=== PATIENT | male | born 1950 ===

== ENCOUNTER 2017-01-08 14:19 | Observation (INO) | payer MEDICARE, OTHER ==
[2017-01-08 14:19] VITALS: BMI 29.5
--- NOTE | 2017-01-08 16:54 | C.PDOC ---
History Of Present Illness 66 year old male with PMH DM, HTN, alcohol abuse presents to the ED with complaints of swelling to his legs and face for the past 3 days. Patient states he occasionally feels dizzy, headache and a bit nauseous. According to daughter , he had kidney problems many years ago but it has since self-resolved. His blood sugar is at baseline at 180. Denies vomiting, chest pain, SOB, rash, itching, throat swelling, lip or tongue swelling, or any other complaints at this time. NO known allergens, new medication or food. (-) change in vision (-) photophobia Time Seen by Provider: 01/08/17 16:28 Chief Complaint (Nursing): Lower Extremity Problem/Injury History Per: Patient, Family (Daughter acting as nursing care attendant) History/Exam Limitations: language barrier Onset/Duration Of Symptoms: Days Current Symptoms Are (Timing): Still Present Severity: Mild Past Medical History Reviewed: Historical Data, Nursing Documentation, Vital Signs Vital Signs: Last Vital Signs Temp 98.4 F 01/09/17 17:36 Pulse 70 01/09/17 17:36 Resp 20 01/09/17 17:36 BP 155/88 H 01/09/17 17:36 Pulse Ox 97 01/11/17 13:43 - Medical History PMH: Anemia, Diabetes, HTN, Pancreatitis Surgical History: Appendectomy Family History: States: Unknown Family Hx - Social History Hx Tobacco Use: No Hx Alcohol Use: Yes Hx Substance Use: No - Immunization History Hx Tetanus Toxoid Vaccination: No Hx Influenza Vaccination: No Hx Pneumococcal Vaccination: No Review Of Systems Except As Marked, All Systems Reviewed And Found Negative. Constitutional: Positive for: Other (+Swelling to hands and face). Negative for : Fever, Chills Cardiovascular: Negative for: Chest Pain, Palpitations Respiratory: Negative for: Shortness of Breath Gastrointestinal: Positive for: Nausea. Negative for: Vomiting, Abdominal Pain Skin: Negative for: Rash Neurological: Positive for: Dizziness. Negative for: Weakness, Numbness Physical Exam - Physical Exam Appears: Non-toxic, No Acute Distress Skin: Normal Color, Warm, Dry, No Rash Head: Atraumatic, Normacephalic, Other (No extensive facial swelling noted) Eye(s): bilateral: Normal Inspection, EOMI Nose: Normal Oral Mucosa: Moist Neck: Supple Chest: Symmetrical, No Deformity Cardiovascular: Rhythm Regular Respiratory: Normal Breath Sounds, No Accessory Muscle Use, No Rales, No Rhonchi , No Wheezing Gastrointestinal/Abdominal: Soft Extremity: Normal ROM, Pedal Edema (+Pitting pedal edema), No Deformity Pulses: Left Radial: Normal, Right Radial: Normal Neurological/Psych: Oriented x3, Normal Speech, Normal Cognition, Normal Motor, Normal Sensation ED Course And Treatment - Laboratory Results Result Diagrams: 01/09/17 08:18 01/09/17 08:18 ECG: Interpreted By Me, Viewed By Me ECG Rhythm: Sinus Rhythm, Nonspecific Changes Rate From EC O2 Sat by Pulse Oximetry: 97 (Room air) Pulse Ox Interpretation: Normal Progress Note: CXR, EKG, Blood work, and Urinalysis ordered and reviewed. Case discussed with Dr. Jung who agreed with plan and admission. Disposition - Disposition Disposition: HOSPITALIZED Disposition Time: 17:00 Condition: STABLE - Clinical Impression Clinical Impression: ETOH abuse, Thrombocytopenia, Leg edema, Diabetes, Dizziness - PA / DELIMER / Resident Statement MD/DO has reviewed & agrees with the documentation as recorded. - Scribe Statement The provider has reviewed the documentation as recorded by the Scribe Alon Mcginnis. All medical record entries made by the Scribe were at my direction and personally dictated by me. I have reviewed the chart and agree that the record accurately reflects my personal performance of the history, physical exam, medical decision making, and the department course for this patient. I have also personally directed, reviewed, and agree with the discharge instructions and disposition.
[2017-01-08 18:11] LABS: BASO # 0.1 K/uL (0.0-0.2); BASO % 1.5 % (0.0-2.0); EOS # 0.1 K/uL (0.0-0.7); EOS % 1.5 % (0.0-4.0); HEMATOCRIT 37.3 % (35.0-51.0); LYMPH % 29.1 % (20.0-40.0); MEAN CELL VOLUME 90.5 fL (80.0-94.0); MEAN CORPUSCULAR HEMOGLOBIN 29.7 pg (27.0-31.0); MEAN CORPUSCULAR HGB CONC 32.9 g/dL (33.0-37.0); MONO # 0.4 K/uL (0.0-0.8); MONO % 10.5 % (0.0-10.0); NRBC % 0.1 % (0.0-2.0); RED CELL DISTRIBUTION WIDTH 15.9 % (11.5-14.5); WHITE BLOOD COUNT 3.5 K/uL (4.8-10.8)
[2017-01-08 18:14] LABS: POTASSIUM 4.6 mmol/L (3.6-5.2)
[2017-01-08 18:16] LABS: BILIRUBIN,TOTAL 2.1 mg/dL (0.2-1.3); RBC URINE 7 /hpf (0-3); URINE BILIRUBIN NEGATIVE (NEGATIVE); URINE BLOOD 1+ (NEGATIVE); URINE COLOR Straw (YELLOW); URINE GLUCOSE (UA) NORMAL (Normal); URINE KETONE TRACE mg/dL (NEGATIVE); URINE LEUKOCYTE ESTERASE NEG Leu/uL (Negative); URINE PROTEIN NEGATIVE (NEGATIVE)
[2017-01-08 18:17] LABS: ALB/GLOB RATIO 1.2 (1.0-2.1); CALCIUM 8.5 mg/dl (8.6-10.4); TOTAL PROTEIN 6.9 g/dL (6.3-8.3)
[2017-01-08 18:28] LABS: TROPONIN I 0.02 ng/mL (0.00-0.120)
--- NOTE | 2017-01-08 20:29 | CP.PCM.HP ---
History of Present Illness - History of Present Illness History of Present Illness: CC: "leg swelling" 66 year old male with PMHx of DM, HTN, alcohol abuse, presents to the ED with complaints of facial and LE swelling. Swelling began 3-4 days ago and has progressively become worse. He states this happened once 6 months ago and went to see his PMD, Dr. Jung. He does not report any new medications or new foods. He denies chest pain, SOB, cough or palpitations. He denies pruritus, sore throat or throat swelling. Admits to occasional PAULSON and can only climb half way up a flight of stairs before having to stop to catch his breath. He sleeps with 1-2 pillows a night, but reports he is able to lay flat. He denies waking up in the middle of the night gasping for air. Denies abdominal pain, nausea, vomiting , diarrhea, and is sometimes constipated. He also reports he has been experiencing headaches for the past month. Headaches wake him from sleep at around 3 am and last 3-4 hours. They have been occurring for 3-4 times a week and are relieved with Motrin. He denies photophobia, history of migraines, lacrimation, neck pain, blurry vision. PMHx: ETOH abuse, ETOH Pancreatitis, DM, HTN Medications: Glimiperide 4 mg PO BID, Lisinopril 20 mg PO daily, Lasix 40 mg PO daily, Propranalol 20 mg PO TID, KCl 20 mg PO BID, Humulin N sliding scale. PSHx: appendectomy Family hx: Both parents , father with DM. Social hx: Drinks about 6-9 shots of vodka daily. Last drink was last night at 10 pm. Former smoker, quit 20 yrs ago, denies drug use. Lives with family, retired. Allergies: NKDA. PMD: Dr. Jung Present on Admission - Present on Admission Any Indicators Present on Admission: No Review of Systems - Constitutional Constitutional: absent: Chills, Fatigue, Fever - EENT Eyes: absent: Blurred Vision, Change in Vision, Irritation, Photophobia Ears: Dizziness Nose/Mouth/Throat: absent: Sore Throat, Neck Pain - Cardiovascular Cardiovascular: Dyspnea on Exertion, Leg Edema, Pedal Edema. absent: Chest Pain , Chest Pain at Rest, Dyspnea - Respiratory Respiratory: Dyspnea on Exertion. absent: Cough, Dyspnea - Gastrointestinal Gastrointestinal: Constipation. absent: Abdominal Pain, Diarrhea, Nausea, Vomiting - Genitourinary Genitourinary: absent: Difficulty Urinating, Dysuria, Urinary Frequency, Urinary Urgency - Musculoskeletal Musculoskeletal: absent: Atrophy, Back Pain, Numbness, Tingling - Integumentary Integumentary: absent: Bleeding Lesions, Skin Pain, Wounds - Neurological Neurological: Dizziness, Headaches. absent: Numbness, Paresthesias, Syncope, Tingling - Psychiatric Psychiatric: absent: Confusion, Depression - Endocrine Endocrine: absent: Fatigue, Palpitations, Polydipsia, Polyphagia, Polyuria Past Patient History - Infectious Disease Hx of Infectious Diseases: None - Past Medical History & Family History Past Medical History?: Yes - Past Social History Smoking Status: Never Smoked - CARDIAC Hx Hypertension: Yes - PULMONARY Hx Respiratory Disorders: No - NEUROLOGICAL Hx Neurological Disorder: No - HEENT Hx HEENT Problems: No - RENAL Hx Chronic Kidney Disease: No - ENDOCRINE/METABOLIC Hx Endocrine Disorders: Yes Hx Diabetes Mellitus Type 1: Yes Hx Diabetes Mellitus Type 2: Yes - HEMATOLOGICAL/ONCOLOGICAL Hx Anemia: Yes - INTEGUMENTARY Hx Dermatological Problems: No - MUSCULOSKELETAL/RHEUMATOLOGICAL Hx Musculoskeletal Disorders: No - GASTROINTESTINAL Hx Pancreatitis: Yes - GENITOURINARY/GYNECOLOGICAL Hx Genitourinary Disorders: No - PSYCHIATRIC Hx Substance Use: No - SURGICAL HISTORY Hx Appendectomy: Yes - ANESTHESIA Hx Anesthesia: Yes Hx Anesthesia Reactions: No Meds Allergies/Adverse Reactions: Allergies Allergy/AdvReac Type Severity Reaction Status Date / Time No Known Allergies Allergy Verified 01/08/17 15:40 Physical Exam - Constitutional Appears: No Acute Distress - Head Exam Head Exam: NORMAL INSPECTION, NORMOCEPHALIC - Eye Exam Eye Exam: EOMI, Scleral icterus Pupil Exam: PERRL Additional comments: periorbital erythema - ENT Exam ENT Exam: Mucous Membranes Moist, Normal Oropharynx - Neck Exam Neck exam: Positive for: Full Rom, Normal Inspection - Respiratory Exam Respiratory Exam: Clear to Auscultation Bilateral. absent: Rales, Rhonchi, Wheezes - Cardiovascular Exam Cardiovascular Exam: REGULAR RHYTHM, +S1, +S2 - GI/Abdominal Exam GI & Abdominal Exam: Normal Bowel Sounds, Soft. absent: Distended, Tenderness - Extremities Exam Extremities exam: Positive for: pedal edema, tenderness (righ le), pedal pulses present - Back Exam Back exam: NORMAL INSPECTION - Neurological Exam Neurological exam: Alert, CN II-XII Intact, Oriented x3 - Psychiatric Exam Psychiatric exam: Normal Affect, Normal Mood - Skin Skin Exam: Dry, Normal Color, Warm Results - Vital Signs Recent Vital Signs: Last Vital Signs Temp 98.3 F 01/08/17 15:45 Pulse 78 01/08/17 15:45 Resp 20 01/08/17 15:45 BP 178/97 H 01/08/17 15:45 Pulse Ox 97 01/08/17 18:46 - Labs Result Diagrams: 01/08/17 18:05 01/08/17 18:05 Assessment & Plan (1) Leg edema Assessment and Plan: Patient denies history of heart failure. Patient given Lasix 40 in the ED. EKG on admission shows [id number] bpm. BNP 604 (152 in 2013) Albumin 3.8 (normal) f/u ECHO, none on file. Start the following medications: Lasix 40 mg IVP BID Propranolol 20 mg PO TID Hold ACEi for JANENE I/O's Daily weights Low Sodium Diet Status: Acute (2) Headache Assessment and Plan: f/u head CT control BP Status: Acute (3) ETOH abuse Assessment and Plan: Librium taper Librium 25 mg IVP PRN Q4H Ativan Thiamine PO daily MV PO daily Folic Acid PO daily Monitor for withdrawal. Last drink 10 pm on 01/07/17. Aspiration precautions Seizure precautions Status: Chronic (4) Thrombocytopenia Assessment and Plan: Likely secondary to BM suppression due to alcohol abuse. Status: Acute (5) Bilirubinemia Assessment and Plan: Clary Garzon: 2.1 Patient with history of 2 pancreatic masses as seen on MRCP 2015 with need for 3 month follow up. f/u direct and total bili f/u abd US Status: Acute (6) Neutropenia Assessment and Plan: Likely secondary to BM suppression due to alcohol abuse. Status: Acute (7) Elevated LFTs Status: Acute (8) Creatinine elevation Assessment and Plan: NS at 100 cc/hr f/u CMP in the AM Status: Acute (9) Diabetes Assessment and Plan: Amyril 4 mg PO BID ISS ACCUCHECKS f/u Hgb A1C Status: Chronic (10) HTN (hypertension) Assessment and Plan: Propranolol 20 mg PO TID Hold ACEi for JANENE Continue Lasix Status: Chronic (11) Prophylactic measure Assessment and Plan: SCDs contraindicated Protonix 40 mg PO daily May start chemical AC once head CT shows no IC bleed. All orders as per Dr. Jung Status: Acute
[2017-01-08 22:22] VITALS: O2SAT 97
[2017-01-08] MEDS: (Novolin R) Insulin Human Regular 100 units/ml vial SC SCH (22:31)
[2017-01-09 00:41] VITALS: RESP 20
[2017-01-09 08:27] LABS: BASO % 1.3 % (0.0-2.0); EOS % 1.2 % (0.0-4.0); HEMATOCRIT 34.5 % (35.0-51.0); LYMPH # 0.8 K/uL (1.0-4.3); LYMPH % 28.3 % (20.0-40.0); MEAN CELL VOLUME 92.2 fL (80.0-94.0); MEAN CORPUSCULAR HEMOGLOBIN 29.7 pg (27.0-31.0); MEAN CORPUSCULAR HGB CONC 32.2 g/dL (33.0-37.0); MEAN PLATELET VOLUME 8.3 fL (7.2-11.7); MONO # 0.3 K/uL (0.0-0.8); MONO % 11.4 % (0.0-10.0); NRBC % 0.2 % (0.0-2.0); RED CELL DISTRIBUTION WIDTH 16.1 % (11.5-14.5); WHITE BLOOD COUNT 2.8 K/uL (4.8-10.8)
[2017-01-09 08:39] LABS: POTASSIUM 3.9 mmol/L (3.6-5.2)
[2017-01-09 08:41] LABS: ALB/GLOB RATIO 1.2 (1.0-2.1); BILIRUBIN,DIRECT 0.8 mg/dL (0.0-0.4); BILIRUBIN,TOTAL 2.1 mg/dL (0.2-1.3); TOTAL PROTEIN 6.1 g/dL (6.3-8.3)
[2017-01-09 08:42] LABS: CALCIUM 8.5 mg/dl (8.6-10.4)
[2017-01-09] MEDS: (Novolin R) Insulin Human Regular 100 units/ml vial SC SCH ×3 (08:44→17:09)
[2017-01-09 09:11] LABS: THYROID STIMULATING HORMONE 3.48 mIU/L (0.46-4.68)
--- NOTE | 2017-01-09 09:21 | CT ---
PROCEDURE: CT HEAD WITHOUT CONTRAST. HISTORY: headache, dizziness COMPARISON: Comparison is made to the previous study dated 04/22/2014 TECHNIQUE: Axial computed tomography images were obtained through the head/brain without intravenous contrast. Radiation dose: Total exam DLP = 737.04 mGy-cm. This CT exam was performed using one or more of the following dose reduction techniques: Automated exposure control, adjustment of the mA and/or kV according to patient size, and/or use of iterative reconstruction technique. FINDINGS: HEMORRHAGE: No intracranial hemorrhage. BRAIN: No mass effect or edema. Moderate atrophy and mild chronic microvascular white matter ischemic disease are again noted. VENTRICLES: Unremarkable. No hydrocephalus. CALVARIUM: Unremarkable. PARANASAL SINUSES: Re- demonstration of small mucosal retention cyst at the right renal sinus. MASTOID AIR CELLS: Unremarkable as visualized. No inflammatory changes. OTHER FINDINGS: None. IMPRESSION: No evidence of acute intracranial hemorrhage intracranial collection mass effect or midline shift. No significant interval change compared to the previous exam. Preliminary report was submitted by virtual Radiology.
--- NOTE | 2017-01-09 09:26 | RAD ---
PROCEDURE: CHEST RADIOGRAPH, 1 VIEW HISTORY: SOB COMPARISON: Comparison is made to the previous study dated 05/15/2015 FINDINGS: LUNGS: No evidence of new infiltrate or consolidation in the lungs PLEURA: No pneumothorax or pleural fluid seen. CARDIOVASCULAR: Normal. OSSEOUS STRUCTURES: No significant abnormalities. VISUALIZED UPPER ABDOMEN: Normal. OTHER FINDINGS: None. IMPRESSION: No active disease.
[2017-01-09] MEDS ORDERED: Pantoprazole 40 mg EC Tab PO SCH (10:00)
[2017-01-09] MEDS ORDERED: Multiple Vitamins Tab PO SCH (10:00)
--- NOTE | 2017-01-09 15:17 | CP.PCM.DIS ---
Provider - Provider Date of Admission: 01/08/17 18:40 Attending physician: Justin Jung Jr, MD Primary care physician: Fabiana Time Spent in preparation of Discharge (in minutes): 29 Hospital Course - Lab Results Lab Results: Micro Results 01/08/17 Unknown Urine Urine Culture - Preliminary No growth. Most Recent Lab Values WBC 2.8 K/uL (4.8-10.8) L 01/09/17 08:18 RBC 3.75 Mil/uL (4.40-5.90) L 01/09/17 08:18 Hgb 11.1 g/dL (12.0-18.0) L 01/09/17 08:18 Hct 34.5 % (35.0-51.0) L 01/09/17 08:18 MCV 92.2 fL (80.0-94.0) 01/09/17 08:18 MCH 29.7 pg (27.0-31.0) 01/09/17 08:18 MCHC 32.2 g/dL (33.0-37.0) L 01/09/17 08:18 RDW 16.1 % (11.5-14.5) H 01/09/17 08:18 Plt Count 82 K/uL (130-400) L 01/09/17 08:18 MPV 8.3 fL (7.2-11.7) 01/09/17 08:18 Neut % (Auto) 57.8 % (50.0-75.0) 01/09/17 08:18 Lymph % (Auto) 28.3 % (20.0-40.0) 01/09/17 08:18 Preble % (Auto) 11.4 % (0.0-10.0) H 01/09/17 08:18 Eos % (Auto) 1.2 % (0.0-4.0) 01/09/17 08:18 Baso % (Auto) 1.3 % (0.0-2.0) 01/09/17 08:18 Neut # 1.6 K/uL (1.8-7.0) L 01/09/17 08:18 Lymph # 0.8 K/uL (1.0-4.3) L 01/09/17 08:18 Preble # 0.3 K/uL (0.0-0.8) 01/09/17 08:18 Eos # 0.0 K/uL (0.0-0.7) 01/09/17 08:18 Baso # 0.0 K/uL (0.0-0.2) 01/09/17 08:18 Differential Comment 01/08/17 18:05 Sodium 130 mmol/L (132-148) L 01/09/17 08:18 Potassium 3.9 mmol/L (3.6-5.2) 01/09/17 08:18 Chloride 85 mmol/L (98-107) L 01/09/17 08:18 Carbon Dioxide 30 mmol/L (22-30) 01/09/17 08:18 Anion Gap 18 (10-20) 01/09/17 08:18 BUN 16 mg/dL (9-20) 01/09/17 08:18 Creatinine 1.7 MG/DL (0.8-1.5) H 01/09/17 08:18 Est GFR ( Amer) 49 01/09/17 08:18 Est GFR (Non-Af Amer) 40 01/09/17 08:18 POC Glucose (mg/dL) 304 mg/dL (65-110) H 01/09/17 11:31 Random Glucose 169 mg/dL (75-110) H 01/09/17 08:18 Hemoglobin A1c 8.0 % (4.2-6.5) H 01/09/17 08:18 Calcium 8.5 mg/dl (8.6-10.4) L 01/09/17 08:18 Total Bilirubin 2.1 mg/dL (0.2-1.3) H 01/09/17 08:18 Direct Bilirubin 0.8 mg/dL (0.0-0.4) H 01/09/17 08:18 AST 113 U/L (17-59) H D 01/09/17 08:18 ALT 69 U/L (21-72) 01/09/17 08:18 Alkaline Phosphatase 70 U/L (38-126) 01/09/17 08:18 Total Creatine Kinase 91 U/L (55-170) 01/08/17 18:05 CK-MB (Mass) 1.65 ng/mL (0.0-3.38) 01/08/17 18:05 Troponin I 0.0200 ng/mL (0.00-0.120) 01/08/17 18:05 NT-Pro-B Natriuret Pep 604 pg/mL (0-900) 01/08/17 18:05 Total Protein 6.1 g/dL (6.3-8.3) L 01/09/17 08:18 Albumin 3.3 g/dL (3.5-5.0) L 01/09/17 08:18 Globulin 2.8 gm/dL (2.2-3.9) 01/09/17 08:18 Albumin/Globulin Ratio 1.2 (1.0-2.1) 01/09/17 08:18 Triglycerides 93 mg/dL (0-149) 01/09/17 08:18 Cholesterol 152 mg/dL (0-199) 01/09/17 08:18 LDL Cholesterol Direct 47 mg/dL (0-129) 01/09/17 08:18 HDL Cholesterol 87 mg/dL (30-70) H 01/09/17 08:18 TSH 3rd Generation 3.48 mIU/L (0.46-4.68) 01/09/17 08:18 Urine Color Straw (YELLOW) 01/08/17 18:05 Urine Clarity Clear (Clear) 01/08/17 18:05 Urine pH 9.0 (5.0-8.0) 01/08/17 18:05 Ur Specific Douglass 1.004 (1.003-1.030) 01/08/17 18:05 Urine Protein Negative mg/dL (NEGATIVE) 01/08/17 18:05 Urine Glucose (UA) Normal mg/dL (Normal) 01/08/17 18:05 Urine Ketones Trace mg/dL (NEGATIVE) 01/08/17 18:05 Urine Blood 1+ (NEGATIVE) H 01/08/17 18:05 Urine Nitrate Negative (NEGATIVE) 01/08/17 18:05 Urine Bilirubin Negative (NEGATIVE) 01/08/17 18:05 Urine Urobilinogen 2.0 mg/dL (0.2-1.0) 01/08/17 18:05 Ur Leukocyte Esterase Neg D[place]/uL (Negative) 01/08/17 18:05 Urine RBC (Auto) 7 /hpf (0-3) H 01/08/17 18:05 - Hospital Course Hospital Course: On hospital admission 66 year old male with PMHx of DM, HTN, alcohol abuse, presents to the ED with complaints of facial and LE swelling. Swelling began 3-4 days ago and has progressively become worse. He states this happened once 6 months ago and went to see his PMD, Dr. Jung. He does not report any new medications or new foods. He denies chest pain, SOB, cough or palpitations. He denies pruritus, sore throat or throat swelling. Admits to occasional PAULSON and can only climb half way up a flight of stairs before having to stop to catch his breath. He sleeps with 1-2 pillows a night, but reports he is able to lay flat. He denies waking up in the middle of the night gasping for air. Denies abdominal pain, nausea, vomiting , diarrhea, and is sometimes constipated. He also reports he has been experiencing headaches for the past month. Headaches wake him from sleep at around 3 am and last 3-4 hours. They have been occurring for 3-4 times a week and are relieved with Motrin. He denies photophobia, history of migraines, lacrimation, neck pain, blurry vision. On hospital course Pt admitted with lower extremity edema and headache, complicated by hx of alcohol abuse. Pt denied and hx of CHF but work up was started with ordering an echo and reviewing labs. He was diuresed and started on propranolol. Lower extremity doplers were also ordered to r/o any DVT. A head CT was ordered to r/ o any organic causes of his headache but was normal. The following day the pt reported that his headache had resolved and he had no more complaints. Pt was discharged in stable condition with instructions to follow up with Dr Jung in his office where all results that were still pending could be reviewed. Diagnoses Headache Lower extremity edema Etoh abuse Thrombocytopenia Neutropenia Bilirubinemia Diabetes HTN - Date & Time of H&P Date of H&P: 01/08/17 Time of H&P: 20:17 Discharge Exam - Head Exam Head Exam: NORMAL INSPECTION, NORMOCEPHALIC - Eye Exam Eye Exam: Normal appearance Pupil Exam: PERRL - ENT Exam ENT Exam: Mucous Membranes Moist - Respiratory Exam Respiratory Exam: Clear to PA & Lateral, UNREMARKABLE - Cardiovascular Exam Cardiovascular Exam: +S1, +S2 - GI/Abdominal Exam GI & Abdominal Exam: Distended, Normal Bowel Sounds, Unremarkable. absent: Tenderness - Extremities Exam Extremities exam: pedal edema (1+) - Neurological Exam Neurological exam: Alert, Oriented x3 - Skin Skin Exam: Dry, Warm Discharge Plan - Follow Up Plan Condition: GOOD Disposition: HOME/ ROUTINE Instructions: Vertigo (DC), Dizziness (GEN), Edema (DC) Additional Instructions: Follow up with Dr Jung in his office within the next couple of weeks and resume your home medications. Referrals: Justin Jung Jr., MD [Medical Doctor] -
--- NOTE | 2017-01-09 16:01 | VASCLAB ---
PROCEDURE: Lower Extremity Venous Duplex Exam. HISTORY: le edema PRIORS: None. TECHNIQUE: Bilateral common femoral, femoral, popliteal and posterior tibial, peroneal and great saphenous veins were evaluated. Flow was assessed with color Doppler, compressibility, assessment of phasic flow and augmentation response. Report prepared by LISA Pereira, RVT FINDINGS: RIGHT: 1. Common Femoral Vein: 1.1. Compressibility - Fully compressible: Thrombus - None : Flow - Phasic: Augmentation -Normal: Reflux - None. 2. Femoral Vein: 2.1. Compressibility - Fully compressible: Thrombus - None : Flow - Phasic: Augmentation -Normal: Reflux - None. 3. Popliteal Vein: 3.1. Compressibility - Fully compressible: Thrombus - None : Flow - Phasic: Augmentation -Normal: Reflux - None. 4. Posterior Tibial Vein: 4.1. Compressibility - Fully compressible: Thrombus - None: Flow - Phasic: Augmentation -Normal: Reflux - None. 5. Peroneal Vein: 5.1. Compressibility - Fully compressible: Thrombus - None: Flow - Phasic: Augmentation -Normal: Reflux - None. 6. Great Saphenous Vein: 6.1. Compressibility - Fully compressible: Thrombus - None: Flow - Phasic: Augmentation - Normal: Reflux - None. LEFT: 1. Common Femoral Vein: 1.1. Compressibility - Fully compressible: Thrombus - None: Flow - Phasic: Augmentation -Normal: Reflux - None. 2. Femoral Vein: 2.1. Compressibility - Fully compressible: Thrombus - None: Flow - Phasic: Augmentation -Normal: Reflux - None. 3. Popliteal Vein: 3.1. Compressibility - Fully compressible: Thrombus - None : Flow - Phasic: Augmentation -Normal: Reflux - None. 4. Posterior Tibial Vein: 4.1. Compressibility - Fully compressible: Thrombus - None: Flow - Phasic: Augmentation -Normal: Reflux - None. 5. Peroneal Vein: 5.1. Compressibility - Fully compressible: Thrombus - None: Flow - Phasic: Augmentation -Normal: Reflux - None. 6. Great Saphenous Vein: 6.1. Compressibility - Fully compressible: Thrombus - None: Flow - Phasic: Augmentation - Normal: Reflux - None. OTHER FINDINGS: Right: None significant. Left: None significant. IMPRESSION: Right: No evidence of deep or superficial vein thrombosis of the right lower extremity. Normal valve function noted of the right side. Left: No evidence of deep or superficial vein thrombosis of the left lower extremity. Normal valve function noted of the left side.
[2017-01-09 17:37] VITALS: BP 155/88; PULSE 70; TEMP 98.4
--- NOTE | 2017-01-09 18:13 | US ---
HISTORY: elevated tbilli, alcoholic COMPARISON: October 10, 2015. TECHNIQUE: Sonographic evaluation of the abdomen. FINDINGS: LIVER: Measures 17.7 cm. Hepatopedal blood flow. Fatty infiltration manifest ultrasonographically as increased echogenicity of the liver parenchyma. No mass. No intrahepatic bile duct dilatation. GALLBLADDER: Unremarkable. No gallstones. COMMON BILE DUCT: Measures 4.7 mm. No stones. No dilatation. PANCREAS: Obscured by overlying bowel gas. Non diagnostic assessment of the pancreas RIGHT KIDNEY: Measures 11.8 x 5.4cm. Normal echogenicity. No calculus, mass, or hydronephrosis. LEFT KIDNEY: Measures 11.7 x 5.8cm. Normal echogenicity. No calculus, mass, or hydronephrosis. SPLEEN: Normal in size and contour. No mass. AORTA: No aneurysmal dilatation. IVC: Unremarkable. OTHER FINDINGS: None. IMPRESSION: No acute findings related to/accounting for the clinical presentation. No significant interval change compared to the prior examination(s). Additional benign and/or incidental findings described above.
--- NOTE | 2017-01-10 19:05 | CARD ---
APPROVED REPORT EKG Measurement Heart [id number] <Conclusion> Normal sinus rhythm Left axis deviation Nonspecific ST and T wave abnormality Abnormal ECG
--- NOTE | 2017-01-10 19:27 | CARD ---
APPROVED REPORT EXAM: Two-dimensional and M-mode echocardiogram with Doppler and color Doppler. Other Information Quality : AverageRhythm : NSR INDICATION Dizziness and Vertigo RISK FACTORS Hypertension Hyperlipidemia Diabetes M-Mode DIMENSIONS Left Atrium (MM)3.54 (2.5-4.0cm)IVSd1.11 (0.7-1.1cm) Aortic Root3.58 (2.2-3.7cm)LVDd4.77 (4.0-5.6cm) Aortic Cusp Exc.1.55 (1.5-2.0cm)PWd1.18 (0.7-1.1cm) FS (%) 39 %LVDs2.92 (2.0-3.8cm) LVEF (%)69 (>50%) Mitral Valve MV E Ojuzrjdv05.7cm/sMV A Flwgjtja05.7cm/sE/A ratio1.0 TDI E/Lateral E'0.0E/Medial E'0.0 Tricuspid Valve TR Peak [id number]/sTR Peak Gr.[id number] LEFT VENTRICLE The left ventricle is normal size. There is borderline concentric left ventricular hypertrophy. Left ventricle systolic function is normal. The Ejection Fraction is 65-70%. There is normal LV segmental wall motion. The left ventricular diastolic function is normal. RIGHT VENTRICLE The right ventricle is normal size. There is normal right ventricular wall thickness. The right ventricular systolic function is normal. ATRIA The left atrium size is normal. The right atrium size is normal. The interatrial septum is intact with no evidence for an atrial septal defect. AORTIC VALVE The aortic valve is normal in structure. No aortic regurgitation is present. There is no aortic valvular stenosis. There is no aortic valvular vegetation. MITRAL VALVE The mitral valve is normal in structure. There is no evidence of mitral valve prolapse. There is no mitral valve stenosis. Mitral regurgitation is trace. TRICUSPID VALVE The tricuspid valve is normal in structure. There is trace tricuspid regurgitation. Right ventricular systolic pressure is estimated at less than 30 mmHg. There is no pulmonary hypertension. PULMONIC VALVE The pulmonic valve is not well visualized. There is no pulmonic valvular regurgitation. GREAT VESSELS The aortic root is normal in size. PERICARDIAL EFFUSION There is no significant pericardial effusion. <Conclusion> Left ventricle systolic function is normal. The Ejection Fraction is 65-70%. There is borderline concentric left ventricular hypertrophy. No aortic regurgitation is present. Mitral regurgitation is trace. There is trace tricuspid regurgitation. There is no pulmonary hypertension. There is no pulmonic valvular regurgitation.
== END 2017-01-09 17:45 | disposition home or self-care (01) ==
LOC: C.ER 14:19 → C.9E 18:40 → C.3T 20:51
PROVIDERS: ADMIT Internal Medicine; ATTEND Internal Medicine
DX: R60.0 Localized edema (principal); R51 Headache; F10.10 Alcohol abuse, uncomplicated; D69.6 Thrombocytopenia, unspecified; R17 Unspecified jaundice; D70.9 Neutropenia, unspecified; R79.89 Other specified abnormal findings of blood chemistry; E11.9 Type 2 diabetes mellitus without complications; I10 Essential (primary) hypertension
CPT/HCPCS: 36415; 70450; 71010; 76700; 80053; 80061; 81001; 82248; 82550; 82553; 82948; 83036; 83880; 84443; 84484; 85025; 87086; 93306; 93970; 96374; 97116; 97162; 99285; G0378; G8978; G8979; J1940

== ENCOUNTER 2017-10-28 14:11 | Inpatient (IN) | payer MEDICARE, OTHER ==
[2017-10-28 14:12] VITALS: BMI 29.5
--- NOTE | 2017-10-28 14:52 | C.PDOC ---
History Of Present Illness 66-year-old male, presents to the emergency department with complaints of recur abd pain since yest. SIM TO PRIOR. +NV. DENIES GI BLEED. LAST DRINK YEST. PMHx of DM, HTN, alcohol abuse EXAM NONTOXIC HEENT +ICTERIC CLEAR; ABD SOFT NT ND ND NO R/G NEURO INTACT NO TREMOR PSYCH CALM COOPERATIVE NO INTOX REMAINDER NEG Time Seen by Provider: 10/28/17 14:15 History Per: Patient History/Exam Limitations: no limitations Onset/Duration Of Symptoms: Days Current Symptoms Are (Timing): Still Present Severity: Moderate Past Medical History Reviewed: Historical Data, Nursing Documentation, Vital Signs Vital Signs: Last Vital Signs Temp 97.9 F 10/28/17 17:43 Pulse 100 H 10/28/17 17:43 Resp 20 10/28/17 17:43 BP 199/107 H 10/28/17 17:43 Pulse Ox 100 10/28/17 17:43 - Medical History PMH: Anemia, Diabetes, HTN, Pancreatitis Denies: Chronic Kidney Disease Surgical History: Appendectomy Family History: States: No Known Family Hx - Social History Hx Tobacco Use: No Hx Alcohol Use: Yes Hx Substance Use: No - Immunization History Hx Tetanus Toxoid Vaccination: No Hx Influenza Vaccination: No Hx Pneumococcal Vaccination: No Review Of Systems Except As Marked, All Systems Reviewed And Found Negative. Constitutional: Negative for: Fever, Chills Cardiovascular: Negative for: Chest Pain, Palpitations Respiratory: Negative for: Shortness of Breath Gastrointestinal: Positive for: Nausea, Vomiting, Abdominal Pain. Negative for : Diarrhea Musculoskeletal: Negative for: Back Pain Neurological: Negative for: Weakness, Numbness, Headache, Dizziness Physical Exam - Physical Exam Appears: Non-toxic, No Acute Distress, Other (CALM COOPERATIVE NO INTOX) Skin: Warm, Dry, No Rash Head: Atraumatic, Normacephalic Eye(s): bilateral: PERRL, Other (+ICTERIC CLEAR) Nose: Normal Oral Mucosa: Moist Lips: Normal Appearing Neck: Normal ROM Chest: Symmetrical Cardiovascular: Rhythm Regular, No Murmur Respiratory: Normal Breath Sounds, No Accessory Muscle Use Gastrointestinal/Abdominal: Soft, No Tenderness, No Guarding, No Rebound Extremity: Normal ROM Neurological/Psych: Oriented x3, Normal Speech, Other (on RA) ED Course And Treatment - Laboratory Results Result Diagrams: 10/28/17 15:28 10/28/17 15:28 O2 Sat by Pulse Oximetry: 99 Progress - Re-Evaluation Re-evaluation Note: 10/28/17 17:15 D/W DR JUNG AWARE OF ER FINDINGS WILL ADMIT. CT PENDING - Data Reviewed Data Reviewed: Lab, Diagnostic imaging, EKG, Old records Disposition Counseled Patient/Family Regarding: Studies Performed, Diagnosis - Disposition Disposition: HOSPITALIZED Disposition Time: 17:15 Condition: STABLE - POA Present On Arrival: None - Clinical Impression Clinical Impression: Pancreatitis, alcoholic, acute - Scribe Statement The provider has reviewed the documentation as recorded by the Scribe (Janna Merida) All medical record entries made by the Scribe were at my direction and personally dictated by me. I have reviewed the chart and agree that the record accurately reflects my personal performance of the history, physical exam, medical decision making, and the department course for this patient. I have also personally directed, reviewed, and agree with the discharge instructions and disposition. Decision To Admit - Pt Status Changed To: Hospital Disposition Of: Inpatient - Admit Certification Admit to Inpatient:: After my assessment, the patient will require hospitalization for at least two midnights. This is because of the severity of symptoms shown, intensity of services needed, and/or the medical risk in this patient being treated as an outpatient. - InPatient: Physician Admission Certification:: SEE NOTE - . Bed Request Type: Regular Admitting Physician: Justin Jung Jr. Patient Diagnosis: Pancreatitis, alcoholic, acute
[2017-10-28] MEDS ORDERED: Sodium Chloride 0.9% 1,000 ML IV ONE (14:59)
[2017-10-28] MEDS ORDERED: Sodium Chloride 0.9% 1,000 ML ONE (15:09)
[2017-10-28 15:31] LABS: BASO # 0.1 K/uL (0.0-0.2); BASO % 1.2 % (0.0-2.0); HEMOGLOBIN 9.9 g/dL (12.0-18.0); LYMPH # 0.9 K/uL (1.0-4.3); LYMPH % 14.3 % (20.0-40.0); MEAN CELL VOLUME 87.6 fL (80.0-94.0); MEAN CORPUSCULAR HEMOGLOBIN 28.1 pg (27.0-31.0); MEAN CORPUSCULAR HGB CONC 32.1 g/dL (33.0-37.0); MEAN PLATELET VOLUME 7.6 fL (7.2-11.7); MONO # 0.3 K/uL (0.0-0.8); MONO % 4.3 % (0.0-10.0); NEUT # 5.1 K/uL (1.8-7.0); NEUT % 80.2 % (50.0-75.0); NRBC % 0.1 % (0.0-2.0); RBC 3.54 Mil/uL (4.40-5.90); WHITE BLOOD COUNT 6.4 K/uL (4.8-10.8)
[2017-10-28 15:48] LABS: ALB/GLOB RATIO 1.1 (1.0-2.1); ALBUMIN 4.2 g/dL (3.5-5.0); ALT/SGPT 37 U/L (21-72); AST/SGOT 102 U/L (17-59); BLOOD UREA NITROGEN 13 mg/dL (9-20); CALCIUM 11.9 mg/dl (8.6-10.4); GFR AFRICAN-AMERICAN > 60; GFR NON-AFRICAN AMERICAN 55
[2017-10-28 16:03] LABS: LIPASE 2310 U/L (23-300)
[2017-10-28] MEDS ORDERED: Iodixanol 320 mg/ml 150 ml Bottle IV ONE (16:10)
[2017-10-28 16:46] LABS: URINE BACTERIA RARE (<OCC); URINE BILIRUBIN NEGATIVE (NEGATIVE); URINE BLOOD 1+ (NEGATIVE); URINE CLARITY Clear (Clear); URINE COLOR Yellow (YELLOW); URINE GLUCOSE (UA) 1+ mg/dL (Normal); URINE LEUKOCYTE ESTERASE NEG Leu/uL (Negative); URINE NITRATE NEGATIVE (NEGATIVE); URINE PROTEIN 1+ mg/dL (NEGATIVE); URINE UROBILINOGEN NORMAL mg/dL (0.2-1.0)
--- NOTE | 2017-10-28 17:19 | CT ---
PROCEDURE: CT Abdomen and Pelvis with contrast HISTORY: abd pain COMPARISON: 10/09/2015 TECHNIQUE: Contrast dose: 100 mL Visipaque 320 Radiation dose: Total exam DLP = 881.70 mGy-cm. This CT exam was performed using one or more of the following dose reduction techniques: Automated exposure control, adjustment of the mA and/or kV according to patient size, and/or use of iterative reconstruction technique. FINDINGS: LOWER THORAX: Ill-defined opacity right lower lobe, possible pneumonia. Trace right pleural effusion. Circumferential mural thickening of the distal esophagus, nonspecific. Consider endoscopy to rule out neoplasm. No hiatal hernia. LIVER: Normal size. Mild atrophy of left lobe. Extensive fatty infiltration of the right lobe of liver, sparing the left lobe. Smooth contour. No mass. No biliary dilatation. GALLBLADDER AND BILE DUCTS: Unremarkable. PANCREAS: Moderate pancreatic atrophy. Hazy peripancreatic density consistent with acute pancreatitis. No fluid collection. There is a low-density/cystic pancreatic mass measuring approximately 1.3 cm in greatest dimension, not evident on prior examination. There is a nodular pancreatic calcification in the body of the pancreas unchanged from prior examination. This is seen immediately adjacent to this cystic mass. No pancreatic ductal dilatation. SPLEEN: Unremarkable. ADRENALS: Unremarkable. No mass. KIDNEYS AND URETERS: Nonobstructing 2 mm calculus lower pole right kidney. Unchanged. No renal mass or hydronephrosis. VASCULATURE: Unremarkable. No aortic aneurysm. BOWEL: Unremarkable. No obstruction. No gross mural thickening. APPENDIX: Not identified. No secondary findings to suggest acute appendicitis. PERITONEUM: Unremarkable. No free fluid. No free air. LYMPH NODES: Unremarkable. No enlarged lymph nodes. BLADDER: Poorly distended. Diffuse bladder wall thickening may be due to inadequate distention. Rule out cystitis. REPRODUCTIVE: Mild prostate enlargement. BONES: No acute fracture. OTHER FINDINGS: None. IMPRESSION: Findings consistent with mild or early acute pancreatitis. New low-density/cystic 1.3 cm mass in body of pancreas. Nonspecific. Possible intrapancreatic pseudocyst from prior pancreatitis. Possible IPMN. Follow-up advised. Fatty infiltration of the liver with sparing of the left lobe and mild atrophy of the left lobe. Mildly thickened bladder wall but there is poor distension of the urinary bladder. Rule out cystitis. Nonobstructing tiny right renal calculus. Ill-defined opacity in right lower lobe. Rule out pneumonia. Circumferential mural thickening of distal esophagus. Rule out neoplasm. Consider evaluation with endoscopy when clinically feasible.
[2017-10-28] MEDS: Sodium Chloride 0.9% 1,000 ML IV SCH (17:58)
--- NOTE | 2017-10-28 18:12 | CP.PCM.HP ---
History of Present Illness - History of Present Illness History of Present Illness: CC: "Vomiting" HPI: 66 year old male with past medical history of alcohol abuse, pancreatitis, DM and HTN presents to the ED for vomiting. He states he has been vomiting for the past 2 days. He has vomited about 5-6x per day. He states he tried Tums which helped at first but it stopped helping. Patient states he has pain in his stomach that is burning and constant. The pain is currently a 1/10. Patient states his last meal was at 1pm yesterday. He also states his last drink was yesterday. He denies withdrawal symptoms due to drinking. Patient denies fever , diarrhea, constipation, chest pain, difficulty breathing, or dysuria. PMD: Dr. Jung PMHx: ETOH abuse, ETOH Pancreatitis, DM, HTN Medications: Glimiperide 4 mg PO BID, Lisinopril 20 mg PO daily, Lasix 40 mg PO daily, Propranalol 20 mg PO TID, KCl 20 mg PO BID, Humulin N sliding scale. PSHx: appendectomy Family hx: Both parents , father with DM. Social hx: Drinks about 6-9 shots of vodka daily. Last drink was yesterday. Former smoker, quit 20 yrs ago, denies drug use. Lives with family, retired. Allergies: NKDA. Present on Admission - Present on Admission Any Indicators Present on Admission: No Review of Systems - Constitutional Constitutional: absent: Chills, Fever - Cardiovascular Cardiovascular: absent: Chest Pain, Dyspnea - Respiratory Respiratory: absent: Dyspnea - Gastrointestinal Gastrointestinal: Abdominal Pain, Nausea, Vomiting. absent: Constipation, Diarrhea, Hematemesis - Genitourinary Genitourinary: absent: Dysuria Past Patient History - Infectious Disease Hx of Infectious Diseases: None - Past Medical History & Family History Past Medical History?: Yes - Past Social History Smoking Status: Former Smoker - CARDIAC Hx Hypertension: Yes - PULMONARY Hx Respiratory Disorders: No - NEUROLOGICAL Hx Neurological Disorder: No - HEENT Hx HEENT Problems: No - RENAL Hx Chronic Kidney Disease: No - ENDOCRINE/METABOLIC Hx Diabetes Mellitus Type 1: Yes Hx Diabetes Mellitus Type 2: Yes - HEMATOLOGICAL/ONCOLOGICAL Hx Anemia: Yes - INTEGUMENTARY Hx Dermatological Problems: No - MUSCULOSKELETAL/RHEUMATOLOGICAL Hx Musculoskeletal Disorders: No Hx Falls: No - GASTROINTESTINAL Hx Pancreatitis: Yes - GENITOURINARY/GYNECOLOGICAL Hx Genitourinary Disorders: No - PSYCHIATRIC Hx Substance Use: No - SURGICAL HISTORY Hx Appendectomy: Yes - ANESTHESIA Hx Anesthesia: Yes Hx Anesthesia Reactions: No Meds Allergies/Adverse Reactions: Allergies Allergy/AdvReac Type Severity Reaction Status Date / Time No Known Allergies Allergy Verified 10/28/17 14:12 Physical Exam - Constitutional Appears: In Acute Distress (patient vomited x2 at bedside during exam ) - Head Exam Head Exam: ATRAUMATIC, NORMAL INSPECTION - Eye Exam Eye Exam: Scleral icterus - ENT Exam ENT Exam: Mucous Membranes Dry - Respiratory Exam Respiratory Exam: Clear to Auscultation Bilateral, NORMAL BREATHING PATTERN - Cardiovascular Exam Cardiovascular Exam: Tachycardia, +S1, +S2 - GI/Abdominal Exam GI & Abdominal Exam: Normal Bowel Sounds, Soft. absent: Distended, Firm, Guarding, Tenderness - Extremities Exam Extremities exam: Positive for: normal inspection - Neurological Exam Neurological exam: Alert, Oriented x3 - Psychiatric Exam Psychiatric exam: Normal Affect, Normal Mood - Skin Skin Exam: Normal Color, Warm Results - Vital Signs Recent Vital Signs: Last Vital Signs Temp 97.9 F 10/28/17 17:43 Pulse 100 H 10/28/17 17:43 Resp 20 10/28/17 17:43 BP 199/107 H 10/28/17 17:43 Pulse Ox 99 10/28/17 17:54 - Labs Result Diagrams: 10/28/17 15:28 10/28/17 15:28 Labs: Laboratory Results - last 24 hr 10/28/17 10/28/17 10/28/17 15:28 15:28 16:30 WBC 6.4 RBC 3.54 L Hgb 9.9 L Hct 31.0 L MCV 87.6 D MCH 28.1 MCHC 32.1 L RDW 25.0 H Plt Count 136 D MPV 7.6 Neut % (Auto) 80.2 H Lymph % (Auto) 14.3 L [place] % (Auto) 4.3 Eos % (Auto) 0.0 Baso % (Auto) 1.2 Neut # 5.1 Lymph # 0.9 L [place] # 0.3 Eos # 0.0 Baso # 0.1 Sodium 131 L Potassium 4.2 Chloride 88 L Carbon Dioxide 27 Anion Gap 20 BUN 13 Creatinine 1.3 Est GFR ( Amer) > 60 Est GFR (Non-Af Amer) 55 Random Glucose 180 H Calcium 11.9 H Total Bilirubin 3.0 H AST 102 H ALT 37 Alkaline Phosphatase 121 Total Protein 7.8 Albumin 4.2 Globulin 3.7 Albumin/Globulin Ratio 1.1 Lipase 2310 H Urine Color Yellow Urine Clarity Clear Urine pH 7.0 Ur Specific [place] 1.009 Urine Protein 1+ H Urine Glucose (UA) 1+ H Urine Ketones Trace Urine Blood 1+ H Urine Nitrate Negative Urine Bilirubin Negative Urine Urobilinogen Normal Ur Leukocyte Esterase Neg Urine WBC (Auto) < 1 Urine RBC (Auto) 4 H Urine Bacteria Rare Hyaline Casts 3-5 H Assessment & Plan - Assessment and Plan (Free Text) Assessment: (1) Acute pancreatitis Likely secondary to alcohol NPO diet - Imaging: CT of Abdomen/Pelvis: Findings consistent with mild or early acute pancreatitis. New low-density/cystic 1.3 cm mass in body of pancreas. Nonspecific. Possible intrapancreatic pseudocyst from prior pancreatitis. Possible IPMN. Follow-up advised. Fatty infiltration of the liver with sparing of the left lobe and mild atrophy of the left lobe. Mildly thickened bladder wall but there is poor distension of the urinary bladder. Rule out cystitis. Nonobstructing tiny right renal calculus. Ill-defined opacity in right lower lobe. Rule out pneumonia. Circumferential mural thickening of distal esophagus. Rule out neoplasm. Consider evaluation with endoscopy when clinically feasible. Lipase 2310 - Medications * Start Morphine 1mg IV Q4H prn pain * Start Zofran 4mg IVP Q8H prn N/V * half NS IV fluids f/u AM Lipase, amylase, lipid profile (2) Hyponatremia Hydration with half NS as above f/u CMP (3) Bilirubinemia T. Duran: 3.0 f/u direct and total bili (4) Elevated LFTs Likely secondary to alcohol (5) HTN (hypertension) Pt did not take medications today Propranolol 20mg po TID Lisinopril 20mg daily Monitor BP (6) Diabetes Hold home medication of Glimepiride Start ISS with Accuchecks Q6H Monitor (7) ETOH abuse Ativan Thiamine PO daily MV PO daily Folic Acid PO daily Monitor for withdrawal. Last drink yesterday 10/27/17 Aspiration precautions Seizure precautions (9) Prophylactic measure Protonix 40mg IV daily Heparin SC SCDs Case discussed with Dr. Fabiana Cason PGY-1
[2017-10-28] MEDS ORDERED: Morphine 4 MG/ML VIAL IV PRN (18:14)
[2017-10-28] MEDS: Sodium Chloride 0.45% 1,000 ML IV SCH (18:33)
[2017-10-28] MEDS: (Novolin R) Insulin Human Regular 100 units/ml vial SC SCH (21:42)
[2017-10-29] MEDS: Sodium Chloride 0.9% 1,000 ML IV SCH ×2 (01:30→08:18)
[2017-10-29 07:38] LABS: HEMOGLOBIN 8.2 g/dL (12.0-18.0); MONO # 0.2 K/uL (0.0-0.8); RBC 2.92 Mil/uL (4.40-5.90)
[2017-10-29 07:55] LABS: BASO % 0.6 % (0.0-2.0); EOS % 0.4 % (0.0-4.0); LYMPH # 0.6 K/uL (1.0-4.3); LYMPH % 11.5 % (20.0-40.0); MEAN CELL VOLUME 88.3 fL (80.0-94.0); MEAN CORPUSCULAR HEMOGLOBIN 28.2 pg (27.0-31.0); MEAN PLATELET VOLUME 7.7 fL (7.2-11.7); MONO % 4.2 % (0.0-10.0); NEUT # 4.5 K/uL (1.8-7.0); NEUT % 83.3 % (50.0-75.0); NRBC % 0.2 % (0.0-2.0); RED CELL DISTRIBUTION WIDTH 25.7 % (11.5-14.5); WHITE BLOOD COUNT 5.4 K/uL (4.8-10.8)
[2017-10-29] MEDS: (Novolin R) Insulin Human Regular 100 units/ml vial SC SCH ×4 (08:14→22:35)
[2017-10-29 08:32] LABS: ALBUMIN 3.3 g/dL (3.5-5.0); MAGNESIUM 1.3 mg/dL (1.6-2.3)
[2017-10-29] MEDS: Potassium Chloride 20 mEq ER Tab PO SCH (10:18)
[2017-10-29] MEDS: Multiple Vitamins Oral Solution PO SCH (10:18)
[2017-10-29] MEDS: Sodium Chloride 0.45% 1,000 ML IV SCH ×2 (11:00→21:00)
--- NOTE | 2017-10-29 13:43 | CP.PCM.PN ---
<Dlai Doe - Last Filed: 10/29/17 14:01> Subjective - Date & Time of Evaluation Date of Evaluation: 10/29/17 Time of Evaluation: 13:41 - Subjective Subjective: Medicine progress note for Dr. Jung's service Patient was seen and examined at bedside in no acute distress. Patient complains of epigastric and parasternal pain with hiccups, as well as constipation. He states he had a bowel movement this morning, but the stool was hard. Patient otherwise denies remaining review of systems. Objective - Vital Signs/Intake and Output Vital Signs (last 24 hours): Temp Pulse Resp BP Pulse Ox 98.0 F 73 20 157/95 H 97 10/29/17 09:03 10/29/17 10:18 10/29/17 09:03 10/29/17 10:20 10/29/17 09:03 Intake and Output: 10/29/17 10/29/17 06:59 18:59 Intake Total 1550 Balance 1550 - Medications Medications: Current Medications Folic Acid (Folic Acid) 1 mg PO DAILY [facility] Last Admin: 10/29/17 10:18 Dose: 1 mg Furosemide (Lasix) 40 mg PO DAILY [facility] Last Admin: 10/29/17 10:20 Dose: 40 mg Heparin Sodium (Porcine) (Heparin) 5,000 units SC Q8 [facility] Last Admin: 10/29/17 05:42 Dose: 5,000 units Sodium Chloride (Sodium Chloride 0.45%) 1,000 mls @ 75 mls/hr IV .[id number] [facility] Last Admin: 10/28/17 18:33 Dose: 75 mls/hr Insulin Human Regular (Novolin R) 0 unit SC ACHS [facility] PRN Reason: Protocol Last Admin: 10/29/17 12:27 Dose: 2 unit Lisinopril (Zestril) 20 mg PO DAILY [facility] Last Admin: 10/29/17 09:00 Dose: Not Given Lorazepam (Ativan) 2 mg IVP Q8H PRN; Taper PRN Reason: Anxiety Stop: 11/02/17 18:13 Morphine Sulfate (Morphine) 1 mg IV Q4 PRN PRN Reason: Pain, moderate (4-7) Multivitamins/Vitamin C (Multi-Delyn Liquid) 5 ml PO DAILY [facility] Last Admin: 10/29/17 10:18 Dose: 5 ml Pantoprazole Sodium (Protonix Inj) 40 mg IVP Q12H [facility] Last Admin: 10/29/17 05:42 Dose: 40 mg Potassium Chloride (K-Dur 20 Meq Er Tab) 20 meq PO DAILY [facility] Last Admin: 10/29/17 10:18 Dose: 20 meq Propranolol HCl (Inderal) 20 mg PO TID [facility] Last Admin: 10/29/17 10:18 Dose: 20 mg Thiamine HCl (Vitamin B1 Tab) 100 mg PO DAILY [facility] Last Admin: 10/29/17 10:18 Dose: 100 mg - Labs Labs: 10/29/17 07:23 10/29/17 07:23 - Constitutional Appears: No Acute Distress - Head Exam Head Exam: ATRAUMATIC, NORMOCEPHALIC - Eye Exam Eye Exam: EOMI - ENT Exam ENT Exam: Mucous Membranes Moist - Respiratory Exam Respiratory Exam: NORMAL BREATHING PATTERN. absent: Rales, Rhonchi, Wheezes, Respiratory Distress - Cardiovascular Exam Cardiovascular Exam: REGULAR RHYTHM, +S1, +S2 - GI/Abdominal Exam GI & Abdominal Exam: Soft, Normal Bowel Sounds. absent: Distended, Firm, Tenderness - Neurological Exam Neurological Exam: Alert, Awake - Psychiatric Exam Psychiatric exam: Normal Affect, Normal Mood - Skin Skin Exam: Dry, Intact, Normal Color, Warm Assessment and Plan - Assessment and Plan (Free Text) Plan: (1) Acute pancreatitis * Likely secondary to alcohol * NPO diet * Imaging: * CT of Abdomen/Pelvis: Findings consistent with mild or early acute pancreatitis. New low-density/cystic 1.3 cm mass in body of pancreas. Nonspecific. Possible intrapancreatic pseudocyst from prior pancreatitis. Possible IPMN. Follow-up advised. Fatty infiltration of the liver with sparing of the left lobe and mild atrophy of the left lobe. Mildly thickened bladder wall but there is poor distension of the urinary bladder. Rule out cystitis. Nonobstructing tiny right renal calculus. Ill-defined opacity in right lower lobe. Rule out pneumonia. Circumferential mural thickening of distal esophagus. Rule out neoplasm. Consider evaluation with endoscopy when clinically feasible. * Lipase 2310 --> 2761 * Amylase: 200 * Lipid panel: TG 147, Cholesterol 137, LDL 42, HDL 67 * Medications * Continue Morphine 1mg IV Q4H prn pain * Continue Zofran 4mg IVP Q8H prn N/V * 0.45%NS IV fluids (2) Hyponatremia * Hydration with half NS as above * Continue to monitor labs (3) Bilirubinemia * T. Duran: 3.0 * Direct:1.0 (4) Elevated LFTs * Likely secondary to alcohol (5) HTN (hypertension) * Pt did not take medications on day of admission * Propranolol 20mg po TID * Lisinopril 20mg daily * Monitor BP (6) Diabetes * Hold home medication of Glimepiride * Start ISS with Accuchecks Q6H * Monitor (7) ETOH abuse * Ativan 1mg IV Q6h [facility] and PRN for alcohol withdrawal * Thiamine PO daily * MV PO daily * Folic Acid PO daily * Monitor for withdrawal. Last drink yesterday 10/27/17 * Aspiration precautions * Seizure precautions (9) Constipation: * Colace 100mg PO daily (10) Prophylactic measure * Protonix 40mg IV daily * Heparin SC * SCDs Case discussed with Dr. Jung <Justin Jung Jr. - Last Filed: 11/01/17 19:22> Objective - Vital Signs/Intake and Output Vital Signs (last 24 hours): Temp Pulse Resp BP Pulse Ox 98.8 F 66 20 149/79 99 11/01/17 15:23 11/01/17 15:23 11/01/17 15:23 11/01/17 15:23 11/01/17 15:23 - Medications Medications: Current Medications Chlordiazepoxide (Librium) 50 mg PO Q8 [facility] Last Admin: 11/01/17 14:16 Dose: 50 mg Docusate Sodium (Colace) 100 mg PO DAILY [facility] Last Admin: 11/01/17 09:26 Dose: 100 mg Folic Acid (Folic Acid) 1 mg PO DAILY [facility] Last Admin: 11/01/17 09:26 Dose: 1 mg Furosemide (Lasix) 40 mg PO DAILY [facility] Last Admin: 11/01/17 09:26 Dose: 40 mg Heparin Sodium (Porcine) (Heparin) 5,000 units SC Q8 [facility] Last Admin: 11/01/17 06:18 Dose: 5,000 units Sodium Chloride (Sodium Chloride 0.45%) 1,000 mls @ 75 mls/hr IV .[id number] [facility] Last Admin: 11/01/17 06:29 Dose: 75 mls/hr Insulin Human Regular (Novolin R) 0 unit SC ACHS [facility] PRN Reason: Protocol Last Admin: 11/01/17 17:40 Dose: 3 unit Lisinopril (Zestril) 20 mg PO DAILY [facility] Last Admin: 11/01/17 09:26 Dose: 20 mg Morphine Sulfate (Morphine) 1 mg IV Q4 PRN PRN Reason: Pain, moderate (4-7) Multivitamins/Vitamin C (Multi-Delyn Liquid) 5 ml PO DAILY [facility] Last Admin: 11/01/17 09:26 Dose: 5 ml Pantoprazole Sodium (Protonix Inj) 40 mg IVP Q12H [facility] Last Admin: 11/01/17 17:38 Dose: 40 mg Potassium Chloride (K-Dur 20 Meq Er Tab) 20 meq PO DAILY [facility] Last Admin: 11/01/17 09:26 Dose: 20 meq Propranolol HCl (Inderal) 20 mg PO TID [facility] Last Admin: 11/01/17 17:38 Dose: 20 mg Thiamine HCl (Vitamin B1 Tab) 100 mg PO DAILY [facility] Last Admin: 11/01/17 09:26 Dose: 100 mg - Labs Labs: 11/01/17 06:30 11/01/17 06:30 APTT 30 SECONDS (21-34) 11/01/17 11:43 Attending/Attestation - Attestation I have personally seen and examined this patient.: Yes I have fully participated in the care of the patient.: Yes I have reviewed all pertinent clinical information, including history, physical exam and plan: Yes Notes (Text): 11/01/17 19:22 Agree with resident note and plan of care
--- NOTE | 2017-10-29 15:52 | PCM.FALL ---
Post Fall Progress Note - Post Fall Fall Date: 10/29/17 Fall Time: 15:36 Description of Fall: Mechanical Fall - Post Fall Exam Vital Sign: Temp Pulse Resp BP Pulse Ox 98.0 F 73 20 190/96 H 97 10/29/17 09:03 10/29/17 10:18 10/29/17 09:03 10/29/17 14:00 10/29/17 09:03 Skull Exam: Negative for: Scalp wound, Scalp hematoma Eye Exam: Positive for: Pupils equal, Pupils reactive Ear Exam: Negative for: Discharge, Bleeding Nose Exam: Negative for: Discharge, Bleeding Skin Exam: Positive for: Grazes (rt wrist (watch cuffs during fall)) Mouth Exam: Negative for: Tongue bitten, Teeth dislodge Neck Exam: Negative for: Tenderness Spinal Exam: Negative for: Tenderness Chest Exam: Negative for: Difficulty breathing, Tenderness in collar bones, Tenderness in ribs Abdomen Exam: Negative for: Tenderness Pelvic Exam: Negative for: Tenderness Arm Exam: Negative for: Deformity, Alteration in range of movement Leg Exam: Negative for: Deformity, Alteration in range of movement Impression/Plan: Witnessed mechanical fall by nursing. Patient told to get back in bed by nursing , on his way back to bed, he landed on left side on bag of clothes. He did not hit his head/neck. Patient with history of alcohol abuse, and was recently started on Ativan. He denied pain anywhere on his body after the fall, and is oriented x 3. Exam: HEENT: scleral icterus Extremities: Full ROM, no evidence of bruising on any extremity save one 1.5cm laceration on right wrist CV: S1, S2, regular rate Lungs: CTA b/l B Plan No imaging studies warranted Spoke with resident caring for patient, Dr. Mena, and will change ativan schedule to 2mg Q4H, and give 2mg STAT dose Will place pt on Avasys, fall precaution, and make attending, Dr. Jung aware f/u Ammonia level
[2017-10-29] MEDS ORDERED: Magnesium Sulfate 1 gm in D5W 1 GM/100 ML BAG IVPB ONE (22:01)
[2017-10-30 07:13] LABS: BASO % 0.9 % (0.0-2.0); EOS # 0.1 K/uL (0.0-0.7); EOS % 1.7 % (0.0-4.0); HEMOGLOBIN 7.1 g/dL (12.0-18.0); LYMPH # 0.6 K/uL (1.0-4.3); LYMPH % 14.8 % (20.0-40.0); MEAN CELL VOLUME 88.5 fL (80.0-94.0); MEAN CORPUSCULAR HEMOGLOBIN 27.8 pg (27.0-31.0); MEAN CORPUSCULAR HGB CONC 31.5 g/dL (33.0-37.0); MEAN PLATELET VOLUME 7.7 fL (7.2-11.7); MONO # 0.2 K/uL (0.0-0.8); MONO % 4.9 % (0.0-10.0); NEUT # 3.3 K/uL (1.8-7.0); NEUT % 77.7 % (50.0-75.0); NRBC % 0.1 % (0.0-2.0); RBC 2.55 Mil/uL (4.40-5.90); RED CELL DISTRIBUTION WIDTH 26.2 % (11.5-14.5); WHITE BLOOD COUNT 4.3 K/uL (4.8-10.8)
[2017-10-30 07:19] LABS: ALB/GLOB RATIO 1.1 (1.0-2.1); ALBUMIN 2.9 g/dL (3.5-5.0); CALCIUM 9.7 mg/dl (8.6-10.4); MAGNESIUM 1.6 mg/dL (1.6-2.3)
[2017-10-30] MEDS: Sodium Chloride 0.45% 1,000 ML IV SCH ×2 (07:37→10:35)
--- NOTE | 2017-10-30 07:54 | CP.PCM.PN ---
<Dali Doe - Last Filed: 10/30/17 14:15> Subjective - Date & Time of Evaluation Date of Evaluation: 10/30/17 Time of Evaluation: 07:46 - Subjective Subjective: Medicine progress note for Dr. Jung's service Patient was seen and examined at bedside in the morning. Patient was lethargic and sleeping. Patient was revisited shortly after and was alert and awake. Patient is not oriented. Patient states he is a hungry. Review of systems was not obtained due to patient's condition. Objective - Vital Signs/Intake and Output Vital Signs (last 24 hours): Temp Pulse Resp BP Pulse Ox 98.7 F 76 20 173/89 H 94 L 10/30/17 00:27 10/30/17 00:27 10/30/17 00:27 10/30/17 00:27 10/30/17 00:27 Intake and Output: 10/30/17 10/30/17 06:59 18:59 Intake Total 450 Balance 450 - Medications Medications: Current Medications Docusate Sodium (Colace) 100 mg PO DAILY [facility] Folic Acid (Folic Acid) 1 mg PO DAILY [facility] Last Admin: 10/29/17 10:18 Dose: 1 mg Furosemide (Lasix) 40 mg PO DAILY [facility] Last Admin: 10/29/17 10:20 Dose: 40 mg Heparin Sodium (Porcine) (Heparin) 5,000 units SC Q8 [facility] Last Admin: 10/29/17 22:39 Dose: 5,000 units Sodium Chloride (Sodium Chloride 0.45%) 1,000 mls @ 75 mls/hr IV .[id number] [facility] Last Admin: 10/30/17 07:37 Dose: 75 mls/hr Insulin Human Regular (Novolin R) 0 unit SC ACHS [facility] PRN Reason: Protocol Last Admin: 10/29/17 22:35 Dose: Not Given Lisinopril (Zestril) 20 mg PO DAILY [facility] Last Admin: 10/29/17 09:00 Dose: Not Given Lorazepam (Ativan) 1 mg IVP Q6H PRN PRN Reason: Symptoms of alcohol withdrawl Last Admin: 10/29/17 15:46 Dose: 1 mg Lorazepam (Ativan) 2 mg IVP Q6 [facility] Last Admin: 10/30/17 05:44 Dose: 2 mg Morphine Sulfate (Morphine) 1 mg IV Q4 PRN PRN Reason: Pain, moderate (4-7) Multivitamins/Vitamin C (Multi-Delyn Liquid) 5 ml PO DAILY [facility] Last Admin: 10/29/17 10:18 Dose: 5 ml Pantoprazole Sodium (Protonix Inj) 40 mg IVP Q12H [facility] Last Admin: 10/29/17 18:30 Dose: 40 mg Potassium Chloride (K-Dur 20 Meq Er Tab) 20 meq PO DAILY [facility] Last Admin: 10/29/17 10:18 Dose: 20 meq Propranolol HCl (Inderal) 20 mg PO TID [facility] Last Admin: 10/29/17 18:05 Dose: 20 mg Thiamine HCl (Vitamin B1 Tab) 100 mg PO DAILY [facility] Last Admin: 10/29/17 10:18 Dose: 100 mg - Labs Labs: 10/30/17 06:36 10/30/17 06:36 - Additional Findings Additional findings: - Constitutional Appears: No Acute Distress - Head Exam Head Exam: ATRAUMATIC, NORMOCEPHALIC - Eye Exam Eye Exam: EOMI - ENT Exam ENT Exam: Mucous Membranes Moist - Respiratory Exam Respiratory Exam: NORMAL BREATHING PATTERN. absent: Rales, Rhonchi, Wheezes, Respiratory Distress - Cardiovascular Exam Cardiovascular Exam: REGULAR RHYTHM, +S1, +S2 - GI/Abdominal Exam GI & Abdominal Exam: Soft, Normal Bowel Sounds. absent: Distended, Firm, Tenderness - Neurological Exam Neurological Exam: Alert, Awake - Psychiatric Exam Psychiatric exam: Sedated - Skin Skin Exam: Dry, Intact, Normal Color, Warm Assessment and Plan - Assessment and Plan (Free Text) Plan: (1) Acute pancreatitis * Likely secondary to alcohol * Continue NPO diet * Imaging: * CT of Abdomen/Pelvis: Findings consistent with mild or early acute pancreatitis. New low-density/cystic 1.3 cm mass in body of pancreas. Nonspecific. Possible intrapancreatic pseudocyst from prior pancreatitis. Possible IPMN. Follow-up advised. Fatty infiltration of the liver with sparing of the left lobe and mild atrophy of the left lobe. Mildly thickened bladder wall but there is poor distension of the urinary bladder. Rule out cystitis. Nonobstructing tiny right renal calculus. Ill-defined opacity in right lower lobe. Rule out pneumonia. Circumferential mural thickening of distal esophagus. Rule out neoplasm. Consider evaluation with endoscopy when clinically feasible. * Lipase 2310 --> 2761 * Amylase: 200 * Lipid panel: TG 147, Cholesterol 137, LDL 42, HDL 67 * Medications * Continue Morphine 1mg IV Q4H prn pain * Continue Zofran 4mg IVP Q8H prn N/V * 0.45%NS IV fluids (2) Hyponatremia * Hydration with half NS as above * Continue to monitor labs (3) Bilirubinemia * T. Duran: 3.0 * Direct:1.0 (4) Elevated LFTs * Likely secondary to alcohol * Resolved (5) HTN (hypertension) * Pt did not take medications on day of admission * Propranolol 20mg po TID * Lisinopril 20mg daily * Monitor BP (6) Diabetes * Hold home medication of Glimepiride * Start ISS with Accuchecks Q6H * Monitor (7) ETOH abuse * Ativan 1mg IV Q6h NELSON and PRN for alcohol withdrawal- HOLD if sleeping or sedated. * Thiamine PO daily * MV PO daily * Folic Acid PO daily * Monitor for withdrawal. Last drink yesterday 10/27/17 * Aspiration precautions * Seizure precautions (9) Constipation: * Colace 100mg PO daily (10) Prophylactic measure * Protonix 40mg IV daily * Heparin SC * SCDs <Justin Jung Jr. - Last Filed: 11/01/17 19:26> Objective - Vital Signs/Intake and Output Vital Signs (last 24 hours): Temp Pulse Resp BP Pulse Ox 98.8 F 66 20 149/79 99 11/01/17 15:23 11/01/17 15:23 11/01/17 15:23 11/01/17 15:23 11/01/17 15:23 - Medications Medications: Current Medications Chlordiazepoxide (Librium) 50 mg PO Q8 [facility] Last Admin: 11/01/17 14:16 Dose: 50 mg Docusate Sodium (Colace) 100 mg PO DAILY [facility] Last Admin: 11/01/17 09:26 Dose: 100 mg Folic Acid (Folic Acid) 1 mg PO DAILY [facility] Last Admin: 11/01/17 09:26 Dose: 1 mg Furosemide (Lasix) 40 mg PO DAILY [facility] Last Admin: 11/01/17 09:26 Dose: 40 mg Heparin Sodium (Porcine) (Heparin) 5,000 units SC Q8 [facility] Last Admin: 11/01/17 06:18 Dose: 5,000 units Sodium Chloride (Sodium Chloride 0.45%) 1,000 mls @ 75 mls/hr IV .[id number] [facility] Last Admin: 11/01/17 06:29 Dose: 75 mls/hr Insulin Human Regular (Novolin R) 0 unit SC ACHS [facility] PRN Reason: Protocol Last Admin: 11/01/17 17:40 Dose: 3 unit Lisinopril (Zestril) 20 mg PO DAILY [facility] Last Admin: 11/01/17 09:26 Dose: 20 mg Morphine Sulfate (Morphine) 1 mg IV Q4 PRN PRN Reason: Pain, moderate (4-7) Multivitamins/Vitamin C (Multi-Delyn Liquid) 5 ml PO DAILY [facility] Last Admin: 11/01/17 09:26 Dose: 5 ml Pantoprazole Sodium (Protonix Inj) 40 mg IVP Q12H [facility] Last Admin: 11/01/17 17:38 Dose: 40 mg Potassium Chloride (K-Dur 20 Meq Er Tab) 20 meq PO DAILY [facility] Last Admin: 11/01/17 09:26 Dose: 20 meq Propranolol HCl (Inderal) 20 mg PO TID [facility] Last Admin: 11/01/17 17:38 Dose: 20 mg Thiamine HCl (Vitamin B1 Tab) 100 mg PO DAILY [facility] Last Admin: 11/01/17 09:26 Dose: 100 mg - Labs Labs: 11/01/17 06:30 11/01/17 06:30 APTT 30 SECONDS (21-34) 11/01/17 11:43 Attending/Attestation - Attestation I have personally seen and examined this patient.: Yes I have fully participated in the care of the patient.: Yes I have reviewed all pertinent clinical information, including history, physical exam and plan: Yes Notes (Text): 11/01/17 19:26 Agree with resident note and plan of care
[2017-10-30] MEDS: (Novolin R) Insulin Human Regular 100 units/ml vial SC SCH ×4 (08:00→21:44)
[2017-10-30] MEDS ORDERED: Potassium & Sodium Phosphate PO ONE (09:00)
[2017-10-30] MEDS: Potassium Chloride 20 mEq ER Tab PO SCH (09:36)
[2017-10-30] MEDS: Multiple Vitamins Oral Solution PO SCH (09:37)
[2017-10-31] MEDS: (Novolin R) Insulin Human Regular 100 units/ml vial SC SCH ×3 (06:46→22:47)
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
[2017-10-31] MEDS: Potassium Chloride 20 mEq ER Tab PO SCH (10:45)
[2017-10-31] MEDS: Multiple Vitamins Oral Solution PO SCH (10:46)
[2017-10-31 13:54] LABS: BASO % 0.7 % (0.0-2.0); EOS # 0.1 K/uL (0.0-0.7); EOS % 1.9 % (0.0-4.0); LYMPH # 0.6 K/uL (1.0-4.3); MEAN CELL VOLUME 88.7 fL (80.0-94.0); MEAN CORPUSCULAR HEMOGLOBIN 28.9 pg (27.0-31.0); MEAN CORPUSCULAR HGB CONC 32.6 g/dL (33.0-37.0); MEAN PLATELET VOLUME 8.4 fL (7.2-11.7); MONO # 0.4 K/uL (0.0-0.8); MONO % 8.2 % (0.0-10.0); NEUT # 3.3 K/uL (1.8-7.0); NEUT % 75.2 % (50.0-75.0); NRBC % 0.1 % (0.0-2.0); RBC 3.46 Mil/uL (4.40-5.90); RED CELL DISTRIBUTION WIDTH 22.1 % (11.5-14.5); WHITE BLOOD COUNT 4.4 K/uL (4.8-10.8)
[2017-10-31 14:13] LABS: ALBUMIN 3.3 g/dL (3.5-5.0); CALCIUM 9.8 mg/dl (8.6-10.4); MAGNESIUM 1.4 mg/dL (1.6-2.3)
[2017-11-01] MEDS: Sodium Chloride 0.45% 1,000 ML IV SCH (06:29)
[2017-11-01 06:46] LABS: BASO % 1.1 % (0.0-2.0); EOS # 0.1 K/uL (0.0-0.7); EOS % 3.2 % (0.0-4.0); HEMOGLOBIN 9.6 g/dL (12.0-18.0); LYMPH # 0.7 K/uL (1.0-4.3); LYMPH % 17.2 % (20.0-40.0); MEAN CORPUSCULAR HEMOGLOBIN 29.3 pg (27.0-31.0); MEAN CORPUSCULAR HGB CONC 33.3 g/dL (33.0-37.0); MEAN PLATELET VOLUME 8.4 fL (7.2-11.7); MONO # 0.4 K/uL (0.0-0.8); MONO % 8.8 % (0.0-10.0); NEUT % 69.7 % (50.0-75.0); NRBC % 0.2 % (0.0-2.0); RBC 3.27 Mil/uL (4.40-5.90); RED CELL DISTRIBUTION WIDTH 22.5 % (11.5-14.5); WHITE BLOOD COUNT 4.3 K/uL (4.8-10.8)
--- NOTE | 2017-11-01 06:54 | CP.PCM.PN ---
<Dali Doe - Last Filed: 11/01/17 18:19> Subjective - Date & Time of Evaluation Date of Evaluation: 11/01/17 Time of Evaluation: 06:54 - Subjective Subjective: Medicine progress note for Dr. Jung's service Patient was seen and examined at bedside in the morning. Patient was sleeping comfortably in bed. Patient reports feeling better and tolerating his liquid diet. Review of systems limited due to patient's cooperation. Objective - Vital Signs/Intake and Output Vital Signs (last 24 hours): Temp Pulse Resp BP Pulse Ox 98.3 F 68 20 202/87 H 97 10/31/17 23:31 11/01/17 04:21 10/31/17 23:31 11/01/17 04:00 10/31/17 23:31 Intake and Output: 10/31/17 11/01/17 18:59 06:59 Intake Total 325 Balance 325 - Medications Medications: Current Medications Chlordiazepoxide (Librium) 50 mg PO Q8 [facility] Last Admin: 11/01/17 06:16 Dose: 50 mg Docusate Sodium (Colace) 100 mg PO DAILY [facility] Last Admin: 10/31/17 10:45 Dose: 100 mg Folic Acid (Folic Acid) 1 mg PO DAILY [facility] Last Admin: 10/31/17 10:45 Dose: 1 mg Furosemide (Lasix) 40 mg PO DAILY [facility] Last Admin: 10/31/17 10:45 Dose: 40 mg Heparin Sodium (Porcine) (Heparin) 5,000 units SC Q8 [facility] Last Admin: 11/01/17 06:18 Dose: 5,000 units Sodium Chloride (Sodium Chloride 0.45%) 1,000 mls @ 75 mls/hr IV .[id number] [facility] Last Admin: 11/01/17 06:29 Dose: 75 mls/hr Insulin Human Regular (Novolin R) 0 unit SC ACHS [facility] PRN Reason: Protocol Last Admin: 10/31/17 22:47 Dose: 2 unit Lisinopril (Zestril) 20 mg PO DAILY [facility] Last Admin: 10/31/17 10:45 Dose: 20 mg Morphine Sulfate (Morphine) 1 mg IV Q4 PRN PRN Reason: Pain, moderate (4-7) Multivitamins/Vitamin C (Multi-Delyn Liquid) 5 ml PO DAILY [facility] Last Admin: 10/31/17 10:46 Dose: 5 ml Pantoprazole Sodium (Protonix Inj) 40 mg IVP Q12H [facility] Last Admin: 11/01/17 06:18 Dose: 40 mg Potassium Chloride (K-Dur 20 Meq Er Tab) 20 meq PO DAILY [facility] Last Admin: 10/31/17 10:45 Dose: 20 meq Propranolol HCl (Inderal) 20 mg PO TID [facility] Last Admin: 10/31/17 17:37 Dose: 20 mg Thiamine HCl (Vitamin B1 Tab) 100 mg PO DAILY [facility] Last Admin: 10/31/17 10:45 Dose: 100 mg - Labs Labs: 10/31/17 13:48 10/31/17 13:48 - Additional Findings Additional findings: - Constitutional Appears: No Acute Distress - Head Exam Head Exam: ATRAUMATIC, NORMOCEPHALIC - Eye Exam Eye Exam: EOMI - ENT Exam ENT Exam: Mucous Membranes Moist - Respiratory Exam Respiratory Exam: NORMAL BREATHING PATTERN. absent: Rales, Rhonchi, Wheezes, Respiratory Distress - Cardiovascular Exam Cardiovascular Exam: REGULAR RHYTHM, +S1, +S2 - GI/Abdominal Exam GI & Abdominal Exam: Soft, Normal Bowel Sounds. absent: Distended, Firm, Tenderness - Neurological Exam Neurological Exam: Alert, Awake - Psychiatric Exam Psychiatric exam: Sedated - Skin Skin Exam: Dry, Intact, Normal Color, Warm Assessment and Plan - Assessment and Plan (Free Text) Plan: Plan: (1) Acute pancreatitis * Likely secondary to alcohol * Advancing diet--> CLD diet * Imaging: * CT of Abdomen/Pelvis: Findings consistent with mild or early acute pancreatitis. New low-density/cystic 1.3 cm mass in body of pancreas. Nonspecific. Possible intrapancreatic pseudocyst from prior pancreatitis. Possible IPMN. Follow-up advised. Fatty infiltration of the liver with sparing of the left lobe and mild atrophy of the left lobe. Mildly thickened bladder wall but there is poor distension of the urinary bladder. Rule out cystitis. Nonobstructing tiny right renal calculus. Ill-defined opacity in right lower lobe. Rule out pneumonia. Circumferential mural thickening of distal esophagus. Rule out neoplasm. Consider evaluation with endoscopy when clinically feasible. * Lipase 2310 --> 2761 * Amylase: 200 * Lipid panel: TG 147, Cholesterol 137, LDL 42, HDL 67 * Medications * Continue Morphine 1mg IV Q4H prn pain * Continue Zofran 4mg IVP Q8H prn N/V * 0.45%NS IV fluids (2) Hyponatremia * Hydration with half NS as above * Continue to monitor labs (3) Bilirubinemia * T. Duran: 3.0 * Direct:1.0 (4) Elevated LFTs * Likely secondary to alcohol * Resolved (5) HTN (hypertension) * Pt did not take medications on day of admission * Propranolol 20mg po TID * Lisinopril 20mg daily * Monitor BP (6) Diabetes * Hold home medication of Glimepiride * Start ISS with Accuchecks Q6H * Monitor (7) ETOH abuse * Starting Librium 50mg Q8 jonny- HOLD if sleeping or sedated * Discontinued on 10/31/17 Ativan 1mg IV Q6h JONNY and PRN for alcohol withdrawal - HOLD if sleeping or sedated. * Thiamine PO daily * MV PO daily * Folic Acid PO daily * Monitor for withdrawal. Last drink yesterday 10/27/17 * Aspiration precautions * Seizure precautions (9) Constipation: * Colace 100mg PO daily (10) Anemia * Hgb 7.1 on 10/30 (decreased from 9.9 at admission) * Type and cross * 2 units PRBC given on 10/30--> Hgb improved * Stool occult: f/u results * Iron studies: f/u results * GI consulted, Dr. Katz; recs appreciated * Continue to monitor H/H (11) Prophylactic measure * Protonix 40mg IV daily * Heparin SC - HOLD * SCDs Discussed with Dr. Jung. <Justin Jung Jr. - Last Filed: 11/01/17 19:36> Objective - Vital Signs/Intake and Output Vital Signs (last 24 hours): Temp Pulse Resp BP Pulse Ox 98.8 F 66 20 149/79 99 11/01/17 15:23 11/01/17 15:23 11/01/17 15:23 11/01/17 15:23 11/01/17 15:23 - Medications Medications: Current Medications Chlordiazepoxide (Librium) 50 mg PO Q8 [facility] Last Admin: 11/01/17 14:16 Dose: 50 mg Docusate Sodium (Colace) 100 mg PO DAILY [facility] Last Admin: 11/01/17 09:26 Dose: 100 mg Folic Acid (Folic Acid) 1 mg PO DAILY [facility] Last Admin: 11/01/17 09:26 Dose: 1 mg Furosemide (Lasix) 40 mg PO DAILY [facility] Last Admin: 11/01/17 09:26 Dose: 40 mg Heparin Sodium (Porcine) (Heparin) 5,000 units SC Q8 [facility] Last Admin: 11/01/17 06:18 Dose: 5,000 units Sodium Chloride (Sodium Chloride 0.45%) 1,000 mls @ 75 mls/hr IV .[id number] [facility] Last Admin: 11/01/17 06:29 Dose: 75 mls/hr Insulin Human Regular (Novolin R) 0 unit SC ACHS [facility] PRN Reason: Protocol Last Admin: 11/01/17 17:40 Dose: 3 unit Lisinopril (Zestril) 20 mg PO DAILY [facility] Last Admin: 11/01/17 09:26 Dose: 20 mg Morphine Sulfate (Morphine) 1 mg IV Q4 PRN PRN Reason: Pain, moderate (4-7) Multivitamins/Vitamin C (Multi-Delyn Liquid) 5 ml PO DAILY [facility] Last Admin: 11/01/17 09:26 Dose: 5 ml Pantoprazole Sodium (Protonix Inj) 40 mg IVP Q12H [facility] Last Admin: 11/01/17 17:38 Dose: 40 mg Potassium Chloride (K-Dur 20 Meq Er Tab) 20 meq PO DAILY [facility] Last Admin: 11/01/17 09:26 Dose: 20 meq Propranolol HCl (Inderal) 20 mg PO TID [facility] Last Admin: 11/01/17 17:38 Dose: 20 mg Thiamine HCl (Vitamin B1 Tab) 100 mg PO DAILY [facility] Last Admin: 11/01/17 09:26 Dose: 100 mg - Labs Labs: 11/01/17 06:30 11/01/17 06:30 APTT 30 SECONDS (21-34) 11/01/17 11:43 Attending/Attestation - Attestation I have personally seen and examined this patient.: Yes I have fully participated in the care of the patient.: Yes I have reviewed all pertinent clinical information, including history, physical exam and plan: Yes Notes (Text): 11/01/17 19:36 Agree with resident note and plan of care
[2017-11-01 07:01] LABS: ALB/GLOB RATIO 0.9 (1.0-2.1); CALCIUM 9.2 mg/dl (8.6-10.4); MAGNESIUM 1.4 mg/dL (1.6-2.3)
[2017-11-01] MEDS: (Novolin R) Insulin Human Regular 100 units/ml vial SC SCH ×4 (08:00→22:02)
[2017-11-01] MEDS ORDERED: Potassium Chloride 20 mEq ER Tab PO ONE (09:15)
[2017-11-01] MEDS ORDERED: Potassium & Sodium Phosphate PO ONE (09:16)
[2017-11-01] MEDS: Multiple Vitamins Oral Solution PO SCH (09:26)
[2017-11-01] MEDS: Potassium Chloride 20 mEq ER Tab PO SCH (09:26)
[2017-11-01] MEDS ORDERED: Magnesium Sulfate 1 gm in D5W 1 GM/100 ML BAG IVPB ONE (10:00)
[2017-11-01] MEDS ORDERED: POLYETHYLENE GLYCOL 3350 17 GM/Dose PACKET PO ONE (10:21)
[2017-11-01] MEDS ORDERED: Phytonadione 10 mg/ml Inj (Adult) SC ONE (12:00)
[2017-11-01 14:29] LABS: IRON 38 ug/dL (49-181)
[2017-11-01 14:39] LABS: TOTAL IRON BINDING CAPACITY 197 ug/dL (250-450)
[2017-11-01 14:48] LABS: % IRON SATURATION 20 (20-55)
--- NOTE | 2017-11-02 04:19 | CON ---
DATE: 11/01/[address] Tommie Edmonds to Dr. Justin Jung MD. I was called for GI consultation by the admitting MD as well as the medical staff. The patient is seen and fully examined on 11/01/2017. All the available lab and radiology study results, current and the previous medication list, current and the previous medical events,allergy to medication list as well as all the available current and the previous medical records were reviewed. Case discussed at length with the staff in the floor. HISTORY OF PRESENT ILLNESS: This is a 66-year-old male who was admitted to the hospital through the emergency room with the main complaint of severe crampy abdominal pain, persistent nausea and vomiting, dyspepsia with reported generalized weakness and malaise recently, but no reported actual chest pain, palpitation, shortness of breath, chills or fever initially. No reported active bleeding at the time of the admission. Subsequently, the patient had gradual drop of hemoglobin and hematocrit of unclear etiology. PAST MEDICAL HISTORY: Including but not limited to: 1. Hypertension. 2. Peptic ulcer disease. 3. Diabetes mellitus. 4. Alcohol abuse. 5. Pancreatitis believed to be secondary to alcoholism. 6. Status post appendectomy. FAMILY HISTORY: Unknown. CURRENT MEDICATION: Medication list were reviewed. ALLERGIES TO MEDICATION: UNCLEAR. SOCIAL HISTORY: Positive for excessive alcohol intake but denied recent history of cigarette smoking. LABORATORY DATA: Initial blood workup at the time of the admission showed hemoglobin of 9.9 which subsequently dropped furthermore with hematocrit 30.0 with low sodium 131 and increased blood glucose elevated to 180 which had been elevated since admission. Initial abdominal CAT scan of the abdomen and the pelvis report seen. PHYSICAL EXAMINATION: GENERAL: This 66-year-old male appeared to be somewhat awake, alert and sleepy. VITAL SIGNS: Afebrile with pulse of 94, respiratory rate 20 to 22, blood pressure 172/94. HEENT: Mildly pale dry oral mucoid membrane, slightly icteric sclerae bilaterally. LYMPH NODES: No lymphadenitis or lymphadenopathy. LUNGS: Scattered mild crepitation with decreased air entry at bases. HEART: Positive S1 and S2 with increased rate. ABDOMEN: Soft, bowel sounds are present with mild distention. No appreciated mass or organomegaly. No rebound tenderness or guarding. RECTAL: The patient refused. EXTREMITIES: With mild lower extremity edematous changes. No clubbing or cyanosis. NEUROLOGIC: No reported new neurological deficits, sensory or motor. Peripheral pulses are present bilaterally. IMPRESSION: 1. Alcoholism with alcoholic liver disease. 2. Anemia with subsequent drop of hemoglobin and hematocrit to rule out possible upper gastrointestinal blood loss versus lower gastrointestinal blood loss, to rule out possible esophageal varices. 3. Rule out occult gastrointestinal malignancy, it is not clear if the patient had colonoscopy or not; he did not recall it. 4. Known history of but not limited to hypertension, diabetes mellitus, status post appendectomy, by history. SUGGESTION: 1. Agree with your plan. 2. PT and PTT, correct any underlying electrolyte imbalance. 3. Cancer markers including CEA and alpha-fetoprotein and PSA. 4. Proton pump inhibitors IV. 5. Carafate liquid p.o. 6. Endoscopic evaluation of the GI tract. 7. Further recommendation to follow. Thank you for letting me participate in your patient's case management. Further recommendation to follow. Tommie Edmonds MD
[2017-11-02 06:43] LABS: INR 1.4; PROTHROMBIN TIME 15.3 SECONDS (9.7-12.2)
--- NOTE | 2017-11-02 06:53 | CP.PCM.PN ---
Subjective - Date & Time of Evaluation Date of Evaluation: 11/02/17 Time of Evaluation: 06:53 - Subjective Subjective: Medicine progress note for Dr. Jung's service Patient was seen and examined at bedside in the morning. Patient was sitting up in bed, alert, and awake. Patient reports feeling better, but feels hungry and wants to eat. Patient denies chest pain, shortness of breath, nausea, vomiting, abdominal pain, leg pain. Objective - Vital Signs/Intake and Output Vital Signs (last 24 hours): Temp Pulse Resp BP Pulse Ox 99.1 F 74 20 171/80 H 97 11/02/17 04:16 11/02/17 04:58 11/02/17 04:16 11/02/17 04:16 11/02/17 04:16 - Medications Medications: Current Medications Chlordiazepoxide (Librium) 50 mg PO Q8 COUNTS [facility]CLUDE 234 BEDS AT THE [facility] Last Admin: 11/02/17 06:19 Dose: Not Given Docusate Sodium (Colace) 100 mg PO DAILY COUNTS INCLUDE 234 BEDS AT THE [facility] Last Admin: 11/01/17 09:26 Dose: 100 mg Folic Acid (Folic Acid) 1 mg PO DAILY COUNTS INCLUDE 234 BEDS AT THE [facility] Last Admin: 11/01/17 09:26 Dose: 1 mg Furosemide (Lasix) 40 mg PO DAILY COUNTS INCLUDE 234 BEDS AT THE [facility] Last Admin: 11/01/17 09:26 Dose: 40 mg Heparin Sodium (Porcine) (Heparin) 5,000 units SC Q8 COUNTS INCLUDE 234 BEDS AT THE [facility] Last Admin: 11/01/17 06:18 Dose: 5,000 units Sodium Chloride (Sodium Chloride 0.45%) 1,000 mls @ 75 mls/hr IV .[id number] COUNTS INCLUDE 234 BEDS AT THE [facility] Last Admin: 11/01/17 06:29 Dose: 75 mls/hr Insulin Human Regular (Novolin R) 0 unit SC ACHS COUNTS INCLUDE 234 BEDS AT THE [facility] PRN Reason: Protocol Last Admin: 11/01/17 22:02 Dose: Not Given Lisinopril (Zestril) 20 mg PO DAILY COUNTS INCLUDE 234 BEDS AT THE [facility] Last Admin: 11/01/17 09:26 Dose: 20 mg Morphine Sulfate (Morphine) 1 mg IV Q4 PRN PRN Reason: Pain, moderate (4-7) Multivitamins/Vitamin C (Multi-Delyn Liquid) 5 ml PO DAILY COUNTS INCLUDE 234 BEDS AT THE [facility] Last Admin: 11/01/17 09:26 Dose: 5 ml Pantoprazole Sodium (Protonix Inj) 40 mg IVP Q12H COUNTS INCLUDE 234 BEDS AT THE [facility] Last Admin: 11/02/17 06:01 Dose: 40 mg Potassium Chloride (K-Dur 20 Meq Er Tab) 20 meq PO DAILY COUNTS INCLUDE 234 BEDS AT THE [facility] Last Admin: 11/01/17 09:26 Dose: 20 meq Propranolol HCl (Inderal) 20 mg PO TID COUNTS INCLUDE 234 BEDS AT THE [facility] Last Admin: 11/01/17 17:38 Dose: 20 mg Thiamine HCl (Vitamin B1 Tab) 100 mg PO DAILY COUNTS INCLUDE 234 BEDS AT THE [facility] Last Admin: 11/01/17 09:26 Dose: 100 mg - Labs Labs: 11/01/17 06:30 11/01/17 06:30 APTT 30 SECONDS (21-34) 11/01/17 11:43 - Additional Findings Additional findings: - Constitutional Appears: No Acute Distress - Head Exam Head Exam: ATRAUMATIC, NORMOCEPHALIC - Eye Exam Eye Exam: EOMI - ENT Exam ENT Exam: Mucous Membranes Moist - Respiratory Exam Respiratory Exam: NORMAL BREATHING PATTERN. absent: Rales, Rhonchi, Wheezes, Respiratory Distress - Cardiovascular Exam Cardiovascular Exam: REGULAR RHYTHM, +S1, +S2 - GI/Abdominal Exam GI & Abdominal Exam: Soft, Normal Bowel Sounds. absent: Distended, Firm, Tenderness - Neurological Exam Neurological Exam: Alert, Awake - Psychiatric Exam Psychiatric exam: Alert, Awake - Skin Skin Exam: Dry, Intact, Normal Color, Warm Assessment and Plan - Assessment and Plan (Free Text) Plan: (1) Acute pancreatitis * Likely secondary to alcohol * Advancing diet--> FLD diet * Imaging: * CT of Abdomen/Pelvis: Findings consistent with mild or early acute pancreatitis. New low-density/cystic 1.3 cm mass in body of pancreas. Nonspecific. Possible intrapancreatic pseudocyst from prior pancreatitis. Possible IPMN. Follow-up advised. Fatty infiltration of the liver with sparing of the left lobe and mild atrophy of the left lobe. Mildly thickened bladder wall but there is poor distension of the urinary bladder. Rule out cystitis. Nonobstructing tiny right renal calculus. Ill-defined opacity in right lower lobe. Rule out pneumonia. Circumferential mural thickening of distal esophagus. Rule out neoplasm. Consider evaluation with endoscopy when clinically feasible. * Lipase 2310 --> 2761 * Amylase: 200 * Lipid panel: TG 147, Cholesterol 137, LDL 42, HDL 67 * Medications * Continue Morphine 1mg IV Q4H prn pain * Continue Zofran 4mg IVP Q8H prn N/V * 0.45%NS IV fluids (2) Hyponatremia * Hydration with half NS as above * Continue to monitor labs (3) Bilirubinemia * T. Duran: 3.0 * Direct:1.0 (4) Elevated LFTs * Likely secondary to alcohol * Resolved (5) HTN (hypertension) * Pt did not take medications on day of admission * Propranolol 20mg po TID * Lisinopril 20mg daily * Monitor BP (6) Diabetes * Hold home medication of Glimepiride * Start ISS with Accuchecks Q6H * Monitor (7) ETOH abuse * Starting Librium 50mg Q8 jonny- HOLD if sleeping or sedated * Discontinued on 10/31/17 Ativan 1mg IV Q6h JONNY and PRN for alcohol withdrawal - HOLD if sleeping or sedated. * Thiamine PO daily * MV PO daily * Folic Acid PO daily * Monitor for withdrawal. Last drink yesterday 10/27/17 * Aspiration precautions * Seizure precautions (9) Constipation: * Colace 100mg PO daily (10) Anemia * Hgb 7.1 on 10/30 (decreased from 9.9 at admission) * Type and cross * 2 units PRBC given on 10/30--> Hgb improved * Stool occult: f/u results * Iron studies: iron 47, TIBC 202, %sat 23, Ferritin 561 * GI consulted, Dr. Katz; recs appreciated * Patient went for endoscopy on 11/02/17. Repeat endoscopy in 8 weeks for surveillance based on path results * Patient needs colonoscopy; tentatively scheduled for 11/05/17 * Results: candidiasis esophagitis, gastric ulcer (biopsied); erythematous mucosa in prepyloric region of stomach and erythematous duodenopathy * Outpatient f/u in 5 weeks * Started fluconazole 100mg PO daily for weeks; sucralfate suspension 1gm PO BID for 10 weeks; protonix 40mg PO daily for 10 weeks. * Alpha fetoprotein- f/u results * CA 19-9: f/u results * CEA: 8.7 H * Continue to monitor H/H (11) Prophylactic measure * Protonix 40mg IV daily * Heparin SC - HOLD * SCDs Discussed with Dr. Jung.
[2017-11-02 07:00] LABS: IRON 47 ug/dL (49-181)
[2017-11-02 07:10] LABS: TOTAL IRON BINDING CAPACITY 202 ug/dL (250-450)
[2017-11-02 07:11] LABS: % IRON SATURATION 23 (20-55)
[2017-11-02 07:11] LABS: ALBUMIN 2.9 g/dL (3.5-5.0); ALT/SGPT 35 U/L (21-72); AST/SGOT 70 U/L (17-59); BLOOD UREA NITROGEN 13 mg/dL (9-20); CALCIUM 8.8 mg/dl (8.6-10.4); GFR AFRICAN-AMERICAN > 60; GFR NON-AFRICAN AMERICAN 51
[2017-11-02 07:14] LABS: BASO % 0.9 % (0.0-2.0); EOS # 0.1 K/uL (0.0-0.7); EOS % 3.3 % (0.0-4.0); HEMOGLOBIN 9.3 g/dL (12.0-18.0); LYMPH # 0.6 K/uL (1.0-4.3); LYMPH % 18.3 % (20.0-40.0); MEAN CELL VOLUME 87.5 fL (80.0-94.0); MEAN CORPUSCULAR HEMOGLOBIN 29.5 pg (27.0-31.0); MEAN CORPUSCULAR HGB CONC 33.7 g/dL (33.0-37.0); MEAN PLATELET VOLUME 8.5 fL (7.2-11.7); MONO # 0.4 K/uL (0.0-0.8); MONO % 11.3 % (0.0-10.0); NEUT # 2.3 K/uL (1.8-7.0); NEUT % 66.2 % (50.0-75.0); NRBC % 0.1 % (0.0-2.0); RBC 3.15 Mil/uL (4.40-5.90); RED CELL DISTRIBUTION WIDTH 22.5 % (11.5-14.5); WHITE BLOOD COUNT 3.5 K/uL (4.8-10.8)
--- NOTE | 2017-11-02 07:59 | RAD ---
HISTORY: Preop clearance. COMPARISON: 01/08/2017 FINDINGS: LUNGS: Multifocal infiltrates primarily basilar distribution left greater than right. PLEURA: No significant pleural effusion identified, no pneumothorax apparent. CARDIOVASCULAR: Cardiomegaly. OSSEOUS STRUCTURES: No significant abnormalities. VISUALIZED UPPER ABDOMEN: Normal. OTHER FINDINGS: None. IMPRESSION: Lower lobe infiltrates not seen previously. Cardiomegaly without CHF.
[2017-11-02] MEDS ORDERED: Propofol 10 mg/ml Inj (20 ML) ONE (08:20)
[2017-11-02] MEDS ORDERED: Lidocaine Hydrochloride 5 ML INJ ONE (08:21)
[2017-11-02] MEDS: (Novolin R) Insulin Human Regular 100 units/ml vial SC SCH ×3 (08:47→17:37)
[2017-11-02 08:57] LABS: % IRON SATURATION 23.26 (20-55)
[2017-11-02] MEDS ORDERED: Labetalol 25mg/5ml Syringe ONE (09:05)
[2017-11-02] MEDS: Potassium Chloride 20 mEq ER Tab PO SCH (10:58)
[2017-11-02] MEDS: Multiple Vitamins Oral Solution PO SCH (10:58)
[2017-11-02] MEDS: Sucralfate 1 gm/10 ml Oral Susp UD PO SCH ×3 (11:00→21:44)
[2017-11-02] MEDS: Magnesium Citrate Oral SOL (300 ml) PO SCH ×2 (13:52→17:44)
[2017-11-02 14:08] LABS: ALPHA FETO PROTEIN 2.9 ng/mL (0.0-7.5)
--- NOTE | 2017-11-02 17:57 | US ---
HISTORY: ABNORMAL C.T. SCAN R/O PANC. MASS COMPARISON: CT abdomen and pelvis with IV contrast performed 10/28/27 TECHNIQUE: Sonographic evaluation of the abdomen. FINDINGS: Examination markedly limited by habitus and bowel gas. LIVER: Measures 18.9 cm in sagittal dimension. Echogenic liver may be seen in setting of hepatic parenchymal disease or fatty infiltration. No focal hepatic mass identified. The main portal vein appears patent with normal directional flow. No intrahepatic bile duct dilatation. GALLBLADDER: Partially distended gallbladder. No gallstones. No gallbladder wall thickening. Negative sonographic Faye's sign as assessed by the bagger meat. COMMON BILE DUCT: Measures 7 mm. PANCREAS: Not well visualized. RIGHT KIDNEY: Measures 11.4 x 6.2 x 5.3cm. No obstructing calculus or hydronephrosis identified. LEFT KIDNEY: Measures 0.8 x 5.9 x 5.7cm. No obstructing calculus or hydronephrosis identified. SPLEEN: Measures approximately 12.2 cm. AORTA: Not well seen. IVC: Not well seen. OTHER FINDINGS: Incidental note is made of small right pleural effusion. IMPRESSION: Limited study. Please note that the pancreas cannot be adequately assessed by ultrasound and is not well visualized on this study. If concern for pancreatic mass, recommend dedicated pancreatic protocol CT or MRI abdomen pancreatic protocol/MRCP. Incidental note is made of small right pleural effusion. Partially distended gallbladder. Echogenic liver may be seen in setting of hepatic parenchymal disease or fatty infiltration.
[2017-11-02] MEDS: Sodium Chloride 0.45% 1,000 ML IV SCH (19:44)
--- NOTE | 2017-11-03 00:38 | CARD ---
APPROVED REPORT EKG Measurement Heart [id number] <Conclusion> Sinus tachycardia with premature supraventricular complexes and with occasional premature ventricular complexes Otherwise normal ECG
[2017-11-03] MEDS: Sucralfate 1 gm/10 ml Oral Susp UD PO SCH ×4 (07:01→22:10)
--- NOTE | 2017-11-03 07:31 | CP.PCM.PN ---
Subjective - Date & Time of Evaluation Date of Evaluation: 11/03/17 Time of Evaluation: 07:27 - Subjective Subjective: PGY-[address] Jung's service: Pt seen and examined at bedside. Nursing reports no acute events overnight. Patient found sitting up in bed, alert, and awake; with 1:1 at bedside. CP reports pt trying to get out of bed occasionally. Patient denies any pain, and has been tolerating diet. He is for colonoscopy with Dr. Katz on Sunday. Objective - Vital Signs/Intake and Output Vital Signs (last 24 hours): Temp Pulse Resp BP Pulse Ox 98.3 F 71 20 165/91 H 100 11/03/17 04:18 11/03/17 04:18 11/03/17 04:18 11/03/17 04:18 11/03/17 04:18 Intake and Output: 11/03/17 11/03/17 06:59 18:59 Output Total 1650 Balance -1650 - Medications Medications: Current Medications Chlordiazepoxide (Librium) 50 mg PO Q8 [facility] Last Admin: 11/03/17 06:08 Dose: 50 mg Docusate Sodium (Colace) 100 mg PO DAILY [facility] Last Admin: 11/02/17 10:58 Dose: 100 mg Fluconazole (Diflucan) 100 mg PO DAILY [facility] Last Admin: 11/02/17 11:07 Dose: 100 mg Folic Acid (Folic Acid) 1 mg PO DAILY [facility] Last Admin: 11/02/17 10:58 Dose: 1 mg Furosemide (Lasix) 40 mg PO DAILY [facility] Last Admin: 11/02/17 10:58 Dose: 40 mg Heparin Sodium (Porcine) (Heparin) 5,000 units SC Q8 [facility] Last Admin: 11/01/17 06:18 Dose: 5,000 units Sodium Chloride (Sodium Chloride 0.45%) 1,000 mls @ 75 mls/hr IV .[id number] [facility] Last Admin: 11/02/17 19:44 Dose: 75 mls/hr Insulin Human Regular (Novolin R) 0 unit SC ACHS [facility] PRN Reason: Protocol Last Admin: 11/02/17 17:37 Dose: 5 unit Lisinopril (Zestril) 20 mg PO DAILY [facility] Last Admin: 11/02/17 10:58 Dose: 20 mg Magnesium Citrate (Citrate Of Mag) 60 ml PO TID [facility] Stop: 11/04/17 10:01 Last Admin: 11/02/17 17:44 Dose: 60 ml Morphine Sulfate (Morphine) 1 mg IV Q4 PRN PRN Reason: Pain, moderate (4-7) Multivitamins/Vitamin C (Multi-Delyn Liquid) 5 ml PO DAILY [facility] Last Admin: 11/02/17 10:58 Dose: 5 ml Pantoprazole Sodium (Protonix Inj) 40 mg IVP Q12H [facility] Last Admin: 11/03/17 06:07 Dose: 40 mg Potassium Chloride (K-Dur 20 Meq Er Tab) 20 meq PO DAILY [facility] Last Admin: 11/02/17 10:58 Dose: 20 meq Propranolol HCl (Inderal) 20 mg PO TID [facility] Last Admin: 11/02/17 17:34 Dose: 20 mg Sucralfate (Carafate Oral Susp) 1 gm PO ACHS [facility] Last Admin: 11/03/17 07:01 Dose: 1 gm Thiamine HCl (Vitamin B1 Tab) 100 mg PO DAILY [facility] Last Admin: 11/02/17 10:58 Dose: 100 mg - Labs Labs: 11/02/17 06:25 11/02/17 06:25 PT 15.3 SECONDS (9.7-12.2) H 11/02/17 06:25 INR 1.4 11/02/17 06:25 APTT 28 SECONDS (21-34) 11/02/17 06:25 - Additional Findings Additional findings: - Constitutional Appears: No Acute Distress - Head Exam Head Exam: ATRAUMATIC, NORMOCEPHALIC - Eye Exam Eye Exam: EOMI - ENT Exam ENT Exam: Mucous Membranes Moist - Respiratory Exam Respiratory Exam: NORMAL BREATHING PATTERN. absent: Rales, Rhonchi, Wheezes, Respiratory Distress - Cardiovascular Exam Cardiovascular Exam: REGULAR RHYTHM, +S1, +S2 - GI/Abdominal Exam GI & Abdominal Exam: Soft, Normal Bowel Sounds. absent: Distended, Firm, Tenderness - Neurological Exam Neurological Exam: Alert, Awake - Psychiatric Exam Psychiatric exam: Alert, Awake - Skin Skin Exam: Dry, Intact, Normal Color, Warm Assessment and Plan - Assessment and Plan (Free Text) Plan: 1) Acute pancreatitis * Likely secondary to alcohol * Advancing diet--> FLD diet * Imaging: * CT of Abdomen/Pelvis: Findings consistent with mild or early acute pancreatitis. New low-density/cystic 1.3 cm mass in body of pancreas. Nonspecific. Possible intrapancreatic pseudocyst from prior pancreatitis. Possible IPMN. Follow-up advised. Fatty infiltration of the liver with sparing of the left lobe and mild atrophy of the left lobe. Mildly thickened bladder wall but there is poor distension of the urinary bladder. Rule out cystitis. Nonobstructing tiny right renal calculus. Ill-defined opacity in right lower lobe. Rule out pneumonia. Circumferential mural thickening of distal esophagus. Rule out neoplasm. Consider evaluation with endoscopy when clinically feasible. * Lipase 2310 --> 2761 * Amylase: 200 * Lipid panel: TG 147, Cholesterol 137, LDL 42, HDL 67 * Medications * Continue Morphine 1mg IV Q4H prn pain * Continue Zofran 4mg IVP Q8H prn N/V * 0.45%NS IV fluids (2) Hyponatremia * Na 126 on AM labs - but glucose >300 so corrected Na - 130 * Continue to monitor labs (3) Bilirubinemia * T. Duran: decreased to 1.6 from 3 * Direct:1.0 (4) Elevated LFTs * Likely secondary to alcohol * Resolved (5) HTN (hypertension) * Propranolol 20mg po TID * Lisinopril 20mg daily * Monitor BP * Add hydralazine 10mg IV Q6H PRN for SBP >160 (6) Diabetes * Hold home medication of Glimepiride * Increased sliding scale - MISS with Accuchecks Q6H * Monitor (7) ETOH abuse * Continue Librium 50mg Q8 jonny- HOLD if sleeping or sedated * Discontinued on 10/31/17 Ativan 1mg IV Q6h JONNY and PRN for alcohol withdrawal - HOLD if sleeping or sedated. * Thiamine PO daily * MV PO daily * Folic Acid PO daily * Monitor for withdrawal. Last drink yesterday 10/27/17 * Aspiration precautions * Seizure precautions (9) Constipation: * Colace 100mg PO daily (10) Anemia * HgB holding steady at 9/2 * Hgb 7.1 on 10/30 (decreased from 9.9 at admission) * Type and cross * 2 units PRBC given on 10/30--> Hgb improved * Stool occult: negative x 1, f/u 2 additional occult * Iron studies: iron 47, TIBC 202, %sat 23, Ferritin 561 * GI consulted, Dr. Katz; recs appreciated * Patient went for endoscopy on 11/02/17. Repeat endoscopy in 8 weeks for surveillance based on path results * Patient needs colonoscopy; tentatively scheduled for 11/05/17 * Results: candidiasis esophagitis, gastric ulcer (biopsied); erythematous mucosa in prepyloric region of stomach and erythematous duodenopathy * Outpatient f/u in 5 weeks * Started fluconazole 100mg PO daily for weeks; sucralfate suspension 1gm PO BID for 10 weeks; protonix 40mg PO daily for 10 weeks. * Alpha fetoprotein- f/u results * CA 19-9: elevated * CEA: 8.7 H * Continue to monitor H/H (11) Prophylactic measure * Protonix 40mg IV daily * Heparin SC - HOLD * SCDs Discussed with Dr. Jung.
[2017-11-03 07:37] LABS: EOS # 0.1 K/uL (0.0-0.7); EOS % 2.4 % (0.0-4.0); HEMOGLOBIN 9.2 g/dL (12.0-18.0); LYMPH # 0.6 K/uL (1.0-4.3); LYMPH % 14.5 % (20.0-40.0); MEAN CELL VOLUME 88.1 fL (80.0-94.0); MEAN CORPUSCULAR HEMOGLOBIN 29.8 pg (27.0-31.0); MEAN CORPUSCULAR HGB CONC 33.9 g/dL (33.0-37.0); MEAN PLATELET VOLUME 8.4 fL (7.2-11.7); MONO # 0.5 K/uL (0.0-0.8); NEUT # 2.7 K/uL (1.8-7.0); NEUT % 69.1 % (50.0-75.0); NRBC % 0.1 % (0.0-2.0); RBC 3.07 Mil/uL (4.40-5.90); RED CELL DISTRIBUTION WIDTH 22.7 % (11.5-14.5); WHITE BLOOD COUNT 3.9 K/uL (4.8-10.8)
[2017-11-03 08:04] LABS: ALB/GLOB RATIO 1.1 (1.0-2.1); ALBUMIN 2.8 g/dL (3.5-5.0); ALT/SGPT 29 U/L (21-72); AST/SGOT 45 U/L (17-59); BLOOD UREA NITROGEN 13 mg/dL (9-20); GFR AFRICAN-AMERICAN > 60; GFR NON-AFRICAN AMERICAN 55
[2017-11-03] MEDS: (Novolin R) Insulin Human Regular 100 units/ml vial SC SCH ×4 (08:11→21:22)
--- NOTE | 2017-11-03 08:29 | PN ---
DATE: LOCATION: [facility], bed B. SUBJECTIVE: This is a 66-year-old male seen and examined in rounds early today. Appeared to be somewhat awake, alert with period of mild semi-confusion and slight disorientation on and off. No reported hematemesis, chest pain or palpitation at this point. The entire chart is reviewed including but not limited to the most recent lab and radiology study results, current and the previous medication list, current and the previous medical events. Case discussed at length with the patient as well as his own daughter yesterday by telephone for a period of 30 to 35 minutes to discuss his case. Today's labs showed white blood cells low 3.9 with low hemoglobin 9.2, low hematocrit 27.1 despite blood transfusion with thrombocytopenia of 88 with low sodium 126, blood glucose level 3.3 with low calcium 8.0. Mildly elevated total bilirubin to 1.6 with low albumin 2.8 and low total protein 5.5. The patient has increased CEA level to 8.7 with increased CA19-9 to 149. The patient somewhat tolerated some oral intake, but no reported nausea or vomiting. PHYSICAL EXAMINATION: GENERAL: A 66-year-old male. VITAL SIGNS: Afebrile with pulse of 72, respiratory rate 20 to 22, blood pressure 160/84. HEENT: Showed pale dry oral mucous membrane. Mildly icteric sclerae. LUNGS: Few scattered crepitation. Decreased air entry bilaterally. HEART: Positive S1 and S2. ABDOMEN: Soft. Bowel sounds are present with abdominal distention. No mass or organomegaly. No rebound tenderness or guarding. RECTAL: The patient refused. EXTREMITIES: Without clubbing, cyanosis or edema. NEUROLOGIC: No new reported neurological deficits, sensory or motor. LABORATORY DATA: It has to be mentioned that ultrasound of the abdomen was ordered by myself. Report is seen and CAT scan or MR of the abdomen were suggested. Please see report. IMPRESSION: 1. Anemia with apparent gastrointestinal blood loss with status post upper endoscopy indicative of esophageal candidiasis with hiatus hernia and a small gastric ulcer with gastritis. 2. Increased CEA level and possibility of lower gastrointestinal tract occult malignancy should be ruled in or out, the patient is scheduled for colonoscopy after adequate preparation. 3. Known history of alcoholism with alcoholic liver disease and mild jaundice. 4. Recent history of pancreatitis, alcohol induced. 5. History of status appendectomy, diabetes mellitus and hypertension by history. SUGGESTION: 1. Continue current management. 2. Antireflux measures. 3. Guaiac all the stool daily x3. 4. Repeat serum lipase, amylase level. 5. Again, the patient for colonoscopy after adequate preparation. Then MRI of the abdomen to be scheduled. Further recommendation to follow. This case discussed at length with medical staff. Tommie Edmonds MD
[2017-11-03] MEDS: Potassium Chloride 20 mEq ER Tab PO SCH (10:10)
[2017-11-03] MEDS: Multiple Vitamins Oral Solution PO SCH (10:10)
[2017-11-03] MEDS: Magnesium Citrate Oral SOL (300 ml) PO SCH ×3 (10:11→18:14)
[2017-11-03] MEDS: Sodium Chloride 0.45% 1,000 ML IV SCH (10:28)
[2017-11-03 12:09] LABS: INR 1.3; PROTHROMBIN TIME 14.6 SECONDS (9.7-12.2)
[2017-11-04] MEDS: Sodium Chloride 0.45% 1,000 ML IV SCH (01:50)
[2017-11-04] MEDS: Sucralfate 1 gm/10 ml Oral Susp UD PO SCH ×4 (07:17→22:13)
--- NOTE | 2017-11-04 07:40 | CP.PCM.PN ---
Subjective - Date & Time of Evaluation Date of Evaluation: 11/04/17 Time of Evaluation: 07:38 - Subjective Subjective: PGY-[address] Jung's service: Pt seen and examined at bedside. Nursing reports no acute events overnight. Patient found sitting up in bed, alert, and awake; with 1:1 at bedside. Resident paged for increasing cough, congestion. Ordered STAT Lasix. CXR ordered showing airspace opacity. Pt is NPO at midnight for colonoscopy in AM with Dr. Katz. Objective - Vital Signs/Intake and Output Vital Signs (last 24 hours): Temp Pulse Resp BP Pulse Ox 98.4 F 80 20 122/67 99 11/03/17 23:15 11/04/17 04:31 11/03/17 23:15 11/03/17 23:15 11/03/17 23:15 Intake and Output: 11/04/17 11/04/17 06:59 18:59 Output Total 1200 Balance -1200 - Medications Medications: Current Medications Bisacodyl (Dulcolax) 10 mg PO ONCE ONE Stop: 11/04/17 17:01 Chlordiazepoxide (Librium) 50 mg PO Q8 [facility] Last Admin: 11/04/17 05:44 Dose: 50 mg Docusate Sodium (Colace) 100 mg PO DAILY [facility] Last Admin: 11/03/17 10:10 Dose: 100 mg Fluconazole (Diflucan) 100 mg PO DAILY [facility] Last Admin: 11/03/17 10:22 Dose: 100 mg Folic Acid (Folic Acid) 1 mg PO DAILY [facility] Last Admin: 11/03/17 10:10 Dose: 1 mg Furosemide (Lasix) 40 mg PO DAILY [facility] Last Admin: 11/03/17 10:10 Dose: 40 mg Heparin Sodium (Porcine) (Heparin) 5,000 units SC Q8 [facility] Last Admin: 11/01/17 06:18 Dose: 5,000 units Hydralazine HCl (Apresoline) 10 mg IVP Q6H PRN PRN Reason: Systolic Blood Pressure Last Admin: 11/03/17 22:12 Dose: 10 mg Sodium Chloride (Sodium Chloride 0.45%) 1,000 mls @ 75 mls/hr IV .[id number] [facility] Last Admin: 11/04/17 01:50 Dose: 75 mls/hr Insulin Human Regular (Novolin R) 0 unit SC ACHS JONNY PRN Reason: Protocol Lisinopril (Zestril) 20 mg PO DAILY [facility] Last Admin: 11/03/17 10:10 Dose: 20 mg Magnesium Citrate (Citrate Of Mag) 60 ml PO TID [facility] Stop: 11/04/17 10:01 Last Admin: 11/03/17 18:14 Dose: Not Given Metoclopramide HCl (Reglan) 5 mg IVP Q6 [facility] Stop: 11/06/17 06:01 Last Admin: 11/04/17 06:20 Dose: 5 mg Morphine Sulfate (Morphine) 1 mg IV Q4 PRN PRN Reason: Pain, moderate (4-7) Multivitamins/Vitamin C (Multi-Delyn Liquid) 5 ml PO DAILY [facility] Last Admin: 11/03/17 10:10 Dose: 5 ml Pantoprazole Sodium (Protonix Inj) 40 mg IVP Q12H [facility] Last Admin: 11/04/17 05:45 Dose: 40 mg Polyethylene Glycol/Electrolytes (Golytely) 4,000 ml PO ONCE ONE Stop: 11/04/17 10:01 Potassium Chloride (K-Dur 20 Meq Er Tab) 20 meq PO DAILY [facility] Last Admin: 11/03/17 10:10 Dose: 20 meq Propranolol HCl (Inderal) 20 mg PO TID [facility] Last Admin: 11/03/17 18:14 Dose: 20 mg Sucralfate (Carafate Oral Susp) 1 gm PO ACHS [facility] Last Admin: 11/04/17 07:17 Dose: 1 gm Thiamine HCl (Vitamin B1 Tab) 100 mg PO DAILY [facility] Last Admin: 11/03/17 10:10 Dose: 100 mg - Labs Labs: 11/03/17 07:24 11/03/17 07:24 PT 14.6 SECONDS (9.7-12.2) H 11/03/17 11:40 INR 1.3 11/03/17 11:40 APTT 30 SECONDS (21-34) 11/03/17 11:40 - Additional Findings Additional findings: - Constitutional Appears: No Acute Distress - Head Exam Head Exam: ATRAUMATIC, NORMOCEPHALIC - Eye Exam Eye Exam: EOMI - ENT Exam ENT Exam: Mucous Membranes Moist - Respiratory Exam Respiratory Exam: Wheezing, increased congestion, Rales (lower lung zones). absent: Rhonchi, Wheezes, Respiratory Distress - Cardiovascular Exam Cardiovascular Exam: REGULAR RHYTHM, +S1, +S2 - GI/Abdominal Exam GI & Abdominal Exam: Soft, Normal Bowel Sounds. absent: Distended, Firm, Tenderness - Neurological Exam Neurological Exam: Alert, Awake - Psychiatric Exam Psychiatric exam: Alert, Awake - Skin Skin Exam: Dry, Intact, Normal Color, Warm Assessment and Plan - Assessment and Plan (Free Text) Plan: Acute pancreatitis * Likely secondary to alcohol * Advancing diet--> FLD diet * Imaging: * CT of Abdomen/Pelvis: Findings consistent with mild or early acute pancreatitis. New low-density/cystic 1.3 cm mass in body of pancreas. Nonspecific. Possible intrapancreatic pseudocyst from prior pancreatitis. Possible IPMN. Follow-up advised. Fatty infiltration of the liver with sparing of the left lobe and mild atrophy of the left lobe. Mildly thickened bladder wall but there is poor distension of the urinary bladder. Rule out cystitis. Nonobstructing tiny right renal calculus. Ill-defined opacity in right lower lobe. Rule out pneumonia. Circumferential mural thickening of distal esophagus. Rule out neoplasm. Consider evaluation with endoscopy when clinically feasible. * Lipase 2310 --> 2761 * Amylase: 200 * Lipid panel: TG 147, Cholesterol 137, LDL 42, HDL 67 * Medications * Continue Morphine 1mg IV Q4H prn pain * Continue Zofran 4mg IVP Q8H prn N/V Venous congestion CXR 11/04/17 - moderate venous congestion. Left bibasilar airspace opacity. Small bilateral pleural effusions. Lasix 60mg IV STAT given Most recent ECHO 01/22: LVEF >70% HELD IVF Bilateral airspace opacities Will cover for HAP CXR 11/04/17 - moderate venous congestion. Left bibasilar airspace opacity. Small bilateral pleural effusions. Vanco 500mg IV ONCE Zosyn (renal dose) 2.25 gm IV Q6H Hyponatremia * Na 126 on AM labs - but glucose >300 so corrected Na - 130 * Continue to monitor labs Bilirubinemia * T. Duran: decreased to 1.4 from 3 at admission * Direct:1.0 Elevated LFTs * Likely secondary to alcohol * Resolved HTN (hypertension) * Propranolol 20mg po TID * Lisinopril 20mg daily * Monitor BP * Add hydralazine 10mg IV Q6H PRN for SBP >160 Diabetes * Hold home medication of Glimepiride * Increased sliding scale - MISS with Accuchecks Q6H * Monitor ETOH abuse * Continue Librium 50mg Q8 jonny- HOLD if sleeping or sedated * Discontinued on 10/31/17 Ativan 1mg IV Q6h JONNY and PRN for alcohol withdrawal - HOLD if sleeping or sedated. * Thiamine PO daily * MV PO daily * Folic Acid PO daily * Monitor for withdrawal. Last drink yesterday 10/27/17 * Aspiration precautions * Seizure precautions Constipation: * Colace 100mg PO daily Anemia * HgB decreased to 8.7 * Hgb 7.1 on 10/30 (decreased from 9.9 at admission) * Type and cross * 2 units PRBC given on 10/30--> Hgb improved * Stool occult: negative x 1, f/u 2 additional occult * Iron studies: iron 47, TIBC 202, %sat 23, Ferritin 561 * GI consulted, Dr. Katz; recs appreciated * Patient went for endoscopy on 11/02/17. Repeat endoscopy in 8 weeks for surveillance based on path results * Patient needs colonoscopy; tentatively scheduled for 11/05/17 * Results: candidiasis esophagitis, gastric ulcer (biopsied); erythematous mucosa in prepyloric region of stomach and erythematous duodenopathy * Outpatient f/u in 5 weeks * Started fluconazole 100mg PO daily for weeks; sucralfate suspension 1gm PO BID for 10 weeks; protonix 40mg PO daily for 10 weeks. * Alpha fetoprotein- f/u results * CA 19-9: elevated * CEA: 8.7 H * Continue to monitor H/H Prophylactic measure * Protonix 40mg IV daily * Heparin SC - HOLD * SCDs Discussed with Dr. Jung.
[2017-11-04] MEDS: (Novolin R) Insulin Human Regular 100 units/ml vial SC SCH ×4 (07:47→22:09)
[2017-11-04 07:52] LABS: BASO % 0.9 % (0.0-2.0); EOS # 0.1 K/uL (0.0-0.7); EOS % 2.2 % (0.0-4.0); HEMOGLOBIN 8.7 g/dL (12.0-18.0); LYMPH # 0.8 K/uL (1.0-4.3); LYMPH % 19.2 % (20.0-40.0); MEAN CELL VOLUME 89.2 fL (80.0-94.0); MEAN CORPUSCULAR HEMOGLOBIN 28.6 pg (27.0-31.0); MEAN CORPUSCULAR HGB CONC 32.1 g/dL (33.0-37.0); MEAN PLATELET VOLUME 8.7 fL (7.2-11.7); MONO # 0.5 K/uL (0.0-0.8); MONO % 12.2 % (0.0-10.0); NEUT # 2.8 K/uL (1.8-7.0); NEUT % 65.5 % (50.0-75.0); NRBC % 0.1 % (0.0-2.0); RBC 3.04 Mil/uL (4.40-5.90); RED CELL DISTRIBUTION WIDTH 23.4 % (11.5-14.5); WHITE BLOOD COUNT 4.3 K/uL (4.8-10.8)
[2017-11-04] MEDS ORDERED: Phytonadione 10 mg/ml Inj (Adult) SC STA (08:01)
[2017-11-04 08:15] LABS: ALB/GLOB RATIO 0.9 (1.0-2.1); ALBUMIN 2.7 g/dL (3.5-5.0); ALT/SGPT 26 U/L (21-72); AMYLASE 32 U/L (30-110); AST/SGOT 29 U/L (17-59); BLOOD UREA NITROGEN 10 mg/dL (9-20); CALCIUM 7.9 mg/dl (8.6-10.4); GFR AFRICAN-AMERICAN > 60; GFR NON-AFRICAN AMERICAN 55; LIPASE 249 U/L (23-300)
--- NOTE | 2017-11-04 08:18 | PN ---
DATE: LOCATION: [facility], bed B. SUBJECTIVE: This is a 66-year-old male seen in rounds with the staff in the floor with period of disorientation and confusion, but no reported active bleeding. No reported chest pain or palpitation or reported shortness of breath with continuous bowel movement post citrate of magnesium. The entire chart is reviewed including but not limited to the most recent lab and radiology study results, current and the previous medication list, current and the previous medical events and today's labs still pending. Most recent CBC showed pancytopenia with white blood cells 3.9, hemoglobin dropped to 9.2, hematocrit 27.1 with thrombocytosis of 88 with low sodium and low chloride with PT of 14.6, but with elevated blood glucose level to 310 this morning with mildly elevated total bilirubin, but low albumin and low total protein. PHYSICAL EXAMINATION: GENERAL: A 66-year-old male. The patient appeared to be somewhat disoriented. VITAL SIGNS: With low-grade temperature of 100, pulse of 74, respiratory rate 20 to 22, blood pressure 140/72. HEENT: Showed pale dry oral mucous membrane. Nonicteric sclerae. LUNGS: Few scattered crepitation. Breathing sounds are present bilaterally. HEART: Positive S1 and S2. ABDOMEN: Soft with mild distention with slight generalized tenderness. No mass or organomegaly. No rebound tenderness or guarding. EXTREMITIES: With slight lower extremity edematous changes. No clubbing or cyanosis. RECTAL: Rectal bleeding, the patient refused. NEUROLOGIC: No reported new neurological deficits, sensory or motor. No reported focal deficits recently. VASCULAR: Peripheral pulses positive bilaterally. IMPRESSION: 1. Alcoholism with alcoholic liver disease. 2. Pancytopenia with subsequent drop of hemoglobin and hematocrit, to rule out lower gastrointestinal blood loss. 3. Elevated CEA level, to rule out occult gastrointestinal malignancy. 4. Known history of pancreatitis, alcohol induced. 5. Hypertension, diabetes mellitus with status post appendectomy by history. SUGGESTION: 1. Continue current management. 2. The patient for colonoscopy at a.m. after more adequate preparation. Tommie Edmonds MD
[2017-11-04] MEDS ORDERED: Peg-Electrolyte Oral Soln 4L (Golytely) PO ONE (10:00)
[2017-11-04] MEDS: Magnesium Citrate Oral SOL (300 ml) PO SCH ×3 (11:29→19:31)
[2017-11-04] MEDS: Multiple Vitamins Oral Solution PO SCH (11:30)
[2017-11-04] MEDS: Potassium Chloride 20 mEq ER Tab PO SCH (11:30)
--- NOTE | 2017-11-04 14:20 | RAD ---
Chest x-ray single frontal view History: Wheezing and vomiting. Comparison: 11/02/2017 Findings: Moderate venous congestion. Right hilar prominence. Small bilateral pleural effusions. Left basilar airspace opacity. Tortuous aorta. Cardiomegaly. Impression: Moderate venous congestion. Right hilar prominence. Small bilateral pleural effusions. Left basilar airspace opacity. Tortuous aorta. Cardiomegaly.
[2017-11-04] MEDS ORDERED: Bisacodyl 5mg EC Tab PO ONE (17:00)
[2017-11-04] MEDS ORDERED: Vancomycin 500mg/D5W 100 ml 500 MG/100 ML BAG IVPB ONE (17:22)
[2017-11-04] MEDS: Piperacill/Tazo 2.25gm in Dex 2.25 GM/50 ML BAG IVPB SCH ×2 (18:31→23:47)
[2017-11-05] MEDS: Piperacill/Tazo 2.25gm in Dex 2.25 GM/50 ML BAG IVPB SCH ×4 (05:06→22:51)
[2017-11-05 06:39] LABS: BASO # 0.1 K/uL (0.0-0.2); BASO % 0.8 % (0.0-2.0); EOS # 0.1 K/uL (0.0-0.7); HEMOGLOBIN 9.2 g/dL (12.0-18.0); LYMPH # 1.1 K/uL (1.0-4.3); LYMPH % 15.3 % (20.0-40.0); MEAN CELL VOLUME 88.8 fL (80.0-94.0); MEAN CORPUSCULAR HEMOGLOBIN 29.2 pg (27.0-31.0); MEAN CORPUSCULAR HGB CONC 32.9 g/dL (33.0-37.0); MEAN PLATELET VOLUME 8.3 fL (7.2-11.7); MONO # 0.6 K/uL (0.0-0.8); NEUT # 5.4 K/uL (1.8-7.0); NEUT % 73.9 % (50.0-75.0); RBC 3.15 Mil/uL (4.40-5.90); RED CELL DISTRIBUTION WIDTH 22.7 % (11.5-14.5); WHITE BLOOD COUNT 7.2 K/uL (4.8-10.8)
[2017-11-05] MEDS: Sucralfate 1 gm/10 ml Oral Susp UD PO SCH ×4 (06:41→22:01)
[2017-11-05 07:57] LABS: ALBUMIN 2.8 g/dL (3.5-5.0); CALCIUM 8.1 mg/dl (8.6-10.4)
[2017-11-05] MEDS: (Novolin R) Insulin Human Regular 100 units/ml vial SC SCH ×4 (08:32→22:52)
[2017-11-05] MEDS: Multiple Vitamins Oral Solution PO SCH (09:42)
[2017-11-05] MEDS: Potassium Chloride 20 mEq ER Tab PO SCH (09:43)
[2017-11-05] MEDS ORDERED: Phytonadione 10 mg/ml Inj (Adult) IV ONE (12:15)
--- NOTE | 2017-11-05 12:49 | PN ---
DATE: LOCATION: 3, bed B. SUBJECTIVE: This is a 66-year-old male seen and examined in rounds today with a period of mild semi-confusion, was initially scheduled for colonoscopy today; however, the patient had the episodes of nausea and vomiting, unable to tolerate preparation adequately for which the procedure has to be canceled. I ordered a chest x-ray yesterday which showed evidence of left basilar opacity with evidence of cardiomegaly. No reported chest pain or palpitation but occasional dry cough with no reported active bleeding. The entire chart is reviewed including but not limited to the most recent lab and radiology study results, current and the previous medication list, current and the previous medical events. The patient has no leukocytosis with hemoglobin is still low at 9.2, hematocrit 27.9 with thrombocytopenia of 122 with low sodium 128, mildly elevated creatinine 1.9, glucose 226, low calcium 8.1, elevated total protein 2.1 with albumin low of 2.8. The latest PT is reported to be 14.6 with normal INR and normal PTT. PHYSICAL EXAMINATION: GENERAL: A 66-year-old male. VITAL SIGNS: Afebrile with pulse of 72, respiratory rate of 20 to 22, blood pressure 150/80. HEENT: Showed mildly pale, dry oral mucous membrane. Mildly icteric sclerae. LUNGS: Few scattered crepitation with decreased air entry at bases. HEART: Positive S1 and S2. ABDOMEN: Soft. Bowel sounds are present. No mass or organomegaly. No rebound tenderness or guarding. RECTAL: The patient refused. EXTREMITIES: Without significant clubbing, cyanosis, or edema. NEUROLOGIC: No reported new neurological deficits, sensory or motor. VASCULAR: Peripheral pulses are present bilaterally. IMPRESSION: 1. Alcoholism with alcoholic liver disease with mild jaundice and mildly elevated total bilirubin due to hepatocellular injury. 2. Anemia, to rule out lower gastrointestinal tract occult malignancy, keeping in mind the patient's elevated CEA level, which also could be secondary to end liver cirrhosis. 3. Thrombocytopenia secondary to above. 4. Known history of pancreatitis, alcohol induced. 5. Known history of poorly-controlled diabetes mellitus, hypertension, with status post appendectomy by history. SUGGESTION: 1. Continue current management. 2. Clear liquid diet. 3. The patient for colonoscopy at a.m. when he is more stable. Tommie Edmonds MD [facility] # [id number]
--- NOTE | 2017-11-05 13:07 | CP.PCM.PN ---
Subjective - Date & Time of Evaluation Date of Evaluation: 11/05/17 Time of Evaluation: 07:30 - Subjective Subjective: Medicine progress note for Dr. Jung's service Patient was seen and examined at bedside in the morning. Patient was sitting up in bed, alert, and awake, but not oriented. Patient reports feeling better, but complains of cough. Patient denies chest pain, shortness of breath, nausea, vomiting, abdominal pain, leg pain. Objective - Vital Signs/Intake and Output Vital Signs (last 24 hours): Temp Pulse Resp BP Pulse Ox 98.0 F 70 20 155/88 H 99 11/05/17 08:30 11/05/17 08:30 11/05/17 08:30 11/05/17 09:42 11/05/17 08:30 Intake and Output: 11/05/17 11/05/17 06:59 18:59 Output Total 150 Balance -150 - Medications Medications: Current Medications Chlordiazepoxide (Librium) 50 mg PO Q8 [facility] Last Admin: 11/05/17 07:02 Dose: Not Given Docusate Sodium (Colace) 100 mg PO DAILY [facility] Last Admin: 11/05/17 09:43 Dose: Not Given Fluconazole (Diflucan) 100 mg PO DAILY [facility] Last Admin: 11/05/17 09:43 Dose: 100 mg Folic Acid (Folic Acid) 1 mg PO DAILY [facility] Last Admin: 11/05/17 09:42 Dose: 1 mg Furosemide (Lasix) 40 mg PO DAILY [facility] Last Admin: 11/05/17 09:42 Dose: 40 mg Heparin Sodium (Porcine) (Heparin) 5,000 units SC Q8 [facility] Last Admin: 11/01/17 06:18 Dose: 5,000 units Hydralazine HCl (Apresoline) 10 mg IVP Q6H PRN PRN Reason: Systolic Blood Pressure Last Admin: 11/04/17 19:17 Dose: 10 mg Sodium Chloride (Sodium Chloride 0.45%) 1,000 mls @ 75 mls/hr IV .[id number] [facility] Last Admin: 11/04/17 01:50 Dose: 75 mls/hr Piperacillin Sod/Tazobactam Sod (Zosyn 2.25 Gm Iv Premix) 2.25 gm in 50 mls @ 100 mls/hr IVPB Q6H [facility] Last Admin: 11/05/17 11:23 Dose: 100 mls/hr Insulin Human Regular (Novolin R) 0 unit SC ACHS JONNY PRN Reason: Protocol Last Admin: 11/05/17 12:40 Dose: 8 unit Lisinopril (Zestril) 20 mg PO DAILY [facility] Last Admin: 11/05/17 09:42 Dose: 20 mg Metoclopramide HCl (Reglan) 5 mg IVP Q6 JONNY Stop: 11/06/17 06:01 Last Admin: 11/05/17 11:24 Dose: 5 mg Morphine Sulfate (Morphine) 1 mg IV Q4 PRN PRN Reason: Pain, moderate (4-7) Multivitamins/Vitamin C (Multi-Delyn Liquid) 5 ml PO DAILY [facility] Last Admin: 11/05/17 09:42 Dose: 5 ml Pantoprazole Sodium (Protonix Inj) 40 mg IVP Q12H [facility] Last Admin: 11/05/17 06:49 Dose: 40 mg Potassium Chloride (K-Dur 20 Meq Er Tab) 20 meq PO DAILY [facility] Last Admin: 11/05/17 09:43 Dose: 20 meq Propranolol HCl (Inderal) 20 mg PO TID [facility] Last Admin: 11/05/17 09:43 Dose: 20 mg Sucralfate (Carafate Oral Susp) 1 gm PO ACHS [facility] Last Admin: 11/05/17 11:24 Dose: 1 gm Thiamine HCl (Vitamin B1 Tab) 100 mg PO DAILY [facility] Last Admin: 11/05/17 09:43 Dose: 100 mg - Labs Labs: 11/05/17 06:27 11/05/17 06:27 PT 14.6 SECONDS (9.7-12.2) H 11/03/17 11:40 INR 1.3 11/03/17 11:40 APTT 30 SECONDS (21-34) 11/03/17 11:40 - Additional Findings Additional findings: - Constitutional Appears: No Acute Distress - Head Exam Head Exam: ATRAUMATIC, NORMOCEPHALIC - Eye Exam Eye Exam: EOMI - ENT Exam ENT Exam: Mucous Membranes Moist - Respiratory Exam Respiratory Exam: NORMAL BREATHING PATTERN. absent: Rales, Rhonchi, Wheezes, Respiratory Distress - Cardiovascular Exam Cardiovascular Exam: REGULAR RHYTHM, +S1, +S2 - GI/Abdominal Exam GI & Abdominal Exam: Soft, Normal Bowel Sounds. absent: Distended, Firm, Tenderness - Neurological Exam Neurological Exam: Alert, Awake - Psychiatric Exam Psychiatric exam: Alert, Awake - Skin Skin Exam: Dry, Intact, Normal Color, Warm Assessment and Plan - Assessment and Plan (Free Text) Plan: (1) Acute pancreatitis * Likely secondary to alcohol * Advancing diet--> FLD diet * Imaging: * CT of Abdomen/Pelvis: Findings consistent with mild or early acute pancreatitis. New low-density/cystic 1.3 cm mass in body of pancreas. Nonspecific. Possible intrapancreatic pseudocyst from prior pancreatitis. Possible IPMN. Follow-up advised. Fatty infiltration of the liver with sparing of the left lobe and mild atrophy of the left lobe. Mildly thickened bladder wall but there is poor distension of the urinary bladder. Rule out cystitis. Nonobstructing tiny right renal calculus. Ill-defined opacity in right lower lobe. Rule out pneumonia. Circumferential mural thickening of distal esophagus. Rule out neoplasm. Consider evaluation with endoscopy when clinically feasible. * Lipase 2310 --> 2761 * Amylase: 200 * Lipid panel: TG 147, Cholesterol 137, LDL 42, HDL 67 * Medications * Continue Morphine 1mg IV Q4H prn pain * Continue Zofran 4mg IVP Q8H prn N/V * 0.45%NS IV fluids (2) Venous congestion * CXR 11/04/17 - moderate venous congestion. Left bibasilar airspace opacity. Small bilateral pleural effusions. * Lasix 60mg IV STAT given * Most recent ECHO 01/22: LVEF >70% * HELD IVF (3) Bilateral airspace opacities * Will cover for HAP * CXR 11/04/17 - moderate venous congestion. Left bibasilar airspace opacity. Small bilateral pleural effusions. * Vanco 500mg IV ONCE * Continue Zosyn (renal dose) 2.25 gm IV Q6H (4) Elevated LFTs * Likely secondary to alcohol * Resolved (5) HTN (hypertension) * Pt did not take medications on day of admission * Propranolol 20mg po TID * Lisinopril 20mg daily * Monitor BP (6) Diabetes * Hold home medication of Glimepiride * Start ISS with Accuchecks Q6H * Monitor (7) ETOH abuse * Starting Librium 50mg Q8 jonny- HOLD if sleeping or sedated * Discontinued on 10/31/17 Ativan 1mg IV Q6h JONNY and PRN for alcohol withdrawal - HOLD if sleeping or sedated. * Thiamine PO daily * MV PO daily * Folic Acid PO daily * Monitor for withdrawal. Last drink yesterday 10/27/17 * Aspiration precautions * Seizure precautions (9) Constipation: * Colace 100mg PO daily (10) Anemia * Hgb 7.1 on 10/30 (decreased from 9.9 at admission) * Type and cross * 2 units PRBC given on 10/30--> Hgb improved * Stool occult: negative * Iron studies: iron 47, TIBC 202, %sat 23, Ferritin 561 * GI consulted, Dr. Katz; recs appreciated * Patient went for endoscopy on 11/02/17. Repeat endoscopy in 8 weeks for surveillance based on path results * Patient needs colonoscopy; postponed due to possible pneumonia * Results: candidiasis esophagitis, gastric ulcer (biopsied); erythematous mucosa in prepyloric region of stomach and erythematous duodenopathy * Outpatient f/u in 5 weeks * Started fluconazole 100mg PO daily for weeks; sucralfate suspension 1gm PO BID for 10 weeks; protonix 40mg PO daily for 10 weeks. * Alpha fetoprotein- 2.9, nml * CA 19-9: 149, elevated * CEA: 8.7 H * Continue to monitor H/H (11) Hyponatremia * Hydration with half NS as above * Continue to monitor labs (12) Bilirubinemia * T. Duran: 3.0 * Direct:1.0 (13) Prophylactic measure * Protonix 40mg IV daily * Heparin SC - HOLD * SCDs Discussed with Dr. Jung.
[2017-11-05] MEDS ORDERED: Magnesium Citrate Oral SOL (300 ml) PO STA (17:26)
[2017-11-05] MEDS ORDERED: Bisacodyl 5mg EC Tab PO ONE (18:30)
[2017-11-05] MEDS ORDERED: Magnesium Citrate Oral SOL (300 ml) PO ONE (20:00)
[2017-11-06] MEDS: Piperacill/Tazo 2.25gm in Dex 2.25 GM/50 ML BAG IVPB SCH ×4 (05:05→22:35)
[2017-11-06 07:00] LABS: BASO # 0.1 K/uL (0.0-0.2); BASO % 1.1 % (0.0-2.0); EOS # 0.1 K/uL (0.0-0.7); EOS % 0.9 % (0.0-4.0); HEMOGLOBIN 9.1 g/dL (12.0-18.0); LYMPH # 0.8 K/uL (1.0-4.3); LYMPH % 9.9 % (20.0-40.0); MEAN CELL VOLUME 89.5 fL (80.0-94.0); MEAN CORPUSCULAR HEMOGLOBIN 29.5 pg (27.0-31.0); MEAN PLATELET VOLUME 8.9 fL (7.2-11.7); MONO # 0.6 K/uL (0.0-0.8); MONO % 6.8 % (0.0-10.0); NEUT # 6.6 K/uL (1.8-7.0); NEUT % 81.3 % (50.0-75.0); PLATELET COUNT 138 K/uL (130-400); RBC 3.09 Mil/uL (4.40-5.90); RED CELL DISTRIBUTION WIDTH 22.4 % (11.5-14.5); WHITE BLOOD COUNT 8.2 K/uL (4.8-10.8)
[2017-11-06] MEDS: (Novolin R) Insulin Human Regular 100 units/ml vial SC SCH ×4 (07:25→21:30)
[2017-11-06] MEDS: Sucralfate 1 gm/10 ml Oral Susp UD PO SCH ×5 (08:03→21:30)
[2017-11-06] MEDS ORDERED: Etomidate 20 mg/10ml Inj IV ONE (08:29)
[2017-11-06] MEDS ORDERED: Lactated Ringer's 1,000 ML IV ONE ×2 (08:32)
[2017-11-06 08:54] LABS: ANISOCYTOSIS SLIGHT; EOSINOPHIL 1 % (0-4); LYMPHOCYTE 6 % (20-40); MONOCYTE 4 % (0-10); NEUTROPHIL 89 % (50-75); PLATELET ESTIMATE NORMAL (NORMAL); TOTAL CELLS COUNTED 100
[2017-11-06 08:55] LABS: HYPOCHROMIC SLIGHT; POLYCHROMIC SLIGHT; TARGET CELLS SLIGHT
[2017-11-06] MEDS: Potassium Chloride 20 mEq ER Tab PO SCH (09:50)
[2017-11-06] MEDS: Multiple Vitamins Oral Solution PO SCH (09:51)
--- NOTE | 2017-11-06 15:11 | CP.PCM.PN ---
Subjective - Date & Time of Evaluation Date of Evaluation: 11/06/17 Time of Evaluation: 15:07 - Subjective Subjective: Medicine progress note for Dr. Jung's service Patient was seen and examined at bedside. Patient s/p colonscopy, complaining of vomiting, but denies nausea. As per nursing, patient appears to have difficulty swallowing water, but can tolerate apple sauce. As per nursing, patient is also having loose bowels s/p colonoscopy. Patient appears lethargic, mumbling, and confused. Review of systems limited due to patients condition. Objective - Vital Signs/Intake and Output Vital Signs (last 24 hours): Temp Pulse Resp BP Pulse Ox 97 F L 68 18 118/61 95 11/06/17 08:50 11/06/17 13:48 11/06/17 13:48 11/06/17 13:48 11/06/17 13:48 Intake and Output: 11/06/17 11/06/17 06:59 18:59 Intake Total 900 Output Total 800 600 Balance 100 -600 - Medications Medications: Current Medications Chlordiazepoxide (Librium) 50 mg PO Q8 PRN PRN Reason: Agitation Docusate Sodium (Colace) 100 mg PO DAILY [facility] Last Admin: 11/06/17 09:33 Dose: Not Given Fluconazole (Diflucan) 100 mg PO DAILY [facility] Last Admin: 11/06/17 09:50 Dose: 100 mg Folic Acid (Folic Acid) 1 mg PO DAILY [facility] Last Admin: 11/06/17 09:50 Dose: 1 mg Furosemide (Lasix) 40 mg PO DAILY [facility] Last Admin: 11/06/17 09:50 Dose: 40 mg Heparin Sodium (Porcine) (Heparin) 5,000 units SC Q8 [facility] Last Admin: 11/01/17 06:18 Dose: 5,000 units Hydralazine HCl (Apresoline) 10 mg IVP Q6H PRN PRN Reason: Systolic Blood Pressure Last Admin: 11/06/17 09:49 Dose: 10 mg Sodium Chloride (Sodium Chloride 0.45%) 1,000 mls @ 75 mls/hr IV .[id number] [facility] Last Admin: 11/04/17 01:50 Dose: 75 mls/hr Piperacillin Sod/Tazobactam Sod (Zosyn 2.25 Gm Iv Premix) 2.25 gm in 50 mls @ 100 mls/hr IVPB Q6H [facility] Last Admin: 11/06/17 10:38 Dose: 100 mls/hr Lactated Ringer's (Lactated Ringer's 500ml) 500 mls @ 75 mls/hr IV .Q6H40M [facility] Insulin Human Regular (Novolin R) 0 unit SC ACHS [facility] PRN Reason: Protocol Last Admin: 11/06/17 12:54 Dose: 10 unit Lisinopril (Zestril) 20 mg PO DAILY [facility] Last Admin: 11/06/17 09:50 Dose: 20 mg Multivitamins/Vitamin C (Multi-Delyn Liquid) 5 ml PO DAILY [facility] Last Admin: 11/06/17 09:51 Dose: 5 ml Pantoprazole Sodium (Protonix Inj) 40 mg IVP Q12H [facility] Last Admin: 11/06/17 06:15 Dose: 40 mg Potassium Chloride (K-Dur 20 Meq Er Tab) 20 meq PO DAILY [facility] Last Admin: 11/06/17 09:50 Dose: 20 meq Propranolol HCl (Inderal) 20 mg PO TID [facility] Last Admin: 11/06/17 13:52 Dose: 20 mg Sucralfate (Carafate Oral Susp) 1 gm PO ACHS [facility] Last Admin: 11/06/17 10:38 Dose: 1 gm Thiamine HCl (Vitamin B1 Tab) 100 mg PO DAILY [facility] Last Admin: 11/06/17 09:50 Dose: 100 mg - Labs Labs: 11/06/17 06:40 11/05/17 06:27 PT 14.6 SECONDS (9.7-12.2) H 11/03/17 11:40 INR 1.3 11/03/17 11:40 APTT 30 SECONDS (21-34) 11/03/17 11:40 - Additional Findings Additional findings: - Constitutional Appears: No Acute Distress, confused - Head Exam Head Exam: ATRAUMATIC, NORMOCEPHALIC - Eye Exam Eye Exam: EOMI - ENT Exam ENT Exam: Mucous Membranes Moist - Respiratory Exam Respiratory Exam: NORMAL BREATHING PATTERN, Wheezes. absent: Rales, Rhonchi, Respiratory Distress - Cardiovascular Exam Cardiovascular Exam: REGULAR RHYTHM, +S1, +S2 - GI/Abdominal Exam GI & Abdominal Exam: Soft, Normal Bowel Sounds. absent: Distended, Firm, Tenderness - Neurological Exam Neurological Exam: Alert, Awake - Psychiatric Exam Psychiatric exam: Alert, Awake - Skin Skin Exam: Dry, Intact, Normal Color, Warm Assessment and Plan - Assessment and Plan (Free Text) Plan: Plan: (1) Acute pancreatitis * Likely secondary to alcohol * Advancing diet--> FLD diet * Imaging: * CT of Abdomen/Pelvis: Findings consistent with mild or early acute pancreatitis. New low-density/cystic 1.3 cm mass in body of pancreas. Nonspecific. Possible intrapancreatic pseudocyst from prior pancreatitis. Possible IPMN. Follow-up advised. Fatty infiltration of the liver with sparing of the left lobe and mild atrophy of the left lobe. Mildly thickened bladder wall but there is poor distension of the urinary bladder. Rule out cystitis. Nonobstructing tiny right renal calculus. Ill-defined opacity in right lower lobe. Rule out pneumonia. Circumferential mural thickening of distal esophagus. Rule out neoplasm. Consider evaluation with endoscopy when clinically feasible. * Lipase 2310 --> 2761 * Amylase: 200 * Lipid panel: TG 147, Cholesterol 137, LDL 42, HDL 67 * Medications * Continue Morphine 1mg IV Q4H prn pain * Continue Zofran 4mg IVP Q8H prn N/V * 0.45%NS IV fluids (2) Venous congestion * CXR 11/04/17 - moderate venous congestion. Left bibasilar airspace opacity. Small bilateral pleural effusions. * Lasix 60mg IV STAT given * Most recent ECHO 01/22: LVEF >70% * HELD IVF * Ordered duoneb once on 11/06/17 for wheezing. (3) Bilateral airspace opacities * Will cover for HAP * CXR 11/04/17 - moderate venous congestion. Left bibasilar airspace opacity. Small bilateral pleural effusions. * Vanco 500mg IV ONCE * Continue Zosyn (renal dose) 2.25 gm IV Q6H (4) Elevated LFTs * Likely secondary to alcohol * Resolved (5) HTN (hypertension) * Pt did not take medications on day of admission * Propranolol 20mg po TID * Lisinopril 20mg daily * Monitor BP (6) Diabetes * Hold home medication of Glimepiride * Start ISS with Accuchecks Q6H * Monitor (7) ETOH abuse * Starting Librium 50mg Q8 jonny- HOLD if sleeping or sedated * Discontinued on 10/31/17 Ativan 1mg IV Q6h JONNY and PRN for alcohol withdrawal - HOLD if sleeping or sedated. * Thiamine PO daily * MV PO daily * Folic Acid PO daily * Monitor for withdrawal. Last drink yesterday 10/27/17 * Aspiration precautions * Seizure precautions (9) Constipation: * Resolved * Colace 100mg PO daily (10) Anemia * Hgb 7.1 on 10/30 (decreased from 9.9 at admission) * Type and cross * 2 units PRBC given on 10/30--> Hgb improved * Stool occult: negative * Iron studies: iron 47, TIBC 202, %sat 23, Ferritin 561 * GI consulted, Dr. Katz; recs appreciated * Patient went for endoscopy on 11/02/17. Repeat endoscopy in 8 weeks for surveillance based on path results * Patient needs colonoscopy; postponed due to possible pneumonia * Results: candidiasis esophagitis, gastric ulcer (biopsied); erythematous mucosa in prepyloric region of stomach and erythematous duodenopathy * Outpatient f/u in 5 weeks * Started fluconazole 100mg PO daily for weeks; sucralfate suspension 1gm PO BID for 10 weeks; protonix 40mg PO daily for 10 weeks. * Alpha fetoprotein- 2.9, nml * CA 19-9: 149, elevated * CEA: 8.7 H * Continue to monitor H/H (11) Hyponatremia * Hydration with half NS as above * Continue to monitor labs (12) Bilirubinemia * T. Duran: 3.0 * Direct:1.0 (13) Prophylactic measure * Protonix 40mg IV daily * Heparin SC - HOLD * SCDs * Aspiration precautions * Swallow eval Discussed with Dr. uJng. Disposition: Patient is s/p colonscopy and endoscopy. Patient awaiting authorization from insurance for discharge to [facility].
[2017-11-06] MEDS ORDERED: Albuterol-Ipratrop 3 mg / 0.5 (3 ml) UD INH STA (15:19)
[2017-11-06] MEDS: Lactated Ringer's 500 ML IV SCH (21:31)
--- NOTE | 2017-11-07 00:48 | PCM.RRT ---
[employer] [address] [address] [employer] Nurses Assessment - Situation Date: 11/07/[address] [address] [employer] was called: 00:[address] [employer] Responder Arrival Time:: 00:[address] [employer] Reason for Call: Change in Mental Status (non-responsive) New IV Insertion Tolerance: Good Plan - Assessment of Findings&Treatment Plan [employer] [address] [address] [employer] was called at 12:30am for non-responsiveness. Upon examination patient was initially lethargic and slow to respond, however with tactile stimulation he became more alert, talkative and responsive. Patient is undergoing withdrawal and was most likely sleeping. Nursing staff reported that he had a fever 101.5 currently for which he was to receive tylenol but when the nurse went to give him the medication he wad found nonresponsive. Blood cx x2, CBC, CMP, UA, ammonia level were ordered for stat labs. IV caldolor x 1 dose was initially ordered for antipyretic for coverage. Finger stick was done at bedside and was >200. Vitals were rechecked: T- 98.2 and BP: 117/68. Caldolor was held given the lowered temperature reading. The patient was alert, talkative, afebrile at the end of this encounter. PMD Dr. Jung to be notified.
[2017-11-07 01:33] LABS: BASO # 0.1 K/uL (0.0-0.2); BASO % 0.4 % (0.0-2.0); EOS # 0.1 K/uL (0.0-0.7); EOS % 0.5 % (0.0-4.0); HEMOGLOBIN 8.8 g/dL (12.0-18.0); LYMPH # 0.7 K/uL (1.0-4.3); LYMPH % 5.6 % (20.0-40.0); MEAN CELL VOLUME 88.9 fL (80.0-94.0); MEAN CORPUSCULAR HEMOGLOBIN 28.8 pg (27.0-31.0); MEAN CORPUSCULAR HGB CONC 32.4 g/dL (33.0-37.0); MEAN PLATELET VOLUME 8.7 fL (7.2-11.7); MONO # 0.6 K/uL (0.0-0.8); MONO % 5.1 % (0.0-10.0); NEUT # 11.2 K/uL (1.8-7.0); NEUT % 88.4 % (50.0-75.0); PLATELET COUNT 163 K/uL (130-400); RBC 3.06 Mil/uL (4.40-5.90); RED CELL DISTRIBUTION WIDTH 22.5 % (11.5-14.5); WHITE BLOOD COUNT 12.6 K/uL (4.8-10.8)
[2017-11-07 01:49] LABS: ALB/GLOB RATIO 0.9 (1.0-2.1); ALBUMIN 2.7 g/dL (3.5-5.0); CALCIUM 8.3 mg/dl (8.6-10.4)
[2017-11-07 02:01] LABS: ANISOCYTOSIS MODERATE; LYMPHOCYTE 6 % (20-40); MONOCYTE 6 % (0-10); NEUTROPHIL 88 % (50-75); OVALOCYTES SLIGHT; PLATELET ESTIMATE NORMAL (NORMAL); POLYCHROMIC SLIGHT; TOTAL CELLS COUNTED 100
[2017-11-07 02:11] LABS: URINE BACTERIA RARE (<OCC); URINE BILIRUBIN NEGATIVE (NEGATIVE); URINE BLOOD 3+ (NEGATIVE); URINE COLOR Yellow (YELLOW); URINE GLUCOSE (UA) 3+ mg/dL (Normal); URINE LEUKOCYTE ESTERASE NEG Leu/uL (Negative); URINE NITRATE NEGATIVE (NEGATIVE); URINE PROTEIN 1+ mg/dL (NEGATIVE); URINE UROBILINOGEN NORMAL mg/dL (0.2-1.0)
[2017-11-07 02:27] LABS: URINE CLARITY Hazy (Clear)
[2017-11-07] MEDS: Piperacill/Tazo 2.25gm in Dex 2.25 GM/50 ML BAG IVPB SCH ×4 (05:35→23:03)
[2017-11-07] MEDS: Lactated Ringer's 500 ML IV SCH ×2 (05:39→21:00)
[2017-11-07] MEDS: Sucralfate 1 gm/10 ml Oral Susp UD PO SCH ×4 (06:34→22:58)
[2017-11-07 07:12] LABS: ALB/GLOB RATIO 0.9 (1.0-2.1); ALBUMIN 2.6 g/dL (3.5-5.0)
[2017-11-07 07:34] LABS: BASO # 0.1 K/uL (0.0-0.2); BASO % 0.6 % (0.0-2.0); EOS # 0.1 K/uL (0.0-0.7); EOS % 0.7 % (0.0-4.0); HEMOGLOBIN 8.5 g/dL (12.0-18.0); LYMPH # 0.9 K/uL (1.0-4.3); LYMPH % 9.2 % (20.0-40.0); MEAN CELL VOLUME 89.7 fL (80.0-94.0); MEAN CORPUSCULAR HEMOGLOBIN 29.8 pg (27.0-31.0); MEAN CORPUSCULAR HGB CONC 33.2 g/dL (33.0-37.0); MEAN PLATELET VOLUME 9.2 fL (7.2-11.7); MONO # 0.5 K/uL (0.0-0.8); NEUT # 8.1 K/uL (1.8-7.0); NEUT % 84.5 % (50.0-75.0); PLATELET COUNT 156 K/uL (130-400); RBC 2.85 Mil/uL (4.40-5.90); RED CELL DISTRIBUTION WIDTH 22.2 % (11.5-14.5); WHITE BLOOD COUNT 9.6 K/uL (4.8-10.8)
--- NOTE | 2017-11-07 07:53 | CP.PCM.PN ---
Subjective - Date & Time of Evaluation Date of Evaluation: 11/07/17 Time of Evaluation: 07:53 - Subjective Subjective: Medicine progress note for Dr. Jung's service Patient was seen and examined at bedside. Patient is alert, but disoriented, confused. Patient states he is no longer vomiting, denies nausea, chest pain, fevers, headaches, abdominal pain. Review of systems limited due to patients condition. 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 Objective - Vital Signs/Intake and Output Vital Signs (last 24 hours): Temp Pulse Resp BP Pulse Ox 98.5 F 71 20 91/60 L 97 11/07/17 04:23 11/07/17 04:00 11/06/17 23:00 11/06/17 23:00 11/06/17 23:00 Intake and Output: 11/07/17 11/07/17 06:59 18:59 Intake Total 600 Output Total 700 Balance -100 - Medications Medications: Current Medications Chlordiazepoxide (Librium) 50 mg PO Q8 PRN PRN Reason: Agitation Docusate Sodium (Colace) 100 mg PO DAILY [facility] Last Admin: 11/06/17 09:33 Dose: Not Given Fluconazole (Diflucan) 100 mg PO DAILY [facility] Last Admin: 11/06/17 09:50 Dose: 100 mg Folic Acid (Folic Acid) 1 mg PO DAILY [facility] Last Admin: 11/06/17 09:50 Dose: 1 mg Furosemide (Lasix) 40 mg PO DAILY [facility] Last Admin: 11/06/17 09:50 Dose: 40 mg Heparin Sodium (Porcine) (Heparin) 5,000 units SC Q8 [facility] Last Admin: 11/01/17 06:18 Dose: 5,000 units Hydralazine HCl (Apresoline) 10 mg IVP Q6H PRN PRN Reason: Systolic Blood Pressure Last Admin: 11/06/17 17:23 Dose: 10 mg Sodium Chloride (Sodium Chloride 0.45%) 1,000 mls @ 75 mls/hr IV .[id number] [facility] Last Admin: 11/04/17 01:50 Dose: 75 mls/hr Piperacillin Sod/Tazobactam Sod (Zosyn 2.25 Gm Iv Premix) 2.25 gm in 50 mls @ 100 mls/hr IVPB Q6H [facility] Last Admin: 11/07/17 05:35 Dose: 100 mls/hr Lactated Ringer's (Lactated Ringer's 500ml) 500 mls @ 75 mls/hr IV .Q6H40M [facility] Last Admin: 11/07/17 05:39 Dose: 75 mls/hr Insulin Human Regular (Novolin R) [address] [facility] PRN Reason: Protocol Last Admin: 11/06/17 21:30 Dose: Not Given Lisinopril (Zestril) 20 mg PO DAILY [facility] Last Admin: 11/06/17 09:50 Dose: 20 mg Multivitamins/Vitamin C (Multi-Delyn Liquid) 5 ml PO DAILY [facility] Last Admin: 11/06/17 09:51 Dose: 5 ml Pantoprazole Sodium (Protonix Inj) 40 mg IVP Q12H [facility] Last Admin: 11/07/17 05:35 Dose: 40 mg Potassium Chloride (K-Dur 20 Meq Er Tab) 20 meq PO DAILY [facility] Last Admin: 11/06/17 09:50 Dose: 20 meq Propranolol HCl (Inderal) 20 mg PO TID [facility] Last Admin: 11/06/17 17:29 Dose: Not Given Sucralfate (Carafate Oral Susp) 1 gm PO ACHS [facility] Last Admin: 11/07/17 06:34 Dose: 1 gm Thiamine HCl (Vitamin B1 Tab) 100 mg PO DAILY [facility] Last Admin: 11/06/17 09:50 Dose: 100 mg - Labs Labs: 11/07/17 06:43 11/07/17 06:43 PT 14.6 SECONDS (9.7-12.2) H 11/03/17 11:40 INR 1.3 11/03/17 11:40 APTT 30 SECONDS (21-34) 11/03/17 11:40 - Additional Findings Additional findings: - Constitutional Appears: No Acute Distress, confused - Head Exam Head Exam: ATRAUMATIC, NORMOCEPHALIC - Eye Exam Eye Exam: EOMI - ENT Exam ENT Exam: Mucous Membranes Moist - Respiratory Exam Respiratory Exam: NORMAL BREATHING PATTERN, decreased breath sounds. absent: Rales, Rhonchi, Respiratory Distress - Cardiovascular Exam Cardiovascular Exam: REGULAR RHYTHM, +S1, +S2 - GI/Abdominal Exam GI & Abdominal Exam: Soft, Normal Bowel Sounds. absent: Distended, Firm, Tenderness - Neurological Exam Neurological Exam: Alert, Awake - Psychiatric Exam Psychiatric exam: Alert, Awake - Skin Skin Exam: Dry, Intact, Normal Color, Warm Assessment and Plan - Assessment and Plan (Free Text) Plan: (1) Acute pancreatitis * Likely secondary to alcohol * Advancing diet--> FLD diet * Imaging: * CT of Abdomen/Pelvis: Findings consistent with mild or early acute pancreatitis. New low-density/cystic 1.3 cm mass in body of pancreas. Nonspecific. Possible intrapancreatic pseudocyst from prior pancreatitis. Possible IPMN. Follow-up advised. Fatty infiltration of the liver with sparing of the left lobe and mild atrophy of the left lobe. Mildly thickened bladder wall but there is poor distension of the urinary bladder. Rule out cystitis. Nonobstructing tiny right renal calculus. Ill-defined opacity in right lower lobe. Rule out pneumonia. Circumferential mural thickening of distal esophagus. Rule out neoplasm. Consider evaluation with endoscopy when clinically feasible. * Lipase 2310 --> 2761 * Amylase: 200 * Lipid panel: TG 147, Cholesterol 137, LDL 42, HDL 67 * Medications * Discontinue Morphine 1mg IV Q4H prn pain * Discontinue Zofran 4mg IVP Q8H prn N/V (2) Venous congestion * CXR 11/04/17 - moderate venous congestion. Left bibasilar airspace opacity. Small bilateral pleural effusions. * Lasix 60mg IV STAT given * Most recent ECHO 01/22: LVEF >70% * HELD IVF * Ordered duoneb once on 11/06/17 for wheezing. (3) Bilateral airspace opacities * Will cover for HAP * CXR 11/04/17 - moderate venous congestion. Left bibasilar airspace opacity. Small bilateral pleural effusions. * Vanco 500mg IV ONCE * Continue Zosyn (renal dose) 2.25 gm IV Q6H (4) Elevated LFTs * Likely secondary to alcohol * Resolved (5) HTN (hypertension) * Pt did not take medications on day of admission * Propranolol 20mg po TID * Lisinopril 20mg daily * Monitor BP (6) Diabetes * Hold home medication of Glimepiride * Start ISS with Accuchecks Q6H * Monitor (7) ETOH abuse * Starting Librium 50mg Q8 prn- HOLD if sleeping or sedated * Discontinued on 10/31/17 Ativan 1mg IV Q6h NELSON and PRN for alcohol withdrawal - HOLD if sleeping or sedated. * Thiamine PO daily * MV PO daily * Folic Acid PO daily * Monitor for withdrawal. Last drink yesterday 10/27/17 * Aspiration precautions * Seizure precautions (9) Constipation: * Resolved * Colace 100mg PO daily (10) Anemia * Hgb 7.1 on 10/30 (decreased from 9.9 at admission) * Type and cross * 2 units PRBC given on 10/30--> Hgb improved * Stool occult: negative * Iron studies: iron 47, TIBC 202, %sat 23, Ferritin 561 * GI consulted, Dr. Katz; recs appreciated * Patient went for endoscopy on 11/02/17. Repeat endoscopy in 8 weeks for surveillance based on path results * Patient needs colonoscopy; postponed due to possible pneumonia * Results: candidiasis esophagitis, gastric ulcer (biopsied); erythematous mucosa in prepyloric region of stomach and erythematous duodenopathy * Outpatient f/u in 5 weeks * Started fluconazole 100mg PO daily for weeks; sucralfate suspension 1gm PO BID for 10 weeks; protonix 40mg PO daily for 10 weeks. * Alpha fetoprotein- 2.9, nml * CA 19-9: 149, elevated * CEA: 8.7 H * Continue to monitor H/H (11) Hyponatremia * Resolved * Discontinued Hydration with half NS as above * Continue to monitor labs (12) Bilirubinemia * T. Duran: 3.0 trending down * Direct:1.0 (13) Prophylactic measure * Protonix 40mg IV daily * Heparin SC - HOLD * SCDs * Aspiration precautions * Swallow eval Discussed with Dr. Jung. Disposition: Patient is s/p colonscopy and endoscopy. Patient awaiting authorization from insurance for discharge to [facility]
[2017-11-07] MEDS: (Novolin R) Insulin Human Regular 100 units/ml vial SC SCH ×4 (08:12→23:06)
[2017-11-07 10:32] LABS: ANISOCYTOSIS MODERATE; BANDS 2 % (0-2); EOSINOPHIL 1 % (0-4); LYMPHOCYTE 7 % (20-40); MONOCYTE 3 % (0-10); NEUTROPHIL 87 % (50-75); PLATELET ESTIMATE NORMAL (NORMAL); TOTAL CELLS COUNTED 100
[2017-11-07] MEDS: Multiple Vitamins Oral Solution PO SCH (10:58)
[2017-11-07] MEDS: Potassium Chloride 20 mEq ER Tab PO SCH (11:00)
--- NOTE | 2017-11-07 16:53 | PN ---
DATE: LOCATION: Room 664, bed B. SUBJECTIVE: This is a 66-year-old male seen early in rounds today without significant clinical changes, for which rapid response was apparently called as the patient was unresponsive, appeared to be lethargic, until subsequently became awake after the rapid response effort was performed. It has to be mentioned that the patient still has period of semi-confusion, but no reported nausea or vomiting, no reported chest pain, significant shortness of breath, or palpitation. The entire chart is reviewed including but not limited to the most recent lab and radiology study results, current and the previous medication list, current and the previous medical events. The patient is post upper and lower endoscopy and the case discussed with the staff at length. Today's lab showed hemoglobin dropped to 8.5, hematocrit 25.6, but normal platelet count with low CO2 content of 20, BUN increased to 21, creatinine 2.1, blood glucose level 306, with low calcium 8.1, increased total bilirubin 12.6 with low albumin 2.6, low total protein 5.6. PHYSICAL EXAMINATION: GENERAL: A 66-year-old male, appeared to be somnolent, awake, semi-alert, but with period of confusion and semi-disorientation. VITAL SIGNS: Afebrile with pulse of 66, respiratory rate 20 to 22, blood pressure of 128/76. HEENT: Show mildly pale, dry oral mucous membrane. Nonicteric sclerae. LUNGS: Few scattered crepitation with decreased air entry at bases. HEART: Positive S1 and S2. ABDOMEN: Soft with mild generalized tenderness, mildly distended. No mass or organomegaly. No rebound tenderness or guarding. RECTAL: The patient refused. EXTREMITIES: Without significant clubbing, cyanosis, or edema. NEUROLOGIC: No reported new neurological deficits, sensory or motor. Official pathology report from the colonoscopy is seen, indicative of inflammatory changes and gastric mucosa pathology report was negative for Helicobacter pylori infection. IMPRESSION: 1. Diverticulosis with left-sided colitis. 2. Peptic ulcer disease. 3. Anemia, most likely secondary to above. 4. Alcoholism with alcoholic liver disease with mild jaundice. 5. Thrombocytopenia secondary to above. 6. Known history of alcohol-induced pancreatitis by history. 7. Poorly controlled hypertension, diabetes mellitus, known history of status post appendectomy. SUGGESTIONS: 1. Continue current management. 2. The patient may benefit from Endocrinology consult. Further evaluation and recommendation to follow and follow up colonoscopy after 10 years is advised, otherwise as indicated. Tommie Edmonds MD
[2017-11-08] MEDS: Lactated Ringer's 500 ML IV SCH (01:42)
[2017-11-08] MEDS: Piperacill/Tazo 2.25gm in Dex 2.25 GM/50 ML BAG IVPB SCH ×4 (05:36→23:50)
[2017-11-08 06:15] LABS: BASO # 0.1 K/uL (0.0-0.2); BASO % 0.7 % (0.0-2.0); EOS # 0.2 K/uL (0.0-0.7); EOS % 1.6 % (0.0-4.0); HEMOGLOBIN 9.1 g/dL (12.0-18.0); LYMPH # 0.8 K/uL (1.0-4.3); MEAN CELL VOLUME 89.1 fL (80.0-94.0); MEAN CORPUSCULAR HEMOGLOBIN 29.2 pg (27.0-31.0); MEAN CORPUSCULAR HGB CONC 32.8 g/dL (33.0-37.0); MEAN PLATELET VOLUME 9.1 fL (7.2-11.7); MONO # 0.6 K/uL (0.0-0.8); MONO % 6.1 % (0.0-10.0); NEUT # 8.4 K/uL (1.8-7.0); NEUT % 83.6 % (50.0-75.0); PLATELET COUNT 213 K/uL (130-400); RBC 3.11 Mil/uL (4.40-5.90); RED CELL DISTRIBUTION WIDTH 22.1 % (11.5-14.5)
[2017-11-08 06:31] LABS: ALB/GLOB RATIO 0.9 (1.0-2.1); CALCIUM 8.2 mg/dl (8.6-10.4)
[2017-11-08] MEDS: Sucralfate 1 gm/10 ml Oral Susp UD PO SCH ×4 (08:35→21:44)
[2017-11-08] MEDS: (Novolin R) Insulin Human Regular 100 units/ml vial SC SCH ×4 (08:35→21:46)
[2017-11-08 10:02] LABS: LYMPHOCYTE 9 % (20-40); MONOCYTE 2 % (0-10); NEUTROPHIL 89 % (50-75); TOTAL CELLS COUNTED 100
[2017-11-08 10:03] LABS: ANISOCYTOSIS MODERATE; PLATELET ESTIMATE NORMAL (NORMAL)
[2017-11-08 10:04] LABS: LARGE PLATELETS PRESENT
--- NOTE | 2017-11-08 10:39 | CP.PCM.PN ---
Subjective - Date & Time of Evaluation Date of Evaluation: 11/08/17 Time of Evaluation: 10:38 - Subjective Subjective: Medicine progress note for Dr. Jung's service Patient was seen and examined at bedside. Patient is alert, awake and smiling. Patient reports he has lower abdominal pain, but does not describe the pain. He also complains that he used to be able to walk but feels to weak now. As per nursing, patient has low urine output (50cc overnight), was bladder scanned which was 0cc. Nurse then repositioned real and urine output increased. Patient denies chest pain, shortness of breath, nausea, vomiting, fevers, headaches. Objective - Vital Signs/Intake and Output Vital Signs (last 24 hours): Temp Pulse Resp BP Pulse Ox 97.9 F 67 20 147/85 99 11/08/17 08:00 11/08/17 08:00 11/08/17 08:00 11/08/17 08:00 11/08/17 08:00 Intake and Output: 11/08/17 11/08/17 06:59 18:59 Intake Total 1375 Output Total 150 Balance 1225 - Medications Medications: Current Medications Chlordiazepoxide (Librium) 50 mg PO Q8 PRN PRN Reason: Agitation Docusate Sodium (Colace) 100 mg PO DAILY [facility] Last Admin: 11/07/17 11:00 Dose: Not Given Fluconazole (Diflucan) 100 mg PO DAILY [facility] Last Admin: 11/07/17 10:57 Dose: 100 mg Folic Acid (Folic Acid) 1 mg PO DAILY [facility] Last Admin: 11/06/17 09:50 Dose: 1 mg Furosemide (Lasix) 40 mg PO DAILY [facility] Last Admin: 11/07/17 11:00 Dose: 40 mg Heparin Sodium (Porcine) (Heparin) 5,000 units SC Q8 [facility] Last Admin: 11/01/17 06:18 Dose: 5,000 units Hydralazine HCl (Apresoline) 10 mg IVP Q6H PRN PRN Reason: Systolic Blood Pressure Last Admin: 11/08/17 06:24 Dose: 10 mg Sodium Chloride (Sodium Chloride 0.45%) 1,000 mls @ 75 mls/hr IV .[id number] [facility] Last Admin: 11/04/17 01:50 Dose: 75 mls/hr Piperacillin Sod/Tazobactam Sod (Zosyn 2.25 Gm Iv Premix) 2.25 gm in 50 mls @ 100 mls/hr IVPB Q6H [facility] Last Admin: 11/08/17 05:36 Dose: 100 mls/hr Lactated Ringer's (Lactated Ringer's 500ml) 500 mls @ 125 mls/hr IV .Q4H [facility] Insulin Human Regular (Novolin R) 0 unit SC ACHS [facility] PRN Reason: Protocol Last Admin: 11/08/17 08:35 Dose: 6 unit Lisinopril (Zestril) 20 mg PO DAILY [facility] Last Admin: 11/07/17 10:58 Dose: 20 mg Multivitamins/Vitamin C (Multi-Delyn Liquid) 5 ml PO DAILY [facility] Last Admin: 11/07/17 10:58 Dose: 5 ml Pantoprazole Sodium (Protonix Inj) 40 mg IVP Q12H [facility] Last Admin: 11/08/17 05:36 Dose: 40 mg Potassium Chloride (K-Dur 20 Meq Er Tab) 20 meq PO DAILY [facility] Last Admin: 11/07/17 11:00 Dose: 20 meq Propranolol HCl (Inderal) 20 mg PO TID [facility] Last Admin: 11/07/17 19:00 Dose: 20 mg Sucralfate (Carafate Oral Susp) 1 gm PO ACHS [facility] Last Admin: 11/08/17 08:35 Dose: 1 gm Thiamine HCl (Vitamin B1 Tab) 100 mg PO DAILY [facility] Last Admin: 11/07/17 11:00 Dose: 100 mg - Labs Labs: 11/08/17 06:03 11/08/17 06:03 PT 14.6 SECONDS (9.7-12.2) H 11/03/17 11:40 INR 1.3 11/03/17 11:40 APTT 30 SECONDS (21-34) 11/03/17 11:40 - Additional Findings Additional findings: - Constitutional Appears: No Acute Distress, pleasant - Head Exam Head Exam: ATRAUMATIC, NORMOCEPHALIC - Eye Exam Eye Exam: EOMI - ENT Exam ENT Exam: Mucous Membranes Moist - Respiratory Exam Respiratory Exam: NORMAL BREATHING PATTERN, decreased breath sounds. absent: Rales, Rhonchi, Respiratory Distress - Cardiovascular Exam Cardiovascular Exam: REGULAR RHYTHM, +S1, +S2 - GI/Abdominal Exam GI & Abdominal Exam: Soft, Normal Bowel Sounds, Tenderness (lower, midline). absent: Distended, Firm - Neurological Exam Neurological Exam: Alert, Awake - Psychiatric Exam Psychiatric exam: Alert, Awake - Skin Skin Exam: Dry, Intact, Normal Color, Warm Assessment and Plan - Assessment and Plan (Free Text) Plan: (1) Acute pancreatitis * Likely secondary to alcohol * Advancing diet--> FLD diet * Imaging: * CT of Abdomen/Pelvis: Findings consistent with mild or early acute pancreatitis. New low-density/cystic 1.3 cm mass in body of pancreas. Nonspecific. Possible intrapancreatic pseudocyst from prior pancreatitis. Possible IPMN. Follow-up advised. Fatty infiltration of the liver with sparing of the left lobe and mild atrophy of the left lobe. Mildly thickened bladder wall but there is poor distension of the urinary bladder. Rule out cystitis. Nonobstructing tiny right renal calculus. Ill-defined opacity in right lower lobe. Rule out pneumonia. Circumferential mural thickening of distal esophagus. Rule out neoplasm. Consider evaluation with endoscopy when clinically feasible. * Lipase 2310 --> 2761--> 75 on 11/08 * Amylase: 200 * Lipid panel: TG 147, Cholesterol 137, LDL 42, HDL 67 * Medications * Discontinue Morphine 1mg IV Q4H prn pain * Discontinue Zofran 4mg IVP Q8H prn N/V (2) Venous congestion * CXR 11/04/17 - moderate venous congestion. Left bibasilar airspace opacity. Small bilateral pleural effusions. * Lasix 60mg IV STAT given * Most recent ECHO 01/22: LVEF >70% * HELD IVF * Ordered duoneb once on 11/06/17 for wheezing. (3) Bilateral airspace opacities * Will cover for HAP * CXR 11/04/17 - moderate venous congestion. Left bibasilar airspace opacity. Small bilateral pleural effusions. * Vanco 500mg IV ONCE * Continue Zosyn (renal dose) 2.25 gm IV Q6H (4) Elevated LFTs * Likely secondary to alcohol * Resolved (5) HTN (hypertension) * Pt did not take medications on day of admission * Propranolol 20mg po TID * Lisinopril 20mg daily * Monitor BP (6) Diabetes * Hold home medication of Glimepiride * Start ISS with Accuchecks Q6H * Monitor (7) ETOH abuse * Starting Librium 50mg Q8 prn- HOLD if sleeping or sedated * Discontinued on 10/31/17 Ativan 1mg IV Q6h NELSON and PRN for alcohol withdrawal - HOLD if sleeping or sedated. * Thiamine PO daily * MV PO daily * Folic Acid PO daily * Monitor for withdrawal. Last drink yesterday 10/27/17 * Aspiration precautions * Seizure precautions (9) Constipation: * Resolved * Colace 100mg PO daily (10) Anemia * Hgb 7.1 on 10/30 (decreased from 9.9 at admission) * Type and cross * 2 units PRBC given on 10/30--> Hgb improved * Stool occult: negative * Iron studies: iron 47, TIBC 202, %sat 23, Ferritin 561 * GI consulted, Dr. Katz; recs appreciated * Patient went for endoscopy on 11/02/17. Repeat endoscopy in 8 weeks for surveillance based on path results * Patient needs colonoscopy; postponed due to possible pneumonia * Results: candidiasis esophagitis, gastric ulcer (biopsied); erythematous mucosa in prepyloric region of stomach and erythematous duodenopathy * Outpatient f/u in 5 weeks * Started fluconazole 100mg PO daily for weeks; sucralfate suspension 1gm PO BID for 10 weeks; protonix 40mg PO daily for 10 weeks. * Alpha fetoprotein- 2.9, nml * CA 19-9: 149, elevated * CEA: 8.7 H * Continue to monitor H/H (11) Hyponatremia * Resolved * Discontinued Hydration with half NS as above * Continue to monitor labs (12) Bilirubinemia * Resolved, within normal range * T. Duran: 3.0 trending down * Direct:1.0 (13) Prophylactic measure * Protonix 40mg IV daily * Heparin SC - HOLD * SCDs * Aspiration precautions * Swallow eval-passed Discussed with Dr. Jung. Disposition: Patient awaiting authorization from insurance for discharge to [facility]
[2017-11-08] MEDS: Multiple Vitamins Oral Solution PO SCH (10:52)
[2017-11-08] MEDS: Potassium Chloride 20 mEq ER Tab PO SCH (10:53)
[2017-11-08] MEDS: Lactated Ringer's 1,000 ML IV SCH ×2 (12:24→19:01)
--- NOTE | 2017-11-08 14:54 | PN ---
DATE: LOCATION: [facility], bed A. SUBJECTIVE: This is a 66-year-old male post upper and lower endoscopy, seen and examined in-house without significant clinical changes, but with very mild semi-confusion and disorientation with intermittent period of poorly controlled hypertension. The entire chart is reviewed including, but not limited to the most recent lab and radiology study results, current and the previous medication list, current and the previous medical events as well as the patient's mental status discussed with the staff at length. LABORATORY DATA: Today's lab showed hemoglobin 9.1, hematocrit 27.7, but no evidence of active bleeding with normal platelet count and normal white blood cells with low CO2 content of 20, BUN 22, creatinine 1.9 with blood glucose level 329 with low calcium 8.2. Albumin is still low at 3.0. PHYSICAL EXAMINATION: GENERAL: A 66-year-old male, semi-disoriented. VITAL SIGNS: Afebrile with pulse of 64, respiratory rate 20 to 22, blood pressure at the latest of 144/82. HEENT: Showed mildly pale dry oral mucous membrane, nonicteric sclerae. LUNGS: Few scattered crepitation with decreased air entry at bases. HEART: Positive S1 and S2. ABDOMEN: Soft with slight distention, mild generalized tenderness. No mass or organomegaly. No rebound tenderness. RECTAL: The patient refused. EXTREMITIES: With slight lower extremity with edematous changes. No clubbing or cyanosis. NEUROLOGIC: No reported new neurological deficits, sensory or motor. IMPRESSION: 1. Diverticulosis with left-sided diverticulitis. 2. Peptic ulcer disease. 3. Alcoholic liver disease with liver cirrhosis. 4. Anemia secondary to above. 5. Known history of acute pancreatitis, alcohol-induced by history. 6. Poorly controlled hypertension, diabetes mellitus. 7. Known history of status post appendectomy. 8. Malnutrition with hypoalbuminemia. SUGGESTIONS: 1. Continue current management. 2. Follow up on ammonia level. 3. Further recommendations to follow. Thank you for letting me to participate in your patient's case management. Tommie Edmonds MD
[2017-11-09] MEDS: Lactated Ringer's 1,000 ML IV SCH ×3 (03:00→18:05)
[2017-11-09] MEDS: Piperacill/Tazo 2.25gm in Dex 2.25 GM/50 ML BAG IVPB SCH ×4 (05:30→23:18)
--- NOTE | 2017-11-09 06:59 | CP.PCM.PN ---
Subjective - Date & Time of Evaluation Date of Evaluation: 11/09/17 Time of Evaluation: 06:59 - Subjective Subjective: Medicine progress note for Dr. Jung's service Patient was seen and examined at bedside. Patient is alert, awake and orientedx2 at this time, however, still confused at times. Patient states abdominal pain has resolved and he feels better. He is complaining of "eye problems" however, as per , patient was complaining of eye problems prior to hospitalization and has seen a doctor. Patient denies chest pain, shortness of breath, abdominal pain, nausea, vomiting, fevers, headaches. Objective - Vital Signs/Intake and Output Vital Signs (last 24 hours): Temp Pulse Resp BP Pulse Ox 98.0 F 63 20 118/70 96 11/08/17 23:10 11/08/17 23:10 11/08/17 23:10 11/08/17 23:10 11/08/17 23:10 Intake and Output: 11/08/17 11/09/17 18:59 06:59 Intake Total 1175 975 Output Total 1500 550 Balance -325 425 - Medications Medications: Current Medications Chlordiazepoxide (Librium) 50 mg PO Q8 PRN PRN Reason: Agitation Docusate Sodium (Colace) 100 mg PO DAILY [facility] Last Admin: 11/08/17 10:51 Dose: 100 mg Fluconazole (Diflucan) 100 mg PO DAILY [facility] Last Admin: 11/08/17 10:53 Dose: 100 mg Folic Acid (Folic Acid) 1 mg PO DAILY [facility] Last Admin: 11/08/17 10:54 Dose: 1 mg Furosemide (Lasix) 40 mg PO DAILY [facility] Last Admin: 11/08/17 10:51 Dose: 40 mg Heparin Sodium (Porcine) (Heparin) 5,000 units SC Q8 [facility] Last Admin: 11/01/17 06:18 Dose: 5,000 units Hydralazine HCl (Apresoline) 10 mg IVP Q6H PRN PRN Reason: Systolic Blood Pressure Last Admin: 11/08/17 06:24 Dose: 10 mg Sodium Chloride (Sodium Chloride 0.45%) 1,000 mls @ 75 mls/hr IV .[id number] [facility] Last Admin: 11/04/17 01:50 Dose: 75 mls/hr Piperacillin Sod/Tazobactam Sod (Zosyn 2.25 Gm Iv Premix) 2.25 gm in 50 mls @ 100 mls/hr IVPB Q6H [facility] Last Admin: 11/09/17 05:30 Dose: 100 mls/hr Lactated Ringer's (Lactated Ringer's) 1,000 mls @ 125 mls/hr IV .Q8H [facility] Last Admin: 11/09/17 03:00 Dose: Not Given Insulin Human Regular (Novolin R) 0 unit SC [facility] PRN Reason: Protocol Last Admin: 11/08/17 21:46 Dose: 2 unit Lisinopril (Zestril) 20 mg PO DAILY [facility] Last Admin: 11/08/17 10:51 Dose: 20 mg Multivitamins/Vitamin C (Multi-Delyn Liquid) 5 ml PO DAILY [facility] Last Admin: 11/08/17 10:52 Dose: 5 ml Pantoprazole Sodium (Protonix Inj) 40 mg IVP Q12H [facility] Last Admin: 11/09/17 06:52 Dose: 40 mg Potassium Chloride (K-Dur 20 Meq Er Tab) 20 meq PO DAILY [facility] Last Admin: 11/08/17 10:53 Dose: 20 meq Propranolol HCl (Inderal) 20 mg PO TID [facility] Last Admin: 11/08/17 19:16 Dose: 20 mg Sucralfate (Carafate Oral Susp) 1 gm PO ACHS [facility] Last Admin: 11/08/17 21:44 Dose: 1 gm Thiamine HCl (Vitamin B1 Tab) 100 mg PO DAILY [facility] Last Admin: 11/08/17 10:51 Dose: 100 mg - Labs Labs: 11/08/17 06:03 11/08/17 06:03 PT 14.6 SECONDS (9.7-12.2) H 11/03/17 11:40 INR 1.3 11/03/17 11:40 APTT 30 SECONDS (21-34) 11/03/17 11:40 - Additional Findings Additional findings: - Constitutional Appears: No Acute Distress, pleasant - Head Exam Head Exam: ATRAUMATIC, NORMOCEPHALIC - Eye Exam Eye Exam: EOMI - ENT Exam ENT Exam: Mucous Membranes Moist - Respiratory Exam Respiratory Exam: NORMAL BREATHING PATTERN, decreased breath sounds. absent: Rales, Rhonchi, Respiratory Distress - Cardiovascular Exam Cardiovascular Exam: REGULAR RHYTHM, +S1, +S2 - GI/Abdominal Exam GI & Abdominal Exam: Soft, Normal Bowel Sounds. absent: Distended, Firm, Tenderness - Neurological Exam Neurological Exam: Alert, Awake - Psychiatric Exam Psychiatric exam: Alert, Awake - Skin Skin Exam: Dry, Intact, Normal Color, Warm Assessment and Plan - Assessment and Plan (Free Text) Plan: (1) Acute pancreatitis * Likely secondary to alcohol * Advancing diet--> FLD diet * Imaging: * CT of Abdomen/Pelvis: Findings consistent with mild or early acute pancreatitis. New low-density/cystic 1.3 cm mass in body of pancreas. Nonspecific. Possible intrapancreatic pseudocyst from prior pancreatitis. Possible IPMN. Follow-up advised. Fatty infiltration of the liver with sparing of the left lobe and mild atrophy of the left lobe. Mildly thickened bladder wall but there is poor distension of the urinary bladder. Rule out cystitis. Nonobstructing tiny right renal calculus. Ill-defined opacity in right lower lobe. Rule out pneumonia. Circumferential mural thickening of distal esophagus. Rule out neoplasm. Consider evaluation with endoscopy when clinically feasible. * Lipase 2310 --> 2761--> 75 on 11/08 * Amylase: 200 * Lipid panel: TG 147, Cholesterol 137, LDL 42, HDL 67 * Medications * Discontinue Morphine 1mg IV Q4H prn pain * Discontinue Zofran 4mg IVP Q8H prn N/V (2) Venous congestion * CXR 11/04/17 - moderate venous congestion. Left bibasilar airspace opacity. Small bilateral pleural effusions. * Lasix 60mg IV STAT given * Most recent ECHO 01/22: LVEF >70% * HELD IVF * Ordered duoneb once on 11/06/17 for wheezing. (3) Bilateral airspace opacities * Will cover for HAP * CXR 11/04/17 - moderate venous congestion. Left bibasilar airspace opacity. Small bilateral pleural effusions. * Vanco 500mg IV ONCE * Continue Zosyn (renal dose) 2.25 gm IV Q6H (4) Elevated LFTs * Likely secondary to alcohol * Resolved (5) HTN (hypertension) * Pt did not take medications on day of admission * Propranolol 20mg po TID * Lisinopril 40mg daily (increased from 20mg daily on 11/09/17) * Monitor BP (6) Diabetes * Hold home medication of Glimepiride * Start ISS with Accuchecks Q6H * Monitor (7) ETOH abuse * Starting Librium 50mg Q8 prn- HOLD if sleeping or sedated * Discontinued on 10/31/17 Ativan 1mg IV Q6h NELSON and PRN for alcohol withdrawal - HOLD if sleeping or sedated. * Thiamine PO daily * MV PO daily * Folic Acid PO daily * Monitor for withdrawal. Last drink yesterday 10/27/17 * Aspiration precautions * Seizure precautions (9) Constipation: * Resolved * Colace 100mg PO daily (10) Anemia * Hgb 7.1 on 10/30 (decreased from 9.9 at admission) * Type and cross * 2 units PRBC given on 10/30--> Hgb improved * Stool occult: negative * Iron studies: iron 47, TIBC 202, %sat 23, Ferritin 561 * GI consulted, Dr. Katz; recs appreciated * Patient went for endoscopy on 11/02/17. Repeat endoscopy in 8 weeks for surveillance based on path results * Patient needs colonoscopy; postponed due to possible pneumonia * Results: candidiasis esophagitis, gastric ulcer (biopsied); erythematous mucosa in prepyloric region of stomach and erythematous duodenopathy * Outpatient f/u in 5 weeks * Started fluconazole 100mg PO daily for weeks; sucralfate suspension 1gm PO BID for 10 weeks; protonix 40mg PO daily for 10 weeks. * Alpha fetoprotein- 2.9, nml * CA 19-9: 149, elevated * CEA: 8.7 H * Continue to monitor H/H (11) Hyponatremia * Resolved * Discontinued Hydration with half NS as above * Continue to monitor labs (12) Bilirubinemia * Resolved, within normal range * T. Duran: 3.0 trending down * Direct:1.0 (13) Prophylactic measure * Protonix 40mg IV daily * Heparin SC - HOLD * SCDs * Aspiration precautions * Swallow eval-passed * OOB, PT/OT * Artificial tears Discussed with Dr. Jung. Disposition: Patient awaiting authorization from insurance for discharge to [facility]
[2017-11-09 08:03] LABS: ALB/GLOB RATIO 0.8 (1.0-2.1); ALBUMIN 2.6 g/dL (3.5-5.0); CALCIUM 8.3 mg/dl (8.6-10.4)
[2017-11-09] MEDS: (Novolin R) Insulin Human Regular 100 units/ml vial SC SCH ×4 (08:03→22:04)
[2017-11-09] MEDS: Sucralfate 1 gm/10 ml Oral Susp UD PO SCH ×4 (08:03→21:51)
[2017-11-09 08:12] LABS: BASO # 0.1 K/uL (0.0-0.2); EOS # 0.2 K/uL (0.0-0.7); EOS % 2.8 % (0.0-4.0); HEMOGLOBIN 8.8 g/dL (12.0-18.0); LYMPH # 0.7 K/uL (1.0-4.3); LYMPH % 8.9 % (20.0-40.0); MEAN CELL VOLUME 88.8 fL (80.0-94.0); MEAN CORPUSCULAR HEMOGLOBIN 29.8 pg (27.0-31.0); MEAN CORPUSCULAR HGB CONC 33.5 g/dL (33.0-37.0); MONO # 0.4 K/uL (0.0-0.8); MONO % 5.9 % (0.0-10.0); NEUT % 81.4 % (50.0-75.0); PLATELET COUNT 243 K/uL (130-400); RBC 2.97 Mil/uL (4.40-5.90); RED CELL DISTRIBUTION WIDTH 21.4 % (11.5-14.5); WHITE BLOOD COUNT 7.3 K/uL (4.8-10.8)
[2017-11-09] MEDS: Potassium Chloride 20 mEq ER Tab PO SCH (09:29)
[2017-11-09] MEDS: Multiple Vitamins Oral Solution PO SCH (09:30)
[2017-11-09 10:18] LABS: BANDS 2 % (0-2); EOSINOPHIL 2 % (0-4); LYMPHOCYTE 7 % (20-40); MONOCYTE 3 % (0-10); NEUTROPHIL 86 % (50-75); TOTAL CELLS COUNTED 100
[2017-11-09 10:19] LABS: ANISOCYTOSIS MODERATE; LARGE PLATELETS PRESENT; PLATELET ESTIMATE NORMAL (NORMAL)
--- NOTE | 2017-11-09 13:55 | PN ---
LOCATION: [facility], bed A. SUBJECTIVE: This is a 66-year-old male, seen and examined in rounds again with period of semi-confusion and disorientation with reported urinary retention for which urinary catheter balloon deflated, catheter was inserted. No reported active bleeding but poor oral intake. The entire chart is reviewed including but not limited to the most recent lab and radiology study results, current and the previous medication list, current and the previous medical events. Case was discussed at length with the staff. It has to be mentioned that no reported chest pain, palpitation, active bleeding, or significant shortness of breath. No chills or fever. LABORATORY DATA: Today's lab showed hemoglobin of 8.8 with drop of hematocrit to 26.4 but normal platelet count with low potassium 3.3, BUN 21, creatinine 2.0, blood glucose level is still elevated to 397 with low calcium at 0.3, low albumin 2.6 and low total protein 5.8. PHYSICAL EXAMINATION: GENERAL: A 66-year-old male, semi-confused with period of mild agitation. VITAL SIGNS: Afebrile with pulse of 66, respiratory rate 20 to 22, blood pressure of 170/68. HEENT: Showed pale dry oral mucous membrane, nonicteric sclerae. LUNGS: A few scattered crepitation with decreased air entry at bases. HEART: Positive S1 and S2. ABDOMEN: With mild distention with generalized mild tenderness. No mass or organomegaly. No rebound tenderness or guarding. EXTREMITIES: Lower extremities, mild edematous changes. No clubbing or cyanosis. NEUROLOGIC: No reported new neurological deficits, sensory or motor and no focal deficits. IMPRESSION: 1. Alcoholism with alcoholic liver disease. 2. Alcohol-induced acute pancreatitis. 3. Bilateral pneumonia. 4. Known history of hypertension, poorly controlled diabetes mellitus. 5. Peptic ulcer disease. 6. Anemia secondary to above. 7. Electrolyte imbalance with hyponatremia, hypokalemia. 8. Diverticulosis with left-sided diverticulitis by recent history and colitis. 9. Malnutrition with hypoalbuminemia. SUGGESTIONS: 1. Continue current management. 2. Psychiatric evaluation . 3. Follow up ammonia level. 4. Further recommendation to follow. Tommie Edmonds MD [facility] # [id number]
[2017-11-10] MEDS: Lactated Ringer's 1,000 ML IV SCH ×4 (01:33→18:53)
[2017-11-10] MEDS: Piperacill/Tazo 2.25gm in Dex 2.25 GM/50 ML BAG IVPB SCH ×4 (04:44→22:54)
[2017-11-10] MEDS: Sucralfate 1 gm/10 ml Oral Susp UD PO SCH ×4 (09:12→22:17)
[2017-11-10] MEDS: (Novolin R) Insulin Human Regular 100 units/ml vial SC SCH ×4 (09:14→21:38)
[2017-11-10 09:54] LABS: BASO # 0.1 K/uL (0.0-0.2); BASO % 1.4 % (0.0-2.0); EOS # 0.1 K/uL (0.0-0.7); EOS % 2.1 % (0.0-4.0); LYMPH # 0.8 K/uL (1.0-4.3); LYMPH % 12.2 % (20.0-40.0); MEAN CELL VOLUME 88.9 fL (80.0-94.0); MEAN CORPUSCULAR HEMOGLOBIN 28.9 pg (27.0-31.0); MEAN CORPUSCULAR HGB CONC 32.5 g/dL (33.0-37.0); MEAN PLATELET VOLUME 9.1 fL (7.2-11.7); MONO # 0.4 K/uL (0.0-0.8); MONO % 5.6 % (0.0-10.0); NEUT # 5.2 K/uL (1.8-7.0); NEUT % 78.7 % (50.0-75.0); RBC 3.11 Mil/uL (4.40-5.90); RED CELL DISTRIBUTION WIDTH 21.5 % (11.5-14.5); WHITE BLOOD COUNT 6.6 K/uL (4.8-10.8)
[2017-11-10 10:09] LABS: ALB/GLOB RATIO 0.9 (1.0-2.1); ALBUMIN 2.7 g/dL (3.5-5.0); CALCIUM 8.1 mg/dl (8.6-10.4)
[2017-11-10] MEDS ORDERED: Potassium Chloride 20 mEq ER Tab PO ONE (10:09)
[2017-11-10] MEDS: Aritificial Tears (15ml) OD SCH (11:20)
[2017-11-10] MEDS: Multiple Vitamins Oral Solution PO SCH (11:27)
[2017-11-10] MEDS: Potassium Chloride 20 mEq ER Tab PO SCH (11:30)
--- NOTE | 2017-11-10 15:38 | CP.PCM.PN ---
Subjective - Date & Time of Evaluation Date of Evaluation: 11/10/17 Time of Evaluation: 15:33 - Subjective Subjective: Medicine progress note for Dr. Jung's service Patient was seen and examined at bedside. Patient is alert, awake and confused at this time. Patient states he feels better, however still complaining about his eye sight (patient discusses he made an appointment with his eye doctor). Patient denies chest pain, shortness of breath, abdominal pain, nausea, vomiting , fevers, headaches. Objective - Vital Signs/Intake and Output Vital Signs (last 24 hours): Temp Pulse Resp BP Pulse Ox 97.7 F 68 18 167/89 H 98 11/10/17 08:10 11/10/17 08:10 11/10/17 08:10 11/10/17 11:13 11/10/17 08:10 Intake and Output: 11/10/17 11/10/17 06:59 18:59 Intake Total 2120 Output Total 2000 Balance 120 - Medications Medications: Current Medications Artificial Tears (Artificial Tears) 0 ml OD DAILY [facility] Last Admin: 11/10/17 11:20 Dose: 1 drop Chlordiazepoxide (Librium) 50 mg PO Q8 PRN PRN Reason: Agitation Last Admin: 11/10/17 01:16 Dose: 50 mg Docusate Sodium (Colace) 100 mg PO DAILY [facility] Last Admin: 11/10/17 11:31 Dose: Not Given Fluconazole (Diflucan) 100 mg PO DAILY [facility] Last Admin: 11/10/17 12:25 Dose: 100 mg Folic Acid (Folic Acid) 1 mg PO DAILY [facility] Last Admin: 11/10/17 11:15 Dose: 1 mg Furosemide (Lasix) 40 mg PO DAILY [facility] Last Admin: 11/10/17 11:13 Dose: 40 mg Heparin Sodium (Porcine) (Heparin) 5,000 units SC Q8 [facility] Last Admin: 11/01/17 06:18 Dose: 5,000 units Hydralazine HCl (Apresoline) 10 mg IVP Q6H PRN PRN Reason: Systolic Blood Pressure Last Admin: 11/10/17 04:44 Dose: 10 mg Sodium Chloride (Sodium Chloride 0.45%) 1,000 mls @ 75 mls/hr IV .[id number] [facility] Last Admin: 11/04/17 01:50 Dose: 75 mls/hr Piperacillin Sod/Tazobactam Sod (Zosyn 2.25 Gm Iv Premix) 2.25 gm in 50 mls @ 100 mls/hr IVPB Q6H [facility] Last Admin: 11/10/17 12:29 Dose: 100 mls/hr Lactated Ringer's (Lactated Ringer's) 1,000 mls @ 125 mls/hr IV .Q8H [facility] Last Admin: 11/10/17 10:30 Dose: Not Given Insulin Human Regular (Novolin R) 0 unit SC [facility] PRN Reason: Protocol Last Admin: 11/10/17 13:05 Dose: 10 unit Lisinopril (Zestril) 40 mg PO DAILY [facility] Last Admin: 11/10/17 11:15 Dose: 40 mg Multivitamins/Vitamin C (Multi-Delyn Liquid) 5 ml PO DAILY [facility] Last Admin: 11/10/17 11:27 Dose: 5 ml Pantoprazole Sodium (Protonix Inj) 40 mg IVP Q12H [facility] Last Admin: 11/10/17 06:21 Dose: 40 mg Potassium Chloride (K-Dur 20 Meq Er Tab) 20 meq PO DAILY [facility] Last Admin: 11/10/17 11:30 Dose: 20 meq Propranolol HCl (Inderal) 20 mg PO TID [facility] Last Admin: 11/10/17 14:28 Dose: 20 mg Sucralfate (Carafate Oral Susp) 1 gm PO [facility] Last Admin: 11/10/17 12:39 Dose: 1 gm Thiamine HCl (Vitamin B1 Tab) 100 mg PO DAILY [facility] Last Admin: 11/10/17 11:30 Dose: 100 mg - Labs Labs: 11/10/17 09:20 11/10/17 09:20 PT 14.6 SECONDS (9.7-12.2) H 11/03/17 11:40 INR 1.3 11/03/17 11:40 APTT 30 SECONDS (21-34) 11/03/17 11:40 - Additional Findings Additional findings: - Constitutional Appears: No Acute Distress, pleasant - Head Exam Head Exam: ATRAUMATIC, NORMOCEPHALIC - Eye Exam Eye Exam: EOMI - ENT Exam ENT Exam: Mucous Membranes Moist - Respiratory Exam Respiratory Exam: NORMAL BREATHING PATTERN, decreased breath sounds. absent: Rales, Rhonchi, Respiratory Distress - Cardiovascular Exam Cardiovascular Exam: REGULAR RHYTHM, +S1, +S2 - GI/Abdominal Exam GI & Abdominal Exam: Soft, Normal Bowel Sounds. absent: Distended, Firm, Tenderness - Neurological Exam Neurological Exam: Alert, Awake - Psychiatric Exam Psychiatric exam: Alert, Awake - Skin Skin Exam: Dry, Intact, Normal Color, Warm Assessment and Plan - Assessment and Plan (Free Text) Plan: (1) Acute pancreatitis * Likely secondary to alcohol * Advancing diet--> FLD diet * Imaging: * CT of Abdomen/Pelvis: Findings consistent with mild or early acute pancreatitis. New low-density/cystic 1.3 cm mass in body of pancreas. Nonspecific. Possible intrapancreatic pseudocyst from prior pancreatitis. Possible IPMN. Follow-up advised. Fatty infiltration of the liver with sparing of the left lobe and mild atrophy of the left lobe. Mildly thickened bladder wall but there is poor distension of the urinary bladder. Rule out cystitis. Nonobstructing tiny right renal calculus. Ill-defined opacity in right lower lobe. Rule out pneumonia. Circumferential mural thickening of distal esophagus. Rule out neoplasm. Consider evaluation with endoscopy when clinically feasible. * Lipase 2310 --> 2761--> 75 on 11/08 * Amylase: 200 * Lipid panel: TG 147, Cholesterol 137, LDL 42, HDL 67 * Medications * Discontinue Morphine 1mg IV Q4H prn pain * Discontinue Zofran 4mg IVP Q8H prn N/V (2) Venous congestion * CXR 11/04/17 - moderate venous congestion. Left bibasilar airspace opacity. Small bilateral pleural effusions. * Lasix 60mg IV STAT given * Most recent ECHO 01/22: LVEF >70% * HELD IVF * Ordered duoneb once on 11/06/17 for wheezing. (3) Bilateral airspace opacities * Will cover for HAP * CXR 11/04/17 - moderate venous congestion. Left bibasilar airspace opacity. Small bilateral pleural effusions. * Vanco 500mg IV ONCE * Continue Zosyn (renal dose) 2.25 gm IV Q6H (4) Elevated LFTs * Likely secondary to alcohol * Resolved (5) HTN (hypertension) * Pt did not take medications on day of admission * Propranolol 20mg po TID * Lisinopril 40mg daily (increased from 20mg daily on 11/09/17) * Monitor BP (6) Diabetes * Hold home medication of Glimepiride * Start ISS with Accuchecks Q6H * Monitor (7) ETOH abuse * Starting Librium 50mg Q8 prn- HOLD if sleeping or sedated * Discontinued on 10/31/17 Ativan 1mg IV Q6h NELSON and PRN for alcohol withdrawal - HOLD if sleeping or sedated. * Thiamine PO daily * MV PO daily * Folic Acid PO daily * Monitor for withdrawal. Last drink yesterday 10/27/17 * Aspiration precautions * Seizure precautions (9) Constipation: * Resolved * Colace 100mg PO daily (10) Anemia * Hgb 7.1 on 10/30 (decreased from 9.9 at admission) * Type and cross * 2 units PRBC given on 10/30--> Hgb improved * Stool occult: negative * Iron studies: iron 47, TIBC 202, %sat 23, Ferritin 561 * GI consulted, Dr. Katz; recs appreciated * Patient went for endoscopy on 11/02/17. Repeat endoscopy in 8 weeks for surveillance based on path results * Patient needs colonoscopy; postponed due to possible pneumonia * Results: candidiasis esophagitis, gastric ulcer (biopsied); erythematous mucosa in prepyloric region of stomach and erythematous duodenopathy * Outpatient f/u in 5 weeks * Started fluconazole 100mg PO daily for 10 days (last dose on 11/11/17); sucralfate suspension 1gm PO BID for 10 weeks; protonix 40mg PO daily for 10 weeks. * Alpha fetoprotein- 2.9, nml * CA 19-9: 149, elevated * CEA: 8.7 H * Continue to monitor H/H (11) Hyponatremia * Resolved * Discontinued Hydration with half NS as above * Continue to monitor labs (12) Bilirubinemia * Resolved, within normal range * T. Duran: 3.0 trending down * Direct:1.0 (13) Prophylactic measure * Protonix 40mg IV daily * Heparin SC - HOLD * SCDs * Aspiration precautions * Swallow eval-passed * OOB, PT/OT * Artificial tears Discussed with Dr. Jung. Disposition: Patient awaiting authorization from insurance for discharge to [facility]
[2017-11-10 16:01] VITALS: RESP 20
[2017-11-11] MEDS: Lactated Ringer's 1,000 ML IV SCH (05:20)
[2017-11-11] MEDS: Piperacill/Tazo 2.25gm in Dex 2.25 GM/50 ML BAG IVPB SCH ×4 (05:32→23:02)
[2017-11-11] MEDS: (Novolin R) Insulin Human Regular 100 units/ml vial SC SCH ×4 (08:16→23:00)
[2017-11-11] MEDS: Sucralfate 1 gm/10 ml Oral Susp UD PO SCH ×4 (08:16→21:48)
--- NOTE | 2017-11-11 08:41 | CP.PCM.PN ---
Subjective - Date & Time of Evaluation Date of Evaluation: 11/11/17 Time of Evaluation: 08:40 - Subjective Subjective: Medicine progress note for Dr. Jung's service Patient was seen and examined at bedside. Patient is alert, awake and confused at this time. Patient believes he is home. Patient still complains of his eye and asks for glasses. Patient denies chest pain, shortness of breath, abdominal pain, nausea, vomiting, fevers, headaches. Objective - Vital Signs/Intake and Output Vital Signs (last 24 hours): Temp Pulse Resp BP Pulse Ox 97.8 F 67 20 194/94 H 98 11/11/17 08:37 11/11/17 08:37 11/11/17 08:37 11/11/17 08:37 11/11/17 08:37 Intake and Output: 11/11/17 11/11/17 06:59 18:59 Intake Total 1110 Output Total 1375 Balance -265 - Medications Medications: Current Medications Artificial Tears (Artificial Tears) 0 ml OD DAILY [facility] Last Admin: 11/10/17 11:20 Dose: 1 drop Chlordiazepoxide (Librium) 50 mg PO Q8 PRN PRN Reason: Agitation Last Admin: 11/10/17 01:16 Dose: 50 mg Docusate Sodium (Colace) 100 mg PO DAILY [facility] Last Admin: 11/10/17 11:31 Dose: Not Given Fluconazole (Diflucan) 100 mg PO DAILY [facility] Stop: 11/11/17 11:00 Last Admin: 11/10/17 12:25 Dose: 100 mg Folic Acid (Folic Acid) 1 mg PO DAILY [facility] Last Admin: 11/10/17 11:15 Dose: 1 mg Furosemide (Lasix) 40 mg PO DAILY [facility] Last Admin: 11/10/17 11:13 Dose: 40 mg Heparin Sodium (Porcine) (Heparin) 5,000 units SC Q8 [facility] Last Admin: 11/01/17 06:18 Dose: 5,000 units Hydralazine HCl (Apresoline) 10 mg IVP Q6H PRN PRN Reason: Systolic Blood Pressure Last Admin: 11/10/17 04:44 Dose: 10 mg Sodium Chloride (Sodium Chloride 0.45%) 1,000 mls @ 75 mls/hr IV .[id number] [facility] Last Admin: 11/04/17 01:50 Dose: 75 mls/hr Piperacillin Sod/Tazobactam Sod (Zosyn 2.25 Gm Iv Premix) 2.25 gm in 50 mls @ 100 mls/hr IVPB Q6H [facility] Last Admin: 11/11/17 05:32 Dose: 100 mls/hr Lactated Ringer's (Lactated Ringer's) 1,000 mls @ 125 mls/hr IV .Q8H [facility] Last Admin: 11/11/17 05:20 Dose: 125 mls/hr Insulin Human Regular (Novolin R) 0 unit SC [facility] PRN Reason: Protocol Last Admin: 11/11/17 08:16 Dose: 6 unit Lisinopril (Zestril) 40 mg PO DAILY [facility] Last Admin: 11/11/17 08:35 Dose: 40 mg Multivitamins/Vitamin C (Multi-Delyn Liquid) 5 ml PO DAILY [facility] Last Admin: 11/10/17 11:27 Dose: 5 ml Pantoprazole Sodium (Protonix Inj) 40 mg IVP Q12H [facility] Last Admin: 11/11/17 06:01 Dose: 40 mg Potassium Chloride (K-Dur 20 Meq Er Tab) 20 meq PO DAILY [facility] Last Admin: 11/10/17 11:30 Dose: 20 meq Propranolol HCl (Inderal) 20 mg PO TID [facility] Last Admin: 11/10/17 18:50 Dose: 20 mg Sucralfate (Carafate Oral Susp) 1 gm PO [facility] Last Admin: 11/11/17 08:16 Dose: 1 gm Thiamine HCl (Vitamin B1 Tab) 100 mg PO DAILY [facility] Last Admin: 11/10/17 11:30 Dose: 100 mg - Labs Labs: 11/10/17 09:20 11/10/17 09:20 PT 14.6 SECONDS (9.7-12.2) H 11/03/17 11:40 INR 1.3 11/03/17 11:40 APTT 30 SECONDS (21-34) 11/03/17 11:40 - Additional Findings Additional findings: - Constitutional Appears: No Acute Distress, pleasant - Head Exam Head Exam: ATRAUMATIC, NORMOCEPHALIC - Eye Exam Eye Exam: EOMI - ENT Exam ENT Exam: Mucous Membranes Moist - Respiratory Exam Respiratory Exam: NORMAL BREATHING PATTERN, decreased breath sounds. absent: Rales, Rhonchi, Respiratory Distress - Cardiovascular Exam Cardiovascular Exam: REGULAR RHYTHM, +S1, +S2 - GI/Abdominal Exam GI & Abdominal Exam: Soft, Normal Bowel Sounds. absent: Distended, Firm, Tenderness - Neurological Exam Neurological Exam: Alert, Awake - Psychiatric Exam Psychiatric exam: Alert, Awake - Skin Skin Exam: Dry, Intact, Normal Color, Warm Assessment and Plan - Assessment and Plan (Free Text) Plan: (1) Acute pancreatitis * Likely secondary to alcohol * Resolved * Imaging: * CT of Abdomen/Pelvis: Findings consistent with mild or early acute pancreatitis. New low-density/cystic 1.3 cm mass in body of pancreas. Nonspecific. Possible intrapancreatic pseudocyst from prior pancreatitis. Possible IPMN. Follow-up advised. Fatty infiltration of the liver with sparing of the left lobe and mild atrophy of the left lobe. Mildly thickened bladder wall but there is poor distension of the urinary bladder. Rule out cystitis. Nonobstructing tiny right renal calculus. Ill-defined opacity in right lower lobe. Rule out pneumonia. Circumferential mural thickening of distal esophagus. Rule out neoplasm. Consider evaluation with endoscopy when clinically feasible. * Lipase 2310 --> 2761--> 75 on 11/08 * Amylase: 200 * Lipid panel: TG 147, Cholesterol 137, LDL 42, HDL 67 * Medications * Discontinue Morphine 1mg IV Q4H prn pain * Discontinue Zofran 4mg IVP Q8H prn N/V (2) Venous congestion * CXR 11/04/17 - moderate venous congestion. Left bibasilar airspace opacity. Small bilateral pleural effusions. * Lasix 60mg IV STAT given * Most recent ECHO 01/22: LVEF >70% * HELD IVF * Ordered duoneb once on 11/06/17 for wheezing. (3) Bilateral airspace opacities * Will cover for HAP * CXR 11/04/17 - moderate venous congestion. Left bibasilar airspace opacity. Small bilateral pleural effusions. * Vanco 500mg IV ONCE * Continue Zosyn (renal dose) 2.25 gm IV Q6H (4) Elevated LFTs * Likely secondary to alcohol * Resolved (5) HTN (hypertension) * Pt did not take medications on day of admission * Propranolol 20mg po TID * Lisinopril 40mg daily (increased from 20mg daily on 11/09/17) * Started HCTZ 12.5mg PO daily * Monitor BP (6) Diabetes * Hold home medication of Glimepiride * Start ISS with Accuchecks Q6H * Started Levemir 10u HS * Monitor (7) ETOH abuse * Starting Librium 50mg Q8 prn- HOLD if sleeping or sedated * Discontinued on 10/31/17 Ativan 1mg IV Q6h NELSON and PRN for alcohol withdrawal - HOLD if sleeping or sedated. * Thiamine PO daily * MV PO daily * Folic Acid PO daily * Monitor for withdrawal. Last drink 10/27/17 * Aspiration precautions * Seizure precautions (9) Constipation: * Resolved * Colace 100mg PO daily (10) Anemia * Stable * Hgb 7.1 on 10/30 (decreased from 9.9 at admission) * Type and cross * 2 units PRBC given on 10/30--> Hgb improved * Stool occult: negative * Iron studies: iron 47, TIBC 202, %sat 23, Ferritin 561 * GI consulted, Dr. Katz; recs appreciated * Patient went for endoscopy on 11/02/17. Repeat endoscopy in 8 weeks for surveillance based on path results * Patient needs colonoscopy; postponed due to possible pneumonia * Results: candidiasis esophagitis, gastric ulcer (biopsied); erythematous mucosa in prepyloric region of stomach and erythematous duodenopathy * Outpatient f/u in 5 weeks * Started sucralfate suspension 1gm PO BID for 10 weeks; protonix 40mg PO daily for 10 weeks. * Discontinued fluconazole 100mg PO daily for 10 days (last dose on 11/11/17) * Alpha fetoprotein- 2.9, nml * CA 19-9: 149, elevated * CEA: 8.7 H * Continue to monitor H/H (11) Hyponatremia * Resolved * Continue to monitor labs (12) Bilirubinemia * Resolved, within normal range * T. Duran: 3.0 trending down * Direct:1.0 (13) Prophylactic measure * Protonix 40mg IV daily * Heparin SC - HOLD * SCDs * Aspiration precautions * Swallow eval-passed * OOB, PT/OT * Artificial tears Discussed with Dr. Jung. Disposition: Patient awaiting authorization from insurance for discharge to [facility]
[2017-11-11 09:06] LABS: BASO # 0.1 K/uL (0.0-0.2); BASO % 1.6 % (0.0-2.0); EOS # 0.2 K/uL (0.0-0.7); EOS % 3.6 % (0.0-4.0); HEMOGLOBIN 9.1 g/dL (12.0-18.0); LYMPH # 0.9 K/uL (1.0-4.3); LYMPH % 18.7 % (20.0-40.0); MEAN CELL VOLUME 87.8 fL (80.0-94.0); MEAN CORPUSCULAR HEMOGLOBIN 29.1 pg (27.0-31.0); MEAN CORPUSCULAR HGB CONC 33.1 g/dL (33.0-37.0); MONO # 0.3 K/uL (0.0-0.8); MONO % 6.9 % (0.0-10.0); NEUT # 3.4 K/uL (1.8-7.0); NEUT % 69.2 % (50.0-75.0); NRBC % 0.1 % (0.0-2.0); RBC 3.13 Mil/uL (4.40-5.90); RED CELL DISTRIBUTION WIDTH 21.5 % (11.5-14.5); WHITE BLOOD COUNT 4.9 K/uL (4.8-10.8)
[2017-11-11 09:22] LABS: ALB/GLOB RATIO 0.8 (1.0-2.1); ALBUMIN 2.6 g/dL (3.5-5.0); CALCIUM 8.4 mg/dl (8.6-10.4)
[2017-11-11] MEDS: Potassium Chloride 20 mEq ER Tab PO SCH (09:23)
[2017-11-11] MEDS: Multiple Vitamins Oral Solution PO SCH (09:24)
[2017-11-11] MEDS: Aritificial Tears (15ml) OD SCH (09:24)
[2017-11-11] MEDS ORDERED: Potassium Chloride 20 mEq ER Tab PO ONE (09:54)
--- NOTE | 2017-11-11 13:16 | PN ---
DATE: 11/11/2017 LOCATION: 663, bed A. SUBJECTIVE: This is 66-year-old male, seen early in rounds today without significant clinical changes. Appeared to be somewhat restless, still with Allred catheter in place, but no reported active bleeding, chest pain, palpitation or significantly reported shortness of breath. No chills or fever reported. The entire chart is reviewed including, but not limited to, the most recent lab and radiology study results, current and the previous medication list, current and previous medical events, and today's lab showed blood glucose level of 279. The patient lab results showed still low hemoglobin and hematocrit with low potassium, less CO2 content, and mildly elevated creatinine with low albumin and low total protein. PHYSICAL EXAMINATION: GENERAL: A 66-year-old male appear to be more awake and alert. VITAL SIGNS: Afebrile with pulse of 72, respiratory rate 20 to 22, blood pressure of 186/90. HEENT: Showed pale dry oral mucous membrane, nonicteric sclerae. LUNGS: Few scattered crepitation. Decreased air entry at bases. HEART: Positive S1 and S2. ABDOMEN: Soft with mild distended with slight generalized tenderness. No mass or organomegaly. No rebound tenderness or guarding. EXTREMITIES: Slight lower extremity edematous changes. No clubbing or cyanosis. NEUROLOGICAL: No reported new neurological deficits, sensory or motor. IMPRESSION: 1. Alcoholism with alcoholic liver disease. 2. Bilateral pneumonia. 3. Acute pancreatitis per recent history, alcohol-induced. 4. Peptic ulcer disease. 5. Known history of poorly controlled diabetes mellitus, hypertension by history. 6. Diverticulosis, colitis by recent colonoscopy. 7. Electrolyte imbalance with hypocalcemia and hypokaliemia. 8. Anemia secondary to above. 9. Malnutrition with hypoalbuminemia. SUGGESTIONS: 1. Continue current management 2. The patient may need CAT scan of the head, if his symptoms persist. 3. Guaiac all the stools QED x3. 4. Further evaluation to follow. Tommie Edmonds MD
[2017-11-11] MEDS: Insulin Detemir 100 units/ml Vial (Levemir) SC SCH (21:49)
[2017-11-12] MEDS: Piperacill/Tazo 2.25gm in Dex 2.25 GM/50 ML BAG IVPB SCH ×4 (04:38→22:56)
[2017-11-12 07:26] LABS: BASO # 0.1 K/uL (0.0-0.2); BASO % 1.8 % (0.0-2.0); EOS # 0.2 K/uL (0.0-0.7); EOS % 3.5 % (0.0-4.0); HEMOGLOBIN 8.7 g/dL (12.0-18.0); LYMPH # 1.1 K/uL (1.0-4.3); LYMPH % 23.9 % (20.0-40.0); MEAN CORPUSCULAR HEMOGLOBIN 28.9 pg (27.0-31.0); MEAN CORPUSCULAR HGB CONC 32.9 g/dL (33.0-37.0); MEAN PLATELET VOLUME 8.5 fL (7.2-11.7); MONO # 0.4 K/uL (0.0-0.8); MONO % 7.9 % (0.0-10.0); NEUT # 2.8 K/uL (1.8-7.0); NEUT % 62.9 % (50.0-75.0); RED CELL DISTRIBUTION WIDTH 22.1 % (11.5-14.5); WHITE BLOOD COUNT 4.5 K/uL (4.8-10.8)
--- NOTE | 2017-11-12 07:41 | CP.PCM.PN ---
Subjective - Date & Time of Evaluation Date of Evaluation: 11/12/17 Time of Evaluation: 07:41 - Subjective Subjective: Medicine progress note for Dr. Jung's service Patient was seen and examined at bedside. Patient is alert, awake and eating breakfast. Patient has no complaints today and feels better. Patient denies chest pain, shortness of breath, abdominal pain, nausea, vomiting, fevers, headaches. Objective - Vital Signs/Intake and Output Vital Signs (last 24 hours): Temp Pulse Resp BP Pulse Ox 97.2 F L 64 20 169/82 H 97 11/11/17 23:00 11/12/17 04:00 11/11/17 23:00 11/11/17 23:00 11/11/17 23:00 Intake and Output: 11/12/17 11/12/17 06:59 18:59 Intake Total 750 Output Total 0 Balance -1300 - Medications Medications: Current Medications Artificial Tears (Artificial Tears) 0 ml OD DAILY [facility] Last Admin: 11/11/17 09:24 Dose: 1 drop Chlordiazepoxide (Librium) 50 mg PO Q8 PRN PRN Reason: Agitation Last Admin: 11/10/17 01:16 Dose: 50 mg Docusate Sodium (Colace) 100 mg PO DAILY [facility] Last Admin: 11/11/17 09:23 Dose: 100 mg Folic Acid (Folic Acid) 1 mg PO DAILY [facility] Last Admin: 11/11/17 09:24 Dose: 1 mg Furosemide (Lasix) 40 mg PO DAILY [facility] Last Admin: 11/11/17 09:25 Dose: 40 mg Heparin Sodium (Porcine) (Heparin) 5,000 units SC Q8 [facility] Last Admin: 11/01/17 06:18 Dose: 5,000 units Hydralazine HCl (Apresoline) 10 mg IVP Q6H PRN PRN Reason: Systolic Blood Pressure Last Admin: 11/10/17 04:44 Dose: 10 mg Hydrochlorothiazide (Microzide) 12.5 mg PO DAILY [facility] Last Admin: 11/11/17 13:49 Dose: 12.5 mg Sodium Chloride (Sodium Chloride 0.45%) 1,000 mls @ 75 mls/hr IV .[id number] [facility] Last Admin: 11/04/17 01:50 Dose: 75 mls/hr Piperacillin Sod/Tazobactam Sod (Zosyn 2.25 Gm Iv Premix) 2.25 gm in 50 mls @ 100 mls/hr IVPB Q6H [facility] Last Admin: 11/12/17 04:38 Dose: 100 mls/hr Lactated Ringer's (Lactated Ringer's) 1,000 mls @ 125 mls/hr IV .Q8H [facility] Last Admin: 11/11/17 05:20 Dose: 125 mls/hr Insulin Detemir (Levemir) 10 unit SC [facility] Last Admin: 11/11/17 21:49 Dose: 10 unit Insulin Human Regular (Novolin R) 0 unit SC [facility] PRN Reason: Protocol Last Admin: 11/11/17 23:00 Dose: Not Given Lisinopril (Zestril) 40 mg PO DAILY [facility] Last Admin: 11/11/17 10:43 Dose: Not Given Multivitamins/Vitamin C (Multi-Delyn Liquid) 5 ml PO DAILY [facility] Last Admin: 11/11/17 09:24 Dose: 5 ml Pantoprazole Sodium (Protonix Inj) 40 mg IVP Q12H [facility] Last Admin: 11/12/17 06:13 Dose: 40 mg Potassium Chloride (K-Dur 20 Meq Er Tab) 20 meq PO DAILY [facility] Last Admin: 11/11/17 09:23 Dose: 20 meq Propranolol HCl (Inderal) 20 mg PO TID [facility] Last Admin: 11/11/17 17:14 Dose: 20 mg Sucralfate (Carafate Oral Susp) 1 gm PO [facility] Last Admin: 11/11/17 21:48 Dose: 1 gm Thiamine HCl (Vitamin B1 Tab) 100 mg PO DAILY [facility] Last Admin: 11/11/17 10:42 Dose: Not Given - Labs Labs: 11/12/17 07:07 11/11/17 08:43 PT 14.6 SECONDS (9.7-12.2) H 11/03/17 11:40 INR 1.3 11/03/17 11:40 APTT 30 SECONDS (21-34) 11/03/17 11:40 - Additional Findings Additional findings: - Constitutional Appears: No Acute Distress, pleasant - Head Exam Head Exam: ATRAUMATIC, NORMOCEPHALIC - Eye Exam Eye Exam: EOMI - ENT Exam ENT Exam: Mucous Membranes Moist - Respiratory Exam Respiratory Exam: NORMAL BREATHING PATTERN, decreased breath sounds. absent: Rales, Rhonchi, Respiratory Distress - Cardiovascular Exam Cardiovascular Exam: REGULAR RHYTHM, +S1, +S2 - GI/Abdominal Exam GI & Abdominal Exam: Soft, Normal Bowel Sounds. absent: Distended, Firm, Tenderness - Neurological Exam Neurological Exam: Alert, Awake - Psychiatric Exam Psychiatric exam: Alert, Awake - Skin Skin Exam: Dry, Intact, Normal Color, Warm Assessment and Plan - Assessment and Plan (Free Text) Plan: (1) Acute pancreatitis * Likely secondary to alcohol * Resolved * Imaging: * CT of Abdomen/Pelvis: Findings consistent with mild or early acute pancreatitis. New low-density/cystic 1.3 cm mass in body of pancreas. Nonspecific. Possible intrapancreatic pseudocyst from prior pancreatitis. Possible IPMN. Follow-up advised. Fatty infiltration of the liver with sparing of the left lobe and mild atrophy of the left lobe. Mildly thickened bladder wall but there is poor distension of the urinary bladder. Rule out cystitis. Nonobstructing tiny right renal calculus. Ill-defined opacity in right lower lobe. Rule out pneumonia. Circumferential mural thickening of distal esophagus. Rule out neoplasm. Consider evaluation with endoscopy when clinically feasible. * Lipase 2310 --> 2761--> 75 on 11/08 * Amylase: 200 * Lipid panel: TG 147, Cholesterol 137, LDL 42, HDL 67 * Medications * Discontinue Morphine 1mg IV Q4H prn pain * Discontinue Zofran 4mg IVP Q8H prn N/V (2) Venous congestion * CXR 11/04/17 - moderate venous congestion. Left bibasilar airspace opacity. Small bilateral pleural effusions. * Lasix 60mg IV STAT given * Most recent ECHO 01/22: LVEF >70% * HELD IVF * Ordered duoneb once on 11/06/17 for wheezing. (3) Bilateral airspace opacities * Will cover for HAP * CXR 11/04/17 - moderate venous congestion. Left bibasilar airspace opacity. Small bilateral pleural effusions. * Vanco 500mg IV ONCE * Continue Zosyn (renal dose) 2.25 gm IV Q6H (4) Elevated LFTs * Likely secondary to alcohol * Resolved (5) HTN (hypertension) * Pt did not take medications on day of admission * Propranolol 20mg po TID * Lisinopril 40mg daily (increased from 20mg daily on 11/09/17) * HCTZ 25mg PO daily (increased from 12.5mg) * Monitor BP (6) Diabetes * Hold home medication of Glimepiride * Start ISS with Accuchecks Q6H * Started Levemir 10u HS * Monitor (7) ETOH abuse * Starting Librium 50mg Q8 prn- HOLD if sleeping or sedated * Discontinued on 10/31/17 Ativan 1mg IV Q6h NELSON and PRN for alcohol withdrawal - HOLD if sleeping or sedated. * Thiamine PO daily * MV PO daily * Folic Acid PO daily * Monitor for withdrawal. Last drink 10/27/17 * Aspiration precautions * Seizure precautions (9) Constipation: * Resolved * Colace 100mg PO daily (10) Anemia * Stable * Hgb 7.1 on 10/30 (decreased from 9.9 at admission) * Type and cross * 2 units PRBC given on 10/30--> Hgb improved * Stool occult: negative * Iron studies: iron 47, TIBC 202, %sat 23, Ferritin 561 * GI consulted, Dr. Katz; recs appreciated * Patient went for endoscopy on 11/02/17. Repeat endoscopy in 8 weeks for surveillance based on path results * Patient needs colonoscopy; postponed due to possible pneumonia * Results: candidiasis esophagitis, gastric ulcer (biopsied); erythematous mucosa in prepyloric region of stomach and erythematous duodenopathy * Outpatient f/u in 5 weeks * Started sucralfate suspension 1gm PO BID for 10 weeks; protonix 40mg PO daily for 10 weeks. * Discontinued fluconazole 100mg PO daily for 10 days (last dose on 11/11/17) * Alpha fetoprotein- 2.9, nml * CA 19-9: 149, elevated * CEA: 8.7 H * Continue to monitor H/H (11) Hyponatremia * Resolved * Continue to monitor labs (12) Bilirubinemia * Resolved, within normal range * T. Duran: 3.0 trending down * Direct:1.0 (13) Prophylactic measure * Protonix 40mg IV daily * Heparin SC - HOLD * SCDs * Aspiration precautions * Swallow eval-passed * OOB, PT/OT * Artificial tears Discussed with Dr. Jung. Disposition: Patient awaiting authorization from insurance for discharge to [facility]
[2017-11-12 08:08] LABS: ALB/GLOB RATIO 0.9 (1.0-2.1); ALBUMIN 2.6 g/dL (3.5-5.0); ALT/SGPT 17 U/L (21-72); AST/SGOT 17 U/L (17-59); BLOOD UREA NITROGEN 12 mg/dL (9-20); CALCIUM 8.4 mg/dl (8.6-10.4); GFR AFRICAN-AMERICAN > 60; GFR NON-AFRICAN AMERICAN 51; MAGNESIUM 1.4 mg/dL (1.6-2.3)
[2017-11-12] MEDS: Sucralfate 1 gm/10 ml Oral Susp UD PO SCH ×5 (08:30→21:54)
[2017-11-12] MEDS: Aritificial Tears (15ml) OD SCH (09:19)
[2017-11-12] MEDS: Multiple Vitamins Oral Solution PO SCH (09:19)
[2017-11-12] MEDS: (Novolin R) Insulin Human Regular 100 units/ml vial SC SCH ×4 (09:20→21:54)
[2017-11-12] MEDS: Potassium Chloride 20 mEq ER Tab PO SCH ×4 (09:21→13:47)
[2017-11-12] MEDS: Magnesium Sulfate 1 gm in D5W 1 GM/100 ML BAG IVPB SCH ×2 (09:33→11:47)
--- NOTE | 2017-11-12 10:26 | PN ---
DATE: 11/10/2017 LOCATION: 664, bed A. SUBJECTIVE: This 66-year-old male, seen and examined in rounds with period of semi disorientation and confusion, with restless behavior, seen and examined early in rounds with Allred catheter still in place. No reported chest pain, palpitation, active bleeding or significant shortness of breath, but poor oral intake. The entire chart is reviewed including but not limited to the most recent lab and radiology study results, current and the previous medication list, current and the previous medical events. LABORATORY DATA: Today's lab showed low hemoglobin of 9.0, hematocrit of 27.7 with low potassium 3.3, low CO2 content 20 indicative of metabolic acidosis with creatinine elevated at 1.6. Blood glucose level at 314. Calcium 8.1 with low albumin 2.7 with total protein 5.5. PHYSICAL EXAMINATION: GENERAL: A 66 years male. VITAL SIGNS: Afebrile with pulse of 64, respiratory rate of 20 to 22, and blood pressure 138/76. HEENT: Shows pale dry oral mucous membrane, nonicteric sclerae. LUNGS: Few scattered crepitation, decreased air entry at bases. HEART: Positive S1 and S2,. ABDOMEN: Soft. Bowel sounds are present. Mildly distended. Mildly obese. No mass or organomegaly. RECTAL: The patient refused. EXTREMITIES: Lower extremity with edematous changes. No clubbing or cyanosis. NEUROLOGIC: No reported new neurological deficits, sensory or motor. IMPRESSION: 1. Alcoholism. 2. Alcoholic liver disease. 3. Acute pancreatitis, alcohol-induced. 4. Peptic ulcer disease. 5. Bilateral pneumonia. 6. Known history of poorly controlled diabetes mellitus, hypertension. 7. Diverticulosis with left sided colitis. 8. Hypoalbuminemia with malnutrition. SUGGESTIONS: 1. Continue current management. 2. CAT scan of the head due to the patient's recent confusion. 3. Neurology consultation. 4. . 5. Further recommendation to follow. Tommie Edmonds MD
--- NOTE | 2017-11-12 15:01 | PN ---
DATE: 11/12/2017 LOCATION: 663, bed A. SUBJECTIVE: This is a 66 years old male seen and examined earlier today somewhat tolerating some oral intake without reported active bleeding, appeared to be mildly semi disoriented with period of semi confusion. The entire chart is reviewed including, but not limited to the most recent lab and radiology study results, current and previous medication list, current and previous medical events and today's labs showed drop of hemoglobin to 8.7 with decreased hematocrit of 26.4 with low white blood cells 4.5, abnormal platelet count with potassium still low at 2.9. Blood glucose level 276 with low calcium 8.4, low phosphorus 2.4, low magnesium 1.4 with low albumin 2.6, and low total protein 5.6. PHYSICAL EXAMINATION: GENERAL: A 66 years old male. VITAL SIGNS: Afebrile with pulse of 74, respiratory rate of 20 to 22 with blood pressure elevated to 190/106. HEENT: Showed mildly pale dry oral mucoid membrane. Nonicteric sclerae. LUNGS: Scattered crepitation, decreased air entry at bases. HEART: Positive S1 and S2. ABDOMEN: Soft with slight distention. Mild generalized tenderness. No mass or organomegaly. No rebound tenderness or guarding. RECTAL: The patient refused. EXTREMITIES: Without significant clubbing, cyanosis or edema. IMPRESSION: 1. Alcoholism with alcoholic liver disease. 2. . 3. Bilateral pneumonia. 4. Alcohol induced acute pancreatitis. 5. Peptic ulcer disease by upper endoscopy. 6. Poorly controlled hypertension and poorly controlled diabetes mellitus. 7. Diverticulosis by recent colonoscopy. 8. Anemia secondary to above. 9. Electrolyte imbalance. 10. Malnutrition with hypoalbuminemia slightly improved. SUGGESTION: 1. Agree with your plan. 2. CAT scan of the head should be considered if the patient's change of mental status continued. 3. Repeat ammonia level. 4. Further recommendation to follow. Tommie Edmonds MD
[2017-11-12] MEDS: Insulin Detemir 100 units/ml Vial (Levemir) SC SCH (21:54)
[2017-11-13] MEDS: Piperacill/Tazo 2.25gm in Dex 2.25 GM/50 ML BAG IVPB SCH (05:40)
[2017-11-13 06:30] LABS: BASO # 0.1 K/uL (0.0-0.2); BASO % 1.6 % (0.0-2.0); EOS # 0.2 K/uL (0.0-0.7); EOS % 3.3 % (0.0-4.0); HEMOGLOBIN 9.6 g/dL (12.0-18.0); LYMPH % 18.8 % (20.0-40.0); MEAN CELL VOLUME 87.2 fL (80.0-94.0); MEAN CORPUSCULAR HEMOGLOBIN 28.6 pg (27.0-31.0); MEAN CORPUSCULAR HGB CONC 32.8 g/dL (33.0-37.0); MEAN PLATELET VOLUME 8.4 fL (7.2-11.7); MONO # 0.3 K/uL (0.0-0.8); MONO % 6.7 % (0.0-10.0); NEUT # 3.6 K/uL (1.8-7.0); NEUT % 69.6 % (50.0-75.0); NRBC % 0.1 % (0.0-2.0); RBC 3.36 Mil/uL (4.40-5.90); RED CELL DISTRIBUTION WIDTH 21.8 % (11.5-14.5); WHITE BLOOD COUNT 5.2 K/uL (4.8-10.8)
[2017-11-13 07:47] LABS: ALB/GLOB RATIO 0.8 (1.0-2.1); ALBUMIN 2.8 g/dL (3.5-5.0); ALT/SGPT 20 U/L (21-72); AST/SGOT 21 U/L (17-59); BLOOD UREA NITROGEN 12 mg/dL (9-20); CALCIUM 8.7 mg/dl (8.6-10.4); GFR AFRICAN-AMERICAN > 60; GFR NON-AFRICAN AMERICAN 51; MAGNESIUM 1.6 mg/dL (1.6-2.3)
[2017-11-13] MEDS: (Novolin R) Insulin Human Regular 100 units/ml vial SC SCH (07:53)
[2017-11-13] MEDS: Sucralfate 1 gm/10 ml Oral Susp UD PO SCH ×2 (07:53→11:42)
[2017-11-13] MEDS: Aritificial Tears (15ml) OD SCH (09:14)
[2017-11-13] MEDS: Potassium Chloride 20 mEq ER Tab PO SCH (09:15)
[2017-11-13] MEDS: Multiple Vitamins Oral Solution PO SCH (09:16)
[2017-11-13] MEDS ORDERED: Potassium Chloride 20 mEq ER Tab PO SCH (10:00)
--- NOTE | 2017-11-13 10:02 | CP.PCM.DIS ---
Provider - Provider Date of Admission: 10/28/17 17:17 Attending physician: Justin Jung Jr, MD Primary care physician: Dr. Jung Consults: GI: Dr. Katz Time Spent in preparation of Discharge (in minutes): 45 Hospital Course - Lab Results Lab Results: Micro Results 11/07/17 01:45 Blood Blood Culture - Final NO GROWTH AFTER 5 DAYS 11/07/17 01:45 Blood Gram Stain - Final TEST NOT PERFORMED 11/07/17 01:10 Blood Blood Culture - Final NO GROWTH AFTER 5 DAYS 11/07/17 01:10 Blood Gram Stain - Final TEST NOT PERFORMED Most Recent Lab Values WBC 5.2 K/uL (4.8-10.8) 11/13/17 06:21 RBC 3.36 Mil/uL (4.40-5.90) L 11/13/17 06:21 Hgb 9.6 g/dL (12.0-18.0) L 11/13/17 06:21 Hct 29.3 % (35.0-51.0) L 11/13/17 06:21 MCV 87.2 fL (80.0-94.0) 11/13/17 06:21 MCH 28.6 pg (27.0-31.0) 11/13/17 06:21 MCHC 32.8 g/dL (33.0-37.0) L 11/13/17 06:21 RDW 21.8 % (11.5-14.5) H 11/13/17 06:21 Plt Count 272 K/uL (130-400) 11/13/17 06:21 MPV 8.4 fL (7.2-11.7) 11/13/17 06:21 Neut % (Auto) 69.6 % (50.0-75.0) 11/13/17 06:21 Lymph % (Auto) 18.8 % (20.0-40.0) L 11/13/17 06:21 Morrison % (Auto) 6.7 % (0.0-10.0) 11/13/17 06:21 Eos % (Auto) 3.3 % (0.0-4.0) 11/13/17 06:21 Baso % (Auto) 1.6 % (0.0-2.0) 11/13/17 06:21 Neut # (Auto) 3.6 K/uL (1.8-7.0) 11/13/17 06:21 Lymph # (Auto) 1.0 K/uL (1.0-4.3) 11/13/17 06:21 Morrison # (Auto) 0.3 K/uL (0.0-0.8) 11/13/17 06:21 Eos # (Auto) 0.2 K/uL (0.0-0.7) 11/13/17 06:21 Baso # (Auto) 0.1 K/uL (0.0-0.2) 11/13/17 06:21 Neutrophils % (Manual) 86 % (50-75) H 11/09/17 07:36 Band Neutrophils % 2 % (0-2) 11/09/17 07:36 Lymphocytes % (Manual) 7 % (20-40) L 11/09/17 07:36 Monocytes % (Manual) 3 % (0-10) 11/09/17 07:36 Eosinophils % (Manual) 2 % (0-4) 11/09/17 07:36 Differential Comment 11/04/17 07:45 Platelet Estimate Normal (NORMAL) 11/09/17 07:36 Large Platelets Present 11/09/17 07:36 Hypochromasia (manual) Slight 11/06/17 06:40 Target Cells Slight 11/06/17 06:40 Polychromasia Slight 11/07/17 01:30 Anisocytosis (manual) Moderate 11/09/17 07:36 Ovalocytes Slight 11/07/17 01:30 Retic Count 3.5 % (0.5-1.5) H 11/02/17 06:25 PT 14.6 SECONDS (9.7-12.2) H 11/03/17 11:40 INR 1.3 11/03/17 11:40 APTT 30 SECONDS (21-34) 11/03/17 11:40 Sodium 138 mmol/L (132-148) 11/13/17 06:21 Potassium 3.2 mmol/L (3.6-5.2) L 11/13/17 06:21 Chloride 102 mmol/L (98-107) 11/13/17 06:21 Carbon Dioxide 27 mmol/L (22-30) 11/13/17 06:21 Anion Gap 12 (10-20) 11/13/17 06:21 BUN 12 mg/dL (9-20) 11/13/17 06:21 Creatinine 1.4 mg/dL (0.8-1.5) 11/13/17 06:21 Est GFR ( Amer) > 60 11/13/17 06:21 Est GFR (Non-Af Amer) 51 11/13/17 06:21 POC Glucose (mg/dL) 400 mg/dL (65-110) H* 11/13/17 06:29 Random Glucose 330 mg/dL (75-110) H 11/13/17 06:21 Calcium 8.7 mg/dl (8.6-10.4) 11/13/17 06:21 Iron 47 ug/dL (49-181) L 11/02/17 06:42 TIBC 202 ug/dL (250-450) L 11/02/17 06:42 % Saturation 23 (20-55) 11/02/17 06:42 Phosphorus 2.4 mg/dL (2.5-4.5) L 11/12/17 07:07 Magnesium 1.6 mg/dL (1.6-2.3) 11/13/17 06:21 Ferritin 561.0 ng/mL 11/02/17 06:25 Direct Bilirubin 1.0 mg/dL (0.0-0.4) H 10/29/17 07:23 Total Bilirubin 0.7 mg/dL (0.2-1.3) 11/13/17 06:21 AST 21 U/L (17-59) 11/13/17 06:21 ALT 20 U/L (21-72) L 11/13/17 06:21 Alkaline Phosphatase 84 U/L (38-126) 11/13/17 06:21 Ammonia < 9 umol/L (9-33) L 11/07/17 01:30 Total Protein 6.1 g/dL (6.3-8.3) L 11/13/17 06:21 Albumin 2.8 g/dL (3.5-5.0) L 11/13/17 06:21 Globulin 3.3 gm/dL (2.2-3.9) 11/13/17 06:21 Albumin/Globulin Ratio 0.8 (1.0-2.1) L 11/13/17 06:21 Triglycerides 147 mg/dL (0-149) 10/29/17 07:23 Cholesterol 137 mg/dL (0-199) 10/29/17 07:23 LDL Cholesterol Direct 42 mg/dL (0-129) 10/29/17 07:23 HDL Cholesterol 67 mg/dL (30-70) 10/29/17 07:23 Amylase 32 U/L (30-110) 11/04/17 07:45 Lipase 75 U/L (23-300) 11/08/17 06:03 Alpha Fetoprotein 2.9 ng/mL (0.0-7.5) 11/02/17 06:25 Carcinoembryonic Ag 8.7 ng/mL (0-3.0) H 11/02/17 06:25 CA 19-9 Antigen 149 U/mL (0-37) H D 11/02/17 06:25 Procalcitonin 0.17 NG/ML (0.19-0.49) L 11/04/17 20:02 Urine Color Yellow (YELLOW) 11/07/17 01:40 Urine Clarity Hazy (Clear) 11/07/17 01:40 Urine pH 6.0 (5.0-8.0) 11/07/17 01:40 Ur Specific [place] 1.012 (1.003-1.030) 11/07/17 01:40 Urine Protein 1+ mg/dL (NEGATIVE) H 11/07/17 01:40 Urine Glucose (UA) 3+ mg/dL (Normal) H 11/07/17 01:40 Urine Ketones Negative mg/dL (NEGATIVE) 11/07/17 01:40 Urine Blood 3+ (NEGATIVE) H 11/07/17 01:40 Urine Nitrate Negative (NEGATIVE) 11/07/17 01:40 Urine Bilirubin Negative (NEGATIVE) 11/07/17 01:40 Urine Urobilinogen Normal mg/dL (0.2-1.0) 11/07/17 01:40 Ur Leukocyte Esterase Neg [place]/uL (Negative) 11/07/17 01:40 Urine WBC (Auto) 3 /hpf (0-5) 11/07/17 01:40 Urine RBC (Auto) 61 /hpf (0-3) H 11/07/17 01:40 Hyaline Casts 3-5 /lpf (0-2) H 10/28/17 16:30 Urine Bacteria Rare (<OCC) 11/07/17 01:40 Stool Occult Blood Negative (NEGATIVE) 11/03/17 17:01 Blood Type O POSITIVE 10/30/17 18:31 Antibody Screen Negative 10/30/17 18:31 - Hospital Course Hospital Course: CC: "Vomiting" HPI: 66 year old male with past medical history of alcohol abuse, pancreatitis, DM and HTN presents to the ED for vomiting. He states he has been vomiting for the past 2 days. He has vomited about 5-6x per day. He states he tried Tums which helped at first but it stopped helping. Patient states he has pain in his stomach that is burning and constant. The pain is currently a 1/10. Patient states his last meal was at 1pm yesterday. He also states his last drink was yesterday. He denies withdrawal symptoms due to drinking. Patient denies fever , diarrhea, constipation, chest pain, difficulty breathing, or dysuria. PMD: Dr. Jung PMHx: ETOH abuse, ETOH Pancreatitis, DM, HTN Medications: Glimiperide 4 mg PO BID, Lisinopril 20 mg PO daily, Lasix 40 mg PO daily, Propranalol 20 mg PO TID, KCl 20 mg PO BID, Humulin N sliding scale. PSHx: appendectomy Family hx: Both parents , father with DM. Social hx: Drinks about 6-9 shots of vodka daily. Last drink was yesterday. Former smoker, quit 20 yrs ago, denies drug use. Lives with family, retired. Allergies: NKDA. Hospital Course: Patient was admitted on 10/28/17 for vomiting, pancreatitis. In the ED, labs were drawn, imaging taken, and medications were given. Abdomen/ pelvis CT showed findings consistent with mild or early acute pancreatitis; new low-density/cystic 1.3 cm mass in body of pancreas;nonspecific; possible intrapancreatic pseudocyst from prior pancreatitis; possible IPMN; fatty infiltration of the liver with sparing of the left lobe and mild atrophy of the left lobe; mildly thickened bladder wall but there is poor distension of the urinary bladder, rule out cystitis; nonobstructing tiny right renal calculus; ill-defined opacity in right lower lobe, rule out pneumonia; circumferential mural thickening of distal esophagus, rule out neoplasm; consider evaluation with endoscopy when clinically feasible. Lipase was elevated at 2310 and amylase at 200. Patient was started on IV fluids, morphine, and zofran. Placed on NPO. Patient was started on librium, multivitamins, thiamine, and folic acid for history of alcohol abuse to prevent severe withdrawal symptoms. Patients home medications for hypertension, diabetes were restarted and conditions were monitored and managed throughout course. Patient developed worsening anemia during hospital course. Patient was given 2 units of PRBC on 10/30, stool occult ordered (negative), iron studies ordered, and GI was consulted (Dr. Katz). Anemia improved and remained stable. Patient underwent endoscopy and colonoscopy with Dr. Katz. Endoscopy (11/02) showed candidiasis esophagitis, gastric ulcer (biopsied); erythematous mucosa in prepyloric region of stomach and erythematous duodenopathy. Patient was started on diflucan for 10 days, sucralfate suspension 1gm PO BID for 10 weeks and protonix 40mg PO daily for 10 weeks. Colonoscopy showed colitis, diverticulitis, internal hemorrhoids, and chronic inflammation. Patient had repeat chest xray which showed venous congestion, left bibasilar airspace opacity, small bilateral pleural effusions. IV fluids were discontinued, lasix were started, and antibiotics were started for possible CAP. Patient's pancreatitis continued to improved throughout hospital course and lipase returned to normal range. Patient received physical therapy during course. Case management and social worker masters arranged patient for placement at [facility]. Patient is stable for discharge to [facility]. Patient must continue all medications. Patient must continue antibiotics for additional 10 days. Patient must follow up with PMD within 1-2 weeks of discharge. This is a brief summary of the hospital course. Please see EMR for more details. Discharge Exam - Additional Findings Additional findings: - Constitutional Appears: No Acute Distress, pleasant - Head Exam Head Exam: ATRAUMATIC, NORMOCEPHALIC - Eye Exam Eye Exam: EOMI - ENT Exam ENT Exam: Mucous Membranes Moist - Respiratory Exam Respiratory Exam: NORMAL BREATHING PATTERN, decreased breath sounds. absent: Rales, Rhonchi, Respiratory Distress - Cardiovascular Exam Cardiovascular Exam: REGULAR RHYTHM, +S1, +S2 - GI/Abdominal Exam GI & Abdominal Exam: Soft, Normal Bowel Sounds. absent: Distended, Firm, Tenderness - Neurological Exam Neurological Exam: Alert, Awake - Psychiatric Exam Psychiatric exam: Alert, Awake - Skin Skin Exam: Dry, Intact, Normal Color, Warm Discharge Plan - Follow Up Plan Condition: STABLE Disposition: HOME/ ROUTINE Instructions: Pancreatitis (DC), Colonoscopy (DC), Heart Healthy Diet (DC), Alcohol Intoxication (DC), Abuse of Alcohol (DC), Upper Endoscopy (DC) Additional Instructions: Patient is stable for discharge to [facility]. Patient should continue all medications. Patient must continue antibiotic, Zosyn, for an additional 10 days (last dose to be given on 11/23/17). Patient must follow up with their PMD, Fabiana Tapia, within 1-2 weeks of discharge. Patient should follow up with GI, Dr. Katz , within 3-4 weeks of discharge. If symptoms reoccur or worsen, patient should return to the ED. Referrals: Justin Jung Jr., MD [Medical Doctor] -
[2017-11-13 12:16] VITALS: BP 149/77; PULSE 68; TEMP 97.4; O2SAT 97
== END 2017-11-13 12:14 | DRG 438 ==
LOC: C.ER 14:11 → C.9E 17:17 → C.6T 19:55
PROVIDERS: ADMIT Internal Medicine; ATTEND Internal Medicine
PROC: 0DB68ZX Excision of Stomach, Via Natural or Artificial Opening Endoscopic, Diagnostic (ICD-10-PCS; principal; 2017-11-02 09:50)
PROC: 0DBM8ZX Excision of Descending Colon, Via Natural or Artificial Opening Endoscopic, Diagnostic (ICD-10-PCS; 2017-11-06)
DX: K85.20 Alcohol induced acute pancreatitis without necrosis or infection (principal); J18.9 Pneumonia, unspecified organism; E46 Unspecified protein-calorie malnutrition; D61.818 Other pancytopenia; B37.81 Candidal esophagitis; K51.50 Left sided colitis without complications; E87.1 Hypo-osmolality and hyponatremia; E83.51 Hypocalcemia; K76.0 Fatty (change of) liver, not elsewhere classified; K64.8 Other hemorrhoids; K25.9 Gastric ulcer, unspecified as acute or chronic, without hemorrhage or perforation; I10 Essential (primary) hypertension; E87.6 Hypokalemia; D69.59 Other secondary thrombocytopenia; F10.20 Alcohol dependence, uncomplicated; K59.00 Constipation, unspecified; E11.65 Type 2 diabetes mellitus with hyperglycemia; K86.0 Alcohol-induced chronic pancreatitis; K70.30 Alcoholic cirrhosis of liver without ascites; Z79.4 Long term (current) use of insulin; Z87.891 Personal history of nicotine dependence; Z90.49 Acquired absence of other specified parts of digestive tract

== ENCOUNTER 2017-11-20 01:59 | Inpatient (IN) | payer MEDICARE, OTHER ==
[2017-11-20 01:59] VITALS: BMI 29.5
[2017-11-20] MEDS ORDERED: Pantoprazole 80 MG in Sodium Chloride 0.9% 100 ML IV STA (02:27)
[2017-11-20] MEDS ORDERED: Sodium Chloride 0.9% 1,000 ML IV ONE ×3 (02:27→14:53)
--- NOTE | 2017-11-20 02:27 | C.PDOC ---
History Of Present Illness pt presents from the [place] for coffee ground emesis. no f/c. no cp or palpitations dull aching abdominal pain. Time Seen by Provider: 11/20/17 02:27 Chief Complaint (Nursing): GI Problem History Per: Family History/Exam Limitations: no limitations Onset/Duration Of Symptoms: Hrs Current Symptoms Are (Timing): Still Present Number Of Bleeding Episodes: Multiple: Amount of Blood Loss: Medium Severity: Moderate Pain Scale Rating Of: 4 Quality Of Discomfort: Dull Associated Symptoms: Nausea, Vomiting, Coffee Ground material Modifying Factors: None Recent travel outside of the [place]: No Additional History Per: Family Past Medical History Reviewed: Historical Data, Nursing Documentation, Vital Signs Vital Signs: Last Vital Signs Temp 98.4 F 11/20/17 04:20 Pulse 69 11/20/17 04:20 Resp 18 11/20/17 04:20 BP 130/76 11/20/17 04:20 Pulse Ox 100 11/20/17 05:34 - Medical History PMH: Anemia, Diabetes, HTN, Pancreatitis Denies: Chronic Kidney Disease Surgical History: Appendectomy - [facility] Procedures EXCISION OF DESCENDING COLON, ENDO, DIAGN (10/28/17) EXCISION OF STOMACH, ENDO, DIAGN (10/28/17) Family History: States: No Known Family Hx - Social History Hx Tobacco Use: No Hx Alcohol Use: Yes Hx Substance Use: No - Immunization History Hx Tetanus Toxoid Vaccination: No Hx Influenza Vaccination: No Hx Pneumococcal Vaccination: No Review Of Systems Constitutional: Negative for: Fever, Chills Eyes: Negative for: Redness ENT: Negative for: Throat Pain Cardiovascular: Negative for: Chest Pain Respiratory: Negative for: Shortness of Breath Gastrointestinal: Positive for: Nausea, Vomiting, Abdominal Pain, Hematemesis Genitourinary: Negative for: Dysuria Musculoskeletal: Negative for: Back Pain Skin: Positive for: Rash, Lesions Neurological: Negative for: Weakness Psych: Negative for: Anxiety Physical Exam - Physical Exam Appears: Non-toxic, No Acute Distress Skin: Warm, Dry Head: Normacephalic Eye(s): bilateral: Normal Inspection Oral Mucosa: Dry Neck: Supple Chest: Symmetrical Cardiovascular: Rhythm Regular Respiratory: No Rales, Rhonchi, No Wheezing Gastrointestinal/Abdominal: Bowel Sounds (tympanic to percussion), Soft, No Tenderness, Distention (mild) Back: No CVA Tenderness Extremity: Tenderness (r leg abrasion), Pedal Edema (trace) Extremity: Bilateral: Normal Color And Temperature Pulses: Left Dorsalis Pedis: Normal, Right Dorsalis Pedis: Normal Neurological/Psych: Oriented x3 Gait: Unable To Assess ED Course And Treatment - Laboratory Results Result Diagrams: 11/20/17 04:37 11/20/17 04:37 ECG: Interpreted By Me, Viewed By Me ECG Rhythm: Sinus Rhythm (63), Nonspecific Changes O2 Sat by Pulse Oximetry: 100 Pulse Ox Interpretation: Normal - Radiology CXR: Interpreted by Me CXR Interpretation: No: Infiltrates, Fracture, Pnemothorax Disposition Discussed With Dr.: Justin Jung Jr. Comment: accepted the pt on his service and took over the care at 5:39 AM Doctor Will See Patient In The: ED Counseled Patient/Family Regarding: Studies Performed, Diagnosis - Disposition Referrals: Suzanne Jung RN [Primary Care Provider] - Disposition: HOSPITALIZED Disposition Time: 02:27 Condition: FAIR Forms: [employer] (Lebanese) - POA Present On Arrival: Poor Glycemic Control - Clinical Impression Clinical Impression: Creatinine elevation, Upper GI bleed Decision To Admit - Pt Status Changed To: Hospital Disposition Of: Inpatient - Admit Certification Admit to Inpatient:: After my assessment, the patient will require hospitalization for at least two midnights. This is because of the severity of symptoms shown, intensity of services needed, and/or the medical risk in this patient being treated as an outpatient. - InPatient: Physician Admission Certification: I certify that this patient requires 2 or more midnights of care for the following reason:: After my assessment, the patient will require hospitalization for at least two midnights. This is because of the severity of symptoms shown, intensity of services needed, and/or the medical risk in this patient being treated as an outpatient. - . Bed Request Type: Telemetry Admitting Physician: Justin Jung Jr. Patient Diagnosis: Creatinine elevation, Upper GI bleed
[2017-11-20] MEDS ORDERED: Sodium Chloride 0.9% 1,000 ML ONE ×3 (02:48→16:57)
[2017-11-20] MEDS ORDERED: Iohexol 240 (50 ml) ONE (03:18)
[2017-11-20 04:47] LABS: BASO # 0.1 K/uL (0.0-0.2); BASO % 0.9 % (0.0-2.0); EOS # 0.2 K/uL (0.0-0.7); EOS % 2.3 % (0.0-4.0); HEMOGLOBIN 10.4 g/dL (12.0-18.0); LYMPH # 0.9 K/uL (1.0-4.3); LYMPH % 8.5 % (20.0-40.0); MEAN CELL VOLUME 87.3 fL (80.0-94.0); MEAN CORPUSCULAR HEMOGLOBIN 28.8 pg (27.0-31.0); MONO # 0.3 K/uL (0.0-0.8); MONO % 3.2 % (0.0-10.0); NEUT # 8.8 K/uL (1.8-7.0); NEUT % 85.1 % (50.0-75.0); PLATELET COUNT 197 K/uL (130-400); RBC 3.63 Mil/uL (4.40-5.90); RED CELL DISTRIBUTION WIDTH 21.5 % (11.5-14.5); WHITE BLOOD COUNT 10.3 K/uL (4.8-10.8)
[2017-11-20 04:53] LABS: INR 1.2; PROTHROMBIN TIME 13.8 SECONDS (9.7-12.2)
[2017-11-20 06:07] LABS: ALB/GLOB RATIO 0.9 (1.0-2.1); ALBUMIN 3.8 g/dL (3.5-5.0); ALT/SGPT 34 U/L (21-72); AST/SGOT 41 U/L (17-59); BLOOD UREA NITROGEN 39 mg/dL (9-20); CALCIUM 9.2 mg/dl (8.6-10.4); GFR AFRICAN-AMERICAN 15; GFR NON-AFRICAN AMERICAN 13
[2017-11-20 06:18] LABS: BANDS 1 % (0-2); EOSINOPHIL 1 % (0-4); LYMPHOCYTE 7 % (20-40); MONOCYTE 4 % (0-10); NEUTROPHIL 87 % (50-75); PLATELET ESTIMATE NORMAL (NORMAL); TOTAL CELLS COUNTED 100
--- NOTE | 2017-11-20 07:46 | CP.PCM.HP ---
History of Present Illness - History of Present Illness History of Present Illness: Patient is a 66 year old male with ETOH abuse, ETOH pancreatitis, DM, HTN, who presents to the ED sent from the [facility] for vomiting. Patient is a poor historian and family is not at bedside. History obtained from ED physician. Patient vomited three times, the third time was described as brown, coffee ground emesis. Patient did not vomit while in the ED. Patient admits to vomiting and epigastric pain, otherwise has no other complaints. Patient denies chest pain, shortness of breath, nausea, fevers, and leg pain. Patient is awake and confused. History per EMR PMD: Dr. Jung PMHx: ETOH abuse, ETOH Pancreatitis, DM, HTN PSHx: appendectomy Family hx: Both parents , father with DM. Social hx: Drinks about 6-9 shots of vodka daily. Last drink was yesterday. Former smoker, quit 20 yrs ago, denies drug use. Lives with family, retired. Allergies: NKDA. Medications: Glimiperide 4 mg PO BID, Lisinopril 40 mg PO daily, Lasix 40 mg PO daily, Propranalol 20 mg PO TID, KCl 20 mg PO BID, Humulin N sliding scale. See EMR. Present on Admission - Present on Admission Any Indicators Present on Admission: No Review of Systems - Review of Systems Systems not reviewed;Unavailable: Uncooperative - Constitutional Constitutional: absent: Fever, Headache - Cardiovascular Cardiovascular: absent: Chest Pain, Dyspnea - Respiratory Respiratory: absent: Dyspnea - Gastrointestinal Gastrointestinal: Abdominal Pain (Epigastric), Vomiting. absent: Constipation, Diarrhea, Nausea Past Patient History - Infectious Disease Hx of Infectious Diseases: None - Past Medical History & Family History Past Medical History?: Yes - Past Social History Smoking Status: Never Smoked - CARDIAC Hx Hypertension: Yes - PULMONARY Hx Respiratory Disorders: No - NEUROLOGICAL Hx Neurological Disorder: No - HEENT Hx HEENT Problems: No - RENAL Hx Chronic Kidney Disease: No - ENDOCRINE/METABOLIC Hx Diabetes Mellitus Type 1: Yes Hx Diabetes Mellitus Type 2: Yes - HEMATOLOGICAL/ONCOLOGICAL Hx Anemia: Yes - INTEGUMENTARY Hx Dermatological Problems: No - MUSCULOSKELETAL/RHEUMATOLOGICAL Hx Musculoskeletal Disorders: No Hx Falls: No - GASTROINTESTINAL Hx Pancreatitis: Yes - GENITOURINARY/GYNECOLOGICAL Hx Genitourinary Disorders: No - PSYCHIATRIC Hx Substance Use: No - SURGICAL HISTORY Hx Appendectomy: Yes - ANESTHESIA Hx Anesthesia: Yes Hx Anesthesia Reactions: No Meds Allergies/Adverse Reactions: Allergies Allergy/AdvReac Type Severity Reaction Status Date / Time No Known Allergies Allergy Verified 11/20/17 02:12 Physical Exam - Constitutional Appears: No Acute Distress - Head Exam Head Exam: NORMAL INSPECTION - Eye Exam Eye Exam: EOMI, Normal appearance - ENT Exam ENT Exam: Mucous Membranes Moist - Respiratory Exam Respiratory Exam: Rales (right, lateral), Wheezes (mild, right anterior), NORMAL BREATHING PATTERN. absent: Respiratory Distress - Cardiovascular Exam Cardiovascular Exam: REGULAR RHYTHM, +S1, +S2 - GI/Abdominal Exam GI & Abdominal Exam: Normal Bowel Sounds, Soft, Tenderness (epigastric). absent : Distended, Firm, Guarding - Extremities Exam Extremities exam: Positive for: pedal edema (pitting edema b/l LE). Negative for: tenderness Additional comments: Gauze placed on right calf- clean, dry, intact - Psychiatric Exam Psychiatric exam: Normal Affect, Normal Mood - Skin Skin Exam: Dry, Intact, Normal Color, Warm Results - Vital Signs Recent Vital Signs: Last Vital Signs Temp 98.4 F 11/20/17 04:20 Pulse 69 11/20/17 04:20 Resp 18 11/20/17 04:20 BP 130/76 11/20/17 04:20 Pulse Ox 100 11/20/17 05:41 - Labs Result Diagrams: 11/20/17 04:37 11/20/17 04:37 Labs: Laboratory Results - last 24 hr 11/20/17 11/20/17 11/20/17 04:37 04:37 04:37 WBC 10.3 D RBC 3.63 L Hgb 10.4 L Hct 31.7 L MCV 87.3 MCH 28.8 MCHC 33.0 RDW 21.5 H Plt Count 197 MPV 10.0 Neut % (Auto) 85.1 H Lymph % (Auto) 8.5 L [place] % (Auto) 3.2 Eos % (Auto) 2.3 Baso % (Auto) 0.9 Neut # (Auto) 8.8 H Lymph # (Auto) 0.9 L [place] # (Auto) 0.3 Eos # (Auto) 0.2 Baso # (Auto) 0.1 Neutrophils % (Manual) 87 H Band Neutrophils % 1 Lymphocytes % (Manual) 7 L Monocytes % (Manual) 4 Eosinophils % (Manual) 1 Platelet Estimate Normal PT 13.8 H INR 1.2 APTT 38 H Sodium 136 Potassium 3.5 L Chloride 95 L Carbon Dioxide 23 Anion Gap 22 H BUN 39 H Creatinine 4.6 H Est GFR ( Amer) 15 Est GFR (Non-Af Amer) 13 Random Glucose 221 H Calcium 9.2 Total Bilirubin 1.0 AST 41 ALT 34 Alkaline Phosphatase 131 H D Total Protein 8.1 Albumin 3.8 Globulin 4.3 H Albumin/Globulin Ratio 0.9 L Stool Occult Blood Serum Ketones Small Blood Type Antibody Screen 11/20/17 11/20/17 04:37 06:37 WBC RBC Hgb Hct MCV MCH MCHC RDW Plt Count MPV Neut % (Auto) Lymph % (Auto) [place] % (Auto) Eos % (Auto) Baso % (Auto) Neut # (Auto) Lymph # (Auto) [place] # (Auto) Eos # (Auto) Baso # (Auto) Neutrophils % (Manual) Band Neutrophils % Lymphocytes % (Manual) Monocytes % (Manual) Eosinophils % (Manual) Platelet Estimate PT INR APTT Sodium Potassium Chloride Carbon Dioxide Anion Gap BUN Creatinine Est GFR ( Amer) Est GFR (Non-Af Amer) Random Glucose Calcium Total Bilirubin AST ALT Alkaline Phosphatase Total Protein Albumin Globulin Albumin/Globulin Ratio Stool Occult Blood Negative Serum Ketones Blood Type O POSITIVE Antibody Screen Negative Assessment & Plan (1) Upper GI bleed Assessment and Plan: GI consulted, Dr. Katz; recs appreciated In the ED, protonix, zofran, and IVF were given Endoscopy (11/02/17) showed candidiasis esophagitis, gastric ulcer (biopsied); erythematous mucosa in prepyloric region of stomach and erythematous duodenopathy. Colonscopy (11/06/17) showed colitis, diverticulitis, internal hemorrhoids, and chronic inflammation. Protonix drip NS@120mls/hr HOLD chemical anticoagilation NPO Status: Acute (2) JANENE (acute kidney injury) Assessment and Plan: At admission: BUN/Cr 39/4.6 NS@120mls/hr Continue to monitor Status: Acute (3) Diabetes Assessment and Plan: Holding home medications ISS- medium Hypoglycemia protocol Monitor blood glucose, accuchecks A1c (05/2017): 7.6 Status: Chronic (4) HTN (hypertension) Assessment and Plan: Monitor vitals Continue home medication: Lisinopril 40mg PO daily, Propanolol 20mg PO TID Status: Chronic (5) Loose stools Assessment and Plan: Loose stool noted during examination Stool studies: f/u results C. Diff: f/u results Stool occult: f/u results Status: Acute (6) Prophylactic measure Assessment and Plan: Hold chemical anticoagulation; SCDs Protonix Drip Fall precaution 1:1 obv O2 via nasal cannula prn Status: Acute
[2017-11-20] MEDS: Sodium Chloride 0.9% 1,000 ML IV SCH ×2 (07:49→16:56)
--- NOTE | 2017-11-20 08:24 | RAD ---
PROCEDURE: CHEST RADIOGRAPH, 1 VIEW HISTORY: GI Bleeding COMPARISON: Comparison chest 11/04/2017 FINDINGS: LUNGS: Poor inspiration with low lung volumes, crowded bronchovascular markings and mild bibasilar atelectasis. Interval improvement bilateral lower lobe infiltrates and improved vascular congestion PLEURA: No pneumothorax or pleural fluid seen. CARDIOVASCULAR: Cardiomegaly OSSEOUS STRUCTURES: Re- demonstrated is a small round/elliptical shaped sclerotic density right humeral head VISUALIZED UPPER ABDOMEN: Normal. OTHER FINDINGS: None. IMPRESSION: Poor inspiration with low lung volumes, crowded bronchovascular markings and mild bibasilar atelectasis. Interval improvement bilateral lower lobe infiltrates and improved vascular congestion
[2017-11-20] MEDS: Pantoprazole 80 MG in Sodium Chloride 0.9% 100 ML IVPB SCH ×3 (09:10→21:20)
[2017-11-20] MEDS: (Novolin R) Insulin Human Regular 100 units/ml vial SC SCH ×4 (09:12→22:19)
[2017-11-20] MEDS ORDERED: (Novolin R) Insulin Human Regular 100 units/ml vial ONE ×3 (09:13→17:06)
[2017-11-20] MEDS ORDERED: Multiple Vitamins Oral Solution PO SCH (10:00)
[2017-11-20] MEDS: Potassium Chloride 20 mEq ER Tab PO SCH (10:10)
[2017-11-20] MEDS: Sucralfate 1 gm/10 ml Oral Susp UD PO SCH ×4 (11:09→21:23)
[2017-11-20] MEDS ORDERED: Pantoprazole 40 mg EC Tab PO ONE (12:33)
[2017-11-20 14:27] LABS: SQUAMOUS EPITHIAL 6 /hpf (0-5); URINE BACTERIA RARE (<OCC); URINE BILIRUBIN NEGATIVE (NEGATIVE); URINE BLOOD 2+ (NEGATIVE); URINE CLARITY Hazy (Clear); URINE COLOR Yellow (YELLOW); URINE GLUCOSE (UA) 2+ mg/dL (Normal); URINE NITRATE NEGATIVE (NEGATIVE); URINE PROTEIN 2+ mg/dL (NEGATIVE); URINE UROBILINOGEN NORMAL mg/dL (0.2-1.0)
[2017-11-20 14:29] LABS: URINE LEUKOCYTE ESTERASE 1+ Leu/uL (Negative)
--- NOTE | 2017-11-20 15:13 | CP.PCM.CON ---
<[place] - Last Filed: 11/20/17 18:07> History of Present Illness - History of Present Illness History of Present Illness: ICU Consult Note Patient is a 66 year old male with ETOH abuse, ETOH pancreatitis, DM, HTN, who presents to the ED sent from the [facility] for vomiting. Patient is a poor historian and family is not at bedside. History obtained from ED physician. Patient vomited three times, the third time was described as brown, coffee ground emesis. Patient did not vomit while in the ED. Of note the patient was recently discharged from [facility] with the diagnosis of acute pancreatitis. He was discharged on Zosyn.Patient admits to vomiting and epigastric pain, otherwise has no other complaints. Patient denies chest pain, shortness of breath, nausea, fevers, and leg pain. Patient is awake and confused. History per EMR PMD: Dr. Jung PMHx: ETOH abuse, ETOH Pancreatitis, DM, HTN PSHx: appendectomy Family hx: Both parents , father with DM. Social hx: Drinks about 6-9 shots of vodka daily. Last drink was yesterday. Former smoker, quit 20 yrs ago, denies drug use. Lives with family, retired. Allergies: NKDA. Medications: Glimiperide 4 mg PO BID, Lisinopril 40 mg PO daily, Lasix 40 mg PO daily, Propranalol 20 mg PO TID, KCl 20 mg PO BID, Humulin N sliding scale. See EMR. Past Patient History - Infectious Disease Hx of Infectious Diseases: None - Past Medical History & Family History Past Medical History?: Yes - Past Social History Smoking Status: Never Smoked - CARDIAC Hx Hypertension: Yes - PULMONARY Hx Respiratory Disorders: No - NEUROLOGICAL Hx Neurological Disorder: No - HEENT Hx HEENT Problems: No - RENAL Hx Chronic Kidney Disease: No - ENDOCRINE/METABOLIC Hx Diabetes Mellitus Type 1: Yes Hx Diabetes Mellitus Type 2: Yes - HEMATOLOGICAL/ONCOLOGICAL Hx Anemia: Yes - INTEGUMENTARY Hx Dermatological Problems: No - MUSCULOSKELETAL/RHEUMATOLOGICAL Hx Musculoskeletal Disorders: No Hx Falls: No - GASTROINTESTINAL Hx Pancreatitis: Yes - GENITOURINARY/GYNECOLOGICAL Hx Genitourinary Disorders: No - PSYCHIATRIC Hx Substance Use: No - SURGICAL HISTORY Hx Appendectomy: Yes - ANESTHESIA Hx Anesthesia: Yes Hx Anesthesia Reactions: No Meds Allergies/Adverse Reactions: Allergies Allergy/AdvReac Type Severity Reaction Status Date / Time No Known Allergies Allergy Verified 11/20/17 02:12 - Medications Medications: Current Medications Artificial Tears (Artificial Tears) 0 ml OD DAILY [facility] Folic Acid (Folic Acid) 1 mg PO DAILY [facility] Last Admin: 11/20/17 10:10 Dose: Not Given Sodium Chloride (Sodium Chloride 0.9%) 1,000 mls @ 120 mls/hr IV .Q8H20M [facility] Last Admin: 11/20/17 07:49 Dose: 120 mls/hr Pantoprazole Sodium 80 mg/ (Sodium Chloride) 100 mls @ 10 mls/hr IVPB .Q10H [facility] PRN Reason: 8 MG/HR Last Admin: 11/20/17 09:10 Dose: 10 mls/hr Sodium Chloride (Sodium Chloride 0.9%) 1,000 mls @ 1,000 mls/hr IV .Q1H ONE Stop: 11/20/17 15:52 Sodium Chloride (Sodium Chloride 0.9%) 1,000 mls @ 1,000 mls/hr IV .Q1H ONE Stop: 11/20/17 15:52 Piperacillin Sod/Tazobactam Sod (Zosyn 2.25 Gm Iv Premix) 2.25 gm in 50 mls @ 100 mls/hr IVPB Q8H [facility] Insulin Human Regular (Novolin R) 0 unit SC ACHS [facility] PRN Reason: Protocol Last Admin: 11/20/17 12:10 Dose: 3 unit Multivitamins/Vitamin C (Multi-Delyn Liquid) 5 ml PO DAILY [facility] Last Admin: 11/20/17 10:10 Dose: Not Given Ondansetron HCl (Zofran Inj) 4 mg IVP Q6 [facility] Potassium Chloride (K-Dur 20 Meq Er Tab) 40 meq PO DAILY [facility] Last Admin: 11/20/17 10:10 Dose: Not Given Propranolol HCl (Inderal) 20 mg PO TID [facility] Last Admin: 11/20/17 10:10 Dose: Not Given Sucralfate (Carafate Oral Susp) 1 gm PO ACHS [facility] Last Admin: 11/20/17 12:30 Dose: 1 gm Thiamine HCl (Vitamin B1 Tab) 100 mg PO DAILY [facility] Last Admin: 11/20/17 10:10 Dose: Not Given Physical Exam - Head Exam Head Exam: ATRAUMATIC, NORMAL INSPECTION, NORMOCEPHALIC - Eye Exam Eye Exam: EOMI, Normal appearance, PERRL Pupil Exam: NORMAL ACCOMODATION, PERRL - ENT Exam ENT Exam: Mucous Membranes Moist, Normal Oropharynx - Neck Exam Neck exam: Negative for: Lymphadenopathy, Thyromegaly - Respiratory Exam Respiratory Exam: Clear to Auscultation Bilateral, NORMAL BREATHING PATTERN - Cardiovascular Exam Cardiovascular Exam: REGULAR RHYTHM, +S1, +S2 - GI/Abdominal Exam GI & Abdominal Exam: Normal Bowel Sounds, Soft - Extremities Exam Extremities exam: Positive for: normal inspection - Back Exam Back exam: NORMAL INSPECTION. absent: paraspinal tenderness - Neurological Exam Neurological exam: Alert, CN II-XII Intact, Oriented x3 - Psychiatric Exam Psychiatric exam: Normal Affect, Normal Mood - Skin Skin Exam: Dry, Intact Results - Vital Signs Recent Vital Signs: Last Vital Signs Temp 95.5 F L 11/20/17 14:00 Pulse 65 11/20/17 14:00 Resp 20 11/20/17 14:00 BP 101/52 L 11/20/17 14:00 Pulse Ox 97 11/20/17 14:00 - Labs Result Diagrams: 11/20/17 04:37 11/20/17 04:37 Labs: Laboratory Results - last 24 hr 11/20/17 11/20/17 11/20/17 04:37 04:37 04:37 WBC 10.3 D RBC 3.63 L Hgb 10.4 L Hct 31.7 L MCV 87.3 MCH 28.8 MCHC 33.0 RDW 21.5 H Plt Count 197 MPV 10.0 Neut % (Auto) 85.1 H Lymph % (Auto) 8.5 L [place] % (Auto) 3.2 Eos % (Auto) 2.3 Baso % (Auto) 0.9 Neut # (Auto) 8.8 H Lymph # (Auto) 0.9 L [place] # (Auto) 0.3 Eos # (Auto) 0.2 Baso # (Auto) 0.1 Neutrophils % (Manual) 87 H Band Neutrophils % 1 Lymphocytes % (Manual) 7 L Monocytes % (Manual) 4 Eosinophils % (Manual) 1 Platelet Estimate Normal PT 13.8 H INR 1.2 APTT 38 H Sodium 136 Potassium 3.5 L Chloride 95 L Carbon Dioxide 23 Anion Gap 22 H BUN 39 H Creatinine 4.6 H Est GFR ( Amer) 15 Est GFR (Non-Af Amer) 13 POC Glucose (mg/dL) Random Glucose 221 H Calcium 9.2 Total Bilirubin 1.0 AST 41 ALT 34 Alkaline Phosphatase 131 H D Total Protein 8.1 Albumin 3.8 Globulin 4.3 H Albumin/Globulin Ratio 0.9 L Urine Color Urine Clarity Urine pH Ur Specific [place] Urine Protein Urine Glucose (UA) Urine Ketones Urine Blood Urine Nitrate Urine Bilirubin Urine Urobilinogen Ur Leukocyte Esterase Urine WBC (Auto) Urine RBC (Auto) Ur Squamous Epith Cells Urine Bacteria Hyaline Casts Stool Occult Blood Serum Ketones Small C. difficile Ag & Toxin Blood Type Antibody Screen 11/20/17 11/20/17 11/20/17 04:37 06:37 08:37 WBC RBC Hgb Hct MCV MCH MCHC RDW Plt Count MPV Neut % (Auto) Lymph % (Auto) [place] % (Auto) Eos % (Auto) Baso % (Auto) Neut # (Auto) Lymph # (Auto) [place] # (Auto) Eos # (Auto) Baso # (Auto) Neutrophils % (Manual) Band Neutrophils % Lymphocytes % (Manual) Monocytes % (Manual) Eosinophils % (Manual) Platelet Estimate PT INR APTT Sodium Potassium Chloride Carbon Dioxide Anion Gap BUN Creatinine Est GFR ( Amer) Est GFR (Non-Af Amer) POC Glucose (mg/dL) 268 H Random Glucose Calcium Total Bilirubin AST ALT Alkaline Phosphatase Total Protein Albumin Globulin Albumin/Globulin Ratio Urine Color Urine Clarity Urine pH Ur Specific [place] Urine Protein Urine Glucose (UA) Urine Ketones Urine Blood Urine Nitrate Urine Bilirubin Urine Urobilinogen Ur Leukocyte Esterase Urine WBC (Auto) Urine RBC (Auto) Ur Squamous Epith Cells Urine Bacteria Hyaline Casts Stool Occult Blood Negative Serum Ketones C. difficile Ag & Toxin Blood Type O POSITIVE Antibody Screen Negative 11/20/17 11/20/17 11/20/17 09:00 11:44 14:05 WBC RBC Hgb Hct MCV MCH MCHC RDW Plt Count MPV Neut % (Auto) Lymph % (Auto) [place] % (Auto) Eos % (Auto) Baso % (Auto) Neut # (Auto) Lymph # (Auto) [place] # (Auto) Eos # (Auto) Baso # (Auto) Neutrophils % (Manual) Band Neutrophils % Lymphocytes % (Manual) Monocytes % (Manual) Eosinophils % (Manual) Platelet Estimate PT INR APTT Sodium Potassium Chloride Carbon Dioxide Anion Gap BUN Creatinine Est GFR ( Amer) Est GFR (Non-Af Amer) POC Glucose (mg/dL) 241 H Random Glucose Calcium Total Bilirubin AST ALT Alkaline Phosphatase Total Protein Albumin Globulin Albumin/Globulin Ratio Urine Color Yellow Urine Clarity Hazy Urine pH 5.0 Ur Specific [place] 1.017 Urine Protein 2+ H Urine Glucose (UA) 2+ H Urine Ketones Trace Urine Blood 2+ H Urine Nitrate Negative Urine Bilirubin Negative Urine Urobilinogen Normal Ur Leukocyte Esterase 1+ H Urine WBC (Auto) 7 H Urine RBC (Auto) 16 H Ur Squamous Epith Cells 6 H Urine Bacteria Rare Hyaline Casts 3-5 H Stool Occult Blood Serum Ketones C. difficile Ag & Toxin Blood Type Antibody Screen Assessment & Plan - Assessment and Plan (Free Text) Assessment: Patient is a 66 year old male with ETOH abuse, ETOH pancreatitis, DM, HTN, who is being admitted to ICU for acute renal failure. Plan: Cardiology (Hypertension) -Lasix and Lisinopril held at this time. Endocrinology (Diabetes) -ISS -Accuchecks [facility] Gastroenterology (GI bleed) -GI consulted, Dr. Katz; recs appreciated -Endoscopy (11/02/17) showed candidiasis esophagitis, gastric ulcer (biopsied); erythematous mucosa in prepyloric region of stomach and erythematous duodenopathy. -Colonscopy (11/06/17) showed colitis, diverticulitis, internal hemorrhoids, and chronic inflammation. -Protonix drip -NS@120mls/hr Nephrology(ARF) -IV fluids NS Bolus -Zestril and Lasix held as it could be contributing to Acute Kidney Injury -Zosyn (renal dosing) PPX -Folic acid -Multivitamin -Thiamine -Protonix -Heparin <[place] - Last Filed: 11/20/17 18:25> Meds - Medications Medications: Current Medications Artificial Tears (Artificial Tears) 0 ml OD DAILY [facility] Last Admin: 11/20/17 17:10 Dose: 1 drop Folic Acid (Folic Acid) 1 mg PO DAILY [facility] Last Admin: 11/20/17 10:10 Dose: Not Given Sodium Chloride (Sodium Chloride 0.9%) 1,000 mls @ 120 mls/hr IV .Q8H20M [facility] Last Admin: 11/20/17 16:56 Dose: 120 mls/hr Pantoprazole Sodium 80 mg/ (Sodium Chloride) 100 mls @ 10 mls/hr IVPB .Q10H [facility] PRN Reason: 8 MG/HR Last Admin: 11/20/17 09:10 Dose: 10 mls/hr Piperacillin Sod/Tazobactam Sod (Zosyn 2.25 Gm Iv Premix) 2.25 gm in 50 mls @ 100 mls/hr IVPB Q8H [facility] Last Admin: 11/20/17 16:00 Dose: 100 mls/hr Insulin Human Regular (Novolin R) 0 unit SC [facility] PRN Reason: Protocol Last Admin: 11/20/17 17:09 Dose: 3 unit Multivitamins/Vitamin C (Multi-Delyn Liquid) 5 ml PO DAILY [facility] Last Admin: 11/20/17 10:10 Dose: Not Given Ondansetron HCl (Zofran Inj) 4 mg IVP Q6 [facility] Last Admin: 11/20/17 12:00 Dose: 4 mg Potassium Chloride (K-Dur 20 Meq Er Tab) 40 meq PO DAILY [facility] Last Admin: 11/20/17 10:10 Dose: Not Given Propranolol HCl (Inderal) 20 mg PO TID [facility] Last Admin: 11/20/17 15:17 Dose: Not Given Sucralfate (Carafate Oral Susp) 1 gm PO ACHS [facility] Last Admin: 11/20/17 17:08 Dose: 1 gm Thiamine HCl (Vitamin B1 Tab) 100 mg PO DAILY [facility] Last Admin: 11/20/17 10:10 Dose: Not Given Results - Vital Signs Recent Vital Signs: Last Vital Signs Temp 97.2 F L 11/20/17 16:45 Pulse 75 11/20/17 17:04 Resp 20 11/20/17 17:04 BP 126/69 11/20/17 17:04 Pulse Ox 98 11/20/17 17:04 - Labs Result Diagrams: 11/20/17 04:37 11/20/17 04:37 Labs: Laboratory Results - last 24 hr 11/20/17 11/20/17 11/20/17 04:37 04:37 04:37 WBC 10.3 D RBC 3.63 L Hgb 10.4 L Hct 31.7 L MCV 87.3 MCH 28.8 MCHC 33.0 RDW 21.5 H Plt Count 197 MPV 10.0 Neut % (Auto) 85.1 H Lymph % (Auto) 8.5 L [place] % (Auto) 3.2 Eos % (Auto) 2.3 Baso % (Auto) 0.9 Neut # (Auto) 8.8 H Lymph # (Auto) 0.9 L [place] # (Auto) 0.3 Eos # (Auto) 0.2 Baso # (Auto) 0.1 Neutrophils % (Manual) 87 H Band Neutrophils % 1 Lymphocytes % (Manual) 7 L Monocytes % (Manual) 4 Eosinophils % (Manual) 1 Platelet Estimate Normal PT 13.8 H INR 1.2 APTT 38 H Sodium 136 Potassium 3.5 L Chloride 95 L Carbon Dioxide 23 Anion Gap 22 H BUN 39 H Creatinine 4.6 H Est GFR ( Amer) 15 Est GFR (Non-Af Amer) 13 POC Glucose (mg/dL) Random Glucose 221 H Calcium 9.2 Total Bilirubin 1.0 AST 41 ALT 34 Alkaline Phosphatase 131 H D Total Protein 8.1 Albumin 3.8 Globulin 4.3 H Albumin/Globulin Ratio 0.9 L Urine Color Urine Clarity Urine pH Ur Specific [place] Urine Protein Urine Glucose (UA) Urine Ketones Urine Blood Urine Nitrate Urine Bilirubin Urine Urobilinogen Ur Leukocyte Esterase Urine WBC (Auto) Urine RBC (Auto) Ur Squamous Epith Cells Urine Bacteria Hyaline Casts Stool Occult Blood Serum Ketones Small C. difficile Ag & Toxin Blood Type Antibody Screen 11/20/17 11/20/17 11/20/17 04:37 06:37 08:37 WBC RBC Hgb Hct MCV MCH MCHC RDW Plt Count MPV Neut % (Auto) Lymph % (Auto) [place] % (Auto) Eos % (Auto) Baso % (Auto) Neut # (Auto) Lymph # (Auto) [place] # (Auto) Eos # (Auto) Baso # (Auto) Neutrophils % (Manual) Band Neutrophils % Lymphocytes % (Manual) Monocytes % (Manual) Eosinophils % (Manual) Platelet Estimate PT INR APTT Sodium Potassium Chloride Carbon Dioxide Anion Gap BUN Creatinine Est GFR ( Amer) Est GFR (Non-Af Amer) POC Glucose (mg/dL) 268 H Random Glucose Calcium Total Bilirubin AST ALT Alkaline Phosphatase Total Protein Albumin Globulin Albumin/Globulin Ratio Urine Color Urine Clarity Urine pH Ur Specific [place] Urine Protein Urine Glucose (UA) Urine Ketones Urine Blood Urine Nitrate Urine Bilirubin Urine Urobilinogen Ur Leukocyte Esterase Urine WBC (Auto) Urine RBC (Auto) Ur Squamous Epith Cells Urine Bacteria Hyaline Casts Stool Occult Blood Negative Serum Ketones C. difficile Ag & Toxin Blood Type O POSITIVE Antibody Screen Negative 11/20/17 11/20/17 11/20/17 09:00 11:44 14:05 WBC RBC Hgb Hct MCV MCH MCHC RDW Plt Count MPV Neut % (Auto) Lymph % (Auto) [place] % (Auto) Eos % (Auto) Baso % (Auto) Neut # (Auto) Lymph # (Auto) [place] # (Auto) Eos # (Auto) Baso # (Auto) Neutrophils % (Manual) Band Neutrophils % Lymphocytes % (Manual) Monocytes % (Manual) Eosinophils % (Manual) Platelet Estimate PT INR APTT Sodium Potassium Chloride Carbon Dioxide Anion Gap BUN Creatinine Est GFR ( Amer) Est GFR (Non-Af Amer) POC Glucose (mg/dL) 241 H Random Glucose Calcium Total Bilirubin AST ALT Alkaline Phosphatase Total Protein Albumin Globulin Albumin/Globulin Ratio Urine Color Yellow Urine Clarity Hazy Urine pH 5.0 Ur Specific [place] 1.017 Urine Protein 2+ H Urine Glucose (UA) 2+ H Urine Ketones Trace Urine Blood 2+ H Urine Nitrate Negative Urine Bilirubin Negative Urine Urobilinogen Normal Ur Leukocyte Esterase 1+ H Urine WBC (Auto) 7 H Urine RBC (Auto) 16 H Ur Squamous Epith Cells 6 H Urine Bacteria Rare Hyaline Casts 3-5 H Stool Occult Blood Serum Ketones C. difficile Ag & Toxin Blood Type Antibody Screen 11/20/17 16:58 WBC RBC Hgb Hct MCV MCH MCHC RDW Plt Count MPV Neut % (Auto) Lymph % (Auto) [place] % (Auto) Eos % (Auto) Baso % (Auto) Neut # (Auto) Lymph # (Auto) [place] # (Auto) Eos # (Auto) Baso # (Auto) Neutrophils % (Manual) Band Neutrophils % Lymphocytes % (Manual) Monocytes % (Manual) Eosinophils % (Manual) Platelet Estimate PT INR APTT Sodium Potassium Chloride Carbon Dioxide Anion Gap BUN Creatinine Est GFR ( Amer) Est GFR (Non-Af Amer) POC Glucose (mg/dL) 213 H Random Glucose Calcium Total Bilirubin AST ALT Alkaline Phosphatase Total Protein Albumin Globulin Albumin/Globulin Ratio Urine Color Urine Clarity Urine pH Ur Specific [place] Urine Protein Urine Glucose (UA) Urine Ketones Urine Blood Urine Nitrate Urine Bilirubin Urine Urobilinogen Ur Leukocyte Esterase Urine WBC (Auto) Urine RBC (Auto) Ur Squamous Epith Cells Urine Bacteria Hyaline Casts Stool Occult Blood Serum Ketones C. difficile Ag & Toxin Blood Type Antibody Screen Attending/Attestation - Attestation I have personally seen and examined this patient.: Yes I have fully participated in the care of the patient.: Yes I have reviewed all pertinent clinical information: Yes Notes (Text): 11/20/17 18:23 asked to evaluate the patient for hypotension and hypothermia 66-year-old male transferredfrom halfway for vomiting Patient is awake nd responsive Patient found to haveelevated BUN/creatinine which is significantly different from previous admission Patient was discharged home on Lisinopril. And Lasix most likely because ofdehydration and renal failure Fluid resuscitation Started on IV antibiotics Follow-up culture and sensitivity ICU observation Urine output
[2017-11-20] MEDS: Piperacill/Tazo 2.25gm in Dex 2.25 GM/50 ML BAG IVPB SCH ×2 (16:00→23:00)
[2017-11-20] MEDS: Aritificial Tears (15ml) OD SCH (17:10)
--- NOTE | 2017-11-20 22:25 | CARD ---
APPROVED REPORT EKG Measurement Heart [id number] <Conclusion> Normal sinus rhythm Possible Left atrial enlargement Left axis deviation Nonspecific ST abnormality Prolonged QT Abnormal ECG
[2017-11-21] MEDS: Sodium Chloride 0.9% 1,000 ML IV SCH ×3 (00:47→18:01)
[2017-11-21] MEDS: Pantoprazole 80 MG in Sodium Chloride 0.9% 100 ML IVPB SCH ×3 (05:34→18:00)
[2017-11-21] MEDS: Piperacill/Tazo 2.25gm in Dex 2.25 GM/50 ML BAG IVPB SCH ×3 (06:18→22:43)
[2017-11-21 06:30] LABS: BASO # 0.1 K/uL (0.0-0.2); BASO % 1.1 % (0.0-2.0); EOS # 0.2 K/uL (0.0-0.7); EOS % 3.5 % (0.0-4.0); HEMOGLOBIN 8.5 g/dL (12.0-18.0); LYMPH # 1.1 K/uL (1.0-4.3); LYMPH % 16.2 % (20.0-40.0); MEAN CELL VOLUME 87.9 fL (80.0-94.0); MEAN CORPUSCULAR HEMOGLOBIN 28.7 pg (27.0-31.0); MEAN CORPUSCULAR HGB CONC 32.6 g/dL (33.0-37.0); MEAN PLATELET VOLUME 10.1 fL (7.2-11.7); MONO # 0.3 K/uL (0.0-0.8); MONO % 5.1 % (0.0-10.0); NEUT # 4.9 K/uL (1.8-7.0); NEUT % 74.1 % (50.0-75.0); RBC 2.97 Mil/uL (4.40-5.90); WHITE BLOOD COUNT 6.7 K/uL (4.8-10.8)
[2017-11-21] MEDS: Sucralfate 1 gm/10 ml Oral Susp UD PO SCH ×4 (06:35→21:32)
[2017-11-21 07:04] LABS: ALB/GLOB RATIO 0.8 (1.0-2.1); ALBUMIN 2.7 g/dL (3.5-5.0); CALCIUM 7.6 mg/dl (8.6-10.4)
[2017-11-21] MEDS ORDERED: Potassium Chloride 20 mEq ER Tab PO ONE (07:14)
[2017-11-21] MEDS: (Novolin R) Insulin Human Regular 100 units/ml vial SC SCH ×4 (08:09→21:25)
[2017-11-21] MEDS: Aritificial Tears (15ml) OD SCH (09:59)
[2017-11-21] MEDS: Multiple Vitamins Tab PO SCH (10:00)
[2017-11-21] MEDS: Potassium Chloride 20 mEq ER Tab PO SCH (10:01)
--- NOTE | 2017-11-21 11:05 | CP.CCUPN ---
<JayaAgnesn - Last Filed: 11/21/17 15:49> CCU Subjective - Physician Review Events Since Last Encounter (Free Text): 11/21/17 11:05 Per nursing no acute events occurred overnight. Subjective (Free Text): 11/21/17 11:05 Patient seen and examined in the A.M. No complaints at this time. Critical Care Time Spent (in minutes): 45 CCU Objective - Vital Signs / Intake & Output Intake and Output (Last 8hrs): Intake & Output 11/20/17 11/21/17 11/21/17 22:59 06:59 14:59 Intake Total 520 1160 520 Output Total 1600 495 460 Balance -1080 665 60 Weight 203 lb 208 lb Intake: Intake, IV Amount 520 1160 520 Left Hand 40 200 40 Left Wrist 480 960 480 Oral 0 Output: Urine 1600 495 460 Urethral (Allred) 350 495 460 Stool 0 0 Emesis 0 Other: Voiding Method Indwelling Catheter - Physical Exam Head: Positive for: Atraumatic, Normocephalic Pupils: Positive for: PERRL Extroacular Muscles: Positive for: EOMI Conjunctiva: Positive for: Normal Mouth: Positive for: Moist Mucous Membranes. Negative for: Normal Teeth Neck: Positive for: Normal Range of Motion. Negative for: Meningeal Signs, JVD Respiratory/Chest: Positive for: Clear to Auscultation Cardiovascular: Positive for: Regular Rate and Rhythm, Normal S1, S2 Abdomen: Positive for: Normal Bowel Sounds. Negative for: Tenderness Lower Extremity: Positive for: Normal Inspection Skin: Positive for: Warm, Dry, Normal Color Psychiatric: Positive for: Alert - Medications Active Medications: Active Medications Generic Name Dose Route Start Last Admin Trade Name Freq PRN Reason Stop Dose Admin Artificial Tears 0 ml 11/20/17 10:00 11/21/17 09:59 Artificial Tears OD 1 drop DAILY NELSON Administration Folic Acid 1 mg 11/20/17 10:00 11/21/17 10:00 Folic Acid PO 1 mg DAILY NELSON Administration Sodium Chloride 1,000 mls @ 120 mls/hr 11/20/17 07:00 11/21/17 08:54 Sodium Chloride 0.9% IV 120 mls/hr .Q8H20M NELSON Administration Pantoprazole Sodium 80 mg/ 100 mls @ 10 mls/hr 11/20/17 08:00 11/21/17 05:34 Sodium Chloride IVPB 10 mls/hr .Q10H NELSON Administration 8 MG/HR Piperacillin Sod/Tazobactam Sod 2.25 gm in 50 mls @ 100 mls/hr 11/20/17 15:00 11/21/17 06:18 Zosyn 2.25 Gm Iv Premix IVPB 100 mls/hr Q8H NELSON Administration Insulin Human Regular 0 unit 11/20/17 07:30 11/21/17 08:09 Novolin R SC 4 unit ACHS NELSON Administration Protocol Multivitamins 1 tab 11/21/17 10:00 11/21/17 10:00 Hexavitamin PO 1 tab DAILY NELSON Administration Ondansetron HCl 4 mg 11/20/17 12:00 11/21/17 06:27 Zofran Inj IVP 4 mg Q6 NELSON Administration Potassium Chloride 40 meq 11/20/17 10:00 11/21/17 10:01 K-Dur 20 Meq Er Tab PO 40 meq DAILY NELSON Administration Propranolol HCl 20 mg 11/20/17 10:00 11/21/17 10:00 Inderal PO 20 mg TID NELSON Administration Sucralfate 1 gm 11/20/17 07:30 11/21/17 06:35 Carafate Oral Susp PO 1 gm ACHS NELSON Administration Thiamine HCl 100 mg 11/20/17 10:00 11/21/17 10:01 Vitamin B1 Tab PO 100 mg DAILY NELSON Administration - Patient Studies Lab Studies: Microbiology Studies 11/20/17 10:28 Ova and Parasite Concentrate Exam - Final Stool Lab Studies 11/21/17 11/21/17 11/21/17 Range/Units 07:42 06:24 06:23 WBC 6.7 (4.8-10.8) K/uL RBC 2.97 L (4.40-5.90) Mil/uL Hgb 8.5 L (12.0-18.0) g/dL Hct 26.1 L (35.0-51.0) % MCV 87.9 (80.0-94.0) fL MCH 28.7 (27.0-31.0) pg MCHC 32.6 L (33.0-37.0) g/dL RDW 21.0 H (11.5-14.5) % Plt Count 141 (130-400) K/uL MPV 10.1 (7.2-11.7) fL Neut % (Auto) 74.1 (50.0-75.0) % Lymph % (Auto) 16.2 L (20.0-40.0) % Eddy % (Auto) 5.1 (0.0-10.0) % Eos % (Auto) 3.5 (0.0-4.0) % Baso % (Auto) 1.1 (0.0-2.0) % Neut # (Auto) 4.9 (1.8-7.0) K/uL Lymph # (Auto) 1.1 (1.0-4.3) K/uL Eddy # (Auto) 0.3 (0.0-0.8) K/uL Eos # (Auto) 0.2 (0.0-0.7) K/uL Baso # (Auto) 0.1 (0.0-0.2) K/uL Sodium 138 (132-148) mmol/L Potassium 3.0 L (3.6-5.2) mmol/L Chloride 106 (98-107) mmol/L Carbon Dioxide 17 L (22-30) mmol/L Anion Gap 18 (10-20) BUN 37 H (9-20) mg/dL Creatinine 3.7 H (0.8-1.5) mg/dL Est GFR ( Amer) 20 Est GFR (Non-Af Amer) 16 POC Glucose (mg/dL) 274 H (65-110) mg/dL Random Glucose 198 H (75-110) mg/dL Calcium 7.6 L (8.6-10.4) mg/dl Total Bilirubin 0.7 (0.2-1.3) mg/dL AST 22 (17-59) U/L ALT 24 (21-72) U/L Alkaline Phosphatase 86 (38-126) U/L Total Protein 6.0 L (6.3-8.3) g/dL Albumin 2.7 L D (3.5-5.0) g/dL Globulin 3.3 (2.2-3.9) gm/dL Albumin/Globulin Ratio 0.8 L (1.0-2.1) Urine Color (YELLOW) Urine Clarity (Clear) Urine pH (5.0-8.0) Ur Specific Atwood (1.003-1.030) Urine Protein (NEGATIVE) mg/dL Urine Glucose (UA) (Normal) mg/dL Urine Ketones (NEGATIVE) mg/dL Urine Blood (NEGATIVE) Urine Nitrate (NEGATIVE) Urine Bilirubin (NEGATIVE) Urine Urobilinogen (0.2-1.0) mg/dL Ur Leukocyte Esterase (Negative) Dafne/uL Urine WBC (Auto) (0-5) /hpf Urine RBC (Auto) (0-3) /hpf Ur Squamous Epith Cells (0-5) /hpf Urine Bacteria (<OCC) Hyaline Casts (0-2) /lpf C. difficile Ag & Toxin (NEGATIVE) 11/20/17 11/20/17 11/20/17 Range/Units 21:31 16:58 14:05 WBC (4.8-10.8) K/uL RBC (4.40-5.90) Mil/uL Hgb (12.0-18.0) g/dL Hct (35.0-51.0) % MCV (80.0-94.0) fL MCH (27.0-31.0) pg MCHC (33.0-37.0) g/dL RDW (11.5-14.5) % Plt Count (130-400) K/uL MPV (7.2-11.7) fL Neut % (Auto) (50.0-75.0) % Lymph % (Auto) (20.0-40.0) % Eddy % (Auto) (0.0-10.0) % Eos % (Auto) (0.0-4.0) % Baso % (Auto) (0.0-2.0) % Neut # (Auto) (1.8-7.0) K/uL Lymph # (Auto) (1.0-4.3) K/uL Eddy # (Auto) (0.0-0.8) K/uL Eos # (Auto) (0.0-0.7) K/uL Baso # (Auto) (0.0-0.2) K/uL Sodium (132-148) mmol/L Potassium (3.6-5.2) mmol/L Chloride (98-107) mmol/L Carbon Dioxide (22-30) mmol/L Anion Gap (10-20) BUN (9-20) mg/dL Creatinine (0.8-1.5) mg/dL Est GFR ( Amer) Est GFR (Non-Af Amer) POC Glucose (mg/dL) 170 H 213 H (65-110) mg/dL Random Glucose (75-110) mg/dL Calcium (8.6-10.4) mg/dl Total Bilirubin (0.2-1.3) mg/dL AST (17-59) U/L ALT (21-72) U/L Alkaline Phosphatase (38-126) U/L Total Protein (6.3-8.3) g/dL Albumin (3.5-5.0) g/dL Globulin (2.2-3.9) gm/dL Albumin/Globulin Ratio (1.0-2.1) Urine Color Yellow (YELLOW) Urine Clarity Hazy (Clear) Urine pH 5.0 (5.0-8.0) Ur Specific Atwood 1.017 (1.003-1.030) Urine Protein 2+ H (NEGATIVE) mg/dL Urine Glucose (UA) 2+ H (Normal) mg/dL Urine Ketones Trace (NEGATIVE) mg/dL Urine Blood 2+ H (NEGATIVE) Urine Nitrate Negative (NEGATIVE) Urine Bilirubin Negative (NEGATIVE) Urine Urobilinogen Normal (0.2-1.0) mg/dL Ur Leukocyte Esterase 1+ H (Negative) Dafne/uL Urine WBC (Auto) 7 H (0-5) /hpf Urine RBC (Auto) 16 H (0-3) /hpf Ur Squamous Epith Cells 6 H (0-5) /hpf Urine Bacteria Rare (<OCC) Hyaline Casts 3-5 H (0-2) /lpf C. difficile Ag & Toxin (NEGATIVE) 11/20/17 11/20/17 Range/Units 11:44 09:00 WBC (4.8-10.8) K/uL RBC (4.40-5.90) Mil/uL Hgb (12.0-18.0) g/dL Hct (35.0-51.0) % MCV (80.0-94.0) fL MCH (27.0-31.0) pg MCHC (33.0-37.0) g/dL RDW (11.5-14.5) % Plt Count (130-400) K/uL MPV (7.2-11.7) fL Neut % (Auto) (50.0-75.0) % Lymph % (Auto) (20.0-40.0) % Eddy % (Auto) (0.0-10.0) % Eos % (Auto) (0.0-4.0) % Baso % (Auto) (0.0-2.0) % Neut # (Auto) (1.8-7.0) K/uL Lymph # (Auto) (1.0-4.3) K/uL Eddy # (Auto) (0.0-0.8) K/uL Eos # (Auto) (0.0-0.7) K/uL Baso # (Auto) (0.0-0.2) K/uL Sodium (132-148) mmol/L Potassium (3.6-5.2) mmol/L Chloride (98-107) mmol/L Carbon Dioxide (22-30) mmol/L Anion Gap (10-20) BUN (9-20) mg/dL Creatinine (0.8-1.5) mg/dL Est GFR ( Amer) Est GFR (Non-Af Amer) POC Glucose (mg/dL) 241 H (65-110) mg/dL Random Glucose (75-110) mg/dL Calcium (8.6-10.4) mg/dl Total Bilirubin (0.2-1.3) mg/dL AST (17-59) U/L ALT (21-72) U/L Alkaline Phosphatase (38-126) U/L Total Protein (6.3-8.3) g/dL Albumin (3.5-5.0) g/dL Globulin (2.2-3.9) gm/dL Albumin/Globulin Ratio (1.0-2.1) Urine Color (YELLOW) Urine Clarity (Clear) Urine pH (5.0-8.0) Ur Specific Atwood (1.003-1.030) Urine Protein (NEGATIVE) mg/dL Urine Glucose (UA) (Normal) mg/dL Urine Ketones (NEGATIVE) mg/dL Urine Blood (NEGATIVE) Urine Nitrate (NEGATIVE) Urine Bilirubin (NEGATIVE) Urine Urobilinogen (0.2-1.0) mg/dL Ur Leukocyte Esterase (Negative) Dafne/uL Urine WBC (Auto) (0-5) /hpf Urine RBC (Auto) (0-3) /hpf Ur Squamous Epith Cells (0-5) /hpf Urine Bacteria (<OCC) Hyaline Casts (0-2) /lpf C. difficile Ag & Toxin (NEGATIVE) Laboratory Results - last 24 hr 11/20/17 11/20/17 11/20/17 09:00 11:44 14:05 WBC RBC Hgb Hct MCV MCH MCHC RDW Plt Count MPV Neut % (Auto) Lymph % (Auto) Eddy % (Auto) Eos % (Auto) Baso % (Auto) Neut # (Auto) Lymph # (Auto) Eddy # (Auto) Eos # (Auto) Baso # (Auto) Sodium Potassium Chloride Carbon Dioxide Anion Gap BUN Creatinine Est GFR ( Amer) Est GFR (Non-Af Amer) POC Glucose (mg/dL) 241 H Random Glucose Calcium Total Bilirubin AST ALT Alkaline Phosphatase Total Protein Albumin Globulin Albumin/Globulin Ratio Urine Color Yellow Urine Clarity Hazy Urine pH 5.0 Ur Specific Atwood 1.017 Urine Protein 2+ H Urine Glucose (UA) 2+ H Urine Ketones Trace Urine Blood 2+ H Urine Nitrate Negative Urine Bilirubin Negative Urine Urobilinogen Normal Ur Leukocyte Esterase 1+ H Urine WBC (Auto) 7 H Urine RBC (Auto) 16 H Ur Squamous Epith Cells 6 H Urine Bacteria Rare Hyaline Casts 3-5 H C. difficile Ag & Toxin 11/20/17 11/20/17 11/21/17 16:58 21:31 06:23 WBC RBC Hgb Hct MCV MCH MCHC RDW Plt Count MPV Neut % (Auto) Lymph % (Auto) Eddy % (Auto) Eos % (Auto) Baso % (Auto) Neut # (Auto) Lymph # (Auto) Eddy # (Auto) Eos # (Auto) Baso # (Auto) Sodium 138 Potassium 3.0 L Chloride 106 Carbon Dioxide 17 L Anion Gap 18 BUN 37 H Creatinine 3.7 H Est GFR ( Amer) 20 Est GFR (Non-Af Amer) 16 POC Glucose (mg/dL) 213 H 170 H Random Glucose 198 H Calcium 7.6 L Total Bilirubin 0.7 AST 22 ALT 24 Alkaline Phosphatase 86 Total Protein 6.0 L Albumin 2.7 L D Globulin 3.3 Albumin/Globulin Ratio 0.8 L Urine Color Urine Clarity Urine pH Ur Specific Atwood Urine Protein Urine Glucose (UA) Urine Ketones Urine Blood Urine Nitrate Urine Bilirubin Urine Urobilinogen Ur Leukocyte Esterase Urine WBC (Auto) Urine RBC (Auto) Ur Squamous Epith Cells Urine Bacteria Hyaline Casts C. difficile Ag & Toxin 11/21/17 11/21/17 06:24 07:42 WBC 6.7 RBC 2.97 L Hgb 8.5 L Hct 26.1 L MCV 87.9 MCH 28.7 MCHC 32.6 L RDW 21.0 H Plt Count 141 MPV 10.1 Neut % (Auto) 74.1 Lymph % (Auto) 16.2 L Eddy % (Auto) 5.1 Eos % (Auto) 3.5 Baso % (Auto) 1.1 Neut # (Auto) 4.9 Lymph # (Auto) 1.1 Eddy # (Auto) 0.3 Eos # (Auto) 0.2 Baso # (Auto) 0.1 Sodium Potassium Chloride Carbon Dioxide Anion Gap BUN Creatinine Est GFR ( Amer) Est GFR (Non-Af Amer) POC Glucose (mg/dL) 274 H Random Glucose Calcium Total Bilirubin AST ALT Alkaline Phosphatase Total Protein Albumin Globulin Albumin/Globulin Ratio Urine Color Urine Clarity Urine pH Ur Specific Atwood Urine Protein Urine Glucose (UA) Urine Ketones Urine Blood Urine Nitrate Urine Bilirubin Urine Urobilinogen Ur Leukocyte Esterase Urine WBC (Auto) Urine RBC (Auto) Ur Squamous Epith Cells Urine Bacteria Hyaline Casts C. difficile Ag & Toxin Fingerstick Blood Sugar Results: 274 Review of Systems - EENT Eyes: absent: Blurred Vision, Discharge, Loss of Peripheral Vision, Sees Flashes Ears: absent: Ear Pain, Dizziness Nose/Mouth/Throat: absent: Nasal Congestion, Nose Pain, Odynophagia, Neck Pain - Cardiovascular Cardiovascular: absent: Chest Pain, Diaphoresis, Irregular Heart Rhythm, Leg Edema, Palpitations, Pedal Edema, Syncope - Respiratory Respiratory: absent: Hemoptysis, Pain on Inspiration, Change in Mucous Color - Gastrointestinal Gastrointestinal: absent: Belching, Dyspepsia, Loose Stools, Melena, Nausea, Vomiting - Genitourinary Genitourinary: absent: Difficulty Urinating, Urinary Urgency, Bladder Distension - Musculoskeletal Musculoskeletal: absent: Arthralgias, Atrophy, Numbness - Neurological Neurological: absent: Loss of Vision, Syncope, Vertigo, Weakness - Psychiatric Psychiatric: absent: Anxiety, Homicidal Ideation - Hematologic/Lymphatic Hematologic: absent: Easy Bleeding, Easy Bruising Critical Care Progress Note - Nutrition Nutrition: Nutrition Category Date Time Status NPO Diet [DIET] Diets 11/20/17 Breakfast Active Assessment/Plan - Assessment and Plan (Free Text) Assessment: 66 year old male with a past medical history of anemia, dm, hyptertension, etoh pancreatitis who comes in for upper gi bleed. Plan: Cardiology (Hypertension) -Lasix and Lisinopril held at this time. Endocrinology (Diabetes) -[facility] -[facility] Gastroenterology (GI bleed) -GI consulted, Dr. Katz; recs appreciated -Endoscopy (11/02/17) showed candidiasis esophagitis, gastric ulcer (biopsied); erythematous mucosa in prepyloric region of stomach and erythematous duodenopathy. -Colonscopy (11/06/17) showed colitis, diverticulitis, internal hemorrhoids, and chronic inflammation. -Continue Protonix drip -Continue NS@120mls/hr Nephrology(ARF) -IV fluids NS Bolus -Zestril and Lasix held as it could be contributing to Acute Kidney Injury -Zosyn (renal dosing) PPX -Folic acid -Multivitamin -Thiamine -Protonix Disposition:Patient stable and Transferred out to Med/Surg unit. <Serge Thomas - Last Filed: 11/21/17 17:24> CCU Subjective - Physician Review Critical Care Time Spent (in minutes): 30 CCU Objective - Vital Signs / Intake & Output Intake and Output (Last 8hrs): Intake & Output 11/21/17 11/21/17 11/21/17 06:59 14:59 22:59 Intake Total 1160 1040 130 Output Total 495 860 100 Balance 665 180 30 Weight 208 lb Intake: Intake, IV Amount 1160 1040 130 Left Hand 200 80 10 Left Wrist 960 960 120 Output: Urine 495 860 100 Urethral (Allred) 495 860 100 Stool 0 - Medications Active Medications: Active Medications Generic Name Dose Route Start Last Admin Trade Name Freq PRN Reason Stop Dose Admin Artificial Tears 0 ml 11/20/17 10:00 11/21/17 09:59 Artificial Tears OD 1 drop DAILY NELSON Administration Folic Acid 1 mg 11/20/17 10:00 11/21/17 10:00 Folic Acid PO 1 mg DAILY NELSON Administration Sodium Chloride 1,000 mls @ 120 mls/hr 11/20/17 07:00 11/21/17 08:54 Sodium Chloride 0.9% IV 120 mls/hr .Q8H20M NELSON Administration Pantoprazole Sodium 80 mg/ 100 mls @ 10 mls/hr 11/20/17 08:00 11/21/17 14:39 Sodium Chloride IVPB Not Given .Q10H NELSON 8 MG/HR Piperacillin Sod/Tazobactam Sod 2.25 gm in 50 mls @ 100 mls/hr 11/20/17 15:00 11/21/17 15:47 Zosyn 2.25 Gm Iv Premix IVPB 100 mls/hr Q8H NELSON Administration Insulin Human Regular 0 unit 11/20/17 07:30 11/21/17 12:43 Novolin R SC 2 unit ACHS NELSON Administration Protocol Multivitamins 1 tab 11/21/17 10:00 11/21/17 10:00 Hexavitamin PO 1 tab DAILY NELSON Administration Ondansetron HCl 4 mg 11/20/17 12:00 11/21/17 14:43 Zofran Inj IVP Not Given Q6 NELSON Potassium Chloride 40 meq 11/20/17 10:00 11/21/17 10:01 K-Dur 20 Meq Er Tab PO 40 meq DAILY NELSON Administration Propranolol HCl 20 mg 11/20/17 10:00 11/21/17 14:40 Inderal PO 20 mg TID NELSON Administration Sucralfate 1 gm 11/20/17 07:30 11/21/17 12:44 Carafate Oral Susp PO 1 gm ACHS NELSON Administration Thiamine HCl 100 mg 11/20/17 10:00 11/21/17 10:01 Vitamin B1 Tab PO 100 mg DAILY NELSON Administration - Patient Studies Lab Studies: Microbiology Studies 11/20/17 10:28 Ova and Parasite Concentrate Exam - Final Stool Lab Studies 11/21/17 11/21/17 11/21/17 Range/Units 16:33 14:30 11:18 WBC (4.8-10.8) K/uL RBC (4.40-5.90) Mil/uL Hgb (12.0-18.0) g/dL Hct (35.0-51.0) % MCV (80.0-94.0) fL MCH (27.0-31.0) pg MCHC (33.0-37.0) g/dL RDW (11.5-14.5) % Plt Count (130-400) K/uL MPV (7.2-11.7) fL Neut % (Auto) (50.0-75.0) % Lymph % (Auto) (20.0-40.0) % Eddy % (Auto) (0.0-10.0) % Eos % (Auto) (0.0-4.0) % Baso % (Auto) (0.0-2.0) % Neut # (Auto) (1.8-7.0) K/uL Lymph # (Auto) (1.0-4.3) K/uL Eddy # (Auto) (0.0-0.8) K/uL Eos # (Auto) (0.0-0.7) K/uL Baso # (Auto) (0.0-0.2) K/uL Sodium (132-148) mmol/L Potassium (3.6-5.2) mmol/L Chloride (98-107) mmol/L Carbon Dioxide (22-30) mmol/L Anion Gap (10-20) BUN (9-20) mg/dL Creatinine (0.8-1.5) mg/dL Est GFR ( Amer) Est GFR (Non-Af Amer) POC Glucose (mg/dL) 189 H 181 H (65-110) mg/dL Random Glucose (75-110) mg/dL Calcium (8.6-10.4) mg/dl Total Bilirubin (0.2-1.3) mg/dL AST (17-59) U/L ALT (21-72) U/L Alkaline Phosphatase (38-126) U/L Ammonia 10 (9-33) umol/L Total Protein (6.3-8.3) g/dL Albumin (3.5-5.0) g/dL Globulin (2.2-3.9) gm/dL Albumin/Globulin Ratio (1.0-2.1) 11/21/17 11/21/17 11/21/17 Range/Units 07:42 06:24 06:23 WBC 6.7 (4.8-10.8) K/uL RBC 2.97 L (4.40-5.90) Mil/uL Hgb 8.5 L (12.0-18.0) g/dL Hct 26.1 L (35.0-51.0) % MCV 87.9 (80.0-94.0) fL MCH 28.7 (27.0-31.0) pg MCHC 32.6 L (33.0-37.0) g/dL RDW 21.0 H (11.5-14.5) % Plt Count 141 (130-400) K/uL MPV 10.1 (7.2-11.7) fL Neut % (Auto) 74.1 (50.0-75.0) % Lymph % (Auto) 16.2 L (20.0-40.0) % Eddy % (Auto) 5.1 (0.0-10.0) % Eos % (Auto) 3.5 (0.0-4.0) % Baso % (Auto) 1.1 (0.0-2.0) % Neut # (Auto) 4.9 (1.8-7.0) K/uL Lymph # (Auto) 1.1 (1.0-4.3) K/uL Eddy # (Auto) 0.3 (0.0-0.8) K/uL Eos # (Auto) 0.2 (0.0-0.7) K/uL Baso # (Auto) 0.1 (0.0-0.2) K/uL Sodium 138 (132-148) mmol/L Potassium 3.0 L (3.6-5.2) mmol/L Chloride 106 (98-107) mmol/L Carbon Dioxide 17 L (22-30) mmol/L Anion Gap 18 (10-20) BUN 37 H (9-20) mg/dL Creatinine 3.7 H (0.8-1.5) mg/dL Est GFR ( Amer) 20 Est GFR (Non-Af Amer) 16 POC Glucose (mg/dL) 274 H (65-110) mg/dL Random Glucose 198 H (75-110) mg/dL Calcium 7.6 L (8.6-10.4) mg/dl Total Bilirubin 0.7 (0.2-1.3) mg/dL AST 22 (17-59) U/L ALT 24 (21-72) U/L Alkaline Phosphatase 86 (38-126) U/L Ammonia (9-33) umol/L Total Protein 6.0 L (6.3-8.3) g/dL Albumin 2.7 L D (3.5-5.0) g/dL Globulin 3.3 (2.2-3.9) gm/dL Albumin/Globulin Ratio 0.8 L (1.0-2.1) 11/20/17 Range/Units 21:31 WBC (4.8-10.8) K/uL RBC (4.40-5.90) Mil/uL Hgb (12.0-18.0) g/dL Hct (35.0-51.0) % MCV (80.0-94.0) fL MCH (27.0-31.0) pg MCHC (33.0-37.0) g/dL RDW (11.5-14.5) % Plt Count (130-400) K/uL MPV (7.2-11.7) fL Neut % (Auto) (50.0-75.0) % Lymph % (Auto) (20.0-40.0) % Eddy % (Auto) (0.0-10.0) % Eos % (Auto) (0.0-4.0) % Baso % (Auto) (0.0-2.0) % Neut # (Auto) (1.8-7.0) K/uL Lymph # (Auto) (1.0-4.3) K/uL Eddy # (Auto) (0.0-0.8) K/uL Eos # (Auto) (0.0-0.7) K/uL Baso # (Auto) (0.0-0.2) K/uL Sodium (132-148) mmol/L Potassium (3.6-5.2) mmol/L Chloride (98-107) mmol/L Carbon Dioxide (22-30) mmol/L Anion Gap (10-20) BUN (9-20) mg/dL Creatinine (0.8-1.5) mg/dL Est GFR ( Amer) Est GFR (Non-Af Amer) POC Glucose (mg/dL) 170 H (65-110) mg/dL Random Glucose (75-110) mg/dL Calcium (8.6-10.4) mg/dl Total Bilirubin (0.2-1.3) mg/dL AST (17-59) U/L ALT (21-72) U/L Alkaline Phosphatase (38-126) U/L Ammonia (9-33) umol/L Total Protein (6.3-8.3) g/dL Albumin (3.5-5.0) g/dL Globulin (2.2-3.9) gm/dL Albumin/Globulin Ratio (1.0-2.1) Laboratory Results - last 24 hr 11/20/17 11/21/17 11/21/17 21:31 06:23 06:24 WBC 6.7 RBC 2.97 L Hgb 8.5 L Hct 26.1 L MCV 87.9 MCH 28.7 MCHC 32.6 L RDW 21.0 H Plt Count 141 MPV 10.1 Neut % (Auto) 74.1 Lymph % (Auto) 16.2 L Eddy % (Auto) 5.1 Eos % (Auto) 3.5 Baso % (Auto) 1.1 Neut # (Auto) 4.9 Lymph # (Auto) 1.1 Eddy # (Auto) 0.3 Eos # (Auto) 0.2 Baso # (Auto) 0.1 Sodium 138 Potassium 3.0 L Chloride 106 Carbon Dioxide 17 L Anion Gap 18 BUN 37 H Creatinine 3.7 H Est GFR ( Amer) 20 Est GFR (Non-Af Amer) 16 POC Glucose (mg/dL) 170 H Random Glucose 198 H Calcium 7.6 L Total Bilirubin 0.7 AST 22 ALT 24 Alkaline Phosphatase 86 Ammonia Total Protein 6.0 L Albumin 2.7 L D Globulin 3.3 Albumin/Globulin Ratio 0.8 L 11/21/17 11/21/17 11/21/17 07:42 11:18 14:30 WBC RBC Hgb Hct MCV MCH MCHC RDW Plt Count MPV Neut % (Auto) Lymph % (Auto) Eddy % (Auto) Eos % (Auto) Baso % (Auto) Neut # (Auto) Lymph # (Auto) Eddy # (Auto) Eos # (Auto) Baso # (Auto) Sodium Potassium Chloride Carbon Dioxide Anion Gap BUN Creatinine Est GFR ( Amer) Est GFR (Non-Af Amer) POC Glucose (mg/dL) 274 H 181 H Random Glucose Calcium Total Bilirubin AST ALT Alkaline Phosphatase Ammonia 10 Total Protein Albumin Globulin Albumin/Globulin Ratio 11/21/17 16:33 WBC RBC Hgb Hct MCV MCH MCHC RDW Plt Count MPV Neut % (Auto) Lymph % (Auto) Eddy % (Auto) Eos % (Auto) Baso % (Auto) Neut # (Auto) Lymph # (Auto) Eddy # (Auto) Eos # (Auto) Baso # (Auto) Sodium Potassium Chloride Carbon Dioxide Anion Gap BUN Creatinine Est GFR ( Amer) Est GFR (Non-Af Amer) POC Glucose (mg/dL) 189 H Random Glucose Calcium Total Bilirubin AST ALT Alkaline Phosphatase Ammonia Total Protein Albumin Globulin Albumin/Globulin Ratio Critical Care Progress Note - Nutrition Nutrition: Nutrition Category Date Time Status NPO Diet [DIET] Diets 11/20/17 Breakfast Active Attending/Attestation - Attestation I have personally seen and examined this patient.: Yes I have fully participated in the care of the patient.: Yes I have reviewed all pertinent clinical information: Yes Notes (Text): 11/21/17 17:24 patient seen and examined in the intensive care unit. improving renal function Continue IV fluids Status post EGD and colonoscopy On IV antibiotics Consider transferring to floor
--- NOTE | 2017-11-21 11:15 | CP.CCUPN ---
CCU Subjective - Physician Review Subjective (Free Text): 11/21/17 11:05 Patient seen and examined in the A.M. No complaints at this time. Critical Care Time Spent (in minutes): 45 CCU Objective - Vital Signs / Intake & Output Intake and Output (Last 8hrs): Intake & Output 11/20/17 11/21/17 11/21/17 22:59 06:59 14:59 Intake Total 520 1160 520 Output Total 1600 495 460 Balance -1080 665 60 Weight 203 lb 208 lb Intake: Intake, IV Amount 520 1160 520 Left Hand 40 200 40 Left Wrist 480 960 480 Oral 0 Output: Urine 1600 495 460 Urethral (Allred) 350 495 460 Stool 0 0 Emesis 0 Other: Voiding Method Indwelling Catheter - Physical Exam Head: Positive for: Atraumatic, Normocephalic Pupils: Positive for: PERRL Extroacular Muscles: Positive for: EOMI Conjunctiva: Positive for: Normal Mouth: Positive for: Moist Mucous Membranes. Negative for: Normal Teeth Neck: Positive for: Normal Range of Motion. Negative for: Meningeal Signs, JVD Respiratory/Chest: Positive for: Clear to Auscultation Cardiovascular: Positive for: Regular Rate and Rhythm, Normal S1, S2 Abdomen: Positive for: Normal Bowel Sounds. Negative for: Tenderness Lower Extremity: Positive for: Normal Inspection Skin: Positive for: Warm, Dry, Normal Color Psychiatric: Positive for: Alert - Medications Active Medications: Active Medications Generic Name Dose Route Start Last Admin Trade Name Freq PRN Reason Stop Dose Admin Artificial Tears 0 ml 11/20/17 10:00 11/21/17 09:59 Artificial Tears OD 1 drop DAILY NELSON Administration Folic Acid 1 mg 11/20/17 10:11/21/17 10:00 Folic Acid PO 1 mg DAILY NELSON Administration Sodium Chloride 1,000 mls @ 120 mls/hr 11/20/17 07:00 11/21/17 08:54 Sodium Chloride 0.9% IV 120 mls/hr .Q8H20M NELSON Administration Pantoprazole Sodium 80 mg/ 100 mls @ 10 mls/hr 11/20/17 08:00 11/21/17 05:34 Sodium Chloride IVPB 10 mls/hr .Q10H NELSON Administration 8 MG/HR Piperacillin Sod/Tazobactam Sod 2.25 gm in 50 mls @ 100 mls/hr 11/20/17 15:00 11/21/17 06:18 Zosyn 2.25 Gm Iv Premix IVPB 100 mls/hr Q8H NELSON Administration Insulin Human Regular 0 unit 11/20/17 07:30 11/21/17 08:09 Novolin R SC 4 unit ACHS NELSON Administration Protocol Multivitamins 1 tab 11/21/17 10:00 11/21/17 10:00 Hexavitamin PO 1 tab DAILY NELSON Administration Ondansetron HCl 4 mg 11/20/17 12:00 11/21/17 06:27 Zofran Inj IVP 4 mg Q6 NELSON Administration Potassium Chloride 40 meq 11/20/17 10:00 11/21/17 10:01 K-Dur 20 Meq Er Tab PO 40 meq DAILY NELSON Administration Propranolol HCl 20 mg 11/20/17 10:00 11/21/17 10:00 Inderal PO 20 mg TID NELSON Administration Sucralfate 1 gm 11/20/17 07:30 11/21/17 06:35 Carafate Oral Susp PO 1 gm ACHS NELSON Administration Thiamine HCl 100 mg 11/20/17 10:00 11/21/17 10:01 Vitamin B1 Tab PO 100 mg DAILY NELSON Administration - Patient Studies Lab Studies: Microbiology Studies 11/20/17 10:28 Ova and Parasite Concentrate Exam - Final Stool Lab Studies 11/21/17 11/21/17 11/21/17 Range/Units 07:42 06:24 06:23 WBC 6.7 (4.8-10.8) K/uL RBC 2.97 L (4.40-5.90) Mil/uL Hgb 8.5 L (12.0-18.0) g/dL Hct 26.1 L (35.0-51.0) % MCV 87.9 (80.0-94.0) fL MCH 28.7 (27.0-31.0) pg MCHC 32.6 L (33.0-37.0) g/dL RDW 21.0 H (11.5-14.5) % Plt Count 141 (130-400) K/uL MPV 10.1 (7.2-11.7) fL Neut % (Auto) 74.1 (50.0-75.0) % Lymph % (Auto) 16.2 L (20.0-40.0) % [place] % (Auto) 5.1 (0.0-10.0) % Eos % (Auto) 3.5 (0.0-4.0) % Baso % (Auto) 1.1 (0.0-2.0) % Neut # (Auto) 4.9 (1.8-7.0) K/uL Lymph # (Auto) 1.1 (1.0-4.3) K/uL [place] # (Auto) 0.3 (0.0-0.8) K/uL Eos # (Auto) 0.2 (0.0-0.7) K/uL Baso # (Auto) 0.1 (0.0-0.2) K/uL Sodium 138 (132-148) mmol/L Potassium 3.0 L (3.6-5.2) mmol/L Chloride 106 (98-107) mmol/L Carbon Dioxide 17 L (22-30) mmol/L Anion Gap 18 (10-20) BUN 37 H (9-20) mg/dL Creatinine 3.7 H (0.8-1.5) mg/dL Est GFR ( Amer) 20 Est GFR (Non-Af Amer) 16 POC Glucose (mg/dL) 274 H (65-110) mg/dL Random Glucose 198 H (75-110) mg/dL Calcium 7.6 L (8.6-10.4) mg/dl Total Bilirubin 0.7 (0.2-1.3) mg/dL AST 22 (17-59) U/L ALT 24 (21-72) U/L Alkaline Phosphatase 86 (38-126) U/L Total Protein 6.0 L (6.3-8.3) g/dL Albumin 2.7 L D (3.5-5.0) g/dL Globulin 3.3 (2.2-3.9) gm/dL Albumin/Globulin Ratio 0.8 L (1.0-2.1) Urine Color (YELLOW) Urine Clarity (Clear) Urine pH (5.0-8.0) Ur Specific [place] (1.003-1.030) Urine Protein (NEGATIVE) mg/dL Urine Glucose (UA) (Normal) mg/dL Urine Ketones (NEGATIVE) mg/dL Urine Blood (NEGATIVE) Urine Nitrate (NEGATIVE) Urine Bilirubin (NEGATIVE) Urine Urobilinogen (0.2-1.0) mg/dL Ur Leukocyte Esterase (Negative) [place]/uL Urine WBC (Auto) (0-5) /hpf Urine RBC (Auto) (0-3) /hpf Ur Squamous Epith Cells (0-5) /hpf Urine Bacteria (<OCC) Hyaline Casts (0-2) /lpf C. difficile Ag & Toxin (NEGATIVE) 11/20/17 11/20/17 11/20/17 Range/Units 21:31 16:58 14:05 WBC (4.8-10.8) K/uL RBC (4.40-5.90) Mil/uL Hgb (12.0-18.0) g/dL Hct (35.0-51.0) % MCV (80.0-94.0) fL MCH (27.0-31.0) pg MCHC (33.0-37.0) g/dL RDW (11.5-14.5) % Plt Count (130-400) K/uL MPV (7.2-11.7) fL Neut % (Auto) (50.0-75.0) % Lymph % (Auto) (20.0-40.0) % [place] % (Auto) (0.0-10.0) % Eos % (Auto) (0.0-4.0) % Baso % (Auto) (0.0-2.0) % Neut # (Auto) (1.8-7.0) K/uL Lymph # (Auto) (1.0-4.3) K/uL [place] # (Auto) (0.0-0.8) K/uL Eos # (Auto) (0.0-0.7) K/uL Baso # (Auto) (0.0-0.2) K/uL Sodium (132-148) mmol/L Potassium (3.6-5.2) mmol/L Chloride (98-107) mmol/L Carbon Dioxide (22-30) mmol/L Anion Gap (10-20) BUN (9-20) mg/dL Creatinine (0.8-1.5) mg/dL Est GFR ( Amer) Est GFR (Non-Af Amer) POC Glucose (mg/dL) 170 H 213 H (65-110) mg/dL Random Glucose (75-110) mg/dL Calcium (8.6-10.4) mg/dl Total Bilirubin (0.2-1.3) mg/dL AST (17-59) U/L ALT (21-72) U/L Alkaline Phosphatase (38-126) U/L Total Protein (6.3-8.3) g/dL Albumin (3.5-5.0) g/dL Globulin (2.2-3.9) gm/dL Albumin/Globulin Ratio (1.0-2.1) Urine Color Yellow (YELLOW) Urine Clarity Hazy (Clear) Urine pH 5.0 (5.0-8.0) Ur Specific [place] 1.017 (1.003-1.030) Urine Protein 2+ H (NEGATIVE) mg/dL Urine Glucose (UA) 2+ H (Normal) mg/dL Urine Ketones Trace (NEGATIVE) mg/dL Urine Blood 2+ H (NEGATIVE) Urine Nitrate Negative (NEGATIVE) Urine Bilirubin Negative (NEGATIVE) Urine Urobilinogen Normal (0.2-1.0) mg/dL Ur Leukocyte Esterase 1+ H (Negative) [place]/uL Urine WBC (Auto) 7 H (0-5) /hpf Urine RBC (Auto) 16 H (0-3) /hpf Ur Squamous Epith Cells 6 H (0-5) /hpf Urine Bacteria Rare (<OCC) Hyaline Casts 3-5 H (0-2) /lpf C. difficile Ag & Toxin (NEGATIVE) 11/20/17 11/20/17 Range/Units 11:44 09:00 WBC (4.8-10.8) K/uL RBC (4.40-5.90) Mil/uL Hgb (12.0-18.0) g/dL Hct (35.0-51.0) % MCV (80.0-94.0) fL MCH (27.0-31.0) pg MCHC (33.0-37.0) g/dL RDW (11.5-14.5) % Plt Count (130-400) K/uL MPV (7.2-11.7) fL Neut % (Auto) (50.0-75.0) % Lymph % (Auto) (20.0-40.0) % [place] % (Auto) (0.0-10.0) % Eos % (Auto) (0.0-4.0) % Baso % (Auto) (0.0-2.0) % Neut # (Auto) (1.8-7.0) K/uL Lymph # (Auto) (1.0-4.3) K/uL [place] # (Auto) (0.0-0.8) K/uL Eos # (Auto) (0.0-0.7) K/uL Baso # (Auto) (0.0-0.2) K/uL Sodium (132-148) mmol/L Potassium (3.6-5.2) mmol/L Chloride (98-107) mmol/L Carbon Dioxide (22-30) mmol/L Anion Gap (10-20) BUN (9-20) mg/dL Creatinine (0.8-1.5) mg/dL Est GFR ( Amer) Est GFR (Non-Af Amer) POC Glucose (mg/dL) 241 H (65-110) mg/dL Random Glucose (75-110) mg/dL Calcium (8.6-10.4) mg/dl Total Bilirubin (0.2-1.3) mg/dL AST (17-59) U/L ALT (21-72) U/L Alkaline Phosphatase (38-126) U/L Total Protein (6.3-8.3) g/dL Albumin (3.5-5.0) g/dL Globulin (2.2-3.9) gm/dL Albumin/Globulin Ratio (1.0-2.1) Urine Color (YELLOW) Urine Clarity (Clear) Urine pH (5.0-8.0) Ur Specific [place] (1.003-1.030) Urine Protein (NEGATIVE) mg/dL Urine Glucose (UA) (Normal) mg/dL Urine Ketones (NEGATIVE) mg/dL Urine Blood (NEGATIVE) Urine Nitrate (NEGATIVE) Urine Bilirubin (NEGATIVE) Urine Urobilinogen (0.2-1.0) mg/dL Ur Leukocyte Esterase (Negative) [place]/uL Urine WBC (Auto) (0-5) /hpf Urine RBC (Auto) (0-3) /hpf Ur Squamous Epith Cells (0-5) /hpf Urine Bacteria (<OCC) Hyaline Casts (0-2) /lpf C. difficile Ag & Toxin (NEGATIVE) Laboratory Results - last 24 hr 11/20/17 11/20/17 11/20/17 09:00 11:44 14:05 WBC RBC Hgb Hct MCV MCH MCHC RDW Plt Count MPV Neut % (Auto) Lymph % (Auto) [place] % (Auto) Eos % (Auto) Baso % (Auto) Neut # (Auto) Lymph # (Auto) [place] # (Auto) Eos # (Auto) Baso # (Auto) Sodium Potassium Chloride Carbon Dioxide Anion Gap BUN Creatinine Est GFR ( Amer) Est GFR (Non-Af Amer) POC Glucose (mg/dL) 241 H Random Glucose Calcium Total Bilirubin AST ALT Alkaline Phosphatase Total Protein Albumin Globulin Albumin/Globulin Ratio Urine Color Yellow Urine Clarity Hazy Urine pH 5.0 Ur Specific [place] 1.017 Urine Protein 2+ H Urine Glucose (UA) 2+ H Urine Ketones Trace Urine Blood 2+ H Urine Nitrate Negative Urine Bilirubin Negative Urine Urobilinogen Normal Ur Leukocyte Esterase 1+ H Urine WBC (Auto) 7 H Urine RBC (Auto) 16 H Ur Squamous Epith Cells 6 H Urine Bacteria Rare Hyaline Casts 3-5 H C. difficile Ag & Toxin 11/20/17 11/20/17 11/21/17 16:58 21:31 06:23 WBC RBC Hgb Hct MCV MCH MCHC RDW Plt Count MPV Neut % (Auto) Lymph % (Auto) [place] % (Auto) Eos % (Auto) Baso % (Auto) Neut # (Auto) Lymph # (Auto) [place] # (Auto) Eos # (Auto) Baso # (Auto) Sodium 138 Potassium 3.0 L Chloride 106 Carbon Dioxide 17 L Anion Gap 18 BUN 37 H Creatinine 3.7 H Est GFR ( Amer) 20 Est GFR (Non-Af Amer) 16 POC Glucose (mg/dL) 213 H 170 H Random Glucose 198 H Calcium 7.6 L Total Bilirubin 0.7 AST 22 ALT 24 Alkaline Phosphatase 86 Total Protein 6.0 L Albumin 2.7 L D Globulin 3.3 Albumin/Globulin Ratio 0.8 L Urine Color Urine Clarity Urine pH Ur Specific [place] Urine Protein Urine Glucose (UA) Urine Ketones Urine Blood Urine Nitrate Urine Bilirubin Urine Urobilinogen Ur Leukocyte Esterase Urine WBC (Auto) Urine RBC (Auto) Ur Squamous Epith Cells Urine Bacteria Hyaline Casts C. difficile Ag & Toxin 11/21/17 11/21/17 06:24 07:42 WBC 6.7 RBC 2.97 L Hgb 8.5 L Hct 26.1 L MCV 87.9 MCH 28.7 MCHC 32.6 L RDW 21.0 H Plt Count 141 MPV 10.1 Neut % (Auto) 74.1 Lymph % (Auto) 16.2 L [place] % (Auto) 5.1 Eos % (Auto) 3.5 Baso % (Auto) 1.1 Neut # (Auto) 4.9 Lymph # (Auto) 1.1 [place] # (Auto) 0.3 Eos # (Auto) 0.2 Baso # (Auto) 0.1 Sodium Potassium Chloride Carbon Dioxide Anion Gap BUN Creatinine Est GFR ( Amer) Est GFR (Non-Af Amer) POC Glucose (mg/dL) 274 H Random Glucose Calcium Total Bilirubin AST ALT Alkaline Phosphatase Total Protein Albumin Globulin Albumin/Globulin Ratio Urine Color Urine Clarity Urine pH Ur Specific [place] Urine Protein Urine Glucose (UA) Urine Ketones Urine Blood Urine Nitrate Urine Bilirubin Urine Urobilinogen Ur Leukocyte Esterase Urine WBC (Auto) Urine RBC (Auto) Ur Squamous Epith Cells Urine Bacteria Hyaline Casts C. difficile Ag & Toxin Fingerstick Blood Sugar Results: 274 Critical Care Progress Note - Nutrition Nutrition: Nutrition Category Date Time Status NPO Diet [DIET] Diets 11/20/17 Breakfast Active
--- NOTE | 2017-11-21 17:03 | PN ---
LOCATION: ICU 9. SUBJECTIVE: This is a 66-year-old male seen and examined for GI consultation on 11/20/2017 in the emergency room as requested by the emergency room staff, re-seen him again today, appeared to be somewhat restless, was mildly disoriented, but no reported active bleeding. No reported chest pain or palpitation. No tremors noted. The entire chart is reviewed including, but not limited to the most recent lab and radiology study results, current and the previous medication list, current and the previous medical events, and the case discussed with the staff at length. Today's lab showed blood glucose level of 170. The rest of the labs still pending and the patient still have elevated BUN and creatinine as per yesterday with normal liver function test but mildly elevated alkaline phosphatase to 131 with low hemoglobin 10.4, low hematocrit 31.7 with normal white blood cell and normal platelet count. Official report of his chest x-ray done yesterday is seen. PHYSICAL EXAMINATION: GENERAL: A 66-year-old male, appeared to be somewhat sleepy. VITAL SIGNS: Afebrile with blood pressure 120/64, respiratory rate 20 to 22, with pulse of 70. HEENT: Showed pale dry oral mucoid membrane, nonicteric sclerae. LUNGS: Few scattered crepitation, decreased air entry at bases. HEART: Positive S1 and S2. ABDOMEN: Soft with mild generalized tenderness. No mass or organomegaly. No rebound tenderness or guarding. RECTAL EXAMINATION: The patient refused. EXTREMITIES: With mild lower extremity edematous changes. No clubbing or cyanosis. NEUROLOGIC: No reported new neurological deficits, sensory or motor. IMPRESSION: 1. Re-exacerbation of peptic ulcer disease. 2. Alcoholism with alcoholic liver disease. 3. Known history of alcohol-induced pancreatitis, renal insufficiency, hypertension with diabetes mellitus. 4. Anemia secondary to above. 5. The patient had episodes of upper gastrointestinal bleeding at the time of his admission; however, he had the recent upper and lower endoscopy, please see endoscopy report. SUGGESTIONS: 1. Continue current management. 2. Proton pump inhibitors. 3. Follow up an H and H and ammonia level. 4. Neomycin p.o. 5. Further recommendations to follow. Tommie Edmonds MD
[2017-11-22] MEDS: Pantoprazole 80 MG in Sodium Chloride 0.9% 100 ML IVPB SCH ×4 (01:36→20:14)
[2017-11-22] MEDS: Sodium Chloride 0.9% 1,000 ML IV SCH ×4 (04:35→22:08)
[2017-11-22] MEDS: Piperacill/Tazo 2.25gm in Dex 2.25 GM/50 ML BAG IVPB SCH ×3 (06:06→22:14)
[2017-11-22 06:40] LABS: BASO # 0.1 K/uL (0.0-0.2); BASO % 1.7 % (0.0-2.0); EOS # 0.3 K/uL (0.0-0.7); EOS % 6.1 % (0.0-4.0); HEMOGLOBIN 8.7 g/dL (12.0-18.0); LYMPH % 22.4 % (20.0-40.0); MEAN CELL VOLUME 89.8 fL (80.0-94.0); MEAN CORPUSCULAR HEMOGLOBIN 28.4 pg (27.0-31.0); MEAN CORPUSCULAR HGB CONC 31.6 g/dL (33.0-37.0); MEAN PLATELET VOLUME 9.9 fL (7.2-11.7); MONO # 0.3 K/uL (0.0-0.8); MONO % 5.8 % (0.0-10.0); NRBC % 0.1 % (0.0-2.0); RBC 3.08 Mil/uL (4.40-5.90); RED CELL DISTRIBUTION WIDTH 20.9 % (11.5-14.5); WHITE BLOOD COUNT 4.7 K/uL (4.8-10.8)
[2017-11-22 07:15] LABS: ALB/GLOB RATIO 0.8 (1.0-2.1); ALBUMIN 2.7 g/dL (3.5-5.0); CALCIUM 7.6 mg/dl (8.6-10.4)
[2017-11-22] MEDS: Sucralfate 1 gm/10 ml Oral Susp UD PO SCH ×4 (07:36→22:07)
[2017-11-22] MEDS: (Novolin R) Insulin Human Regular 100 units/ml vial SC SCH ×4 (07:37→21:49)
[2017-11-22] MEDS: Potassium Chloride 20 mEq ER Tab PO SCH (10:40)
[2017-11-22] MEDS: Multiple Vitamins Tab PO SCH (10:40)
[2017-11-22] MEDS: Aritificial Tears (15ml) OD SCH (10:40)
--- NOTE | 2017-11-22 14:03 | PN ---
DATE: 11/22/2017. LOCATION: [facility], bed B. SUBJECTIVE: This is a 66-year-old male seen and examined in rounds appear to be more awake, alert, oriented, mandate to self without any evidence of agitation this morning. The entire chart is reviewed including but not limited to the most recent lab and radiology study results, current and previous medication list, current and the previous medical events and the case discussed at length with the staff. LABORATORY DATA: Today's lab showed hemoglobin of 8.7, hematocrit 27.6 with low potassium 3.5, low CO2 content of 15 indicative of metabolic acidosis. BUN elevated 26, creatinine 2.5 with blood glucose level 206 with low calcium 7.6 and low albumin 2.7, low total protein 6.0. PHYSICAL EXAMINATION: GENERAL: A 66 years male appear to be somewhat more awake, alert. VITAL SIGNS: Afebrile with pulse of 64, respiratory rate 18 to 20, blood pressure of 128/72. HEENT: Showed pale, dry mucous membrane. Nonicteric sclerae. LUNGS: A few scattered crepitation, decreased air entry at bases. HEART: Positive S1 and S2. ABDOMEN: Soft, slight distention. Mildly obese with generalized tenderness. No mass or organomegaly. No rebound tenderness or guarding. EXTREMITIES: Without significant clubbing or cyanosis, but lower extremity edematous changes. NEUROLOGIC: No reported new neurological deficits, sensory or motor. IMPRESSION: 1. Recently reported upper gastrointestinal blood loss none since admission. 2. Reexacerbation of peptic ulcer disease. 3. Alcoholism. 4. Liver cirrhosis secondary to above. 5. Known history of, but not limited to alcoholic pancreatitis with renal insufficiency. 6. Known history of diabetes mellitus, hypertension. 7. Anemia secondary to above. SUGGESTIONS: 1. Continue current management. 2. Guaiac all the stool daily x3. 3. Repeat serum lipase and amylase level. 4. Advance diet gradually. 5. Carafate liquid p.o. 6. Further recommendation to follow. It has to be mentioned that if the patient had any subsequent episode of recurrent hematemesis as reported before then to consider repeat upper endoscopy only as needed otherwise close observation to follow. Tommie Edmonds MD
[2017-11-23] MEDS: Sodium Chloride 0.9% 1,000 ML IV SCH (02:17)
--- NOTE | 2017-11-23 02:54 | CON ---
DATE: 11/20/2017. This is from Dr. Tommie Edmonds to Dr. Justin Jung. I was called for GI consultation by the admitting medical team. The patient was seen and fully examined initially on 11/20/2017. The entire chart is reviewed including but not limited to the most recent lab and radiology study results, current and the previous medication list, current and the previous medical events, allergy to medication list as well as all the available current and the previous medical records. Case discussed with the staff as well as the admitting medical team at length including the patient's family on 11/20/2017. HISTORY OF PRESENT ILLNESS: This is a 66-year-old male well known case for me from previous recent admission, was admitted to the hospital through the emergency room, who was having complaint of abdominal pain, recurrent nausea and vomiting of coffee-ground material, but no reported chest pain, significant shortness of breath, palpitations, but mild abdominal aching pain as per the family's statements. No reported rectal bleeding. PAST MEDICAL HISTORY: Including but not limited to; 1. Alcoholism. 2. Alcohol induced pancreatitis. 3. Hypertension. 4. Diabetes mellitus with evidence of diabetic gastroparesis. 5. Peptic ulcer disease, with anemia. 6. Status post appendectomy. 7. The patient had recently upper and lower endoscopy by myself, please see protocols and reports. FAMILY HISTORY: Unknown. SOCIAL HISTORY: Positive for alcohol intake in excess. CURRENT MEDICATIONS: Medication list were reviewed. After being admitted to the hospital, initial blood workup showed leukocytosis of 10.3, low hemoglobin 10.4, low hematocrit 31.7, with low potassium 3.5, with increased blood glucose level to 221, increased BUN of 39, creatinine 4.6. PHYSICAL EXAMINATION: GENERAL: A 66-year-old male, somewhat awake and alert. VITAL SIGNS: Afebrile with pulse of 72, respiratory rate 20 to 22, blood pressure of 136/74. HEENT: Showed pale, dry oral mucous membranes. Slightly icteric sclerae. LYMPH NODES: No lymphadenitis or lymphadenopathy. LUNGS: Few scattered crepitation with decreased air entry at bases. HEART: Positive S1 and S2. ABDOMEN: Soft with slight generalized tenderness. No mass or organomegaly. No rebound tenderness or guarding. RECTAL: Patient refused. EXTREMITIES: Without significant clubbing or cyanosis, but with lower extremity edematous changes and very mild fine upper extremities tremors. NEUROLOGIC: No reported new neurological deficits, sensory or motor. No new focal deficits. IMPRESSION: 1. Recurrent upper gastrointestinal blood loss, most likely secondary to diffuse erosive gastritis. 2. Reexacerbation of acute pancreatitis on top of chronic pancreatitis, alcohol induced. 3. Anemia secondary to above. 4. Multiple past medical history including but not limited to hypertension, diabetes mellitus, diabetic gastroparesis as well as anemia. SUGGESTIONS: 1. Agree with your plan. 2. Carafate p.o. 3. Repeat serum lipase and amylase level. 4. Prefer hyperalimentation. 5. Keep n.p.o. except oral medication. 6. Proton pump inhibitors IV. 7. Reglan IV. 8. Repeat abdominal ultrasound. 9. Further recommendation to follow. Tommie Edmonds MD
[2017-11-23] MEDS: Pantoprazole 80 MG in Sodium Chloride 0.9% 100 ML IVPB SCH ×2 (05:09→19:55)
[2017-11-23] MEDS: Piperacill/Tazo 2.25gm in Dex 2.25 GM/50 ML BAG IVPB SCH ×3 (06:06→22:15)
[2017-11-23 06:41] LABS: BASO # 0.1 K/uL (0.0-0.2); EOS # 0.4 K/uL (0.0-0.7); EOS % 7.4 % (0.0-4.0); HEMOGLOBIN 9.2 g/dL (12.0-18.0); LYMPH % 20.3 % (20.0-40.0); MEAN CELL VOLUME 87.3 fL (80.0-94.0); MEAN CORPUSCULAR HEMOGLOBIN 28.2 pg (27.0-31.0); MEAN CORPUSCULAR HGB CONC 32.3 g/dL (33.0-37.0); MEAN PLATELET VOLUME 8.9 fL (7.2-11.7); MONO # 0.3 K/uL (0.0-0.8); MONO % 5.9 % (0.0-10.0); NEUT # 3.3 K/uL (1.8-7.0); NEUT % 65.4 % (50.0-75.0); RBC 3.25 Mil/uL (4.40-5.90); RED CELL DISTRIBUTION WIDTH 21.2 % (11.5-14.5)
[2017-11-23 07:00] LABS: ALB/GLOB RATIO 0.9 (1.0-2.1); ALBUMIN 2.8 g/dL (3.5-5.0); CALCIUM 8.3 mg/dl (8.6-10.4)
[2017-11-23] MEDS: (Novolin R) Insulin Human Regular 100 units/ml vial SC SCH ×4 (08:55→21:59)
[2017-11-23] MEDS: Sucralfate 1 gm/10 ml Oral Susp UD PO SCH ×4 (08:55→22:15)
[2017-11-23] MEDS: Aritificial Tears (15ml) OD SCH (09:59)
[2017-11-23] MEDS: Potassium Chloride 20 mEq ER Tab PO SCH (09:59)
[2017-11-23] MEDS: Multiple Vitamins Tab PO SCH (09:59)
--- NOTE | 2017-11-23 15:52 | CP.PCM.PN ---
Subjective - Date & Time of Evaluation Date of Evaluation: 11/23/17 Time of Evaluation: 07:30 - Subjective Subjective: PGY1 Medicine Note for Dr. Jung Patient seen and examined at bedside this morning. Overnight, patients BP was recorded as 202/99, after administration of propanolol, came down to 182/92, no further orders were made as the patient was not symptomatic. Currently, patient is comfortable and knows where he is and what day and year it is. Patient is eating well. Patient complains of mild abdominal ache's. He denies fevers, nausea, vomiting, hematochezia, diarrhea, constipation, chest pain, or SOB. Objective - Vital Signs/Intake and Output Vital Signs (last 24 hours): Temp Pulse Resp BP Pulse Ox 96.5 F L 65 20 195/80 H 95 11/23/17 07:00 11/23/17 07:00 11/23/17 07:00 11/23/17 07:00 11/23/17 07:00 Intake and Output: 11/23/17 11/23/17 06:59 18:59 Output Total 800 600 Balance -800 -600 - Medications Medications: Current Medications Artificial Tears (Artificial Tears) 0 ml OD DAILY [facility] Last Admin: 11/23/17 09:59 Dose: 1 drop Folic Acid (Folic Acid) 1 mg PO DAILY NELSON Last Admin: 11/23/17 09:59 Dose: 1 mg Pantoprazole Sodium 80 mg/ (Sodium Chloride) 100 mls @ 10 mls/hr IVPB .Q10H NELSON PRN Reason: 8 MG/HR Last Admin: 11/23/17 05:09 Dose: 10 mls/hr Piperacillin Sod/Tazobactam Sod (Zosyn 2.25 Gm Iv Premix) 2.25 gm in 50 mls @ 100 mls/hr IVPB Q8H NELSON Last Admin: 11/23/17 06:06 Dose: 100 mls/hr Insulin Human Regular (Novolin R) 0 unit SC ACHS NELSON PRN Reason: Protocol Last Admin: 11/23/17 13:05 Dose: 1 unit Multivitamins (Hexavitamin) 1 tab PO DAILY NELSON Last Admin: 11/23/17 09:59 Dose: 1 tab Neomycin Sulfate (Neomycin Tab) 500 mg PO Q6H NELSON Last Admin: 11/23/17 13:36 Dose: 500 mg Ondansetron HCl (Zofran Inj) 4 mg IVP Q6 [facility] Last Admin: 11/21/17 14:43 Dose: Not Given Potassium Chloride (K-Dur 20 Meq Er Tab) 40 meq PO DAILY [facility] Last Admin: 11/23/17 09:59 Dose: 40 meq Propranolol HCl (Inderal) 20 mg PO TID [facility] Last Admin: 11/23/17 13:36 Dose: 20 mg Sucralfate (Carafate Oral Susp) 1 gm PO ACHS [facility] Last Admin: 11/23/17 12:17 Dose: 1 gm Thiamine HCl (Vitamin B1 Tab) 100 mg PO DAILY [facility] Last Admin: 11/23/17 09:59 Dose: 100 mg - Labs Labs: 11/23/17 06:31 11/23/17 06:30 PT 13.8 SECONDS (9.7-12.2) H 11/20/17 04:37 INR 1.2 11/20/17 04:37 APTT 38 SECONDS (21-34) H 11/20/17 04:37 - Constitutional Appears: Non-toxic, No Acute Distress - Head Exam Head Exam: ATRAUMATIC, NORMOCEPHALIC - Eye Exam Eye Exam: EOMI, Normal appearance Pupil Exam: NORMAL ACCOMODATION - ENT Exam ENT Exam: Mucous Membranes Moist - Respiratory Exam Respiratory Exam: Clear to Ausculation Bilateral, NORMAL BREATHING PATTERN. absent: Accessory Muscle Use, Rales, Rhonchi, Wheezes, Respiratory Distress - Cardiovascular Exam Cardiovascular Exam: REGULAR RHYTHM, +S1, +S2 - GI/Abdominal Exam GI & Abdominal Exam: Soft, Normal Bowel Sounds. absent: Distended, Firm, Guarding, Rigid, Tenderness - Extremities Exam Extremities Exam: absent: Calf Tenderness, Pedal Edema - Neurological Exam Neurological Exam: Alert, Awake, Oriented x3 - Psychiatric Exam Psychiatric exam: Normal Affect, Normal Mood - Skin Skin Exam: Dry, Warm Assessment and Plan - Assessment and Plan (Free Text) Plan: GI bleed - GI consulted, Dr. Katz; recs appreciated - Endoscopy (11/02/17) showed candidiasis esophagitis, gastric ulcer (biopsied); erythematous mucosa in prepyloric region of stomach and erythematous duodenopathy. - Colonscopy (11/06/17) showed colitis, diverticulitis, internal hemorrhoids, and chronic inflammation. - Continue Protonix drip - Continue NS@120mls/hr - Started on Neomycin Sulfate 500mg PO q6h Acute Renal Failure - Upon Admission Cr. 4.6 - Today's Cr 1.8 - Ammonia 29 - Zestril and Lasix held as it could be contributing to Acute Kidney Injury - Zosyn 2.25gm Hypertension - Lasix and Lisinopril held at this time. - Overnight, patients BP was recorded as 202/99, after administration of propanolol, came down to 182/92. Diabetes - ISS - Accuchecks ACHS PPX - Folic acid 1 mg PO daily - Multivitamin 1 tab PO daily - Thiamine 100mg PO daily - Potassium 40meq PO daily (takes at home) DISPO: Patient came to ER from [facility], discharge patient back to [facility] in morning. Case discussed with Dr. Fabiana Ricketts Mary Jane PGY1
[2017-11-24] MEDS: Pantoprazole 80 MG in Sodium Chloride 0.9% 100 ML IVPB SCH ×2 (01:50→18:34)
[2017-11-24] MEDS: Piperacill/Tazo 2.25gm in Dex 2.25 GM/50 ML BAG IVPB SCH ×3 (06:08→23:03)
[2017-11-24 08:27] LABS: BASO # 0.1 K/uL (0.0-0.2); BASO % 1.6 % (0.0-2.0); EOS # 0.5 K/uL (0.0-0.7); EOS % 8.4 % (0.0-4.0); HEMOGLOBIN 9.7 g/dL (12.0-18.0); LYMPH # 1.1 K/uL (1.0-4.3); LYMPH % 19.7 % (20.0-40.0); MEAN CELL VOLUME 88.1 fL (80.0-94.0); MEAN CORPUSCULAR HEMOGLOBIN 28.2 pg (27.0-31.0); MEAN PLATELET VOLUME 9.1 fL (7.2-11.7); MONO # 0.3 K/uL (0.0-0.8); MONO % 5.4 % (0.0-10.0); NEUT # 3.6 K/uL (1.8-7.0); NEUT % 64.9 % (50.0-75.0); NRBC % 0.1 % (0.0-2.0); RBC 3.46 Mil/uL (4.40-5.90); RED CELL DISTRIBUTION WIDTH 19.8 % (11.5-14.5); WHITE BLOOD COUNT 5.5 K/uL (4.8-10.8)
[2017-11-24] MEDS: Sucralfate 1 gm/10 ml Oral Susp UD PO SCH ×4 (08:33→23:03)
[2017-11-24] MEDS: (Novolin R) Insulin Human Regular 100 units/ml vial SC SCH ×4 (08:33→22:30)
[2017-11-24 08:38] LABS: ALB/GLOB RATIO 0.9 (1.0-2.1); CALCIUM 8.8 mg/dl (8.6-10.4)
--- NOTE | 2017-11-24 10:02 | PN ---
DATE: LOCATION: [address] [place] [address] B. SUBJECTIVE: This is a 66 years old male, seen and examined in rounds early this morning. Appeared to be somewhat more awake with reported elevated blood pressure early this morning but no reported active bleeding, no chest pain or palpitation, or reported chills or fever. The entire chart is reviewed including but not limited to the most recent lab and radiology study results, current and previous medication list, current and previous medical events. Case was discussed with the staff at length. Today's blood glucose level reported to be 180, and yesterday's ammonia level reported to be 29, normal. The patient still had low hemoglobin and hematocrit with low albumin and low total protein due to his poor oral intake. PHYSICAL EXAMINATION: GENERAL: A 66 years old male. VITAL SIGNS: Afebrile with pulse of 66, respiratory rate 20 to 22, blood pressure 186/102. HEENT: Showed pale dry oral mucous membranes. Nonicteric sclerae. LUNGS: Few scattered crepitations, decreased air entry at bases. HEART: Positive S1 and S2. ABDOMEN: Soft. Bowel sounds are present with mild distention. No mass or organomegaly but abdominal distention. It has to be mentioned that the patient experienced some episodes of nausea with marked dyspepsia during my physical examination. EXTREMITIES: Mild lower extremity edematous changes. No clubbing or cyanosis. NEUROLOGIC: No reported new focal neurological deficits, sensory or motor. IMPRESSION: 1. Reported recent history of gastrointestinal bleeding, none since endoscopy. The patient had upper and lower endoscopy recently indicative of gastric ulcer. Esophagitis with esophageal candidiasis, diverticulosis with mild colitis. 2. Known history of hypertension. 3. Poorly controlled diabetes mellitus. 4. Known history of alcoholism. 5. History of alcohol infused pancreatitis before. SUGGESTIONS: 1. Continue current management. 2. Lactulose p.o. 3. Advance diet gradually. 4. No need for further aggressive GI workup in the meantime, and due to the patient's anemia, repeat stool for occult blood is advised. Tommie Edmonds MD
[2017-11-24] MEDS: Multiple Vitamins Tab PO SCH (10:17)
[2017-11-24] MEDS: Aritificial Tears (15ml) OD SCH (10:18)
[2017-11-24] MEDS: Potassium Chloride 20 mEq ER Tab PO SCH (10:18)
--- NOTE | 2017-11-24 17:15 | CP.PCM.PN ---
Subjective - Date & Time of Evaluation Date of Evaluation: 11/24/17 Time of Evaluation: 17:14 - Subjective Subjective: PGY2 Medicine Note for Dr. Jnug Patient seen and examined at bedside with attending physician; patient is pleasant and interacting with family and us however does not make meaningful conversation; patient remains altered but agreeable; unable to obtain ROS Objective - Vital Signs/Intake and Output Vital Signs (last 24 hours): Temp Pulse Resp BP Pulse Ox 97.7 F 61 20 201/100 H 100 11/24/17 15:45 11/24/17 15:45 11/24/17 15:45 11/24/17 15:45 11/24/17 15:45 Intake and Output: 11/24/17 11/24/17 06:59 18:59 Intake Total 630 Output Total 1450 Balance -1450 630 - Medications Medications: Current Medications Artificial Tears (Artificial Tears) 0 ml OD DAILY [facility] Last Admin: 11/24/17 10:18 Dose: 1 drop Folic Acid (Folic Acid) 1 mg PO DAILY [facility] Last Admin: 11/24/17 10:18 Dose: 1 mg Pantoprazole Sodium 80 mg/ (Sodium Chloride) 100 mls @ 10 mls/hr IVPB .Q10H [facility] PRN Reason: 8 MG/HR Last Admin: 11/24/17 01:50 Dose: 10 mls/hr Piperacillin Sod/Tazobactam Sod (Zosyn 2.25 Gm Iv Premix) 2.25 gm in 50 mls @ 100 mls/hr IVPB Q8H [facility] Last Admin: 11/24/17 14:08 Dose: 100 mls/hr Insulin Human Regular (Novolin R) 0 unit SC ACHS [facility] PRN Reason: Protocol Last Admin: 11/24/17 12:50 Dose: 2 unit Multivitamins (Hexavitamin) 1 tab PO DAILY [facility] Last Admin: 11/24/17 10:17 Dose: 1 tab Neomycin Sulfate (Neomycin Tab) 500 mg PO Q6H [facility] Last Admin: 11/24/17 13:17 Dose: 500 mg Ondansetron HCl (Zofran Inj) 4 mg IVP Q6 [facility] Last Admin: 11/21/17 14:43 Dose: Not Given Potassium Chloride (K-Dur 20 Meq Er Tab) 40 meq PO DAILY [facility] Last Admin: 11/24/17 10:18 Dose: 40 meq Propranolol HCl (Inderal) 20 mg PO TID [facility] Last Admin: 11/24/17 13:16 Dose: 20 mg Sucralfate (Carafate Oral Susp) 1 gm PO ACHS [facility] Last Admin: 11/24/17 12:50 Dose: 1 gm Thiamine HCl (Vitamin B1 Tab) 100 mg PO DAILY [facility] Last Admin: 11/24/17 10:18 Dose: 100 mg - Labs Labs: 11/24/17 08:13 11/24/17 08:13 PT 13.8 SECONDS (9.7-12.2) H 11/20/17 04:37 INR 1.2 11/20/17 04:37 APTT 38 SECONDS (21-34) H 11/20/17 04:37 - Constitutional Appears: Non-toxic, Chronically Ill - Head Exam Head Exam: ATRAUMATIC - Eye Exam Eye Exam: EOMI, Scleral icterus - ENT Exam ENT Exam: Mucous Membranes Moist - Neck Exam Neck Exam: Full ROM. absent: Lymphadenopathy - Respiratory Exam Respiratory Exam: Clear to Ausculation Bilateral, NORMAL BREATHING PATTERN. absent: Rales, Rhonchi, Wheezes - Cardiovascular Exam Cardiovascular Exam: REGULAR RHYTHM, +S1, +S2 - GI/Abdominal Exam GI & Abdominal Exam: Soft, Normal Bowel Sounds, Organomegaly. absent: Tenderness - Extremities Exam Extremities Exam: Full ROM. absent: Calf Tenderness - Back Exam Back Exam: NORMAL INSPECTION. absent: CVA tenderness (L), CVA tenderness (R) - Neurological Exam Neurological Exam: Awake. absent: Alert, Oriented x3 - Psychiatric Exam Psychiatric exam: absent: Normal Affect - Skin Skin Exam: Warm Assessment and Plan - Assessment and Plan (Free Text) Assessment: GI bleed; resolved and ruled out - GI consulted, Dr. Katz; recs appreciated - Endoscopy (11/02/17) showed candidiasis esophagitis, gastric ulcer (biopsied); erythematous mucosa in prepyloric region of stomach and erythematous duodenopathy. - Colonscopy (11/06/17) showed colitis, diverticulitis, internal hemorrhoids, and chronic inflammation. - Continue Protonix drip - Continue NS@120mls/hr - Started on Neomycin Sulfate 500mg PO q6h Acute Renal Failure; chronic CKD - Upon Admission Cr. 4.6 - Today's Cr 1.8 - Ammonia 29 - Zestril and Lasix held as it could be contributing to Acute Kidney Injury - Zosyn 2.25gm Hypertension;chronic - Lasix and Lisinopril held at this time. - Overnight, patients BP was recorded as 202/99, after administration of propanolol, came down to 182/92. Diabetes - ISS - Accuchecks ACHS PPX - Folic acid 1 mg PO daily - Multivitamin 1 tab PO daily - Thiamine 100mg PO daily - Potassium 40meq PO daily (takes at home) DISPO: Patient came to ER from [facility], discharge patient back to [facility] however patient family does not like last rehab center will work with social work to get placed into different facility Patient was told to stop drinking; patient is unable to verbalize understaning however encouragement given to the family Case discussed with Dr. Jung; all management as per Dr. Jung
[2017-11-25] MEDS: Pantoprazole 80 MG in Sodium Chloride 0.9% 100 ML IVPB SCH ×4 (04:04→19:14)
[2017-11-25] MEDS: Piperacill/Tazo 2.25gm in Dex 2.25 GM/50 ML BAG IVPB SCH ×3 (06:27→22:03)
[2017-11-25] MEDS: (Novolin R) Insulin Human Regular 100 units/ml vial SC SCH ×4 (07:54→21:51)
[2017-11-25] MEDS: Sucralfate 1 gm/10 ml Oral Susp UD PO SCH ×4 (07:55→21:47)
[2017-11-25] MEDS: Multiple Vitamins Tab PO SCH (10:43)
[2017-11-25] MEDS: Aritificial Tears (15ml) OD SCH (10:44)
[2017-11-25] MEDS: Potassium Chloride 20 mEq ER Tab PO SCH (10:44)
[2017-11-25 11:42] LABS: BASO # 0.1 K/uL (0.0-0.2); BASO % 1.7 % (0.0-2.0); EOS # 0.4 K/uL (0.0-0.7); EOS % 9.5 % (0.0-4.0); HEMOGLOBIN 9.3 g/dL (12.0-18.0); LYMPH # 1.1 K/uL (1.0-4.3); LYMPH % 26.7 % (20.0-40.0); MEAN CELL VOLUME 87.4 fL (80.0-94.0); MEAN CORPUSCULAR HEMOGLOBIN 28.5 pg (27.0-31.0); MEAN CORPUSCULAR HGB CONC 32.7 g/dL (33.0-37.0); MONO # 0.2 K/uL (0.0-0.8); MONO % 5.2 % (0.0-10.0); NEUT # 2.4 K/uL (1.8-7.0); NEUT % 56.9 % (50.0-75.0); NRBC % 0.1 % (0.0-2.0); RBC 3.25 Mil/uL (4.40-5.90); RED CELL DISTRIBUTION WIDTH 20.7 % (11.5-14.5); WHITE BLOOD COUNT 4.2 K/uL (4.8-10.8)
[2017-11-25 12:27] LABS: ALB/GLOB RATIO 0.8 (1.0-2.1); ALBUMIN 2.6 g/dL (3.5-5.0); ALT/SGPT 20 U/L (21-72); AST/SGOT 22 U/L (17-59); BLOOD UREA NITROGEN 10 mg/dL (9-20); CALCIUM 8.7 mg/dl (8.6-10.4); GFR AFRICAN-AMERICAN > 60; GFR NON-AFRICAN AMERICAN 55
--- NOTE | 2017-11-25 13:45 | CP.PCM.PN ---
Subjective - Date & Time of Evaluation Date of Evaluation: 11/25/17 Time of Evaluation: 13:44 - Subjective Subjective: PGY2 Medicine Note for Dr. Jung patient seen and examined at bedside with attending physician; denies all complaints however not Anox3 and not a reliable historian; spoke with family about plans to send to different rehab facility and will work with case management to find a place that is ok with the family. unable to obtain reliable ROS 2/2 to condition. Objective - Vital Signs/Intake and Output Vital Signs (last 24 hours): Temp Pulse Resp BP Pulse Ox 97.3 F L 61 20 161/89 H 100 11/25/17 08:00 11/25/17 08:00 11/25/17 08:00 11/25/17 08:00 11/25/17 08:00 Intake and Output: 11/25/17 11/25/17 06:59 18:59 Intake Total 330 Output Total 600 Balance -270 - Medications Medications: Current Medications Artificial Tears (Artificial Tears) 0 ml OD DAILY [facility] Last Admin: 11/25/17 10:44 Dose: 1 drop Folic Acid (Folic Acid) 1 mg PO DAILY [facility] Last Admin: 11/25/17 10:43 Dose: 1 mg Pantoprazole Sodium 80 mg/ (Sodium Chloride) 100 mls @ 10 mls/hr IVPB .Q10H [facility] PRN Reason: 8 MG/HR Last Admin: 11/25/17 04:04 Dose: 10 mls/hr Piperacillin Sod/Tazobactam Sod (Zosyn 2.25 Gm Iv Premix) 2.25 gm in 50 mls @ 100 mls/hr IVPB Q8H [facility] Last Admin: 11/25/17 06:27 Dose: 100 mls/hr Insulin Human Regular (Novolin R) 0 unit SC ACHS [facility] PRN Reason: Protocol Last Admin: 11/25/17 12:16 Dose: 2 unit Multivitamins (Hexavitamin) 1 tab PO DAILY [facility] Last Admin: 11/25/17 10:43 Dose: 1 tab Neomycin Sulfate (Neomycin Tab) 500 mg PO Q6H [facility] Last Admin: 11/25/17 07:59 Dose: 500 mg Ondansetron HCl (Zofran Inj) 4 mg IVP Q6 [facility] Last Admin: 11/21/17 14:43 Dose: Not Given Potassium Chloride (K-Dur 20 Meq Er Tab) 40 meq PO DAILY [facility] Last Admin: 11/25/17 10:44 Dose: 40 meq Propranolol HCl (Inderal) 20 mg PO TID [facility] Last Admin: 11/25/17 10:44 Dose: 20 mg Sucralfate (Carafate Oral Susp) 1 gm PO ACHS [facility] Last Admin: 11/25/17 10:44 Dose: 1 gm Thiamine HCl (Vitamin B1 Tab) 100 mg PO DAILY [facility] Last Admin: 11/25/17 10:43 Dose: 100 mg - Labs Labs: 11/25/17 11:28 11/25/17 11:28 PT 13.8 SECONDS (9.7-12.2) H 11/20/17 04:37 INR 1.2 11/20/17 04:37 APTT 38 SECONDS (21-34) H 11/20/17 04:37 Assessment and Plan - Assessment and Plan (Free Text) Assessment: Appears: Non-toxic, Chronically Ill - Head Exam Head Exam: ATRAUMATIC - Eye Exam Eye Exam: EOMI, Scleral icterus - ENT Exam ENT Exam: Mucous Membranes Moist - Neck Exam Neck Exam: Full ROM. absent: Lymphadenopathy - Respiratory Exam Respiratory Exam: Clear to Ausculation Bilateral, NORMAL BREATHING PATTERN. absent: Rales, Rhonchi, Wheezes - Cardiovascular Exam Cardiovascular Exam: REGULAR RHYTHM, +S1, +S2 - GI/Abdominal Exam GI & Abdominal Exam: Soft, Normal Bowel Sounds, Organomegaly. absent: Tenderness - Extremities Exam Extremities Exam: Full ROM. absent: Calf Tenderness - Back Exam Back Exam: NORMAL INSPECTION. absent: CVA tenderness (L), CVA tenderness (R) - Neurological Exam Neurological Exam: Awake. absent: Alert, Oriented x3 - Psychiatric Exam Psychiatric exam: absent: Normal Affect - Skin Skin Exam: Warm Assessment and Plan - Assessment and Plan (Free Text) Assessment: GI bleed; resolved and ruled out - GI consulted, Dr. Katz; recs appreciated - Endoscopy (11/02/17) showed candidiasis esophagitis, gastric ulcer (biopsied); erythematous mucosa in prepyloric region of stomach and erythematous duodenopathy. - Colonscopy (11/06/17) showed colitis, diverticulitis, internal hemorrhoids, and chronic inflammation. - Continue Protonix drip - Continue NS@120mls/hr - Started on Neomycin Sulfate 500mg PO q6h Acute Renal Failure; chronic CKD - Upon Admission Cr. 4.6 - Today's Cr 1.8 - Ammonia 29 - Zestril and Lasix held as it could be contributing to Acute Kidney Injury - Zosyn 2.25gm Hypertension;chronic - Lasix and Lisinopril held at this time. - Overnight, patients BP was recorded as 202/99, after administration of propanolol, came down to 182/92. Diabetes - ISS - Accuchecks ACHS PPX - Folic acid 1 mg PO daily - Multivitamin 1 tab PO daily - Thiamine 100mg PO daily - Potassium 40meq PO daily (takes at home) DISPO: Patient came to ER from [facility], discharge patient back to [facility] however patient family does not like last rehab center will work with social work to get placed into different facility Patient was told to stop drinking; patient is unable to verbalize understaning however encouragement given to the family Case discussed with Dr. Jung; all management as per Dr. Jung The patient is stable for d/c as soon as [facility] is set up for patient
--- NOTE | 2017-11-25 16:26 | PN ---
LOCATION: [facility], Bed B. SUBJECTIVE: This is a 66-year-old male, seen and examined in rounds without significant clinical changes, denying any chest pain, significant complaint of shortness of breath or palpitation. No nausea or vomiting. The entire chart is reviewed including but not limited to the most recent lab and radiology study results, current and previous medication list, current and previous medical events. Today's blood glucose level of 193, rest of the labs still pending; however, the patient still has low hemoglobin and hematocrit with low CO2 content indicative of metabolic acidosis with low albumin, most likely secondary to poor oral intake and malnutrition. PHYSICAL EXAMINATION: GENERAL: A 66-year-old male seen and examined in the presence of his own family without reported significant clinical changes. HEENT: Showed pale dry oral mucous membranes. Nonicteric sclerae. LUNGS: Few scattered crepitations, decreased air entry at bases. HEART: Positive S1 and S2. ABDOMEN: Soft with mild distention with generalized mild tenderness. No mass or organomegaly. No rebound tenderness or guarding. EXTREMITIES: Mild lower extremity edematous changes. No clubbing or cyanosis. NEUROLOGIC: No new reported neurological deficits, sensory or motor. The patient is still somewhat agitated and restless at times. IMPRESSION: 1. Recent history of gastrointestinal blood loss, stable clinically. 2. Chronic renal disease. 3. Known history of hypertension with diabetes mellitus. 4. Anemia secondary to above. 5. Known history of esophageal candidiasis, diverticulosis with mild colitis by recent endoscopic studies. 6. Known history of alcoholism. 7. Recurrent alcohol-induced pancreatitis by history. SUGGESTIONS: 1. Continue current management. 2. Repeat ammonia level with serum lipase and amylase level. 3. Repeat stool for occult blood. 4. Further recommendation to follow. Tommie Edmonds MD
[2017-11-26] MEDS: Pantoprazole 80 MG in Sodium Chloride 0.9% 100 ML IVPB SCH ×2 (04:36→13:10)
[2017-11-26] MEDS: Piperacill/Tazo 2.25gm in Dex 2.25 GM/50 ML BAG IVPB SCH ×2 (06:49→14:23)
--- NOTE | 2017-11-26 07:52 | PN ---
LOCATION: [facility], bed B. SUBJECTIVE: This is a 66-year-old male, seen and examined with the staff on the floor today, appeared to be agitated, somewhat lethargic and respond early this morning and no reported active bleeding but semi-confusion and mild disorientation. The entire chart is reviewed including, but not limited to the most recent lab and radiology study results, current and the previous medication list, current and the previous medical events. The patient still has low hemoglobin of 9.2, hematocrit 28.4, with normal white blood cells, normal platelet counts, with low CO2 content of 19 indicative of metabolic acidosis. Creatinine elevated to 1.8, blood glucose level 261, low calcium 8.3, with low albumin 2.8, low total protein of 6.0. PHYSICAL EXAMINATION: GENERAL: A 66-year-old male seen and examined in the presence of family members at the bedside without reported active bleeding at that time VITAL SIGNS: Afebrile with pulse of 68, respiratory rate 20 to 22, and blood pressure 190/82. HEENT: Showed pale dry oral mucous membrane, nonicteric sclerae. LUNGS: Scattered crepitation, decreased air entry at bases. HEART: Positive S1 and S2. ABDOMEN: Soft with mild distention with slight generalized tenderness. No mass or organomegaly. No rebound tenderness or guarding, but mild distention. EXTREMITIES: With lower extremities mild edematous changes. No clubbing or cyanosis. NEUROLOGIC: No reported neurological deficits reported as per the nursing staff statement. No focal deficit reported. IMPRESSION: 1. Alcoholism with alcoholic liver disease. 2. To rule out early stage of hepatic encephalopathy. 3. Poorly controlled hypertension. 4. Peptic ulcer disease. 5. Known history of alcoholic pancreatitis and renal insufficiency. 6. Known history of diabetes mellitus. 7. Anemia secondary to above. SUGGESTIONS: 1. Continue current management. 2. Neomycin p.o. 3. Repeat ammonia level. 4. No aggressive gastrointestinal workup in the meantime until the patient is more stable clinically. Tommie Edmonds MD
[2017-11-26 08:10] LABS: BASO # 0.1 K/uL (0.0-0.2); BASO % 1.9 % (0.0-2.0); EOS # 0.4 K/uL (0.0-0.7); EOS % 7.8 % (0.0-4.0); HEMOGLOBIN 9.8 g/dL (12.0-18.0); LYMPH # 1.1 K/uL (1.0-4.3); MEAN CORPUSCULAR HEMOGLOBIN 28.6 pg (27.0-31.0); MEAN CORPUSCULAR HGB CONC 32.5 g/dL (33.0-37.0); MEAN PLATELET VOLUME 8.9 fL (7.2-11.7); MONO # 0.3 K/uL (0.0-0.8); MONO % 5.4 % (0.0-10.0); NEUT # 2.9 K/uL (1.8-7.0); NEUT % 60.9 % (50.0-75.0); NRBC % 0.1 % (0.0-2.0); RBC 3.42 Mil/uL (4.40-5.90); RED CELL DISTRIBUTION WIDTH 20.8 % (11.5-14.5); WHITE BLOOD COUNT 4.8 K/uL (4.8-10.8)
[2017-11-26 08:14] LABS: ALB/GLOB RATIO 0.8 (1.0-2.1); ALBUMIN 2.7 g/dL (3.5-5.0); ALT/SGPT 22 U/L (21-72); AST/SGOT 26 U/L (17-59); BLOOD UREA NITROGEN 8 mg/dL (9-20); CALCIUM 8.9 mg/dl (8.6-10.4); GFR AFRICAN-AMERICAN > 60; GFR NON-AFRICAN AMERICAN 55
[2017-11-26] MEDS: Sucralfate 1 gm/10 ml Oral Susp UD PO SCH ×4 (08:21→21:33)
[2017-11-26] MEDS: (Novolin R) Insulin Human Regular 100 units/ml vial SC SCH ×4 (08:21→21:31)
[2017-11-26] MEDS: Multiple Vitamins Tab PO SCH (10:08)
[2017-11-26] MEDS: Potassium Chloride 20 mEq ER Tab PO SCH (10:08)
[2017-11-26] MEDS ORDERED: Phytonadione 10 mg/ml Inj (Adult) SC STA (12:07)
--- NOTE | 2017-11-26 13:37 | CP.PCM.PN ---
Subjective - Date & Time of Evaluation Date of Evaluation: 11/26/17 Time of Evaluation: 07:15 - Subjective Subjective: PGY [address] Jung Patient seen and examined at bedside this morning. Overnight, the patients BP went up to 223/123, however he was asymptomatic. Hydrazaline was administered and his BP came down to 187/95. No further orders were made as the patient was not symptomatic. Currently, patient is comfortable and knows where he is and what day and year it is. Patient is eating well. Patient complains of continued mild abdominal ache's. As per the nurse, patients family would like for him to go to a different [facility] than he was previously in. He denies fevers, nausea, vomiting, hematochezia, Diarrhea, constipation, chest pain, or SOB. Objective - Vital Signs/Intake and Output Vital Signs (last 24 hours): Temp Pulse Resp BP Pulse Ox 97.6 F 67 18 190/95 H 99 11/26/17 08:02 11/26/17 08:55 11/26/17 08:02 11/26/17 08:02 11/26/17 08:02 Intake and Output: 11/26/17 11/26/17 06:59 18:59 Intake Total 680 Output Total 1150 Balance -470 - Medications Medications: Current Medications Artificial Tears (Artificial Tears) 0 ml OD DAILY [facility] Last Admin: 11/25/17 10:44 Dose: 1 drop Folic Acid (Folic Acid) 1 mg PO DAILY [facility] Last Admin: 11/26/17 10:08 Dose: 1 mg Pantoprazole Sodium 80 mg/ (Sodium Chloride) 100 mls @ 10 mls/hr IVPB .Q10H [facility] PRN Reason: 8 MG/HR Last Admin: 11/26/17 13:10 Dose: 10 mls/hr Piperacillin Sod/Tazobactam Sod (Zosyn 2.25 Gm Iv Premix) 2.25 gm in 50 mls @ 100 mls/hr IVPB Q8H [facility] Last Admin: 11/26/17 06:49 Dose: 100 mls/hr Insulin Human Regular (Novolin R) 0 unit SC ACHS [facility] PRN Reason: Protocol Last Admin: 11/26/17 12:59 Dose: 4 unit Lisinopril (Zestril) 40 mg PO DAILY [facility] Multivitamins (Hexavitamin) 1 tab PO DAILY [facility] Last Admin: 11/26/17 10:08 Dose: 1 tab Neomycin Sulfate (Neomycin Tab) 500 mg PO Q6H [facility] Last Admin: 11/26/17 13:11 Dose: 500 mg Ondansetron HCl (Zofran Inj) 4 mg IVP Q6 [facility] Last Admin: 11/21/17 14:43 Dose: Not Given Potassium Chloride (K-Dur 20 Meq Er Tab) 40 meq PO DAILY [facility] Last Admin: 11/26/17 10:08 Dose: 40 meq Propranolol HCl (Inderal) 20 mg PO TID [facility] Last Admin: 11/26/17 13:11 Dose: 20 mg Sucralfate (Carafate Oral Susp) 1 gm PO ACHS [facility] Last Admin: 11/26/17 12:59 Dose: 1 gm Thiamine HCl (Vitamin B1 Tab) 100 mg PO DAILY [facility] Last Admin: 11/26/17 10:11 Dose: 100 mg - Labs Labs: 11/26/17 07:45 11/26/17 07:45 PT 13.8 SECONDS (9.7-12.2) H 11/20/17 04:37 INR 1.2 11/20/17 04:37 APTT 38 SECONDS (21-34) H 11/20/17 04:37 - Constitutional Appears: Non-toxic, No Acute Distress - Head Exam Head Exam: NORMOCEPHALIC - Eye Exam Eye Exam: Normal appearance - ENT Exam ENT Exam: Mucous Membranes Moist - Respiratory Exam Respiratory Exam: Clear to Ausculation Bilateral, NORMAL BREATHING PATTERN. absent: Accessory Muscle Use, Respiratory Distress - Cardiovascular Exam Cardiovascular Exam: REGULAR RHYTHM, +S1, +S2 - GI/Abdominal Exam GI & Abdominal Exam: Soft, Normal Bowel Sounds. absent: Distended, Firm, Guarding, Rigid, Tenderness - Extremities Exam Extremities Exam: absent: Calf Tenderness, Pedal Edema - Neurological Exam Neurological Exam: Alert, Awake, Oriented x3 (appears confused but states clear understanding when spoken to in [id number] language.) - Psychiatric Exam Psychiatric exam: Normal Affect, Normal Mood - Skin Skin Exam: Dry, Warm Assessment and Plan - Assessment and Plan (Free Text) Plan: GI bleed; resolved and ruled out - GI consulted, Dr. Katz; recs appreciated - Endoscopy (11/02/17) showed candidiasis esophagitis, gastric ulcer (biopsied); erythematous mucosa in prepyloric region of stomach and erythematous duodenopathy. - Colonscopy (11/06/17) showed colitis, diverticulitis, internal hemorrhoids, and chronic inflammation. - Continue Protonix drip - Continue NS@120mls/hr - Started on Neomycin Sulfate 500mg PO q6h Acute Renal Failure; chronic CKD - Upon Admission Cr. 4.6 - Today's Cr 1.3 - Ammonia 29 - Lisinopril and Lasix held as it could be contributing to Acute Kidney Injury * Restarted Lisinopril @20mg daily in AM (home dose 40mg) * Started Amlodipine 5mg PO HS Hypertension;chronic - Lasix and Lisinopril held at this time. - Overnight, patients BP was recorded as 210/111, after administration of propanolol, came down to 182/92. * Restarted Lisinopril @20mg daily in AM (home dose 40mg) * Started Amlodipine 5mg PO HS Diabetes - ISS - Accuchecks ACHS PPX - Folic acid 1 mg PO daily - Multivitamin 1 tab PO daily - Thiamine 100mg PO daily - Potassium 40meq PO daily (takes at home) DISPO: Patient came to ER from [facility], discharge patient back to [facility] however patient family does not like last rehab center and refuses to let him go back. Will work with social work to get placed into different facility. Patient was told to stop drinking; patient is unable to verbalize understanding however encouragement given to the family. The patient is stable for d/c as soon as [facility] is set up for patient . Case discussed with Dr. Fabiana Ricketts [place] PGY1
--- NOTE | 2017-11-26 16:08 | PN ---
DATE: LOCATION: , [facility] B. SUBJECTIVE: This is a 66-year-old male seen and examined in rounds in the presence of his son as well as the nursing staff in the floor. The entire chart is reviewed including but not limited to the most recent lab and radiology study results, current and the previous medication list, current and the previous medical events. A list of medications as well as all the possible next step at treatment discussed with the son over 35 to 40 minutes again. The patient still with periods of confusion, with poor oral intake, with periods of elevated blood pressure. The entire medication list was re-evaluated with the patient's son again. LABORATORY DATA: Today's lab showed hemoglobin 9.8, hematocrit 30.1, with thrombocytopenia of 125. Low CO2 content 18, blood glucose level 196, albumin 2.7, total protein 6.1. The patient has very poor oral intake and only clear liquid diet with persistent . PHYSICAL EXAMINATION: GENERAL: A 66-year-old male, who appeared to be sleepy. VITAL SIGNS: Afebrile with pulse of 70, respiratory rate 20 to 22, blood pressure 192/92. HEENT: Showed pale dry oral mucous membranes. Nonicteric sclerae. LUNGS: Few scattered crepitations, decreased air entry at bases. HEART: Positive S1 and S2. ABDOMEN: Bowel sounds are present with mild generalized tenderness and slight distention. No mass or organomegaly and no rebound tenderness or guarding. EXTREMITIES: Mild lower extremity edematous changes. No clubbing or cyanosis. NEUROLOGIC: No reported new neurological deficits, sensory or motor and some complaint that the patient is unable to walk alone due to lower extremity weakness. IMPRESSION: 1. Alcoholism with alcoholic liver disease. 2. Anemia with reported gastrointestinal blood loss, subsided. 3. Poorly controlled hypertension. 4. Poorly controlled diabetes mellitus. 5. 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 Known history of alcoholic pancreatitis, renal insufficiency. 7. Thrombocytopenia secondary to above. SUGGESTIONS: 1. Agree with your plan. 2. Peripheral hyperalimentation due to the patient's malnutrition, otherwise the patient is a candidate for PEG insertion due to his very poor oral intake and his malnutrition with hypoalbuminemia, hyperlipidemia, and potential high risk of aspiration pneumonia that will be discussed at length with the admitting MD. Tommie Edmonds MD [facility] # [id number]
[2017-11-27] MEDS: Pantoprazole 80 MG in Sodium Chloride 0.9% 100 ML IVPB SCH ×2 (02:28→22:42)
[2017-11-27] MEDS: Sucralfate 1 gm/10 ml Oral Susp UD PO SCH ×4 (06:46→22:41)
[2017-11-27 08:12] LABS: INR 1.3; PROTHROMBIN TIME 15.2 SECONDS (9.7-12.2)
[2017-11-27] MEDS: (Novolin R) Insulin Human Regular 100 units/ml vial SC SCH ×4 (08:15→22:02)
[2017-11-27] MEDS: Potassium Chloride 20 mEq ER Tab PO SCH (13:22)
[2017-11-27] MEDS: Aritificial Tears (15ml) OD SCH (13:23)
[2017-11-27] MEDS: Multiple Vitamins Tab PO SCH (13:23)
--- NOTE | 2017-11-27 14:01 | CP.PCM.PN ---
Subjective - Date & Time of Evaluation Date of Evaluation: 11/27/17 Time of Evaluation: 09:45 - Subjective Subjective: PGY1 Medicine Note for Dr. Jung Patient seen and examined at bedside this morning. Currently, the patient is comfortable but seems to be in and out of altered mental status. Patient appears much more confused today compared to yesterday. Patients oral intake is poor and he complains of continued mild abdominal aches. As per GI, PEG insertion or Peripheral hyperailimentation will benefit patient due to patients poor oral intake, aspiration risk, and poor nutritional status. JULIA plans are being developed by [facility]. He denies fevers, nausea, vomiting, hematochezia, Diarrhea, constipation, chest pain, or SOB. Objective - Vital Signs/Intake and Output Vital Signs (last 24 hours): Temp Pulse Resp BP Pulse Ox 97.6 F 62 20 153/74 H 96 11/27/17 07:18 11/27/17 07:18 11/27/17 07:18 11/27/17 07:18 11/27/17 07:18 Intake and Output: 11/27/17 11/27/17 06:59 18:59 Intake Total 300 Balance 300 - Medications Medications: Current Medications Amlodipine Besylate (Norvasc) 5 mg PO Q24H [facility] Last Admin: 11/26/17 19:50 Dose: 5 mg Artificial Tears (Artificial Tears) 0 ml OD DAILY [facility] Last Admin: 11/27/17 13:23 Dose: 2 drop Folic Acid (Folic Acid) 1 mg PO DAILY [facility] Last Admin: 11/27/17 13:23 Dose: 1 mg Pantoprazole Sodium 80 mg/ (Sodium Chloride) 100 mls @ 10 mls/hr IVPB .Q10H [facility] PRN Reason: 8 MG/HR Last Admin: 11/27/17 02:28 Dose: 10 mls/hr Insulin Human Regular (Novolin R) 0 unit SC ACHS [facility] PRN Reason: Protocol Last Admin: 11/26/17 21:31 Dose: Not Given Lisinopril (Zestril) 20 mg PO DAILY [facility] Last Admin: 11/27/17 13:22 Dose: 20 mg Multivitamins (Hexavitamin) 1 tab PO DAILY [facility] Last Admin: 11/27/17 13:23 Dose: 1 tab Neomycin Sulfate (Neomycin Tab) 500 mg PO Q6H [facility] Last Admin: 11/27/17 13:22 Dose: 500 mg Ondansetron HCl (Zofran Inj) 4 mg IVP Q6 [facility] Last Admin: 11/21/17 14:43 Dose: Not Given Potassium Chloride (K-Dur 20 Meq Er Tab) 40 meq PO DAILY [facility] Last Admin: 11/27/17 13:22 Dose: 40 meq Propranolol HCl (Inderal) 20 mg PO TID [facility] Last Admin: 11/27/17 13:22 Dose: 20 mg Sucralfate (Carafate Oral Susp) 1 gm PO ACHS [facility] Last Admin: 11/27/17 13:22 Dose: 1 gm Thiamine HCl (Vitamin B1 Tab) 100 mg PO DAILY [facility] Last Admin: 11/27/17 13:23 Dose: 100 mg - Labs Labs: 11/26/17 07:45 11/26/17 07:45 PT 15.2 SECONDS (9.7-12.2) H 11/27/17 08:00 INR 1.3 11/27/17 08:00 APTT 38 SECONDS (21-34) H 11/27/17 08:00 - Constitutional Appears: Non-toxic, No Acute Distress - Head Exam Head Exam: ATRAUMATIC, NORMOCEPHALIC - Eye Exam Eye Exam: EOMI Pupil Exam: PERRL - ENT Exam ENT Exam: Mucous Membranes Moist - Respiratory Exam Respiratory Exam: Clear to Ausculation Bilateral, NORMAL BREATHING PATTERN. absent: Accessory Muscle Use, Rales, Rhonchi, Wheezes, Respiratory Distress - Cardiovascular Exam Cardiovascular Exam: REGULAR RHYTHM, +S1, +S2 - GI/Abdominal Exam GI & Abdominal Exam: Soft, Normal Bowel Sounds. absent: Distended, Firm, Guarding, Rigid, Tenderness - Extremities Exam Extremities Exam: absent: Calf Tenderness, Pedal Edema - Neurological Exam Neurological Exam: Alert, Altered, Awake. absent: Oriented x3 - Psychiatric Exam Psychiatric exam: absent: Normal Affect, Normal Mood - Skin Skin Exam: Dry, Warm Assessment and Plan - Assessment and Plan (Free Text) Plan: GI bleed; resolved and ruled out - GI consulted, Dr. Katz; recs appreciated - Endoscopy (11/02/17) showed candidiasis esophagitis, gastric ulcer (biopsied); erythematous mucosa in prepyloric region of stomach and erythematous duodenopathy. - Colonscopy (1/30/18) showed colitis, diverticulitis, internal hemorrhoids, and chronic inflammation. - Continue Protonix drip - Continue NS@120mls/hr - Neomycin Sulfate 500mg PO q6h - Per GI note, patient may be candidate for possible PEG. Acute Renal Failure; chronic CKD - Upon Admission Cr. 4.6 - Yesterday's Cr 1.3; f/u todays - Ammonia 29 - Lisinopril and Lasix held as it could be contributing to Acute Kidney Injury * Restarted Lisinopril @20mg daily in AM (home dose 40mg) * Started Amlodipine 5mg PO HS Hypertension;chronic - Lasix and Lisinopril held at this time. - Overnight, patients BP was recorded as 210/111, after administration of propanolol, came down to 182/92. * Restarted Lisinopril @20mg daily in AM (home dose 40mg) * Started Amlodipine 5mg PO HS Diabetes - ISS - Accuchecks ACHS PPX - Folic acid 1 mg PO daily - Multivitamin 1 tab PO daily - Thiamine 100mg PO daily - Potassium 40meq PO daily (takes at home) DISPO: Patient came to ER from [facility], discharge patient back to [facility] however patient family does not like last rehab center and refuses to let him go back. Working with social work to get placed into different facility. Patient was told to stop drinking; patient is unable to verbalize understanding however encouragement given to the family. The patient is stable for d/c as soon as [facility] is set up for patient . Case discussed with Dr. Fabiana Ricketts Mary Jane PGY1
[2017-11-28] MEDS: Pantoprazole 80 MG in Sodium Chloride 0.9% 100 ML IVPB SCH ×4 (03:09→22:47)
[2017-11-28] MEDS: Sucralfate 1 gm/10 ml Oral Susp UD PO SCH ×4 (06:44→21:54)
[2017-11-28] MEDS: (Novolin R) Insulin Human Regular 100 units/ml vial SC SCH ×4 (08:27→21:39)
[2017-11-28 08:40] LABS: BASO # 0.1 K/uL (0.0-0.2); BASO % 1.5 % (0.0-2.0); EOS # 0.3 K/uL (0.0-0.7); EOS % 6.4 % (0.0-4.0); LYMPH # 1.1 K/uL (1.0-4.3); LYMPH % 25.7 % (20.0-40.0); MEAN CELL VOLUME 87.1 fL (80.0-94.0); MEAN CORPUSCULAR HEMOGLOBIN 28.2 pg (27.0-31.0); MEAN CORPUSCULAR HGB CONC 32.3 g/dL (33.0-37.0); MEAN PLATELET VOLUME 8.7 fL (7.2-11.7); MONO # 0.2 K/uL (0.0-0.8); MONO % 5.5 % (0.0-10.0); NEUT # 2.6 K/uL (1.8-7.0); NEUT % 60.9 % (50.0-75.0); NRBC % 0.1 % (0.0-2.0); RBC 3.56 Mil/uL (4.40-5.90); RED CELL DISTRIBUTION WIDTH 21.7 % (11.5-14.5); WHITE BLOOD COUNT 4.3 K/uL (4.8-10.8)
[2017-11-28 09:06] LABS: ALB/GLOB RATIO 0.9 (1.0-2.1); ALBUMIN 2.7 g/dL (3.5-5.0); ALT/SGPT 24 U/L (21-72); AST/SGOT 28 U/L (17-59); BLOOD UREA NITROGEN 6 mg/dL (9-20); CALCIUM 9.5 mg/dl (8.6-10.4); GFR AFRICAN-AMERICAN > 60; GFR NON-AFRICAN AMERICAN > 60
[2017-11-28] MEDS: Multiple Vitamins Tab PO SCH (09:41)
[2017-11-28] MEDS: Potassium Chloride 20 mEq ER Tab PO SCH (09:42)
[2017-11-28] MEDS: Aritificial Tears (15ml) OD SCH (09:42)
--- NOTE | 2017-11-28 11:29 | CP.PCM.PN ---
Subjective - Date & Time of Evaluation Date of Evaluation: 11/28/17 Time of Evaluation: 07:05 - Subjective Subjective: PGY1 Medicine Note for Dr. Jung Patient seen and examined at bedside this morning. Patient is resting comfortably in bed. Where he used to respond in icelandic to questions, he is now only speaking in his [place] language. He appears more confused today compared to previous days. ROS unattainable due to patient's mental status. Nursing staff state he slept throughout the night without any problems. Objective - Vital Signs/Intake and Output Vital Signs (last 24 hours): Temp Pulse Resp BP Pulse Ox 97.2 F L 67 20 196/94 H 99 11/28/17 08:01 11/28/17 08:01 11/28/17 08:01 11/28/17 08:01 11/28/17 08:01 - Medications Medications: Current Medications Amlodipine Besylate (Norvasc) 5 mg PO Q24H [facility] Last Admin: 11/27/17 22:42 Dose: 5 mg Artificial Tears (Artificial Tears) 0 ml OD DAILY [facility] Last Admin: 11/27/17 13:23 Dose: 2 drop Folic Acid (Folic Acid) 1 mg PO DAILY [facility] Last Admin: 11/28/17 09:42 Dose: 1 mg Pantoprazole Sodium 80 mg/ (Sodium Chloride) 100 mls @ 10 mls/hr IVPB .Q10H [facility] PRN Reason: 8 MG/HR Last Admin: 11/28/17 03:09 Dose: 10 mls/hr Insulin Human Regular (Novolin R) 0 unit SC ACHS [facility] PRN Reason: Protocol Last Admin: 11/28/17 08:27 Dose: 4 unit Lisinopril (Zestril) 20 mg PO DAILY [facility] Last Admin: 11/28/17 09:42 Dose: 20 mg Multivitamins (Hexavitamin) 1 tab PO DAILY [facility] Last Admin: 11/28/17 09:41 Dose: 1 tab Neomycin Sulfate (Neomycin Tab) 500 mg PO Q6H [facility] Last Admin: 11/28/17 08:27 Dose: 500 mg Ondansetron HCl (Zofran Inj) 4 mg IVP Q6 [facility] Last Admin: 11/21/17 14:43 Dose: Not Given Potassium Chloride (K-Dur 20 Meq Er Tab) 40 meq PO DAILY [facility] Last Admin: 11/28/17 09:42 Dose: 40 meq Propranolol HCl (Inderal) 20 mg PO TID [facility] Last Admin: 11/28/17 09:42 Dose: 20 mg Sucralfate (Carafate Oral Susp) 1 gm PO ACHS [facility] Last Admin: 11/28/17 06:44 Dose: 1 gm Thiamine HCl (Vitamin B1 Tab) 100 mg PO DAILY [facility] Last Admin: 11/28/17 09:42 Dose: 100 mg - Labs Labs: 11/28/17 08:23 11/28/17 08:23 PT 15.2 SECONDS (9.7-12.2) H 11/27/17 08:00 INR 1.3 11/27/17 08:00 APTT 38 SECONDS (21-34) H 11/27/17 08:00 - Constitutional Appears: Non-toxic, No Acute Distress - Head Exam Head Exam: ATRAUMATIC, NORMOCEPHALIC - Eye Exam Eye Exam: EOMI Pupil Exam: PERRL - ENT Exam ENT Exam: Mucous Membranes Moist - Respiratory Exam Respiratory Exam: Clear to Ausculation Bilateral, NORMAL BREATHING PATTERN. absent: Accessory Muscle Use, Rales, Rhonchi, Wheezes, Respiratory Distress - Cardiovascular Exam Cardiovascular Exam: REGULAR RHYTHM, +S1, +S2 - GI/Abdominal Exam GI & Abdominal Exam: Soft, Normal Bowel Sounds. absent: Distended, Firm, Guarding, Rigid, Tenderness - Extremities Exam Extremities Exam: absent: Calf Tenderness, Pedal Edema - Neurological Exam Neurological Exam: Alert, Altered, Awake - Psychiatric Exam Psychiatric exam: absent: Normal Affect, Normal Mood - Skin Skin Exam: Dry, Warm Assessment and Plan - Assessment and Plan (Free Text) Plan: GI bleed; resolved and ruled out - GI consulted, Dr. Katz; recs appreciated - Endoscopy (11/02/17) showed candidiasis esophagitis, gastric ulcer (biopsied); erythematous mucosa in prepyloric region of stomach and erythematous duodenopathy. - Colonscopy (11/06/17) showed colitis, diverticulitis, internal hemorrhoids, and chronic inflammation. - Continue Protonix drip - Continue NS@120mls/hr - Neomycin Sulfate 500mg PO q6h - Per GI note, patient may be candidate for possible PEG. Acute Renal Failure; chronic CKD - Upon Admission Cr. 4.6 - Cr 1.2 - Lisinopril and Lasix held initially as it could have be contributing to Acute Kidney Injury * Lisinopril @20mg daily in AM (home dose 40mg) * Amlodipine 5mg PO HS Alcoholic Liver Cirrhosis - Ammonia 29 (11/23) - f/u today - Lactulose 20gm PO q12h Hypertension;chronic - Lisinopril @20mg daily in AM (home dose 40mg) - Amlodipine 5mg PO HS Diabetes - ISS - Accuchecks ACHS PPX - Folic acid 1 mg PO daily - Multivitamin 1 tab PO daily - Thiamine 100mg PO daily - Potassium 40meq PO daily (takes at home) DISPO: Patient came to ER from [facility], discharge patient back to [facility] however patient family does not like last rehab center and refuses to let him go back. Working with social work to get placed into different facility. Patient was told to stop drinking; patient is unable to verbalize understanding however encouragement given to the family. The patient is stable for d/c as soon as [facility] is set up for patient. Case discussed with Dr. Fabiana Ricketts Mary Jane PGY1
--- NOTE | 2017-11-28 17:49 | PN ---
DATE: LOCATION: [facility], Bed B. SUBJECTIVE: This is a 67-year-old male, seen and examined in rounds, was the floor, appeared to be somewhat more awake and alert with less liquid oral intake with period of mild disorientation and agitation with period of poorly controlled hypertension, but no reported chest pain, palpation, tremor, chills, or fever. The entire chart is reviewed including, but not limited to the most recent lab and radiologic study results, current and previous medication list, current and previous medical events. Today's lab showed white blood cells of 23, hemoglobin 10, hematocrit 31.1, thrombocytopenia of 95 with CO2 content of 21 and negative for metabolic acidosis, but normal BUN and creatinine, blood glucose level is 284 with low albumin 2.5, total protein 5.8. PHYSICAL EXAMINATION: GENERAL: A 67 years old male. VITAL SIGNS: Afebrile with pulse of 70, respiratory rate 20 to 22, blood pressure 180/86. HEENT: Showed pale, dry oral mucous membranes. Nonicteric sclerae. LUNGS: Few scattered crepitation with decreased air entry at bases. HEART: Positive S1 and S2. ABDOMEN: Soft, bowel sounds are present with slight distention. No mass or organomegaly. No rebound tenderness or guarding. EXTREMITIES: With slight lower extremity edematous changes. No clubbing or cyanosis. NEUROLOGIC: No reported new neurological deficits, sensory, or motor. Peripheral pulses are present bilaterally, but weak. However, it has to be mentioned that the patient is somewhat mildly confused. IMPRESSION: 1. Alcoholism with alcoholic liver disease. 2. Change in mental status, most likely secondary to above. 3. Recent history of gastrointestinal bleeding, today. 4. Anemia secondary to above. 5. Chronic renal insufficiency, improving. 6. Poorly controlled hypertension. 7. Poorly controlled diabetes mellitus. 8. Reexacerbation of peptic ulcer disease. 9. Pancytopenia, most likely alcohol induced. 10. Bone marrow suppression. 11. Known history of alcoholic pancreatitis, improving with evidence of mild hepatic encephalopathy. SUGGESTION: 1. Continue current management. 2. Neurology evaluation. 3. Repeat CAT scan or MRI of the head. 4. Further recommendation to follow up. Tommie Edmonds MD
[2017-11-29] MEDS: Sucralfate 1 gm/10 ml Oral Susp UD PO SCH ×4 (06:35→21:03)
[2017-11-29 08:36] LABS: BASO # 0.1 K/uL (0.0-0.2); BASO % 1.4 % (0.0-2.0); EOS # 0.3 K/uL (0.0-0.7); EOS % 6.3 % (0.0-4.0); HEMOGLOBIN 10.1 g/dL (12.0-18.0); LYMPH # 1.4 K/uL (1.0-4.3); LYMPH % 29.4 % (20.0-40.0); MEAN CELL VOLUME 87.1 fL (80.0-94.0); MEAN CORPUSCULAR HEMOGLOBIN 28.1 pg (27.0-31.0); MEAN CORPUSCULAR HGB CONC 32.3 g/dL (33.0-37.0); MEAN PLATELET VOLUME 8.6 fL (7.2-11.7); MONO # 0.3 K/uL (0.0-0.8); MONO % 5.6 % (0.0-10.0); NEUT # 2.8 K/uL (1.8-7.0); NEUT % 57.3 % (50.0-75.0); RBC 3.58 Mil/uL (4.40-5.90); RED CELL DISTRIBUTION WIDTH 21.3 % (11.5-14.5); WHITE BLOOD COUNT 4.8 K/uL (4.8-10.8)
[2017-11-29 08:56] LABS: ALB/GLOB RATIO 0.9 (1.0-2.1); ALBUMIN 2.7 g/dL (3.5-5.0); ALT/SGPT 30 U/L (21-72); AST/SGOT 43 U/L (17-59); BLOOD UREA NITROGEN 6 mg/dL (9-20); CALCIUM 9.6 mg/dl (8.6-10.4); GFR AFRICAN-AMERICAN > 60; GFR NON-AFRICAN AMERICAN 55
[2017-11-29] MEDS: (Novolin R) Insulin Human Regular 100 units/ml vial SC SCH ×4 (09:05→22:04)
[2017-11-29] MEDS: Multiple Vitamins Tab PO SCH (10:01)
[2017-11-29] MEDS: Aritificial Tears (15ml) OD SCH (10:01)
[2017-11-29] MEDS: Potassium Chloride 20 mEq ER Tab PO SCH (10:01)
--- NOTE | 2017-11-29 18:28 | CP.PCM.PN ---
Subjective - Date & Time of Evaluation Date of Evaluation: 11/29/17 Time of Evaluation: 07:35 - Subjective Subjective: PGY1 Medicine Note for Dr. Jung Patient seen and examined at bedside this morning. Patient is awake and alert sitting up eating breakfast on his own. He is mildly confused. He denies any complaints at this time. Objective - Vital Signs/Intake and Output Vital Signs (last 24 hours): Temp Pulse Resp BP Pulse Ox 97.7 F 64 20 185/97 H 100 11/29/17 15:00 11/29/17 15:00 11/29/17 15:00 11/29/17 15:00 11/29/17 15:00 Intake and Output: 11/29/17 11/29/17 06:59 18:59 Output Total 1500 600 Balance -1500 -600 - Medications Medications: Current Medications Amlodipine Besylate (Norvasc) 5 mg PO Q24H [facility] Last Admin: 11/28/17 19:40 Dose: 5 mg Artificial Tears (Artificial Tears) 0 ml OD DAILY [facility] Last Admin: 11/29/17 10:01 Dose: Not Given Folic Acid (Folic Acid) 1 mg PO DAILY [facility] Last Admin: 11/29/17 10:01 Dose: 1 mg Pantoprazole Sodium 80 mg/ (Sodium Chloride) 100 mls @ 10 mls/hr IVPB .Q10H [facility] PRN Reason: 8 MG/HR Last Admin: 11/28/17 22:47 Dose: 10 mls/hr Insulin Human Regular (Novolin R) 0 unit SC ACHS [facility] PRN Reason: Protocol Last Admin: 11/29/17 17:28 Dose: 4 unit Lactulose (Enulose) 20 gm PO Q12H [facility] Last Admin: 11/29/17 13:05 Dose: 20 gm Lisinopril (Zestril) 20 mg PO DAILY [facility] Last Admin: 11/29/17 10:02 Dose: 20 mg Multivitamins (Hexavitamin) 1 tab PO DAILY [facility] Last Admin: 11/29/17 10:01 Dose: 1 tab Ondansetron HCl (Zofran Inj) 4 mg IVP Q6 [facility] Last Admin: 11/21/17 14:43 Dose: Not Given Potassium Chloride (K-Dur 20 Meq Er Tab) 40 meq PO DAILY [facility] Last Admin: 11/29/17 10:01 Dose: 40 meq Propranolol HCl (Inderal) 20 mg PO TID [facility] Last Admin: 11/29/17 17:28 Dose: 20 mg Sucralfate (Carafate Oral Susp) 1 gm PO ACHS [facility] Last Admin: 11/29/17 17:28 Dose: 1 gm Thiamine HCl (Vitamin B1 Tab) 100 mg PO DAILY [facility] Last Admin: 11/29/17 10:02 Dose: 100 mg - Labs Labs: 11/29/17 08:31 11/29/17 08:31 PT 15.2 SECONDS (9.7-12.2) H 11/27/17 08:00 INR 1.3 11/27/17 08:00 APTT 38 SECONDS (21-34) H 11/27/17 08:00 - Constitutional Appears: Non-toxic, No Acute Distress - Head Exam Head Exam: ATRAUMATIC, NORMOCEPHALIC - Eye Exam Eye Exam: EOMI, Normal appearance Pupil Exam: PERRL - ENT Exam ENT Exam: Mucous Membranes Moist - Respiratory Exam Respiratory Exam: Clear to Ausculation Bilateral, NORMAL BREATHING PATTERN. absent: Accessory Muscle Use, Rales, Rhonchi, Wheezes, Respiratory Distress - Cardiovascular Exam Cardiovascular Exam: REGULAR RHYTHM, +S1, +S2 - GI/Abdominal Exam GI & Abdominal Exam: Soft, Normal Bowel Sounds. absent: Distended, Firm, Guarding, Rigid, Tenderness - Extremities Exam Extremities Exam: absent: Calf Tenderness, Pedal Edema - Neurological Exam Neurological Exam: Alert, Altered (in and out of confused state throughout the day.), Awake. absent: Oriented x3 - Psychiatric Exam Psychiatric exam: Normal Affect, Normal Mood - Skin Skin Exam: Dry, Warm Assessment and Plan - Assessment and Plan (Free Text) Plan: GI bleed; resolved and ruled out - GI consulted, Dr. Katz; recs appreciated - Endoscopy (11/02/17) showed candidiasis esophagitis, gastric ulcer (biopsied); erythematous mucosa in prepyloric region of stomach and erythematous duodenopathy. - Colonscopy (11/06/17) showed colitis, diverticulitis, internal hemorrhoids, and chronic inflammation. - Continue Protonix drip - Continue NS@120mls/hr - Neomycin Sulfate 500mg PO q6h - Per GI note, patient may be candidate for possible PEG. * Patient is currently eating Acute Renal Failure; chronic CKD - Upon Admission Cr. 4.6 - Cr 1.3 - Lisinopril and Lasix held initially as it could have be contributing to Acute Kidney Injury * Lisinopril @20mg daily in AM (home dose 40mg) * Amlodipine 5mg PO HS Alcoholic Liver Cirrhosis - Ammonia 29 (11/23) - f/u today - Lactulose 20gm PO q12h Hypertension;chronic - Lisinopril @20mg daily in AM (home dose 40mg) - Amlodipine 5mg PO HS Diabetes - ISS - Accuchecks ACHS PPX - Folic acid 1 mg PO daily - Multivitamin 1 tab PO daily - Thiamine 100mg PO daily - Potassium 40meq PO daily (takes at home) DISPO: Patient came to ER from [facility], discharge patient back to [facility] however patient family does not like last rehab center and refuses to let him go back. Working with social work to get placed into different facility. The patient is stable for d/c as soon as [facility] is set up for patient. No update at this time. Case discussed with Dr. Fabiana Ricketts Mary Jane PGY1
--- NOTE | 2017-11-29 21:35 | PN ---
DATE: LOCATION: [address] [place] [address] B. SUBJECTIVE: This is a 67-year-old male seen and examined early in rounds without significant clinical changes or reported active bleeding with period of mild semi-confusion, somewhat tolerating some oral intake, but not adequate. No reported chest pain, palpitations, significant shortness of breath, or active bleeding. The entire chart is reviewed including, but not limited to the most recent lab and radiologic study results, current and previous medication list, current and previous medical events. Today's, lab showed white blood cells of 4.8, low hemoglobin 10.1, hematocrit 31.2 with thrombocytopenia of 92. Blood glucose level 233, albumin 2.7, and total protein 5.8. PHYSICAL EXAMINATION: GENERAL: A 67-year-old male, semi-confused, but more awake. VITAL SIGNS: Afebrile with pulse of 66, respiratory rate 22, blood pressure 180/88. HEENT: Showed pale, dry oral mucous membranes. Nonicteric sclerae. LUNGS: Few crepitations. Decreased air entry at bases. HEART: Positive S1 and S2. ABDOMEN: Soft with mild distention. Mildly obese. Bowel sounds are present. No mass or organomegaly. RECTAL: The patient refused. EXTREMITIES: Slight lower extremity edematous changes. No clubbing or cyanosis. NEUROLOGIC: No reported neurological deficits, sensory or motor. No focal deficit. Peripheral pulses are present bilaterally, but weak. IMPRESSION: 1. Alcoholism with alcoholic liver disease. 2. Change in mental status with mild hepatic encephalopathy secondary to above. 3. Anemia. 4. Peptic ulcer disease. 5. Recent history of gastrointestinal blood loss. 6. Chronic renal insufficiency, improving. 7. Poorly controlled hypertension, poorly controlled diabetes mellitus. 8. Pancytopenia secondary to above. 9. 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 10. Known history of alcoholic pancreatitis. SUGGESTIONS: 1. Continue current management. 2. Peripheral hyperalimentation. 3. Calorie counting. 4. Further recommendation to follow. Tommie Edmonds MD
[2017-11-29] MEDS: Pantoprazole 80 MG in Sodium Chloride 0.9% 100 ML IVPB SCH (22:04)
[2017-11-30] MEDS: Pantoprazole 80 MG in Sodium Chloride 0.9% 100 ML IVPB SCH ×2 (01:43→17:35)
[2017-11-30] MEDS: Sucralfate 1 gm/10 ml Oral Susp UD PO SCH ×4 (06:30→21:26)
[2017-11-30 08:22] LABS: BASO # 0.1 K/uL (0.0-0.2); BASO % 1.3 % (0.0-2.0); EOS # 0.3 K/uL (0.0-0.7); EOS % 5.3 % (0.0-4.0); HEMOGLOBIN 10.6 g/dL (12.0-18.0); LYMPH # 1.2 K/uL (1.0-4.3); LYMPH % 19.6 % (20.0-40.0); MEAN CELL VOLUME 86.5 fL (80.0-94.0); MEAN CORPUSCULAR HEMOGLOBIN 28.3 pg (27.0-31.0); MEAN CORPUSCULAR HGB CONC 32.8 g/dL (33.0-37.0); MEAN PLATELET VOLUME 8.6 fL (7.2-11.7); MONO # 0.3 K/uL (0.0-0.8); MONO % 4.8 % (0.0-10.0); NEUT # 4.3 K/uL (1.8-7.0); NRBC % 0.1 % (0.0-2.0); RBC 3.75 Mil/uL (4.40-5.90); RED CELL DISTRIBUTION WIDTH 21.4 % (11.5-14.5); WHITE BLOOD COUNT 6.2 K/uL (4.8-10.8)
[2017-11-30 08:36] LABS: ALB/GLOB RATIO 0.8 (1.0-2.1); ALBUMIN 2.9 g/dL (3.5-5.0); CALCIUM 9.4 mg/dl (8.6-10.4); GFR AFRICAN-AMERICAN > 60; GFR NON-AFRICAN AMERICAN > 60
[2017-11-30 08:38] LABS: ALT/SGPT 26 U/L (21-72); AST/SGOT 40 U/L (17-59); BLOOD UREA NITROGEN 7 mg/dL (9-20)
[2017-11-30] MEDS: (Novolin R) Insulin Human Regular 100 units/ml vial SC SCH ×4 (08:54→22:13)
[2017-11-30] MEDS: Potassium Chloride 20 mEq ER Tab PO SCH (09:45)
[2017-11-30] MEDS: Multiple Vitamins Tab PO SCH (09:45)
[2017-11-30] MEDS: Aritificial Tears (15ml) OD SCH (09:45)
--- NOTE | 2017-11-30 11:09 | CP.PCM.PN ---
Subjective - Date & Time of Evaluation Date of Evaluation: 11/30/17 Time of Evaluation: 07:35 - Subjective Subjective: Patient seen and examined at bedside this morning. Overnight, the patients BP came up to 203/98 but he was asymptomatic. The patient was given 10mg of Hydralazine IVP once. Currently, the patient is comfortable and speaking comprehensively in his natural language, Gujarati. He states that he would like to ambulate, PT was ordered and will help him move around. Patient is eating well and tolerating fluids. Patient no longer complains of abdominal aches. He states that he is ready to leave; he was told [facility]UL[facility] plans are being developed by [facility]. He denies fevers, nausea, vomiting, hematochezia, Diarrhea, constipation, chest pain, or SOB. Objective - Vital Signs/Intake and Output Vital Signs (last 24 hours): Temp Pulse Resp BP Pulse Ox 97.4 F L 64 20 182/93 H 96 11/30/17 08:19 11/30/17 08:19 11/30/17 08:19 11/30/17 08:19 11/30/17 08:19 Intake and Output: 11/30/17 11/30/17 06:59 18:59 Intake Total 800 Output Total 1200 Balance -400 - Medications Medications: Current Medications Amlodipine Besylate (Norvasc) 5 mg PO Q24H [facility] Last Admin: 11/29/17 21:03 Dose: 5 mg Artificial Tears (Artificial Tears) 0 ml OD DAILY [facility] Last Admin: 11/29/17 10:01 Dose: Not Given Folic Acid (Folic Acid) 1 mg PO DAILY [facility] Last Admin: 11/30/17 09:45 Dose: 1 mg Pantoprazole Sodium 80 mg/ (Sodium Chloride) 100 mls @ 10 mls/hr IVPB .Q10H [facility] PRN Reason: 8 MG/HR Last Admin: 11/30/17 01:43 Dose: 10 mls/hr Insulin Human Regular (Novolin R) 0 unit SC ACHS [facility] PRN Reason: Protocol Last Admin: 11/30/17 08:54 Dose: 4 unit Lactulose (Enulose) 20 gm PO Q12H [facility] Last Admin: 11/30/17 00:19 Dose: 20 gm Lisinopril (Zestril) 20 mg PO DAILY [facility] Last Admin: 02/23/18 09:45 Dose: 20 mg Multivitamins (Hexavitamin) 1 tab PO DAILY [facility] Last Admin: 11/30/17 09:45 Dose: 1 tab Ondansetron HCl (Zofran Inj) 4 mg IVP Q6 [facility] Last Admin: 11/21/17 14:43 Dose: Not Given Potassium Chloride (K-Dur 20 Meq Er Tab) 40 meq PO DAILY [facility] Last Admin: 11/30/17 09:45 Dose: 40 meq Propranolol HCl (Inderal) 20 mg PO TID [facility] Last Admin: 11/30/17 09:47 Dose: 20 mg Sucralfate (Carafate Oral Susp) 1 gm PO ACHS [facility] Last Admin: 11/30/17 06:30 Dose: 1 gm Thiamine HCl (Vitamin B1 Tab) 100 mg PO DAILY [facility] Last Admin: 11/30/17 09:45 Dose: 100 mg - Labs Labs: 11/30/17 08:11 11/30/17 08:11 PT 15.2 SECONDS (9.7-12.2) H 11/27/17 08:00 INR 1.3 11/27/17 08:00 APTT 38 SECONDS (21-34) H 11/27/17 08:00 - Constitutional Appears: Non-toxic, No Acute Distress - Head Exam Head Exam: ATRAUMATIC, NORMOCEPHALIC - Eye Exam Eye Exam: EOMI, Normal appearance Pupil Exam: NORMAL ACCOMODATION - ENT Exam ENT Exam: Mucous Membranes Moist - Respiratory Exam Respiratory Exam: Clear to Ausculation Bilateral, NORMAL BREATHING PATTERN. absent: Accessory Muscle Use, Rales, Rhonchi, Wheezes, Respiratory Distress - Cardiovascular Exam Cardiovascular Exam: REGULAR RHYTHM, +S1, +S2 - GI/Abdominal Exam GI & Abdominal Exam: Soft, Normal Bowel Sounds. absent: Distended, Firm, Guarding, Rigid, Tenderness - Extremities Exam Extremities Exam: absent: Calf Tenderness, Pedal Edema - Neurological Exam Neurological Exam: Alert, Awake, Oriented x3 - Psychiatric Exam Psychiatric exam: Normal Affect, Normal Mood - Skin Skin Exam: Dry, Warm Assessment and Plan - Assessment and Plan (Free Text) Plan: GI bleed; resolved and ruled out - GI consulted, Dr. Katz; recs appreciated - Endoscopy (11/02/17) showed candidiasis esophagitis, gastric ulcer (biopsied); erythematous mucosa in prepyloric region of stomach and erythematous duodenopathy. - Colonscopy (11/06/17) showed colitis, diverticulitis, internal hemorrhoids, and chronic inflammation. - Continue Protonix drip - Continue NS@120mls/hr - Neomycin Sulfate 500mg PO q6h - Per GI note, patient may be candidate for possible PEG. * Patient is currently eating Acute Renal Failure; chronic CKD - Upon Admission Cr. 4.6 - Cr 1.2 - Lisinopril and Lasix held initially as it could have be contributing to Acute Kidney Injury * Lisinopril @20mg daily in AM - increased to home dose of 40mg * Amlodipine 5mg PO HS Alcoholic Liver Cirrhosis - Ammonia 29 (11/23) - f/u tomorrow morning - Lactulose 20gm PO q12h Hypertension;chronic - Uncontrolled, BP of 203/98 over night, received 10mg of Hydralazine IVP. - Lisinopril @20mg daily in AM - increased to home dose of 40mg - Amlodipine 5mg PO HS - Hydralazine 10mg IVP q6h prn for SBP >160 Diabetes - ISS - increased from med to high dose - Accuchecks ACHS PPX - Folic acid 1 mg PO daily - Multivitamin 1 tab PO daily - Thiamine 100mg PO daily - Potassium 40meq PO daily (takes at home) - on hold, K+5.3 today - given 15ml of Kayexalate - PT DISPO: Patient came to ER from [facility], discharge patient back to [facility] however patient family does not like last rehab center and refuses to let him go back. Working with social work to get placed into different facility. The patient is stable for d/c as soon as [facility] is set up for patient. No update at this time. Will discuss case with Dr. Fabiana Ricketts Mary Jane PGY1
[2017-11-30] MEDS ORDERED: Sod Polystyrene Sulf 15 gm/60 ml Susp PO ONE (11:30)
--- NOTE | 2017-11-30 23:48 | PN ---
DATE: LOCATION: [facility], bed B. SUBJECTIVE: This is a 66-year-old male, seen and examined in rounds without reported significant clinical changes, but with periods of confusion with reported increase of blood pressure on and off. The patient's oral intake is still poor, this is adequate. but no reported active bleeding or tremors, no reported chest pain or palpitations. The entire chart is reviewed including, but not limited to the most recent lab and radiologic study results, current and the previous medication list, current and the previous medical events. Case discussed with the staff at length. No reported diarrhea, nausea, vomiting, chest pain, or significant shortness of breath today. Today's lab showed hemoglobin 10.6, hematocrit 32.4, thrombocytopenia of 74, potassium 5.3, CO2 content 21 indicative of metabolic acidosis, blood glucose level 303, total protein 6.2, albumin 2.9. PHYSICAL EXAMINATION GENERAL: A 66-year-old male. VITAL SIGNS: Afebrile with pulse of 66, respiratory rate 20 to 22, and blood pressure 160/94. HEENT: Showed pale, dry oral mucous membranes. Nonicteric sclerae. LUNGS: Few scattered crepitations. Decreased air entry at bases. HEART: Positive S1 and S2. ABDOMEN: Soft. Bowel sounds are present with mild generalized tenderness, mildly obese. No mass or organomegaly. No rebound tenderness or guarding. RECTAL: The patient refused. EXTREMITIES: Lower extremity mild edematous changes. No clubbing or cyanosis. NEUROLOGIC: No reported new neurological deficits, sensory or motor. Peripheral pulses are present bilaterally. IMPRESSION: 1. Alcoholism. 2. Alcoholic liver disease by history. 3. Anemia, most likely secondary to above. 4. Change in mental status with slight hepatic encephalopathy, slightly improving. 5. Peptic ulcer disease by history. 6. Known history of GI blood loss. 7. Known history of alcoholic pancreatitis. 8. Poorly controlled hypertension. 9. Poorly controlled diabetes mellitus. SUGGESTIONS: 1. Continue current management. 2. Follow Cardiology evaluation. 3. Repeat stool for occult blood. 4. Repeat ammonia level before discharge home. 5. Further recommendations to follow. Tommie Edmonds MD
[2017-12-01] MEDS: Pantoprazole 80 MG in Sodium Chloride 0.9% 100 ML IVPB SCH ×2 (04:00→19:36)
[2017-12-01] MEDS: Sucralfate 1 gm/10 ml Oral Susp UD PO SCH ×4 (07:59→21:27)
[2017-12-01] MEDS: (Novolin R) Insulin Human Regular 100 units/ml vial SC SCH ×4 (08:30→22:05)
[2017-12-01] MEDS: Aritificial Tears (15ml) OD SCH (09:21)
[2017-12-01] MEDS: Multiple Vitamins Tab PO SCH (09:21)
[2017-12-01 09:54] VITALS: RESP 20
[2017-12-01 11:47] LABS: BASO # 0.1 K/uL (0.0-0.2); BASO % 0.9 % (0.0-2.0); EOS # 0.2 K/uL (0.0-0.7); EOS % 3.6 % (0.0-4.0); HEMOGLOBIN 10.3 g/dL (12.0-18.0); LYMPH # 1.3 K/uL (1.0-4.3); LYMPH % 19.8 % (20.0-40.0); MEAN CELL VOLUME 86.7 fL (80.0-94.0); MEAN CORPUSCULAR HEMOGLOBIN 28.2 pg (27.0-31.0); MEAN CORPUSCULAR HGB CONC 32.5 g/dL (33.0-37.0); MEAN PLATELET VOLUME 9.4 fL (7.2-11.7); MONO # 0.3 K/uL (0.0-0.8); MONO % 3.8 % (0.0-10.0); NEUT # 4.7 K/uL (1.8-7.0); NEUT % 71.9 % (50.0-75.0); RBC 3.66 Mil/uL (4.40-5.90); RED CELL DISTRIBUTION WIDTH 20.6 % (11.5-14.5); WHITE BLOOD COUNT 6.6 K/uL (4.8-10.8)
[2017-12-01 13:10] LABS: ALB/GLOB RATIO 0.9 (1.0-2.1); ALBUMIN 2.7 g/dL (3.5-5.0); ALT/SGPT 29 U/L (21-72); AST/SGOT 38 U/L (17-59); BLOOD UREA NITROGEN 10 mg/dL (9-20); CALCIUM 9.5 mg/dl (8.6-10.4); GFR AFRICAN-AMERICAN > 60; GFR NON-AFRICAN AMERICAN 55
--- NOTE | 2017-12-01 15:27 | CP.PCM.PN ---
Subjective - Date & Time of Evaluation Date of Evaluation: 12/01/17 Time of Evaluation: 08:00 - Subjective Subjective: PGY1 Medicine Note for Dr. Jung Patient seen and examined at bedside this morning. No acute events overnight. Patient is resting comfortably. He is very lethargic and confused this morning. ROS unattainable. Objective - Vital Signs/Intake and Output Vital Signs (last 24 hours): Temp Pulse Resp BP Pulse Ox 97.5 F L 67 20 162/89 H 97 12/01/17 09:48 12/01/17 09:48 12/01/17 09:48 12/01/17 09:48 12/01/17 09:48 Intake and Output: 12/01/17 12/01/17 06:59 18:59 Intake Total 480 Output Total 1050 Balance -570 - Medications Medications: Current Medications Amlodipine Besylate (Norvasc) 5 mg PO Q24H [facility] Last Admin: 11/30/17 19:58 Dose: 5 mg Artificial Tears (Artificial Tears) 0 ml OD DAILY [facility] Last Admin: 12/01/17 09:21 Dose: Not Given Folic Acid (Folic Acid) 1 mg PO DAILY [facility] Last Admin: 12/01/17 09:21 Dose: 1 mg Hydralazine HCl (Apresoline) 10 mg IVP Q6H [facility]N PRN Reason: SBP >160 Last Admin: 11/30/17 13:37 Dose: 10 mg Pantoprazole Sodium 80 mg/ (Sodium Chloride) 100 mls @ 10 mls/hr IVPB .Q10H [facility] PRN Reason: 8 MG/HR Last Admin: 12/01/17 04:00 Dose: 10 mls/hr Insulin Human Regular (Novolin R) 0 unit SC ACHS [facility] PRN Reason: Protocol Last Admin: 12/01/17 12:30 Dose: 6 unit Lactulose (Enulose) 20 gm PO Q12H [facility] Last Admin: 12/01/17 12:32 Dose: 20 gm Lisinopril (Zestril) 40 mg PO DAILY [facility] Last Admin: 12/01/17 09:25 Dose: 40 mg Multivitamins (Hexavitamin) 1 tab PO DAILY [facility] Last Admin: 12/01/17 09:21 Dose: 1 tab Ondansetron HCl (Zofran Inj) 4 mg IVP Q6 [facility] Last Admin: 12/01/17 13:00 Dose: 4 mg Potassium Chloride (K-Dur 20 Meq Er Tab) 40 meq PO DAILY [facility] Last Admin: 11/30/17 09:45 Dose: 40 meq Propranolol HCl (Inderal) 20 mg PO TID [facility] Last Admin: 12/01/17 13:46 Dose: 20 mg Sucralfate (Carafate Oral Susp) 1 gm PO ACHS [facility] Last Admin: 12/01/17 12:30 Dose: 1 gm Thiamine HCl (Vitamin B1 Tab) 100 mg PO DAILY [facility] Last Admin: 12/01/17 09:29 Dose: 100 mg - Labs Labs: 12/01/17 11:38 12/01/17 11:38 PT 15.2 SECONDS (9.7-12.2) H 11/27/17 08:00 INR 1.3 11/27/17 08:00 APTT 38 SECONDS (21-34) H 11/27/17 08:00 - Constitutional Appears: Non-toxic, No Acute Distress - Head Exam Head Exam: ATRAUMATIC, NORMOCEPHALIC - Eye Exam Eye Exam: EOMI, PERRL - ENT Exam ENT Exam: Mucous Membranes Moist - Respiratory Exam Respiratory Exam: Clear to Ausculation Bilateral, NORMAL BREATHING PATTERN. absent: Accessory Muscle Use, Rales, Rhonchi, Wheezes, Respiratory Distress - Cardiovascular Exam Cardiovascular Exam: REGULAR RHYTHM, +S1, +S2 - GI/Abdominal Exam GI & Abdominal Exam: Soft, Normal Bowel Sounds. absent: Distended, Firm, Guarding, Rigid, Tenderness - Extremities Exam Extremities Exam: absent: Calf Tenderness, Pedal Edema - Neurological Exam Neurological Exam: Alert, Awake. absent: Oriented x3 - Psychiatric Exam Psychiatric exam: Normal Affect, Normal Mood - Skin Skin Exam: Dry, Warm Assessment and Plan - Assessment and Plan (Free Text) Plan: GI bleed; resolved and ruled out - GI consulted, Dr. Katz; recs appreciated - Endoscopy (11/02/17) showed candidiasis esophagitis, gastric ulcer (biopsied); erythematous mucosa in prepyloric region of stomach and erythematous duodenopathy. - Colonscopy (11/06/17) showed colitis, diverticulitis, internal hemorrhoids, and chronic inflammation. - Continue Protonix drip - Continue NS@120mls/hr - Neomycin Sulfate 500mg PO q6h - Per GI note, patient may be candidate for possible PEG. * Patient is currently eating Acute Renal Failure; chronic CKD - Upon Admission Cr. 4.6 - Cr 1.2 - Lisinopril and Lasix held initially as it could have be contributing to Acute Kidney Injury * Lisinopril @20mg daily in AM - increased to home dose of 40mg * Amlodipine 5mg PO HS Alcoholic Liver Cirrhosis - Ammonia 29 (11/23) - f/u tomorrow morning - Lactulose 20gm PO q12h Hypertension;chronic - Uncontrolled, BP of 203/98 over night, received 10mg of Hydralazine IVP. - Lisinopril @20mg daily in AM - increased to home dose of 40mg - Amlodipine 5mg PO HS - Hydralazine 10mg IVP q6h prn for SBP >160 Diabetes - ISS - increased from med to high dose - Accuchecks ACHS PPX - Folic acid 1 mg PO daily - Multivitamin 1 tab PO daily - Thiamine 100mg PO daily - Potassium 40meq PO daily (takes at home) - on hold, K+5.3 today - given 15ml of Kayexalate - PT DISPO: Patient came to ER from [facility], discharge patient back to [facility] however patient family does not like last rehab center and refuses to let him go back. Working with social work to get placed into different facility. The patient is stable for d/c as soon as [facility] is set up for patient. No update at this time. Case discussed with Dr. Fabiana Ricketts Mary Jane PGY1
[2017-12-02] MEDS: Pantoprazole 80 MG in Sodium Chloride 0.9% 100 ML IVPB SCH ×2 (06:04→06:05)
[2017-12-02] MEDS: Sucralfate 1 gm/10 ml Oral Susp UD PO SCH ×4 (06:38→21:39)
[2017-12-02] MEDS: (Novolin R) Insulin Human Regular 100 units/ml vial SC SCH ×4 (08:30→22:03)
[2017-12-02 08:35] LABS: BASO % 0.9 % (0.0-2.0); EOS # 0.3 K/uL (0.0-0.7); EOS % 5.2 % (0.0-4.0); HEMOGLOBIN 10.1 g/dL (12.0-18.0); LYMPH # 1.7 K/uL (1.0-4.3); LYMPH % 29.5 % (20.0-40.0); MEAN CELL VOLUME 86.4 fL (80.0-94.0); MEAN CORPUSCULAR HEMOGLOBIN 27.9 pg (27.0-31.0); MEAN CORPUSCULAR HGB CONC 32.2 g/dL (33.0-37.0); MEAN PLATELET VOLUME 9.1 fL (7.2-11.7); MONO # 0.3 K/uL (0.0-0.8); MONO % 5.3 % (0.0-10.0); NEUT # 3.4 K/uL (1.8-7.0); NEUT % 59.1 % (50.0-75.0); NRBC % 0.1 % (0.0-2.0); RBC 3.63 Mil/uL (4.40-5.90); RED CELL DISTRIBUTION WIDTH 21.3 % (11.5-14.5); WHITE BLOOD COUNT 5.7 K/uL (4.8-10.8)
[2017-12-02] MEDS: Multiple Vitamins Tab PO SCH (09:53)
[2017-12-02] MEDS: Pantoprazole 40 mg EC Tab PO SCH ×2 (09:56→09:59)
[2017-12-02 10:01] LABS: ALB/GLOB RATIO 0.8 (1.0-2.1); ALBUMIN 2.7 g/dL (3.5-5.0); ALT/SGPT 34 U/L (21-72); AST/SGOT 37 U/L (17-59); BLOOD UREA NITROGEN 9 mg/dL (9-20); CALCIUM 9.2 mg/dl (8.6-10.4); GFR AFRICAN-AMERICAN > 60; GFR NON-AFRICAN AMERICAN 50
[2017-12-02] MEDS: Aritificial Tears (15ml) OD SCH (10:16)
--- NOTE | 2017-12-02 16:46 | PN ---
DATE: LOCATION: Room 558, bed B. SUBJECTIVE: This is a 67-year-old male, seen and examined in rounds with the staff in the floor today without significant clinical changes or reported active bleeding with period of semi-confusion and mild disorientation. Somewhat tolerating oral intake well. No reported chest pain, significant shortness of breath, or palpitation. No reported chills or fever. Today's lab showed hemoglobin of 10.1, hematocrit 31.3, with normal white blood cells, but thrombocytopenia of 74, with blood glucose level of 239. The patient still has low albumin and low total protein. PHYSICAL EXAMINATION: GENERAL: A 67-year-old male. VITAL SIGNS: Afebrile with pulse of 64, respiratory rate 20 to 22, and blood pressure 130/78. HEENT: Showed pale, dry oral mucous membranes. Nonicteric sclerae. LUNGS: Few scattered bilateral crepitations. Decreased air entry at bases. HEART: Positive S1 and S2. ABDOMEN: Soft. Bowel sounds are present with mild generalized tenderness. No mass or organomegaly. No rebound tenderness or guarding. RECTAL: The patient refused. EXTREMITIES: Without significant clubbing, cyanosis, or edema, but the patient appears to be very lethargic at times with period of strong confusion. IMPRESSION: 1. Alcoholism with alcoholic liver disease. 2. Reported gastrointestinal bleeding, resolved. 3. Known history of hypertension, poorly controlled diabetes mellitus, electrolyte imbalance. 4. Malnutrition with hypoalbuminemia, hypoproteinemia. 5. Change of mental status with mild alcoholic hepatic encephalopathy. 6. Known history of alcoholic pancreatitis, none recently. SUGGESTION: 1. Continue current management. 2. Repeat stool for occult blood. 3. Rehydration with peripheral hyperalimentation. 4. Blood transfusion only as needed. Keep hemoglobin around 10 gm%. 5. No need for any further aggressive GI workup in the meantime. The patient had upper and lower endoscopy apparently recently. 6. Case discussed more than once with family. Further recommendation to follow. 7. The patient may need MRI of the brain with full neurology evaluation. Tommie Edmonds MD
--- NOTE | 2017-12-02 20:20 | CP.PCM.PN ---
Subjective - Date & Time of Evaluation Date of Evaluation: 12/02/17 Time of Evaluation: 09:35 - Subjective Subjective: PGY1 Medicine Note for Dr. Jung Patient seen and examined this morning. Per nursing staff, patient did not sleep most of the night. He was very difficult to wake up in the morning but was awake later in the day upon re-examination. He is still experiencing episodes of confusion. ROS unattainable. Objective - Vital Signs/Intake and Output Vital Signs (last 24 hours): Temp Pulse Resp BP Pulse Ox 97.4 F L 58 L 20 148/87 100 12/02/17 15:24 12/02/17 15:24 12/02/17 15:24 12/02/17 15:24 12/02/17 15:24 Intake and Output: 12/02/17 12/03/17 18:59 06:59 Intake Total 200 Output Total 400 Balance -200 - Medications Medications: Current Medications Amlodipine Besylate (Norvasc) 5 mg PO Q24H [facility] Last Admin: 12/02/17 20:19 Dose: 5 mg Artificial Tears (Artificial Tears) 0 ml OD DAILY [facility] Last Admin: 12/02/17 10:16 Dose: 1 drop Folic Acid (Folic Acid) 1 mg PO DAILY [facility] Last Admin: 12/02/17 09:53 Dose: 1 mg Hydralazine HCl (Apresoline) 10 mg IVP Q6H PRN PRN Reason: SBP >160 Last Admin: 12/01/17 22:49 Dose: 10 mg Insulin Human Regular (Novolin R) 0 unit SC ACHS [facility] PRN Reason: Protocol Last Admin: 12/02/17 17:29 Dose: 8 unit Lactulose (Enulose) 20 gm PO Q12H [facility] Last Admin: 12/02/17 11:19 Dose: 20 gm Lisinopril (Zestril) 40 mg PO DAILY [facility] Last Admin: 12/02/17 09:53 Dose: 40 mg Multivitamins (Hexavitamin) 1 tab PO DAILY [facility] Last Admin: 12/02/17 09:53 Dose: 1 tab Ondansetron HCl (Zofran Inj) 4 mg IVP Q6 [facility] Last Admin: 12/02/17 17:30 Dose: 4 mg Pantoprazole Sodium (Protonix Ec Tab) 40 mg PO DAILY [facility] Last Admin: 12/02/17 09:59 Dose: 40 mg Potassium Chloride (K-Dur 20 Meq Er Tab) 40 meq PO DAILY [facility] Last Admin: 11/30/17 09:45 Dose: 40 meq Propranolol HCl (Inderal) 20 mg PO TID [facility] Last Admin: 12/02/17 17:30 Dose: 20 mg Sucralfate (Carafate Oral Susp) 1 gm PO ACHS [facility] Last Admin: 12/02/17 17:29 Dose: 1 gm Thiamine HCl (Vitamin B1 Tab) 100 mg PO DAILY [facility] Last Admin: 12/02/17 09:53 Dose: 100 mg - Labs Labs: 12/02/17 08:16 12/02/17 09:30 PT 15.2 SECONDS (9.7-12.2) H 11/27/17 08:00 INR 1.3 11/27/17 08:00 APTT 38 SECONDS (21-34) H 11/27/17 08:00 - Constitutional Appears: Non-toxic, No Acute Distress - Head Exam Head Exam: ATRAUMATIC, NORMOCEPHALIC - Eye Exam Eye Exam: Normal appearance - ENT Exam ENT Exam: Mucous Membranes Moist - Respiratory Exam Respiratory Exam: Clear to Ausculation Bilateral, NORMAL BREATHING PATTERN. absent: Accessory Muscle Use, Rales, Rhonchi, Wheezes, Respiratory Distress - Cardiovascular Exam Cardiovascular Exam: REGULAR RHYTHM, +S1, +S2 - GI/Abdominal Exam GI & Abdominal Exam: Soft, Normal Bowel Sounds. absent: Distended, Firm, Guarding, Rigid - Extremities Exam Extremities Exam: Normal Capillary Refill, Normal Inspection. absent: Calf Tenderness, Tenderness - Neurological Exam Neurological Exam: Alert, Awake. absent: Oriented x3 Neuro motor strength exam: Left Upper Extremity: 5, Right Upper Extremity: 5, Left Lower Extremity: 5, Right Lower Extremity: 5 - Psychiatric Exam Psychiatric exam: Normal Mood - Skin Skin Exam: Dry, Warm Assessment and Plan - Assessment and Plan (Free Text) Plan: GI bleed; resolved and ruled out - GI consulted, Dr. Katz; recs appreciated - Endoscopy (11/02/17) showed candidiasis esophagitis, gastric ulcer (biopsied); erythematous mucosa in prepyloric region of stomach and erythematous duodenopathy. - Colonscopy (11/06/17) showed colitis, diverticulitis, internal hemorrhoids, and chronic inflammation. - Continue Protonix drip - Continue NS@120mls/hr - Neomycin Sulfate 500mg PO q6h - Per GI note, patient may be candidate for possible PEG. * Patient is currently eating Acute Renal Failure; chronic CKD - Upon Admission Cr. 4.6 - Cr 1.4 - Lisinopril and Lasix held initially as it could have be contributing to Acute Kidney Injury * Lisinopril 40mg PO daily * Amlodipine 5mg PO HS Alcoholic Liver Cirrhosis - Ammonia 29 (11/23) - Lactulose 20gm PO q12h Hypertension;chronic - improving - Lisinopril 40mg PO daily - Amlodipine 5mg PO HS - Hydralazine 10mg IVP q6h prn for SBP >160 Diabetes - ISS - increased from med to high dose - Accuchecks ACHS PPX - Folic acid 1 mg PO daily - Multivitamin 1 tab PO daily - Thiamine 100mg PO daily - Potassium 40meq PO daily (takes at home) - on hold, today K+ 4.8 - PT DISPO: Patient came to ER from [facility], discharge patient back to [facility] however patient family does not like last rehab center and refuses to let him go back. Working with social work to get placed into different facility. The patient is stable for d/c as soon as [facility] is set up for patient. No update at this time. Case discussed with Dr. Fabiana Ricketts Mary Jane PGY1
--- NOTE | 2017-12-03 07:55 | PN ---
DATE: 12/01/2017. LOCATION: [facility], bed B. SUBJECTIVE: This is a 67 years old male seen and examined in rounds with the staff in the floor early this morning, without significant clinical changes or reported active bleeding, with period of mild semi confusion and recurrent episode of poorly controlled hypertension. The entire chart is reviewed including, but not limited to the most recent lab and radiologic study results, current and previous medication list, current and previous medical events and today's lab showed blood glucose level of 265. The patient still has low hemoglobin and hematocrit with low albumin and total protein, but with subsequent mild increase of oral intake. PHYSICAL EXAMINATION: GENERAL: A 67 years old male without reported chest pain or palpitations or significant shortness of breath as per the nursing staff. VITAL SIGNS: Afebrile with pulse of 60, respiratory rate of 20 to 22, blood pressure 140/74. HEENT: Showed pale, dry oral mucous membrane. Nonicteric sclerae. LUNGS: Few scattered crepitation. Decreased air entry at bases. HEART: Positive S1 and S2. ABDOMEN: Soft with mild generalized tenderness. No mass or organomegaly. No rebound tenderness or guarding. Abdominal distention was noted. EXTREMITIES: With slight lower extremity edematous changes.. No clubbing or cyanosis. NEUROLOGIC: No reported new neurological deficits, sensory or motor. Peripheral pulses are present bilaterally. IMPRESSION: 1. Alcoholism. 2. Alcoholic liver disease. 3. Anemia. 4. Peptic ulcer disease. 5. Recent history of gastrointestinal blood loss. 6. Poorly controlled diabetes mellitus. 7. Poorly controlled hypertension. SUGGESTIONS: 1. Continue current management. 2. abdominal and pelvic CAT scan. 3. Cardiology followup. 4. Further recommendation to follow. Tommie Edmonds MD
[2017-12-03 08:23] LABS: BASO # 0.1 K/uL (0.0-0.2); EOS # 0.4 K/uL (0.0-0.7); EOS % 6.6 % (0.0-4.0); HEMOGLOBIN 10.1 g/dL (12.0-18.0); LYMPH # 1.4 K/uL (1.0-4.3); LYMPH % 23.9 % (20.0-40.0); MEAN CELL VOLUME 86.4 fL (80.0-94.0); MEAN CORPUSCULAR HEMOGLOBIN 27.9 pg (27.0-31.0); MEAN CORPUSCULAR HGB CONC 32.3 g/dL (33.0-37.0); MONO # 0.3 K/uL (0.0-0.8); MONO % 4.8 % (0.0-10.0); NEUT # 3.7 K/uL (1.8-7.0); NEUT % 63.7 % (50.0-75.0); NRBC % 0.1 % (0.0-2.0); RBC 3.63 Mil/uL (4.40-5.90); RED CELL DISTRIBUTION WIDTH 21.9 % (11.5-14.5); WHITE BLOOD COUNT 5.9 K/uL (4.8-10.8)
[2017-12-03] MEDS: Sucralfate 1 gm/10 ml Oral Susp UD PO SCH ×5 (08:30→22:05)
[2017-12-03] MEDS: (Novolin R) Insulin Human Regular 100 units/ml vial SC SCH ×4 (08:30→22:02)
[2017-12-03 08:42] LABS: ALB/GLOB RATIO 0.8 (1.0-2.1); ALBUMIN 2.7 g/dL (3.5-5.0); ALT/SGPT 36 U/L (21-72); AST/SGOT 48 U/L (17-59); BLOOD UREA NITROGEN 9 mg/dL (9-20); GFR AFRICAN-AMERICAN > 60; GFR NON-AFRICAN AMERICAN 55
--- NOTE | 2017-12-03 10:11 | CP.PCM.PN ---
Subjective - Date & Time of Evaluation Date of Evaluation: 12/03/17 Time of Evaluation: 07:00 - Subjective Subjective: PGY1 Medicine Note for Dr. Jung Patient seen and examined this morning. Patient was difficult to wake up in the morning and is still experiencing episodes of confusion. ROS unattainable. Objective - Vital Signs/Intake and Output Vital Signs (last 24 hours): Temp Pulse Resp BP Pulse Ox 97.4 F L 63 20 163/91 H 92 L 12/03/17 01:56 12/03/17 01:56 12/03/17 01:56 12/03/17 01:56 12/03/17 01:56 Intake and Output: 12/03/17 12/03/17 06:59 18:59 Intake Total 300 Balance 300 - Medications Medications: Current Medications Amlodipine Besylate (Norvasc) 5 mg PO Q24H [facility] Last Admin: 12/02/17 20:19 Dose: 5 mg Artificial Tears (Artificial Tears) 0 ml OD DAILY [facility] Last Admin: 12/02/17 10:16 Dose: 1 drop Folic Acid (Folic Acid) 1 mg PO DAILY [facility] Last Admin: 12/02/17 09:53 Dose: 1 mg Hydralazine HCl (Apresoline) 10 mg IVP Q6H PRN PRN Reason: SBP >160 Last Admin: 12/01/17 22:49 Dose: 10 mg Insulin Human Regular (Novolin R) 0 unit SC ACHS [facility] PRN Reason: Protocol Last Admin: 12/03/17 08:30 Dose: 6 unit Lactulose (Enulose) 20 gm PO Q12H [facility] Last Admin: 12/03/17 00:52 Dose: 20 gm Lisinopril (Zestril) 40 mg PO DAILY [facility] Last Admin: 12/02/17 09:53 Dose: 40 mg Multivitamins (Hexavitamin) 1 tab PO DAILY [facility] Last Admin: 12/02/17 09:53 Dose: 1 tab Ondansetron HCl (Zofran Inj) 4 mg IVP Q6 [facility] Last Admin: 12/03/17 06:03 Dose: 4 mg Pantoprazole Sodium (Protonix Ec Tab) 40 mg PO DAILY [facility] Last Admin: 12/02/17 09:59 Dose: 40 mg Potassium Chloride (K-Dur 20 Meq Er Tab) 40 meq PO DAILY [facility] Last Admin: 11/30/17 09:45 Dose: 40 meq Propranolol HCl (Inderal) 20 mg PO TID [facility] Last Admin: 12/02/17 17:30 Dose: 20 mg Sucralfate (Carafate Oral Susp) 1 gm PO ACHS [facility] Last Admin: 12/03/17 08:30 Dose: 1 gm Thiamine HCl (Vitamin B1 Tab) 100 mg PO DAILY [facility] Last Admin: 12/02/17 09:53 Dose: 100 mg - Labs Labs: 12/03/17 08:04 12/03/17 08:04 PT 15.2 SECONDS (9.7-12.2) H 11/27/17 08:00 INR 1.3 11/27/17 08:00 APTT 38 SECONDS (21-34) H 11/27/17 08:00 - Additional Findings Additional findings: - Constitutional Appears: Non-toxic, No Acute Distress - Head Exam Head Exam: ATRAUMATIC, NORMOCEPHALIC - Eye Exam Eye Exam: miosis - ENT Exam ENT Exam: Mucous Membranes Moist - Respiratory Exam Respiratory Exam: Clear to Ausculation Bilateral, NORMAL BREATHING PATTERN. absent: Accessory Muscle Use, Rales, Rhonchi, Wheezes, Respiratory Distress - Cardiovascular Exam Cardiovascular Exam: REGULAR RHYTHM, +S1, +S2 - GI/Abdominal Exam GI & Abdominal Exam: Soft, Normal Bowel Sounds. absent: Distended, Firm, Guarding, Rigid - Extremities Exam Extremities Exam: Normal Capillary Refill, Normal Inspection. absent: Calf Tenderness, Tenderness - Neurological Exam Neurological Exam: Alert, Awake. absent: Oriented x3 Neuro motor strength exam: Left Upper Extremity: 5, Right Upper Extremity: 5, Left Lower Extremity: 5, Right Lower Extremity: 5 - Psychiatric Exam Psychiatric exam: Normal Mood - Skin Skin Exam: Dry, Warm Assessment and Plan - Assessment and Plan (Free Text) Assessment: GI bleed; resolved and ruled out - GI consulted, Dr. Katz; recs appreciated - Endoscopy (11/02/17) showed candidiasis esophagitis, gastric ulcer (biopsied); erythematous mucosa in prepyloric region of stomach and erythematous duodenopathy. - Colonscopy (11/06/17) showed colitis, diverticulitis, internal hemorrhoids, and chronic inflammation. - Continue Protonix drip - Continue NS@120mls/hr - Neomycin Sulfate 500mg PO q6h - Per GI note, patient may be candidate for possible PEG. * Patient is currently eating, advanced to diabetic diet Acute Renal Failure; chronic CKD - Upon Admission Cr. 4.6 - Cr 1.3 on 12/03 - Lisinopril and Lasix held initially as it could have be contributing to Acute Kidney Injury * Lisinopril 40mg PO daily * Amlodipine 5mg PO HS Alcoholic Liver Cirrhosis - Ammonia 29 (11/23) - Lactulose 20gm PO q12h Hypertension;chronic - improving - Lisinopril 40mg PO daily - Amlodipine 5mg PO HS - Hydralazine 10mg IVP q6h prn for SBP >160 Diabetes - ISS - increased from med to high dose - Accuchecks ACHS - Levemir 10 u HS (added on 12/03) PPX - Folic acid 1 mg PO daily - Multivitamin 1 tab PO daily - Thiamine 100mg PO daily - Potassium 40meq PO daily (takes at home) - on hold, today K+ 4.4 - PT DISPO: Patient came to ER from [facility], discharge patient back to [facility] however patient family does not like last rehab center and refuses to let him go back. Working with social work to get placed into different facility. The patient is stable for d/c as soon as [facility] is set up for patient. No update at this time. Case discussed with Dr. Fabiana Silvestre, PGY1
[2017-12-03] MEDS: Aritificial Tears (15ml) OD SCH (11:00)
[2017-12-03] MEDS: Pantoprazole 40 mg EC Tab PO SCH (11:00)
[2017-12-03] MEDS: Multiple Vitamins Tab PO SCH (11:00)
--- NOTE | 2017-12-03 15:18 | PN ---
DATE: LOCATION: Room 558, bed B. SUBJECTIVE: This is a 67-year-old male, seen and examined in rounds without significant clinical changes or reported active bleeding appear to be some confused with period of disorientation and being slightly agitated. No reported chest pain, palpitation, significant shortness of breath or evidence of active bleeding. The entire chart is reviewed including, but not limited to the most recent lab and radiology study results, current and previous medication list, current and previous medical events. The case discussed with the staff at length. Today's lab showed hemoglobin 10.1, hematocrit 31.4 with thrombocytopenia of 80. Blood glucose level 312, low albumin 2.7, low total protein 6.0. PHYSICAL EXAMINATION GENERAL: A 67-year-old male. VITAL SIGNS: Afebrile with pulse of 60, respiratory rate 20 to 22, blood pressure 156/86. HEENT: Shows pale dry oral mucous membrane. Nonicteric sclerae. LUNGS: Few scattered crepitation, decreased air entry at bases. HEART: Positive S1 and S2. ABDOMEN: Soft with mild generalized tenderness. No mass or organomegaly. No rebound tenderness or guarding. EXTREMITIES: With slight lower extremity edematous changes. No clubbing or cyanosis. It has to be mentioned that the patient reported difficulty to walk up for no specific reason. NEUROLOGIC: No reported new neurological deficits, sensory or motor. IMPRESSION: 1. Reported gastrointestinal bleeding, none recently. 2. Known history of hypertension, diabetes mellitus with renal insufficiency. 3. Anemia, most likely secondary to above. 4. Alcoholism with alcoholic liver disease. 5. Electrolyte imbalance. 6. Malnutrition with hypoalbuminemia, high proteinemia. 7. Mild change of mental status with confusion that could be secondary to mild hepatic encephalopathy. SUGGESTION: 1. Continue current management. 2. Follow up in ammonia level. 3. Neurology consult with CAT scan of the head. 4. Further recommendation to follow and the patient will need physical therapy. Tomime Edmonds MD
[2017-12-03] MEDS ORDERED: Insulin Detemir 100 units/ml Vial (Levemir) SC SCH (22:00)
[2017-12-04] MEDS: Sucralfate 1 gm/10 ml Oral Susp UD PO SCH ×3 (06:36→17:25)
[2017-12-04 08:00] LABS: BASO # 0.1 K/uL (0.0-0.2); BASO % 1.1 % (0.0-2.0); EOS # 0.5 K/uL (0.0-0.7); EOS % 6.4 % (0.0-4.0); HEMOGLOBIN 10.2 g/dL (12.0-18.0); LYMPH # 1.5 K/uL (1.0-4.3); MEAN CORPUSCULAR HEMOGLOBIN 27.9 pg (27.0-31.0); MEAN CORPUSCULAR HGB CONC 32.8 g/dL (33.0-37.0); MONO # 0.3 K/uL (0.0-0.8); MONO % 4.2 % (0.0-10.0); NEUT % 68.3 % (50.0-75.0); NRBC % 0.1 % (0.0-2.0); RBC 3.65 Mil/uL (4.40-5.90); RED CELL DISTRIBUTION WIDTH 20.5 % (11.5-14.5); WHITE BLOOD COUNT 7.4 K/uL (4.8-10.8)
[2017-12-04 08:23] LABS: ALB/GLOB RATIO 0.9 (1.0-2.1); ALBUMIN 2.8 g/dL (3.5-5.0); ALT/SGPT 36 U/L (21-72); AST/SGOT 51 U/L (17-59); BLOOD UREA NITROGEN 12 mg/dL (9-20); CALCIUM 9.2 mg/dl (8.6-10.4); GFR AFRICAN-AMERICAN > 60; GFR NON-AFRICAN AMERICAN 50
[2017-12-04] MEDS: (Novolin R) Insulin Human Regular 100 units/ml vial SC SCH ×3 (08:24→17:10)
[2017-12-04] MEDS: Pantoprazole 40 mg EC Tab PO SCH (10:03)
[2017-12-04] MEDS: Multiple Vitamins Tab PO SCH (10:03)
[2017-12-04] MEDS: Aritificial Tears (15ml) OD SCH (10:03)
[2017-12-04 15:35] VITALS: BP 136/68; PULSE 60; TEMP 97.2; O2SAT 96
--- NOTE | 2017-12-04 19:05 | CP.PCM.DIS ---
Provider - Provider Date of Admission: 11/20/17 05:35 Attending physician: Justin Jung Jr, MD Time Spent in preparation of Discharge (in minutes): 30 Hospital Course - Lab Results Lab Results: Micro Results 11/22/17 07:37 Naris MRSA Culture - Final MRSA NOT DETECTED 11/20/17 10:28 Stool Stool Culture - Final NO SALMONELLA, SHIGELLA OR CAMPYLOBACTER ISOLATED. 11/20/17 10:28 Stool Ova and Parasite Concentrate Exam - Final 11/20/17 19:45 Nose MRSA Culture (Admit) - Final MRSA NOT DETECTED Most Recent Lab Values WBC 7.4 K/uL (4.8-10.8) 12/04/17 07:45 RBC 3.65 Mil/uL (4.40-5.90) L 12/04/17 07:45 Hgb 10.2 g/dL (12.0-18.0) L 12/04/17 07:45 Hct 31.1 % (35.0-51.0) L 12/04/17 07:45 MCV 85.0 fL (80.0-94.0) 12/04/17 07:45 MCH 27.9 pg (27.0-31.0) 12/04/17 07:45 MCHC 32.8 g/dL (33.0-37.0) L 12/04/17 07:45 RDW 20.5 % (11.5-14.5) H 12/04/17 07:45 Plt Count 93 K/uL (130-400) L 12/04/17 07:45 MPV 9.0 fL (7.2-11.7) 12/04/17 07:45 Neut % (Auto) 68.3 % (50.0-75.0) 12/04/17 07:45 Lymph % (Auto) 20.0 % (20.0-40.0) 12/04/17 07:45 Chase % (Auto) 4.2 % (0.0-10.0) 12/04/17 07:45 Eos % (Auto) 6.4 % (0.0-4.0) H 12/04/17 07:45 Baso % (Auto) 1.1 % (0.0-2.0) 12/04/17 07:45 Neut # (Auto) 5.0 K/uL (1.8-7.0) 12/04/17 07:45 Lymph # (Auto) 1.5 K/uL (1.0-4.3) 12/04/17 07:45 Chase # (Auto) 0.3 K/uL (0.0-0.8) 12/04/17 07:45 Eos # (Auto) 0.5 K/uL (0.0-0.7) 12/04/17 07:45 Baso # (Auto) 0.1 K/uL (0.0-0.2) 12/04/17 07:45 Neutrophils % (Manual) 87 % (50-75) H 11/20/17 04:37 Band Neutrophils % 1 % (0-2) 11/20/17 04:37 Lymphocytes % (Manual) 7 % (20-40) L 11/20/17 04:37 Monocytes % (Manual) 4 % (0-10) 11/20/17 04:37 Eosinophils % (Manual) 1 % (0-4) 11/20/17 04:37 Differential Comment 11/28/17 08:23 Platelet Estimate Normal (NORMAL) 11/20/17 04:37 PT 15.2 SECONDS (9.7-12.2) H 11/27/17 08:00 INR 1.3 11/27/17 08:00 APTT 38 SECONDS (21-34) H 11/27/17 08:00 Sodium 140 mmol/L (132-148) 12/04/17 07:45 Potassium 4.4 mmol/L (3.6-5.2) 12/04/17 07:45 Chloride 107 mmol/L (98-107) 12/04/17 07:45 Carbon Dioxide 27 mmol/L (22-30) 12/04/17 07:45 Anion Gap 11 (10-20) 12/04/17 07:45 BUN 12 mg/dL (9-20) 12/04/17 07:45 Creatinine 1.4 mg/dL (0.8-1.5) 12/04/17 07:45 Est GFR ( Amer) > 60 12/04/17 07:45 Est GFR (Non-Af Amer) 50 12/04/17 07:45 POC Glucose (mg/dL) 411 mg/dL (65-110) H* 12/04/17 15:47 Random Glucose 240 mg/dL (75-110) H 12/04/17 07:45 Calcium 9.2 mg/dl (8.6-10.4) 12/04/17 07:45 Total Bilirubin 0.6 mg/dL (0.2-1.3) 12/04/17 07:45 AST 51 U/L (17-59) 12/04/17 07:45 ALT 36 U/L (21-72) 12/04/17 07:45 Alkaline Phosphatase 158 U/L (38-126) H 12/04/17 07:45 Ammonia 23 umol/L (9-33) 12/01/17 11:38 Total Protein 6.1 g/dL (6.3-8.3) L 12/04/17 07:45 Albumin 2.8 g/dL (3.5-5.0) L 12/04/17 07:45 Globulin 3.3 gm/dL (2.2-3.9) 12/04/17 07:45 Albumin/Globulin Ratio 0.9 (1.0-2.1) L 12/04/17 07:45 Urine Color Yellow (YELLOW) 11/20/17 14:05 Urine Clarity Hazy (Clear) 11/20/17 14:05 Urine pH 5.0 (5.0-8.0) 11/20/17 14:05 Ur Specific [place] 1.017 (1.003-1.030) 11/20/17 14:05 Urine Protein 2+ mg/dL (NEGATIVE) H 11/20/17 14:05 Urine Glucose (UA) 2+ mg/dL (Normal) H 11/20/17 14:05 Urine Ketones Trace mg/dL (NEGATIVE) 11/20/17 14:05 Urine Blood 2+ (NEGATIVE) H 11/20/17 14:05 Urine Nitrate Negative (NEGATIVE) 11/20/17 14:05 Urine Bilirubin Negative (NEGATIVE) 11/20/17 14:05 Urine Urobilinogen Normal mg/dL (0.2-1.0) 11/20/17 14:05 Ur Leukocyte Esterase 1+ [place]/uL (Negative) H 11/20/17 14:05 Urine WBC (Auto) 7 /hpf (0-5) H 11/20/17 14:05 Urine RBC (Auto) 16 /hpf (0-3) H 11/20/17 14:05 Ur Squamous Epith Cells 6 /hpf (0-5) H 11/20/17 14:05 Urine Bacteria Rare (<OCC) 11/20/17 14:05 Hyaline Casts 3-5 /lpf (0-2) H 11/20/17 14:05 Stool Occult Blood Negative (NEGATIVE) 11/22/17 21:21 Serum Ketones Small (NEGATIVE) 11/20/17 04:37 C. difficile Ag & Toxin (NEGATIVE) 11/20/17 09:00 Blood Type O POSITIVE 11/20/17 04:37 Antibody Screen Negative 11/20/17 04:37 - Hospital Course Hospital Course: As per admission documentation, Patient is a 66 year old male with ETOH abuse, ETOH pancreatitis, DM, HTN, who presents to the ED sent from the [facility] for vomiting. Patient is a poor historian and family is not at bedside. History obtained from ED physician. Patient vomited three times, the third time was described as brown, coffee ground emesis. Patient did not vomit while in the ED. Patient admits to vomiting and epigastric pain, otherwise has no other complaints. Patient denies chest pain, shortness of breath, nausea, fevers, and leg pain. Patient is awake and confused. Hospital Course, The patient was admitted to the ED from a residential on 11/20/17 for epigastric pain, nausea, vomiting coffee ground emesis. From history and as per the EMR, the patient was known to have a history of EtOH abuse. In the ED, labs were drawn for blood work, CXR imaging was ordered, EKG was performed, IV fluids were given, and IV Ondansetron and Pantoprazole were given. EKG revealed normal sinus rhythm and CXR was unremarkable. In the ED, the patient became hypotensive and hypothermic, Dr. Thomas from ICU was subsequency consulted and assessed the patient with dehydration and JANENE secondary to Lasix treatment at the residential. The patient was treated with IV fluids, antibiotics, and monitored for urine output. On 11/22/17, Dr. Katz from GI was consulted for the patients coffee-ground emesis and epigastric pain. Dr. Katz assessed the patient with recurrent upper GI blood loss secondary to erosive gastritis and reexacerbation of acute pancreatitis. The patient was put on Sucralfate P.O., PPI Iv, Reglan IV and monitored for labs and vitals. Over time, the patient was in and out of altered mental status (due to elevated ammonia levels) but slowly improved with Lactulose. His blood pressure was also high over night on several occasions and Hydralazine was administered to bring it down, although he was asymptomatic. On date of discharge, 12/04/17, the patient no longer complains of abdominal pain, denies N/V, is AAO x3, and has no other complaints. He is currently tolerating food and liquids. He is to be discharged to [facility] in [place] with medications for his current conditions including chronic CKD, alcoholic liver cirrhosis, DM, and HTN. Discharge instructions, Patient to be discharged to [facility]. Patient is to continue taking medications as previously directed by his primary care physician. Upon discharge from [facility], patient is to follow up with his PMD, Dr. Jnug, within 1-2 weeks. Patient is to follow up with Dr. Katz (GI), as needed. If any new or worsening symptoms, please go to the nearest emergency facility. This is a brief summary of the medical course, please see the medical records for a detailed course. - Constitutional Appears: Non-toxic, No Acute Distress - Head Exam Head Exam: ATRAUMATIC, NORMOCEPHALIC - Eye Exam Eye Exam: miosis - ENT Exam ENT Exam: Mucous Membranes Moist - Respiratory Exam Respiratory Exam: Clear to Ausculation Bilateral, NORMAL BREATHING PATTERN. absent: Accessory Muscle Use, Rales, Rhonchi, Wheezes, Respiratory Distress - Cardiovascular Exam Cardiovascular Exam: REGULAR RHYTHM, +S1, +S2 - GI/Abdominal Exam GI & Abdominal Exam: Soft, Normal Bowel Sounds. absent: Distended, Firm, Guarding, Rigid - Extremities Exam Extremities Exam: Normal Capillary Refill, Normal Inspection. absent: Calf Tenderness, Tenderness - Neurological Exam Neurological Exam: Alert, Awake, Oriented x3 Neuro motor strength exam: Left Upper Extremity: 5, Right Upper Extremity: 5, Left Lower Extremity: 5, Right Lower Extremity: 5 - Psychiatric Exam Psychiatric exam: Normal Mood - Skin Skin Exam: Dry, Warm Discharge Exam - Head Exam Head Exam: ATRAUMATIC, NORMOCEPHALIC Discharge Plan - Follow Up Plan Condition: FAIR Disposition: REHAB FACILITY/REHAB UNIT Instructions: Gastrointestinal Bleeding (DC), Acute Kidney Failure (DC) Additional Instructions: Patient to be discharged to [facility]. Patient is to continue taking medications as previously directed by his primary care physician. Upon discharge from [facility], patient is to follow up with his PMD, Dr. Jung, within 1-2 weeks. Patient is to follow up with Dr. Katz (GI), as needed. If any new or worsening symptoms, please go to the nearest emergency facility. Referrals: Tommie Katz [Staff Provider] - Justin Jung Jr., MD [Emergency Provider] -
== END 2017-12-04 19:30 | DRG 377 ==
LOC: SUPCPDRO 01:59 → C.ER 01:59 → C.9E 05:35 → C.9I 17:14 → C.5S 11-22 08:51
PROVIDERS: ADMIT Internal Medicine; ATTEND Internal Medicine
DX: K29.61 Other gastritis with bleeding (principal); K85.90 Acute pancreatitis without necrosis or infection, unspecified; N17.9 Acute kidney failure, unspecified; D61.818 Other pancytopenia; E46 Unspecified protein-calorie malnutrition; E87.2 Acidosis; E11.43 Type 2 diabetes mellitus with diabetic autonomic (poly)neuropathy; K31.84 Gastroparesis; B37.81 Candidal esophagitis; K57.92 Diverticulitis of intestine, part unspecified, without perforation or abscess without bleeding; K86.0 Alcohol-induced chronic pancreatitis; D69.59 Other secondary thrombocytopenia; E11.22 Type 2 diabetes mellitus with diabetic chronic kidney disease; E86.0 Dehydration; D50.0 Iron deficiency anemia secondary to blood loss (chronic); K52.9 Noninfective gastroenteritis and colitis, unspecified; K64.8 Other hemorrhoids; K70.30 Alcoholic cirrhosis of liver without ascites; K70.40 Alcoholic hepatic failure without coma; F10.20 Alcohol dependence, uncomplicated; I12.9 Hypertensive chronic kidney disease with stage 1 through stage 4 chronic kidney disease, or unspecified chronic kidney disease; E11.65 Type 2 diabetes mellitus with hyperglycemia; N18.9 Chronic kidney disease, unspecified; E77.8 Other disorders of glycoprotein metabolism; G31.2 Degeneration of nervous system due to alcohol; K25.9 Gastric ulcer, unspecified as acute or chronic, without hemorrhage or perforation; T50.1X5A Adverse effect of loop [high-ceiling] diuretics, initial encounter; Z79.4 Long term (current) use of insulin